=== PATIENT | female | born 1940 | race Caucasian/White ===

== ENCOUNTER → 2017-11-27 08:19 | Outpatient (POV) | payer MEDICARE, SELFPAY | PROVIDERS: Visit Provider Dermatology | DX: Z00.00 Encounter for general adult medical examination without abnormal findings (principal) ==

== ENCOUNTER → 2018-11-10 09:57 | Outpatient (POV) | payer MEDICARE, SELFPAY | PROVIDERS: Visit Provider Dermatology | DX: Z00.00 Encounter for general adult medical examination without abnormal findings (principal) ==

== ENCOUNTER → 2020-06-06 13:18 | Outpatient (POV) | payer MEDICARE, SELFPAY | PROVIDERS: PCP Family Medicine; Visit Provider Dermatology | DX: Z00.00 Encounter for general adult medical examination without abnormal findings (principal) ==

== ENCOUNTER → 2021-09-11 13:21 | Outpatient (POV) | payer MEDICARE, SELFPAY | PROVIDERS: Visit Provider Dermatology | DX: Z00.00 Encounter for general adult medical examination without abnormal findings (principal) ==

== ENCOUNTER → 2022-11-29 09:05 | Outpatient (CLI) | payer MEDICARE, SELFPAY ==
--- NOTE | 2022-11-29 09:11 | XR_ITS ---
FINAL REPORT CLINICAL HISTORY: SHORTNESS OF BREATH FINDINGS: TWO-VIEW CHEST There is cardiomegaly. The mediastinum is normal. The lungs are clear. There is no pneumothorax. There are moderate degenerative changes of the spine. IMPRESSION: No acute cardiopulmonary process. Reviewed, Interpreted and Dictated by Juan Strange III, MD Transcribed by Jeni Warner Authenticated and [facility]
== END ==
PROVIDERS: PCP Family Medicine; Visit Provider Family Medicine
DX: R06.02 Shortness of breath (principal)
CPT/HCPCS: 71046

== ENCOUNTER → 2023-03-25 13:36 | Outpatient (POV) | payer MEDICARE, SELFPAY | PROVIDERS: Visit Provider Dermatology | DX: Z00.00 Encounter for general adult medical examination without abnormal findings (principal) ==

== ENCOUNTER 2023-09-19 09:12 | Emergency (ER) | payer MEDICARE, SELFPAY ==
--- NOTE | 2023-09-19 09:23 | EXP.UTC ---
Discharge Plan Disposition Patient Disposition: Home, Self-Care Condition: Good Prescriptions Prescriptions: New amoxicillin [amoxicillin] 875 mg tablet 875 mg PO Q12H Qty: 20 0RF benzonatate [benzonatate] 100 mg capsule 100 mg PO TIDP PRN (Reason: Cough) Qty: 30 0RF methylprednisolone 4 mg Tablets,Dose Pack 4 mg PO DIRECTED Qty: 21 0RF guaifenesin [Mucinex] 600 mg tablet extended release 12hr 600 - 1,200 mg PO BIDP PRN (Reason: Congestion) Qty: 30 0RF No Action latanoprost 0.005 % drops 1 drp ophthalmic (eye) DAILY atorvastatin 10 mg tablet 10 mg PO DAILY lisinopril 10 mg tablet 10 mg PO DAILY Referrals Follow up/Referrals: Malaika Castrejon MD [Primary Care Provider] - See instructions Activity Restrictions/Add. Instructions Additional Instructions/Restrictions: Drink plenty of fluids. Take tylenol or ibuprofen for pain or fever. Take the medications as directed. Follow up with your regular doctor. GO TO THE ER FOR ANY WORSENING SYMPTOMS Clinical Impressions Clinical Impression: Bronchitis, Sinusitis Instructions Patient Instructions: Acute Bronchitis, DI for Acute Bronchitis Discharge ED Provider: Jeet Caputo [facility] General Stated complaint: deep cough, runny nose Time Seen by Provider: 09/19/23 09:23 Related Data Home Medications Medication Instructions Recorded Confirmed atorvastatin 10 mg tablet 10 mg PO DAILY Cholesterol 09/19/23 09/19/23 latanoprost 0.005 % eye drops 1 drp ophthalmic (eye) DAILY 09/19/23 09/19/23 lisinopril 10 mg tablet 10 mg PO DAILY Hypertension 09/19/23 09/19/23 Previous Rx's Medication Instructions Recorded amoxicillin 875 mg tablet 875 mg PO Q12H #20 tabs 09/19/23 benzonatate 100 mg capsule 100 mg PO TIDP PRN Cough #30 caps 09/19/23 guaifenesin 600 mg tablet, 600 - 1,200 mg PO BIDP PRN 09/19/23 extended release 12 hr (Mucinex) Congestion #30 tabs methylprednisolone 4 mg tablets in 4 mg PO DIRECTED #21 tabs 09/19/23 a dose pack Allergies Allergy/AdvReac Type Severity Reaction Status Date / Time No Known Allergies Allergy Verified 09/19/23 09:23 [facility] Disclaimer: The information contained in this section may have been updated after the patient was seen, as this information can be updated by other users. Medical History (Updated 09/19/23 @ 09:48 by Jeet Caputo APRN) History of anemia Hyperlipidemia Hypertension Migraine Urinary tract infection Surgical History (Updated 09/19/23 @ 09:33 by Lolly Goldstein RN) History of back surgery History of tonsillectomy History of tubal ligation Social History Smoking Status: Never smoker alcohol intake: never current occupational status: retired Travel in the last 8 weeks: None ROS Obtained: Yes All systems reviewed & no additional complaints except as documented Constitutional Constitutional: Reports poor appetite Eyes Eyes: Reports system reviewed and no additional complaints, except as documented ENT Ears, Nose, Mouth, and Throat: Reports as per HPI Cardiovascular Cardiovascular: Reports system reviewed and no additional complaints, except as documented and Denies chest pain Respiratory Respiratory: Denies shortness of breath, Reports chest congestion, Reports cough, Denies stridor and Denies wheezing Gastrointestinal Gastrointestingal: Reports system reviewed and no additional complaints, except as documented; Denies abdominal pain, diarrhea or vomiting Musculoskeletal Musculoskeletal: Reports system reviewed and no additional complaints, except as documented and Denies arthralgias Integumentary/Breasts Skin/Breast: Reports system reviewed and no additional complaints, except as documented and Denies rash Neurologic Neurologic: Denies paresthesias Allergic/Immunologic Allergic/Immunologic: Denies wheezing Physical Exam General General appearance: alert and in no apparent distress Eye Eye exam: Present no
[2023-09-19 09:25] VITALS: BP 149/70; PULSE 75; RESP 19; TEMP 36.8; O2SAT 98; BMI 23.0
[2023-09-19 09:36] VITALS: BP 149/70; PULSE 75; RESP 19; TEMP 36.8; O2SAT 98
== END 2023-09-19 09:54 | disposition home or self-care (01) ==
PROVIDERS: Emergency Provider Nurse Practitioner Family; PCP Family Medicine
DX: J20.9 Acute bronchitis, unspecified (principal); J01.90 Acute sinusitis, unspecified; R05.9 Cough, unspecified; R09.81 Nasal congestion; I10 Essential (primary) hypertension; E78.5 Hyperlipidemia, unspecified
CPT/HCPCS: 99204; 99212; G0463

== ENCOUNTER 2023-11-03 19:41 | Emergency (ER) | payer MEDICARE, SELFPAY ==
[2023-11-03 20:30] VITALS: BP 194/87; PULSE 78; RESP 14; O2SAT 97; BMI 23.6
--- NOTE | 2023-11-03 20:37 | XR_ITS ---
PROCEDURE INFORMATION: Exam: XR Right Forearm Exam date and time: 11/03/2023 8:53 PM Age: 83 years old Clinical indication: Pain; Lower or forearm; Right; Additional info: Fall; R hand/wrist pain TECHNIQUE: Imaging protocol: Radiologic exam of the right forearm. Views: 2 views. COMPARISON: CR XR WRIST RT MIN 3V 11/03/2023 8:51 PM FINDINGS: Bones/joints: Normal. Soft tissues: Normal. IMPRESSION: No acute findings.
--- NOTE | 2023-11-03 20:37 | XR_ITS ---
PROCEDURE INFORMATION: Exam: XR Right Hand Exam date and time: 11/03/2023 8:49 PM Age: 83 years old Clinical indication: Pain; Hand; Right; Additional info: Fall; R pinky pain TECHNIQUE: Imaging protocol: Radiologic exam of the right hand. Views: 3 or more views. COMPARISON: No relevant prior studies available. FINDINGS: Bones/joints: Transversely oriented minimally displaced fracture of the base of the 5th proximal phalanx. No additional acute fracture or dislocation. Chronic fracture deformity involving the 5th metacarpal. Soft tissues: Normal. IMPRESSION: Transversely oriented minimally displaced fracture of the base of the 5th proximal phalanx.
--- NOTE | 2023-11-03 20:37 | XR_ITS ---
PROCEDURE INFORMATION: Exam: XR Right Wrist Exam date and time: 11/03/2023 8:51 PM Age: 83 years old Clinical indication: Pain; Wrist; Right; Additional info: Fall; R hand/wrist pain TECHNIQUE: Imaging protocol: Radiologic exam of the right wrist. Views: 3 or more views. COMPARISON: CR XR HAND RT MIN 3V 11/03/2023 8:49 PM FINDINGS: Bones/joints: Transversely oriented minimally displaced fracture of the base of the 5th proximal phalanx. No additional fracture or dislocation Soft tissues: Normal. IMPRESSION: Transversely oriented minimally displaced fracture of the base of the 5th proximal phalanx.No additional fracture or dislocation
--- NOTE | 2023-11-03 20:46 | CT_ITS ---
PROCEDURE INFORMATION: Exam: CT Head Without Contrast Exam date and time: 11/03/2023 8:55 PM Age: 83 years old Clinical indication: Pain; Other: Fall; Additional info: Fall head trauma TECHNIQUE: Imaging protocol: Computed tomography of the head without contrast. Radiation optimization: All CT scans at this facility use at least one of these dose optimization techniques: automated exposure control; mA and/or kV adjustment per patient size (includes targeted exams where dose is matched to clinical indication); or iterative reconstruction. COMPARISON: No relevant prior studies available. FINDINGS: Brain: Atrophy and chronic small vessel ischemic changes. No hemorrhage. No mass effect or midline shift. Cerebral ventricles: No ventriculomegaly. Paranasal sinuses: Visualized sinuses are unremarkable. No fluid levels. Mastoid air cells: Visualized mastoid air cells are well aerated. Bones/joints: Unremarkable. No acute fracture. Soft tissues: Unremarkable. IMPRESSION: Chronic changes in the brain but no acute intracranial abnormality.
--- NOTE | 2023-11-03 21:09 | ED_ITS ---
Discharge Plan Disposition Patient Disposition: Home, Self-Care Prescriptions Prescriptions: No Action latanoprost 0.005 % drops 1 drp ophthalmic (eye) DAILY atorvastatin 10 mg tablet 10 mg PO DAILY lisinopril 10 mg tablet 10 mg PO DAILY amoxicillin [amoxicillin] 875 mg tablet 875 mg PO Q12H Qty: 20 0RF benzonatate [benzonatate] 100 mg capsule 100 mg PO TIDP PRN (Reason: Cough) Qty: 30 0RF methylprednisolone 4 mg Tablets,Dose Pack 4 mg PO DIRECTED Qty: 21 0RF guaifenesin [Mucinex] 600 mg tablet extended release 12hr 600 - 1,200 mg PO BIDP PRN (Reason: Congestion) Qty: 30 0RF Referrals Follow up/Referrals: Malaika Castrejon MD [Primary Care Provider] - See instructions Lance Linda DO [Staff Physician] - See instructions Activity Restrictions/Add. Instructions Additional Instructions/Restrictions: Please keep splint clean, dry, intact. Please follow-up with Dr. Linda in orthopedic surgery. Please follow-up with your primary care provider. Please return to the emergency department if you develop any new or worsening symptoms or become concerned for your health. Clinical Impressions Clinical Impression: Finger fracture, right Qualifiers: Encounter type: initial encounter Finger: little finger Fracture type: closed Phalanx: proximal Fracture alignment: displaced Qualified Code(s): S62.616A - Displaced fracture of proximal phalanx of right little finger, initial encounter for closed fracture Discharge ED Provider: Enrique Bajwa General Adult HPI General Chief complaint: Extremity Injury, Upper Stated complaint: AO 11/03/231929 injury right hand Time Seen by Provider: 11/03/23 20:46 Mode of Arrival: Ambulatory Source of Information: Patient Limitations: No Limitations Description of Symptoms (Recalled from ER Triage Doc. by RN): pt states she was walking outside around 1929. When she tried to step up to the side walk she missed the step and fell on the R side of her body. pt denies usage of blood thinners. pt c/o R hand/wrist pain. there is minimal swelling to her R pinky. pt states the pain is 8/10. no obvious deformity. pt states she hit the R side of her head near her mandaen. Pt does not want worked up for her head. no LOC. History of Present Illness HPI narrative: 83-year-old female, not on blood thinners, presents after trip and fall from standing. She fell and landed striking her right hand. She also struck her right mandaen region. She reports no headache, vision changes or any other significant head trauma. She reports pain in her right fifth digit and the hand. Reports decreased movement of the fifth digit. She reports that she is not at all concerned that she hurt her head. She reports she is not all concerned that she hurt her neck. She reports no neck pain or tenderness. Related Data Home Medications Medication Instructions Recorded Confirmed atorvastatin 10 mg tablet 10 mg PO DAILY Cholesterol 09/19/23 09/19/23 latanoprost 0.005 % eye drops 1 drp ophthalmic (eye) DAILY 09/19/23 09/19/23 lisinopril 10 mg tablet 10 mg PO DAILY Hypertension 09/19/23 09/19/23 Previous Rx's Medication Instructions Recorded amoxicillin 875 mg tablet 875 mg PO Q12H #20 tabs 09/19/23 benzonatate 100 mg capsule 100 mg PO TIDP PRN Cough #30 caps 09/19/23 guaifenesin 600 mg tablet, 600 - 1,200 mg PO BIDP PRN 09/19/23 extended release 12 hr (Mucinex) Congestion #30 tabs methylprednisolone 4 mg tablets in 4 mg PO DIRECTED #21 tabs 09/19/23 a dose pack Allergies Allergy/AdvReac Type Severity Reaction Status Date / Time No Known Allergies Allergy Verified 11/03/23 20:39 [facility] Disclaimer: The information contained in this section may have been updated after the lauraraymond nt was seen, as this information can be updated by other users. Medical History (Updated 11/03/23 @ 23:33 by Enrique Bajwa MD) History of anemia Hyperlipidemia Hypertension Migraine Urinary tract infection Surgical History (Updated 09/19/23 @ 09:33 by Lolly Goldstein RN) History of back surgery History of tonsillectomy History of tubal ligation Social History (Updated 09/22/23 @ 15:40 by Jeet Caputo APRN) Smoking Status: Never smoker alcohol intake: never current occupational status: retired Travel in the last 8 weeks: None ROS Obtained: Yes All systems reviewed & no additional complaints except as documented Physical Exam General General appearance: alert and in no apparent distress Head Head exam: atraumatic and normocephalic Eye Eye exam: Present normal appearance, PERRL and EOMI ENT ENT exam: Present normal oropharynx and normal external ear exam Neck Neck exam: Present normal inspection and full ROM Chest Chest inspection: Present normal inspection and symmetric chest wall rise; Absent tenderness Respiratory Respiratory exam: Present normal lung sounds bilaterally; Absent respiratory distress Cardiovascular Cardiovascular exam: Present regular rate and normal rhythm Abdominal Exam Abdominal exam: Present soft; Absent distention, tenderness or guarding Extremities Exam Extremities exam: Present other (Bruising and significant tenderness over the fifth MCP and fifth digit. It is mildly internally rotated. Decreased range of motion noted though tendon exam is intact. Normal neurovascular exam.) Back Exam Back exam: Present normal inspection; Absent tenderness Neurological Exam Neurological exam: Present alert and oriented X3; Absent motor sensory deficit Psychiatric Psychiatric exam: Present normal affect and normal mood Skin Skin exam: Present warm, dry and normal color Lymphatic Lymphatic Findings: no adenopathy Medical Decision Making Medical Records Medical records reviewed: Yes I reviewed the patient's medical records. Tae Inquiry Pt receiving controlled substance: No Tae was queried for this patient: No Vital Signs: 11/03/23 20:30 11/03/23 23:46 Temperature 98 F Pulse Rate 70 Pulse Rate [Left] 78 Respiratory Rate 14 14 Blood Pressure 157/78 H Blood Pressure [Right Arm] 194/87 H Blood Pressure Mean [Right Arm] 122 Blood Pressure Source [Right Arm] Automatic Cuff Blood Pressure Position [Right Arm] Sitting 02 Sat by Pulse Oximetry 97 Oxygen Delivery Method Room Air Lab Data Lab results reviewed: Yes I reviewed the patient's lab results. Orders (Tests/Meds): ED MEDICATIONS Discontinued Medications Generic Name Dose Route Start Last Admin Trade Name Josq PRN Reason Stop Dose Admin Acetaminophen 1,000 mg 11/03/23 22:56 11/03/23 23:01 Acetaminophen 500mg Tab PO 11/03/23 22:57 1,000 mg ONCE ONE Administration Ibuprofen 400 mg 11/03/23 22:56 11/03/23 23:02 Ibuprofen 400 Mg Tablet PO 11/03/23 22:57 400 mg ONCE ONE Administration Oxycodone HCl 5 mg 11/03/23 22:55 11/03/23 23:02 Oxycodone 5mg Immediate Release Tablet PO 11/03/23 22:56 5 mg ONCE ONE Administration ORDERS Category Date Time Status CT head/brain wo con Stat Cat Scan 11/03/23 20:46 Completed Forearm XR right 2 views [XR forearm RT 2V] Stat Exams 11/03/23 20:37 Completed Hand XR right minimum 3 views [XR hand RT min 3V] Stat Exams 11/03/23 23:12 Completed XR hand RT min 3V Stat Exams 11/03/23 20:37 Completed XR wrist RT min 3V Stat Exams 11/03/23 20:37 Completed Medical Decision Narrative: 83-year-old female history of hypertension hyperlipidemia presents with fall from standing, mechanical, reports right hand pain, struck her head, did not lose consciousness. History was obtained via conversation with patient, family. On arrival, patient is [afebrile, hemodynamically stable, satting appropriately, alert, oriented x4, GCS 15], moving all extremities spontaneously. Full physical exam performed and significant for findings of the right hand as above, concern for mild malrotation of the finger. No head trauma, no neck pain or tenderness, no pain with range of motion of the neck Differential includes but is not limited to intracranial trauma, Extremity trauma Patient was given Tylenol, ibuprofen, oxycodone for symptomatic management and correction of underlying abnormalities. Workup initiated including CT head, radiographs of the right hand, wrist, forearm. On re-evaluation, patient [remains afebrile, HD stable.] Imaging independently interpreted by me and significant for no acute intracranial bleeding or trauma. Radiograph shows a mildly displaced right proximal phalanx fracture of the fifth digit. See radiology read for full review of final results. Hematoma block of the fracture was performed, fracture was reduced and splinted at bedside in an ulnar gutter by me. Repeat imaging interpreted by me and significant for improved alignment. Patient instructed to follow-up with Dr. Linda for reassessment. Discharged in stable condition. Given patient history, exam and workup, patient's presentation most likely represents fall with acute mildly displaced fracture of the right fifth proximal phalanx.. Procedures Risk/Benefits of Procedure(s) Were Explained: Yes Nerve Block Nerve Block 1: Time out performed: No Local Anesthetic: lidocaine 1% Amount of anesthesia used (mL): 3 Side: Right Nerve Blocks: digital (Right fifth digit) Procedure Successful: Yes Patient Tolerated Procedure: well and no complications Complications: none Orthopedic Fracture Reduction Fracture #1: Side: right Fracture Reduction Location: finger (Fifth proximal phalanx) Analgesia: nerve block Technique: direct manipulation Post Reduction X-rays Demonstrate: acceptable reduction Post-reduction neuro exam: no change Post-reduction vascular exam: no change Splint Applied: Yes (Ulnar gutter splint applied at bedside by me) Patient Tolerated Procedure: well and no complications Additional Comments: I provided the patient definitive fracture care. Orthopedic Splinting/Casting Injury #1: Side: right Upper Extremity Injury Location: finger Upper Extremity Immobilizer: ulnar gutter Post Cast/Splinting Neuro Status: intact and no change Post Cast/Splinting Vasc Status: intact and no change Critical Care Critical Care Time Critical Care Time: No
[2023-11-03] MEDS: ACETAMINOPHEN 500MG TAB 1000 MG PO (23:01)
[2023-11-03] MEDS: IBUPROFEN 400 MG TABLET PO (23:02)
[2023-11-03] MEDS: OXYCODONE 5MG IMMEDIATE RELEASE TABLET 5 MG PO (23:02)
--- NOTE | 2023-11-03 23:12 | XR_ITS ---
PROCEDURE INFORMATION: Exam: XR Right Hand Exam date and time: 11/03/2023 11:16 PM Age: 83 years old Clinical indication: Pain; Hand; Right; Additional info: Reduction TECHNIQUE: Imaging protocol: Radiologic exam of the right hand. Views: 3 or more views. COMPARISON: CR XR HAND RT MIN 3V 11/03/2023 8:49 PM FINDINGS: Bones/joints: Transversely oriented minimally displaced fracture of the base of the 5th proximal phalanx with improved alignment. No additional fracture or dislocation Soft tissues: Overlying splint. IMPRESSION: Transversely oriented minimally displaced fracture of the base of the 5th proximal phalanx with improved alignment
[2023-11-03 23:46] VITALS: BP 157/78; PULSE 70; RESP 14; TEMP 36.6; O2SAT 98
== END 2023-11-03 23:47 | disposition home or self-care (01) ==
PROVIDERS: Emergency Provider Emergency Medicine; PCP Family Medicine
DX: S62.616A Displaced fracture of proximal phalanx of right little finger, initial encounter for closed fracture (principal); I10 Essential (primary) hypertension; E78.5 Hyperlipidemia, unspecified; W10.1XXA Fall (on)(from) sidewalk curb, initial encounter
CPT/HCPCS: 26725; 64450; 70450; 73090; 73110; 73130; 99285

== ENCOUNTER 2023-11-13 13:43 | Outpatient (CLI) | payer MEDICARE, SELFPAY ==
--- NOTE | 2023-11-13 13:47 | XR_ITS ---
FINAL REPORT CLINICAL HISTORY: rt hand pain fall, fx 1 week fx to 5th proximal phalanx per patient COMPARISON: 11/03/2023 FINDINGS: RIGHT HAND: 3 views of the right hand were obtained. A splint is present on the ulnar aspect of the hand which somewhat obscures detail. There is a fracture of the base of the proximal phalanx, oblique in orientation, which extends into the joint space. This was also seen on the prior exam of November 03. There is questionable palmar subluxation of the distal fracture fragment. Mild degenerative change is present in the remainder of the hand. Soft tissues are unremarkable. IMPRESSION: Splint somewhat obscures detail on the ulnar side of the hand. Fracture base of the proximal phalanx, extending into the joint space, with questionable palmar subluxation of the distal fracture fragment. Reviewed, Interpreted and Dictated by Juan Strange III, MD Transcribed by Leanne Marie Authenticated and [facility]
== END 2023-11-13 23:59 ==
LOC: RAD 13:44
PROVIDERS: PCP Family Medicine; Visit Provider Orthopaedic Surgery
DX: S62.646D Nondisplaced fracture of proximal phalanx of right little finger, subsequent encounter for fracture with routine healing (principal); W01.0XXD Fall on same level from slipping, tripping and stumbling without subsequent striking against object, subsequent encounter
CPT/HCPCS: 73130

== ENCOUNTER 2024-05-03 11:46 | Emergency (ER) | payer MEDICARE, SELFPAY ==
[2024-05-03 12:10] VITALS: BP 147/120; PULSE 82; RESP 20; TEMP 36.9; O2SAT 97; BMI 23.6
[2024-05-03 12:29] VITALS: BP 133/74
--- NOTE | 2024-05-03 12:29 | EXP.UTC ---
Discharge Plan Disposition Patient Disposition: Home, Self-Care Condition: Good Prescriptions Prescriptions: New methylprednisolone [Medrol (Karl)] 4 mg tablets,dose pack See Rx Instructions .Route .COMPLEX 6 Days Qty: 21 0RF Rx Instructions: taper pack; cefdinir 300 mg capsule 300 mg PO BID Qty: 14 0RF No Action atorvastatin 10 mg tablet 10 mg PO DAILY lisinopril 10 mg tablet 10 mg PO DAILY Referrals Follow up/Referrals: Malaika Castrejon MD [Primary Care Provider] - See instructions Activity Restrictions/Add. Instructions Additional Instructions/Restrictions: *Monitor Temp, Over the counter Motrin or Tylenol as directed/as needed Tylenol every 4 hours and Motrin every 6 hours (as long as your family doctor has told you that you can take it) for fever or pain. and straight to ER if unable to lower temp less than 101.0 after medication given *Warm salt water gargles may help to soothe the throat *Throat Lozenges? *Warm fluids like tea with honey may help to soothe the throat? *Sleep elevated *Humidifier/Vaporizer *Flonase 2 sprays in each nostril daily but be aware that it may take 2-3 days before you notice improvement *Bromfed may cause drowsiness. Know how it effects you (your child) before driving, caring for small child, or sending your child to school. Not other antihistamines/allergy medications while taking bromfed Your throat swab was sent for culture. Those results are typically sent to your primary care. Be sure to follow up in 2-3 days with your family doctor/primary care physician if no improvement so they can review those result and treat if necessary. If you don?t have a primary care doctor, I recommend you get one but in the mean time, you will have to return to a walk in clinic Follow up IMMEDIATELY for new or worsening symptoms or no Noticeable improvement over the next 48-72 hours. 911 for difficulty breathing or swallowing Clinical Impressions Clinical Impression: Sinusitis Instructions Patient Instructions: DI for Sinusitis, Sinusitis Discharge ED Provider: Elizabeth Romeo [facility] General Stated complaint: dripping nose, cough, no energy, acid reflux Mode of Arrival: Ambulatory Source of Information: Patient Limitations: No Limitations Time Seen by Provider: 05/03/24 12:29 Description of Symptoms (Recalled from Triage Doc. by RN): PATIENT C/O RUNNY NOSE, SNEEZING, NO APPETITE, LOW ENERGY X 2 DAYS HEENT Symptoms (Recalled from RN notes): Yes Resp Symptoms (Recalled from RN notes): No Skin Symptoms (Recalled from RN notes): No MS Symptoms (Recalled from RN notes): No Functional Status (Recalled from RN notes): WNL History of Present Illness Provider Complaint: Patient states that she has been having sinus congestion and pressure under her eyes and in her jew area, states that she feels like she is having drainage in the back of her throat and making her stomach upset States that she hasnt had much of an appetite States that she feels like she has a sinus infection but family wanted her to get tested for COVID Related Data Home Medications Medication Instructions Recorded Confirmed atorvastatin 10 mg tablet 10 mg PO DAILY Cholesterol 09/19/23 05/03/24 lisinopril 10 mg tablet 10 mg PO DAILY Hypertension 09/19/23 05/03/24 Previous Rx's Medication Instructions Recorded cefdinir 300 mg capsule 300 mg PO BID #14 caps 05/03/24 methylprednisolone 4 mg tablets in See Rx Instructions .Route 05/03/24 a dose pack (Medrol (Karl)) .COMPLEX 6 days #21 tabs Allergies Allergy/AdvReac Type Severity Reaction Status Date / Time No Known Allergies Allergy Verified 11/13/23 14:17 Worker's Comp Is this a Worker's Comp case?: No [facility] Disclaimer: The information contained in this section may have been updated after the patient was seen, as this information can be updated by other users. Medical History History of anemia Hyperlipidemia Hypertension Migraine Urinary tract infection Surgical History History of back surgery History of tonsillectomy History of tubal ligation Social History Smoking Status: Never smoker alcohol intake: never current occupational status: retired Travel in the last 8 weeks: None ROS Obtained: Yes All systems reviewed & no additional complaints except as documented and Yes Systems reviewed as appropriate & no additional complaints except as documented Constitutional Constitutional: Reports system reviewed and no additional complaints, except as documented, Reports as per HPI and Reports headache(s) ENT Ears, Nose, Mouth, and Throat: Reports system reviewed and no additional complaints, except as documented, Reports as per HPI, Reports headache(s), Reports sinus pain and Reports sinus pressure Cardiovascular Cardiovascular: Reports system reviewed and no additional complaints, except as documented and Reports as per HPI Respiratory Respiratory: Reports system reviewed and no additional complaints, except as documented and Reports as per HPI Gastrointestinal Gastrointestingal: Reports system reviewed and no additional complaints, except as documented, as per HPI and nausea Genitourinary Female Genitourinary: Reports system reviewed and no additional complaints, except as documented and Reports as per HPI Musculoskeletal Musculoskeletal: Reports system reviewed and no additional complaints, except as documented and Reports as per HPI Neurologic Neurologic: Reports headache(s) Physical Exam General General appearance: alert and in no apparent distress ENT ENT exam: Present mucous membranes moist Expanded ENT Exam Nose exam: Present sinus tenderness Throat exam: Present other (PND noted) Respiratory Respiratory exam: Present normal lung sounds bilaterally; Absent respiratory distress or wheezes Cardiovascular Cardiovascular exam: Present regular rate, normal rhythm and normal heart sounds Neurological Exam Neurological exam: Present alert, oriented X3 and normal gait Medical Decision Making Tae Inquiry Pt receiving controlled substance: No Tae was queried for this patient: No Vital Signs: 05/03/24 12:10 05/03/24 12:29 Temperature 98.4 F Temperature Source Oral Pulse Rate [Left Brachial] 82 Respiratory Rate 20 Blood Pressure [Left Arm] 147/120 H 133/74 Blood Pressure Mean [Left Arm] 129 93 Blood Pressure Source [Left Arm] Automatic Cuff Automatic Cuff Blood Pressure Position [Left Arm] Sitting Sitting 02 Sat by Pulse Oximetry 97 Oxygen Delivery Method Room Air Medical Decision Narrative: Medication discussed with pharmacy
[2024-05-03 12:50] VITALS: BP 133/74; PULSE 82; RESP 20; TEMP 36.9; O2SAT 97
[2024-05-03 13:05] LABS: Coronavirus 19, PCR Not Detected (NotDetected); Influenza A, PCR Not Detected (NotDetected); Influenza B, PCR Not Detected (NotDetected)
== END 2024-05-03 13:02 | disposition home or self-care (01) ==
PROVIDERS: Emergency Provider Nurse Practitioner; PCP Family Medicine
DX: J01.90 Acute sinusitis, unspecified (principal); R09.82 Postnasal drip; R11.0 Nausea
CPT/HCPCS: 87636; 99212; 99214; G0463

== ENCOUNTER 2024-05-11 09:05 | Outpatient (CLI) | payer MEDICARE, SELFPAY ==
--- NOTE | 2024-05-11 09:13 | XR_ITS ---
FINAL REPORT CLINICAL HISTORY: .left shoulder and neck pain FINDINGS: Five views of the cervical spine were obtained. No fracture is identified. There is minimal anterolisthesis of C4 on 5, likely degenerative. There is multilevel degenerative disc disease, most pronounced at C5-6 and C6-7. IMPRESSION: Multilevel degenerative disc disease. Reviewed, Interpreted and Dictated by Elizabeth Hall MD Transcribed by Jeni Warner Authenticated and [facility]
--- NOTE | 2024-05-11 09:13 | XR_ITS ---
FINAL REPORT CLINICAL HISTORY: LEFT SHOULDER PAIN, FINDINGS: Three views of the left shoulder were obtained. There is no prior exam for comparison. There is no fracture or dislocation. The joint space is preserved. Soft tissues are normal. IMPRESSION: No acute osseous abnormality of the left shoulder. Reviewed, Interpreted and Dictated by Elizabeth Hall MD Transcribed by Jeni Warner Authenticated and [facility]
== END 2024-05-11 23:59 | disposition home or self-care (01) ==
LOC: RAD 09:07
PROVIDERS: PCP Family Medicine; Visit Provider Family Medicine
DX: M25.512 Pain in left shoulder (principal)
CPT/HCPCS: 72050; 73030

== ENCOUNTER 2024-05-31 08:49 | Outpatient (CLI) | payer MEDICARE, SELFPAY ==
--- NOTE | 2024-05-31 08:53 | XR_ITS ---
FINAL REPORT TECHNIQUE: Bone densitometry calculations of the lumbar spine and left hip were obtained. CLINICAL HISTORY: SCREENING COMPARISON: None FINDINGS: Using the, the bone mineral density of the left forearm is 0.366 g/cm2, corresponding to T-score of -5.5. Using the left hip, the bone mineral density of the femoral neck is 0.633 g/cm2, corresponding to a T-score of -2.6. NOTE: T-score: Standard deviation compared with peak bone mass of young adult mean. *Following the recommendations of the International Society of Bone Densitometry, classification of hip BMD is based on the lower of two T-scores; total hip or femoral neck. IMPRESSION: Osteoporosis: Lowest T-score is at or below -2.5. This patient''s T-score meets the World Health Organization criteria for osteoporosis. Reviewed, Interpreted and Dictated by Juan Strange III, MD Transcribed by Leanne Marie Authenticated and [facility]
== END 2024-05-31 23:59 | disposition home or self-care (01) ==
LOC: RAD 08:49
PROVIDERS: PCP Family Medicine; Visit Provider Family Medicine
DX: M81.0 Age-related osteoporosis without current pathological fracture (principal)
CPT/HCPCS: 77080

== ENCOUNTER 2024-06-22 11:00 | Outpatient (RCR) | payer MEDICARE, SELFPAY | END 2024-06-22 11:05 | disposition home or self-care (01) | LOC: OT 11:00 | PROVIDERS: Visit Provider Family Medicine | DX: M25.512 Pain in left shoulder (principal); M50.30 Other cervical disc degeneration, unspecified cervical region | CPT/HCPCS: 97014; 97110; 97140; 97166; 97530; G0283 ==

== ENCOUNTER 2024-07-01 08:00 | Outpatient (RCR) | payer MEDICARE, SELFPAY | END 2024-07-01 08:05 | disposition home or self-care (01) | LOC: PT 08:00 | PROVIDERS: Visit Provider Family Medicine | DX: M50.30 Other cervical disc degeneration, unspecified cervical region (principal); M25.512 Pain in left shoulder | CPT/HCPCS: 97110; 97140; 97163; 97164 ==

== ENCOUNTER 2024-07-20 08:27 | Outpatient (CLI) | payer MEDICARE, SELFPAY ==
[2024-07-20 08:45] VITALS: BP 143/81; PULSE 78; RESP 16; TEMP 36.6; O2SAT 99
[2024-07-20] MEDS: ZOLEDRONIC ACID/MANNITOL-WATER 5 MG/100 ML PGGYBK.BTL 400 MG IV (08:45)
[2024-07-20] MEDS: SODIUM CHLORIDE 0.9% 50ML BAG 50 ML IV (08:46)
[2024-07-20] MEDS: SODIUM CHLORIDE 0.9% 10ML FLUSH SYRINGE 10 ML IV (08:54)
[2024-07-20 09:12] VITALS: BP 124/63; PULSE 68; RESP 18; O2SAT 99
== END 2024-07-20 09:14 | disposition home or self-care (01) ==
LOC: INF 08:28
PROVIDERS: PCP Family Medicine; Visit Provider Nurse Practitioner
DX: M81.0 Age-related osteoporosis without current pathological fracture (principal)
CPT/HCPCS: 96374; J3489

== ENCOUNTER 2025-02-27 14:10 | Emergency (ER) | payer MEDICARE, SELFPAY ==
[2025-02-27] VITALS (9 sets, daily range): BP systolic 134–147; BP diastolic 68–86; PULSE 58–90; RESP 16–18; TEMP 36.8; O2SAT 94–100; BMI 21.7
--- NOTE | 2025-02-27 14:21 | XR_ITS ---
PROCEDURE INFORMATION: Exam: XR Right Clavicle, Complete Exam date and time: 02/27/2025 2:36 PM Age: 84 years old Clinical indication: Injury or trauma; Fall; Blunt trauma (contusions or hematomas); Shoulder; right Additional info: Fall, R shoulder pain and difficulty moving TECHNIQUE: Imaging protocol: Radiologic exam of the right clavicle. Complete exam. Views: Any number of views. COMPARISON: CR XR HUMERUS RT 02/27/2025 2:33 PM FINDINGS: Bones/joints: Unusual contour in the distal aspect of the clavicle but no definite fracture identified on these images.. Degenerative changes in the acromioclavicular joint and glenohumeral joint. Soft tissues: Normal. IMPRESSION: 1. Unusual contour in the distal aspect of the clavicle but no definite fracture identified on these images.. 2. Degenerative changes in the acromioclavicular joint and glenohumeral joint.
--- NOTE | 2025-02-27 14:21 | XR_ITS ---
PROCEDURE INFORMATION: Exam: XR Right Shoulder Exam date and time: 02/27/2025 2:32 PM Age: 84 years old Clinical indication: Injury or trauma; Fall; Blunt trauma (contusions or hematomas); Shoulder; Right; Additional info: Fall, R shoulder pain and difficulty moving TECHNIQUE: Imaging protocol: Radiologic exam of the right shoulder. Views: 2 or more views. COMPARISON: CR XR CERVICAL SPINE 5V 05/11/2024 9:22 AM FINDINGS: Bones/joints: Unusual contour abnormality in the distal aspect of the clavicle but no definite fracture in this region. No acute fracture identified. Degenerative changes in the acromioclavicular joint and glenohumeral joint. Soft tissues: Normal. IMPRESSION: 1. Unusual contour abnormality in the distal aspect of the clavicle but no definite fracture in this region.. No acute fracture identified 2. Degenerative changes in the acromioclavicular joint and glenohumeral joint.
--- NOTE | 2025-02-27 14:21 | XR_ITS ---
PROCEDURE INFORMATION: Exam: XR Right Humerus Exam date and time: 02/27/2025 2:33 PM Age: 84 years old Clinical indication: Injury or trauma; Fall; Blunt trauma (contusions or hematomas); Arm, upper; Right; Additional info: Fall, R shoulder pain and difficulty moving TECHNIQUE: Imaging protocol: Radiologic exam of the right humerus. Views: 2 or more views. COMPARISON: CR XR SHOULDER RT MIN 2V 02/27/2025 2:32 PM FINDINGS: Bones/joints: Degenerative changes in the acromioclavicular joint and glenohumeral joint. There is no evidence of acute fracture.There is no evidence of malalignment or dislocation. Soft tissues: Normal. IMPRESSION: There is no evidence of acute fracture.There is no evidence of malalignment or dislocation.
--- NOTE | 2025-02-27 14:40 | ED_ITS ---
<Statement entered by Gustavo Eugene DO - 03/01/25 14:40> I was consulted by the REJI, and we discussed the complexity of the problem being addressed. I approve the treatment and management plan for this patient's care in the emergency department, thus performing a substantive portion of the medical decision making. Seen by REJI only. Gustavo Eugeen DO Discharge Plan Disposition Patient Disposition: Home, Self-Care Condition: Good Prescriptions Prescriptions: No Action guaifenesin 400 mg tablet 400 mg PO Q4H PRN (Reason: cough) Qty: 30 0RF fluticasone propionate [Flonase Allergy Relief] 50 mcg/actuation spray,suspension 1 spray intranasal DAILY Qty: 16 2RF Rx Instructions: administer into each nostril atorvastatin 10 mg tablet 10 mg PO DAILY lisinopril 10 mg tablet 10 mg PO DAILY multivitamin Tablet 1 tab PO DAILY vitamin E 200 unit Capsule 45 mg PO DAILY calcium carbonate-vitamin D3 [Calcium + D] 600 mg-5 mcg (200 unit) Tablet 1 tab PO BID ferrous sulfate [iron] 325 mg (65 mg iron) Tablet 325 mg PO DAILY magnesium 100 mg Capsule 100 mg PO DAILY zinc 10 mg Tablet 10 mg PO DAILY Referrals Follow up/Referrals: Malaika Castrejon MD [Primary Care Provider] - See instructions Lance Linda DO [Staff Physician] - See instructions Activity Restrictions/Add. Instructions Additional Instructions/Restrictions: You had an abnormality on the distal clavicle (collar bone) and some AC joint degeneration. Please follow up with orthopedics. Clinical Impressions Clinical Impression: Injury of clavicle Instructions Patient Instructions: Shoulder Sprain, DI for AC Joint Separation Print Language Print Language: Bengali Discharge ED Provider: Gustavo Eugene General Adult HPI General Chief complaint: Extremity Injury, Upper Stated complaint: AO-1200- fall, Pain in R shoulder Time Seen by Provider: 02/27/25 14:24 History of Present Illness HPI narrative: Patient reports that she had a fall around 1230 and hit her right shoulder. She reports that she was on some concrete steps and missed a step, she was able to hold onto the rail so that she did not fall with as much force. She scraped her right shoulder. Denies any head injury or hitting her pelvis. She reports that she took some Tylenol which helped. She has some pain with range of motion unless she holds pressure anteriorly. complaint: right shoulder pain Onset (ago): hour(s) Location: right and upper extremity Radiation: non-radiation Severity: moderate Consistency: constant Relieving factors: medication Exacerbating factors: movement Associated symptoms: negative fever/chills Related Data Home Medications ?Medication ?Instructions ?Recorded ?Confirmed atorvastatin 10 mg tablet 10 mg PO DAILY Cholesterol 09/19/23 02/26/25 lisinopril 10 mg tablet 10 mg PO DAILY Hypertension 09/19/23 02/26/25 calcium 600 mg (as 1 tab PO BID 07/20/24 02/26/25 carbonate)-vitamin D3 5 mcg (200 unit) tablet ferrous sulfate 325 mg (65 mg 325 mg PO DAILY 07/20/24 02/26/25 iron) tablet (iron) magnesium 100 mg capsule 100 mg PO DAILY 07/20/24 02/26/25 multivitamin 1 tab PO DAILY 07/20/24 02/26/25 vitamin E 200 unit capsule 45 mg PO DAILY 07/20/24 02/26/25 zinc 10 mg tablet 10 mg PO DAILY 07/20/24 02/26/25 Previous Rx's ?Medication ?Instructions ?Recorded fluticasone propionate 50 1 spray intranasal DAILY #16 grams 02/26/25 mcg/actuation nasal spray,suspension (Flonase Allergy Relief) guaifenesin 400 mg tablet 400 mg PO Q4H PRN cough #30 tabs 02/26/25 Allergies Allergy/AdvReac Type Severity Reaction Status Date / Time No Known Allergies Allergy Verified 02/26/25 10:16 [facility] Disclaimer: The information contained in this section may have been updated after the patient was seen, as this information can be updated by other users. Medical History History of anemia Urinary tract infection Migraine Hyperlipidemia Hypertension Surgical History History of back surgery History of tubal ligation History of tonsillectomy Family History Other No significant family history Social History Smoking Status: Never smoker alcohol intake: never current occupational status: retired Travel in the last 8 weeks?: None Have you lived/traveled outside [place] in past 30 days?: No Contact w/someone who lives/traveled outside US past 30 days?: No Exposure to someone with infectious disease in past 14 days?: No Do you have a fever (greater than 100.4 F or 38 C)?: No Have you tested positive for COVID-19?: No Exposed to someone with COVID-19 in past 14 days?: No Do you have a sore throat?: No Do you have a cough?: No Do you have any weakness?: No Do you have any diarrhea?: No Are you experiencing any unusual bleeding?: No Do you have any muscle aches/pain?: No Do you have any abdominal pain?: No Are you experiencing loss of taste or smell?: No Other Medical History Have you received the Pneumonia Vaccine: Yes ROS Obtained: Yes Systems reviewed as appropriate & no additional complaints except as documented Physical Exam General General appearance: alert and in no apparent distress Head Head exam: atraumatic and normocephalic Eye Eye exam: Present normal appearance and EOMI Chest Chest inspection: Present symmetric chest wall rise Respiratory Respiratory exam: Present normal lung sounds bilaterally; Absent wheezes or stridor Cardiovascular Cardiovascular exam: Present regular rate and normal rhythm; Absent systolic murmur Extremities Exam Extremities exam: Present full ROM and other (Right shoulder posterior tenderness with superficial abrasion, FROM, N/V intact ) Neurological Exam Neurological exam: Present alert and oriented X3 Psychiatric Psychiatric exam: Present normal affect and normal mood Skin Skin exam: Present warm, dry and intact Medical Decision Making Medical Records Screening: Per USPSTF and CDC recommendations, given the prevalence of disease in our region, it is our hospital?s policy to screen for HIV and viral Hepatitis for all patients aged 18 and over and those with ongoing risk factors. Tae Inquiry Pt receiving controlled substance: No Vital Signs: 02/27/25 14:15 02/27/25 14:17 02/27/25 14:30 Temperature 98.2 F Temperature Source Oral Pulse Rate 90 82 Pulse Rate [Right] 90 Respiratory Rate 16 Blood Pressure 147/74 H 146/79 H Blood Pressure [Left Arm] 147/74 H Blood Pressure Mean [Left Arm] 98 Blood Pressure Source 02 Sat by Pulse Oximetry 98 97 Oxygen Delivery Method Room Air Room Air 02/27/25 14:57 02/27/25 15:01 02/27/25 15:45 Temperature Temperature Source Pulse Rate 84 83 80 Pulse Rate [Right] Respiratory Rate 16 Blood Pressure 145/76 H 145/76 H 139/68 Blood Pressure [Left Arm] Blood Pressure Mean [Left Arm] Blood Pressure Source Automatic Cuff 02 Sat by Pulse Oximetry 94 L 95 96 Oxygen Delivery Method Room Air Room Air 02/27/25 16:00 02/27/25 16:30 02/27/25 17:06 Temperature 98.2 F Temperature Source Oral Pulse Rate 81 77 58 L Pulse Rate [Right] Respiratory Rate 18 Blood Pressure 134/77 145/79 H 140/86 Blood Pressure [Left Arm] Blood Pressure Mean [Left Arm] Blood Pressure Source Automatic Cuff 02 Sat by Pulse Oximetry 100 96 Oxygen Delivery Method Room Air Orders (Tests/Meds): ORDERS Category Date Time Status XR clavicle RT Stat Exams 02/27/25 14:21 Completed XR humerus RT Stat Exams 02/27/25 14:21 Completed XR shoulder RT min 2V Stat Exams 02/27/25 14:21 Completed Medical Decision Narrative: In summary patient is a 84-year-old female who presents the emergency department for evaluation of right shoulder pain. Patient is hemodynamically stable upon arrival, afebrile. Abrasion and posterior shoulder tenderness on exam. Differential diagnosis includes abrasion, contusion, fracture, strain. Initial workup will be conducted with plain films. Initial workup reviewed by me abnormality noted to the distal clavicle as well as degeneration to the AC joint. Given this patient was placed in a sling and given follow-up with orthopedics for further evaluation. She declined tetanus vaccination at this time.. Critical Care Critical Care Time Critical Care Time: No
--- NOTE | 2025-02-27 14:40 | PC.NURSE ---
pt going for xrays at this time via wheelchair
== END 2025-02-27 17:09 | disposition home or self-care (01) ==
PROVIDERS: Emergency Provider Student in an Organized Health Care Education/Training Program; PCP Family Medicine
DX: S49.91XA Unspecified injury of right shoulder and upper arm, initial encounter (principal); M25.511 Pain in right shoulder; W10.8XXA Fall (on) (from) other stairs and steps, initial encounter
CPT/HCPCS: 73000; 73030; 73060; 99284

== ENCOUNTER 2025-03-24 09:08 | Outpatient (CLI) | payer MEDICARE, SELFPAY ==
--- NOTE | 2025-03-24 09:13 | XR_ITS ---
FINAL REPORT CLINICAL HISTORY: BRONCHITIS COMPARISON: 11/29/2022 FINDINGS: CHEST 2 VIEWS PA AND LATERAL There is a moderate cardiomegaly accentuated by underinflation. The mediastinum is unremarkable. The lungs are clear. There is no pneumothorax. IMPRESSION: No acute process. Reviewed, Interpreted and Dictated by Doug Thompson MD Transcribed by Jeni Warner Authenticated and [facility]
== END 2025-03-24 23:59 | disposition home or self-care (01) ==
LOC: RAD 09:11
PROVIDERS: PCP Nurse Practitioner Family; Visit Provider Nurse Practitioner Family
DX: J40 Bronchitis, not specified as acute or chronic (principal)
CPT/HCPCS: 71046

== ENCOUNTER 2025-03-24 19:19 | Inpatient (IN) | payer MEDICARE, SELFPAY ==
[2025-03-24] VITALS (8 sets, daily range): BP systolic 109–176; BP diastolic 81–89; PULSE 81–100; RESP 20; TEMP 36.6–37.1; O2SAT 91–96; BMI 21.5; BMI 17.6
--- NOTE | 2025-03-24 19:48 | CT_ITS ---
PROCEDURE INFORMATION: Exam: CTA Chest With Contrast Exam date and time: 03/24/2025 8:45 PM Age: 84 years old Clinical indication: Shortness of breath TECHNIQUE: Imaging protocol: Computed tomographic angiography of the chest with contrast. Exam focused on the arteries. 3D rendering (Not supervised by radiologist): MIP and/or 3D reconstructed images were created by the technologist. Radiation optimization: All CT scans at this facility use at least one of these dose optimization techniques: automated exposure control; mA and/or kV adjustment per patient size (includes targeted exams where dose is matched to clinical indication); or iterative reconstruction. Contrast material: ISO 370; Contrast volume: 70 ml; Contrast route: INTRAVENOUS (IV); COMPARISON: CR XR CHEST 2V 03/24/2025 9:15 AM FINDINGS: Pulmonary arteries: No acute pulmonary emboli. Aorta: Atherosclerotic disease of the thoracic aorta, without aneurysm or dissection. Lungs: Focal consolidation within the posterior right lower lobe, compatible with pneumonia. Bilateral mid and lower lung zone bronchial wall thickening, compatible with reactive airway disease or bronchitis. Small amount of endobronchial material within the right lower lobe bronchi, likely secretions or aspirate. Pleural spaces: Unremarkable. No pneumothorax. No pleural effusion. Heart: Large-sized pericardial effusion. No pericardial thickening or abnormal enhancement. Calcification of the mitral valve annulus. Lymph nodes: Unremarkable. No enlarged lymph nodes. Liver: Simple left hepatic lobe cysts. Adrenal glands: 15 mm left adrenal nodule, likely benign, but not definitively characterized on this study. Bones/joints: Unremarkable. No acute fracture. Soft tissues: 4.3 x 3.0 cm anterior mediastinal soft tissue mass (series 5, image 51). IMPRESSION: 1. No acute pulmonary emboli. 2. Focal consolidation within the posterior right lower lobe, compatible with pneumonia. 3. Bilateral mid and lower lung zone bronchial wall thickening, compatible with reactive airway disease or bronchitis. 4. Small amount of endobronchial material within the right lower lobe bronchi, likely secretions or aspirate. 5. Large-sized pericardial effusion. No pericardial thickening or abnormal enhancement. 6. 4.3 x 3.0 cm anterior mediastinal soft tissue mass (series 5, image 51). Differential considerations include thymic neoplasm and lymphoma. Recommend further evaluation.
--- NOTE | 2025-03-24 19:52 | HMH.EDGENADL ---
Discharge Plan Disposition Patient Disposition: Admitted Condition: Fair Clinical Impressions Clinical Impression: Pericardial effusion, Right lower lobe pneumonia Discharge ED Provider: Azeem Lawrence General Adult HPI <Pamela Nagy APRN - Last Filed: 03/24/25 21:43> General Chief complaint: Upper Respiratory Infection Stated complaint: Cough,SOA Time Seen by Provider: 03/24/25 19:30 Mode of Arrival: Ambulatory Source of Information: Patient Description of Symptoms (Recalled from ER Triage Doc. by RN): patient c/o SOB x6 weeks. had a previous antibiotic and just started a second one. has also had a low grade fever. Related Data Home Medications ?Medication ?Instructions ?Recorded ?Confirmed atorvastatin 10 mg tablet 10 mg PO DAILY Cholesterol 09/19/23 03/24/25 lisinopril 10 mg tablet 10 mg PO DAILY Hypertension 09/19/23 03/24/25 calcium 600 mg (as 1 tab PO BID 07/20/24 03/24/25 carbonate)-vitamin D3 5 mcg (200 unit) tablet ferrous sulfate 325 mg (65 mg 325 mg PO DAILY 07/20/24 03/24/25 iron) tablet (iron) magnesium 100 mg capsule 100 mg PO DAILY 07/20/24 03/24/25 multivitamin 1 tab PO DAILY 07/20/24 03/24/25 vitamin E 200 unit capsule 45 mg PO DAILY 07/20/24 03/24/25 zinc 10 mg tablet 10 mg PO DAILY 07/20/24 03/24/25 Previous Rx's ?Medication ?Instructions ?Recorded fluticasone propionate 50 1 spray intranasal DAILY #16 grams 02/26/25 mcg/actuation nasal spray,suspension (Flonase Allergy Relief) Allergies Allergy/AdvReac Type Severity Reaction Status Date / Time No Known Allergies Allergy Verified 02/26/25 10:16 PFSH <Pamela Nagy APRN - Last Filed: 03/24/25 21:43> [facility] Disclaimer: The information contained in this section may have been updated after the patient was seen, as this information can be updated by other users. Medical History (Updated 03/25/25 @ 00:03 by Azeem Lawrence MD) Squamous cell carcinoma History of anemia Urinary tract infection Migraine Hyperlipidemia Hypertension Surgical History (Updated 03/24/25 @ 23:10 by Maday Tye, RN) History of lumpectomy of left breast History of back surgery History of tubal ligation History of tonsillectomy Family History (Updated 03/24/25 @ 23:09 by Maday Gamble RN) Father Heart attack Other No significant family history Social History (Updated 03/24/25 @ 23:09 by Maday Gamble RN) Smoking Status: Never smoker alcohol intake: never current occupational status: retired Travel in the last 8 weeks?: None Have you lived/traveled outside [place] in past 30 days?: No Contact w/someone who lives/traveled outside US past 30 days?: No Exposure to someone with infectious disease in past 14 days?: No Do you have a fever (greater than 100.4 F or 38 C)?: No Have you tested positive for COVID-19?: No Exposed to someone with COVID-19 in past 14 days?: No Do you have a sore throat?: No Do you have a cough?: Yes Do you have any weakness?: No Do you have any diarrhea?: No Are you experiencing any unusual bleeding?: No Do you have any muscle aches/pain?: No Do you have any abdominal pain?: No Are you experiencing loss of taste or smell?: No Other Medical History Have you received the Pneumonia Vaccine: Yes <Pamela Nagy APRN - Last Filed: 03/24/25 21:43> ROS Obtained: Yes Systems reviewed as appropriate & no additional complaints except as documented Physical Exam <Pamela Nagy APRN - Last Filed: 03/24/25 21:43> General General appearance: alert and in no apparent distress Head Head exam: atraumatic and normocephalic Eye Eye exam: Present PERRL and EOMI Neck Neck exam: Present trachea midline Chest Chest inspection: Present symmetric chest wall rise Respiratory Respiratory exam: Present respiratory distress and other (Coarse rhonchi noted in the right lower lobe, occasional expiratory wheezes noted on the right side) Cardiovascular Cardiovascular exam: Present regular rate and normal rhythm Abdominal Exam Abdominal exam: Present soft and normal bowel sounds; Absent tenderness Extremities Exam Extremities exam: Present normal inspection and full ROM Neurological Exam Neurological exam: Present alert and oriented X3 Skin Skin exam: Present warm, dry and intact Medical Decision Making <Pamela Nagy APRN - Last Filed: 03/24/25 21:43> Medical Records Screening: Per USPSTF and CDC recommendations, given the prevalence of disease in our region, it is our hospital?s policy to screen for HIV and viral Hepatitis for all patients aged 18 and over and those with ongoing risk factors. Tae Inquiry Pt receiving controlled substance: No Vital Signs: 03/24/25 19:48 03/24/25 19:49 03/24/25 20:00 Temperature 98.8 F Temperature Source Oral Pulse Rate 93 H 94 H Pulse Rate [Right] 91 H Respiratory Rate 20 Blood Pressure 176/87 H 167/83 H Blood Pressure [Right Arm] 176/87 H Blood Pressure Mean [Right Arm] 116 Blood Pressure Source Blood Pressure Source [Right Arm] Automatic Cuff Blood Pressure Position Blood Pressure Position [Right Arm] Sitting 02 Sat by Pulse Oximetry 94 L 92 L 91 L Oxygen Delivery Method Room Air Room Air Room Air 03/24/25 20:30 03/24/25 22:14 Temperature 97.9 F Temperature Source Oral Pulse Rate 91 H 81 Pulse Rate [Right] Respiratory Rate 20 Blood Pressure 161/89 H 109/81 L Blood Pressure [Right Arm] Blood Pressure Mean [Right Arm] Blood Pressure Source Automatic Cuff Blood Pressure Source [Right Arm] Blood Pressure Position Sitting Blood Pressure Position [Right Arm] 02 Sat by Pulse Oximetry 91 L Oxygen Delivery Method Room Air Room Air Lab Data Lab Results 03/24/25 20:07: WBC 11.7 H, RBC 4.27, Hgb 12.2, Hct 38.1, MCV 89.2, MCH 28.6, MCHC 32.0, RDW 15.5, Plt Count 208, MPV 12.6 H, Neut % (Auto) 83.8 H, Lymph % (Auto) 5.8 L, [place] % (Auto) 9.9 H, Eos % (Auto) 0.0 L, Baso % (Auto) 0.1, Neut # (Auto) 9.8 H, Lymph # (Auto) 0.7, [place] # (Auto) 1.2 H, Eos # (Auto) 0.0, Baso # (Auto) 0.0, Sodium 134 L, Potassium 3.8, Chloride 100, Carbon Dioxide 29, Anion Gap 8.8, BUN 16, Creatinine 0.50 L, Estimated Creat Clear 35, Estimated GFR 118, Est GFR ( Amer) 143, Glucose 194 H, Calcium 8.5, Total Bilirubin 1.7 H, AST 30, ALT 28, Alkaline Phosphatase 101, Total Protein 7.0, Albumin 3.7, Globulin 3.3 H, Albumin/Globulin Ratio 1.1, TSH 1.70 03/24/25 21:17: Lactate 0.9 03/24/25 20:07 03/24/25 20:07 Orders (Tests/Meds): ED MEDICATIONS Generic Name Dose Route Start Last Admin Trade Name Freq PRN Reason Stop Dose Admin Acetaminophen 650 mg 03/24/25 21:58 Acetaminophen 325mg Tab PO 04/23/25 21:57 Q4HP PRN Fever or Mild Pain (1-3) Hydrocodone Bitart/Acetaminophen 1 tab 03/24/25 21:58 Hydrocodone/Apap 5/325 Mg Tablet PO 04/23/25 21:57 Q4HP PRN Mild to Moderate Pain (1-6) Albuterol/Ipratropium 3 ml 03/24/25 22:25 Ipratropium/Albuterol 3 Ml Neb IH 04/23/25 22:24 Q4HP PRN Shortness Of Breath Atorvastatin Calcium 10 mg 03/25/25 09:00 Atorvastatin 10mg Tablet PO 04/24/25 08:59 DAILY JOCELIN Docusate Sodium 100 mg 03/25/25 09:00 Docusate Sodium 100 Mg Capsule PO 04/24/25 08:59 DAILY JOCELIN Doxycycline Hyclate 100 mg 03/25/25 09:00 Doxycycline Hycl 100 Mg Tablet PO 04/04/25 08:59 BID JOCELIN Fluticasone Propionate 1 spray 03/25/25 09:00 Fluticasone Prop 50mcg Nasal Krebs 16gm NS 04/24/25 08:59 DAILY JOCELIN Heparin Sodium (Porcine) 5,000 unit 03/25/25 09:00 Heparin Sodium 5,000 Unit/Ml Vial SUBCUT 04/24/25 08:59 TID JOCELIN Doxycycline Hyclate 100 mg/ 250 mls @ 166.667 mls/hr 03/24/25 21:15 03/24/25 22:55 Sodium Chloride IV 04/03/25 21:14 166.667 mls/hr Q12H JOCELIN Administration Ceftriaxone Sodium 2 gm/ 100 mls @ 200 mls/hr 03/24/25 21:15 03/24/25 22:01 Sodium Chloride IV 04/03/25 21:14 200 mls/hr Q24H JOCELIN Administration Ceftriaxone Sodium 1 gm/ 50 mls @ 100 mls/hr 03/24/25 22:30 03/24/25 22:55 Sodium Chloride IV 04/03/25 22:29 100 mls/hr Q24H JOCELIN Administration Lorazepam 0.5 mg 03/24/25 21:58 Lorazepam 2mg/Ml Vial IV 04/23/25 21:57 Q4HP PRN Agitation Morphine Sulfate 2 mg 03/24/25 21:58 Morphine 2mg/Ml Syringe IV 04/23/25 21:57 Q2HP PRN Severe Pain (7-10) Non-Formulary Medication 400 mg 03/24/25 22:07 Guaifenesin PO Q4H PRN cough Ondansetron HCl 4 mg 03/24/25 21:58 Ondansetron 4mg/2ml Vial IV 04/23/25 21:57 Q8HP PRN Nausea Pantoprazole Sodium 40 mg 03/25/25 21:00 Pantoprazole 40mg Tablet PO 04/24/25 20:59 HS JOCELIN Sodium Chloride 10 ml 03/24/25 21:58 Sodium Chloride 0.9% 10ml Vial IV 04/23/25 21:57 NEEDED PRN to Dilute Lorazepam inj Discontinued Medications Generic Name Dose Route Start Last Admin Trade Name Freq PRN Reason Stop Dose Admin Iopamidol 70 ml 03/24/25 20:40 03/24/25 20:45 Iopamidol-370 (76%);100ml Bottle IV 03/24/25 20:41 70 ml ONCE ONE Administration Sodium Chloride 50 ml 03/24/25 20:40 03/24/25 20:45 0.9 % Sodium Chloride 50 Ml Vial IV 03/24/25 20:41 50 ml ONCE ONE Administration Sodium Chloride 10 ml 03/24/25 20:40 03/24/25 20:45 Sodium Chloride 0.9% 10ml Syr (Rad Only) IV 03/24/25 20:41 10 ml ONCE ONE Administration ORDERS Category Date Time Status CTA Chest [CT angio chest PE protocol] Stat Cat Scan 03/24/25 19:48 Completed Cardiology Consult [Consult to Cardiology] [CONS] Cons 03/24/25 22:08 Active Routine POCUS Point of Care (ER Only) Stat Exams 03/24/25 21:02 Taken CBC w/Auto Diff [Complete Blood Count Auto Diff] Stat Lab 03/24/25 20:07 Completed CMP [Comprehensive Metabolic Panel] Stat Lab 03/24/25 20:07 Completed Complete Blood Count Auto Diff AMLAB Lab 03/25/25 06:00 Ordered Comprehensive Metabolic Panel AMLAB Lab 03/25/25 06:00 Ordered Lactic Acid Stat Lab 03/24/25 21:17 Completed Lipid Panel AMLAB Lab 03/25/25 06:00 Ordered Magnesium AMLAB Lab 03/25/25 06:00 Ordered Phosphorous AMLAB Lab 03/25/25 06:00 Ordered TSH [Thyroid Stimulating Hormone] Stat Lab 03/24/25 20:07 Completed CA echo doppler complete Routine Y 03/24/25 22:08 Ordered Medical Decision Narrative: In summary patient is an 84-year-old female who presents emergency department for evaluation of shortness of breath. This she has been experiencing shortness of breath for about 6 weeks, was initially diagnosed with bronchitis and took a course of antibiotics. States that she has gotten no better, it has been 6 weeks, and she decided to come in for a chest x-ray today. Never heard the results of the chest x-ray since she decided to come be evaluated in emergency room, her was concerned about the way she was breathing. Patient denies any chest pain. Is experiencing some shortness of breath. Is satting in the low 90s on room air initially. Patient is hemodynamically stable upon arrival, afebrile. Physical exam notable for mild tachypnea, no increased work of breathing. Patient with rhonchi in the right lower lobe, expiratory wheezes noted in the right side. Differential diagnosis includes pneumonia, bronchitis, pneumothorax. Initial workup will be conducted with hematologic labs, CTA of the chest PE protocol, EKG. Initial interventions include cardiac monitoring, continuous pulse oximetry monitoring. Initial workup reviewed by ga hematologic labs remarkable for a mild leukocytosis of 11.7, chemistry panel unremarkable. CT of the chest and formally read by myself and attending ER provider, CT of the chest notable for a large pericardial effusion. Formal read of the CTA showed posterior right lower lobe pneumonia, large size pericardial effusion, 4x3 anterior mediastinal soft tissue mass. Upon repeat evaluation patient noted to be mildly hypoxic with SpO2 in the mid 80s on room air. She was placed on 2 L nasal cannula with improvement in her SpO2. ER physician [id number] ultrasound in the ER, patient does not appear to be in cardiac tamponade at this time. She was started on doxycycline and Rocephin. Given this case was discussed with the hospital medicine team regarding management of this patient and admission. Hospitalist graciously excepted patient for admission. <Azeem Lawrence MD - Last Filed: 03/25/25 00:03> Vital Signs: 03/24/25 19:48 03/24/25 19:49 03/24/25 20:00 Temperature 98.8 F Temperature Source Oral Pulse Rate 93 H 94 H Pulse Rate [Right] 91 H Respiratory Rate 20 Blood Pressure 176/87 H 167/83 H Blood Pressure [Right Arm] 176/87 H Blood Pressure Mean [Right Arm] 116 Blood Pressure Source Blood Pressure Source [Right Arm] Automatic Cuff Blood Pressure Position Blood Pressure Position [Right Arm] Sitting 02 Sat by Pulse Oximetry 94 L 92 L 91 L Oxygen Delivery Method Room Air Room Air Room Air 03/24/25 20:30 03/24/25 22:14 Temperature 97.9 F Temperature Source Oral Pulse Rate 91 H 81 Pulse Rate [Right] Respiratory Rate 20 Blood Pressure 161/89 H 109/81 L Blood Pressure [Right Arm] Blood Pressure Mean [Right Arm] Blood Pressure Source Automatic Cuff Blood Pressure Source [Right Arm] Blood Pressure Position Sitting Blood Pressure Position [Right Arm] 02 Sat by Pulse Oximetry 91 L Oxygen Delivery Method Room Air Room Air Lab Data Lab Results 03/24/25 20:07: WBC 11.7 H, RBC 4.27, Hgb 12.2, Hct 38.1, MCV 89.2, MCH 28.6, MCHC 32.0, RDW 15.5, Plt Count 208, MPV 12.6 H, Neut % (Auto) 83.8 H, Lymph % (Auto) 5.8 L, [place] % (Auto) 9.9 H, Eos % (Auto) 0.0 L, Baso % (Auto) 0.1, Neut # (Auto) 9.8 H, Lymph # (Auto) 0.7, [place] # (Auto) 1.2 H, Eos # (Auto) 0.0, Baso # (Auto) 0.0, Sodium 134 L, Potassium 3.8, Chloride 100, Carbon Dioxide 29, Anion Gap 8.8, BUN 16, Creatinine 0.50 L, Estimated Creat Clear 35, Estimated GFR 118, Est GFR ( Amer) 143, Glucose 194 H, Calcium 8.5, Total Bilirubin 1.7 H, AST 30, ALT 28, Alkaline Phosphatase 101, Total Protein 7.0, Albumin 3.7, Globulin 3.3 H, Albumin/Globulin Ratio 1.1, TSH 1.70 03/24/25 21:17: Lactate 0.9 Orders (Tests/Meds): ED MEDICATIONS Generic Name Dose Route Start Last Admin Trade Name Freq PRN Reason Stop Dose Admin Acetaminophen 650 mg 03/24/25 21:58 Acetaminophen 325mg Tab PO 04/23/25 21:57 Q4HP PRN Fever or Mild Pain (1-3) Hydrocodone Bitart/Acetaminophen 1 tab 03/24/25 21:58 Hydrocodone/Apap 5/325 Mg Tablet PO 04/23/25 21:57 Q4HP PRN Mild to Moderate Pain (1-6) Albuterol/Ipratropium 3 ml 03/24/25 22:25 Ipratropium/Albuterol 3 Ml Neb IH 04/23/25 22:24 Q4HP PRN Shortness Of Breath Atorvastatin Calcium 10 mg 03/25/25 09:00 Atorvastatin 10mg Tablet PO 04/24/25 08:59 DAILY [facility] Docusate Sodium 100 mg 03/25/25 09:00 Docusate Sodium 100 Mg Capsule PO 04/24/25 08:59 DAILY JOCELIN Doxycycline Hyclate 100 mg 03/25/25 09:00 Doxycycline Hycl 100 Mg Tablet PO 04/04/25 08:59 BID JOCELIN Fluticasone Propionate 1 spray 03/25/25 09:00 Fluticasone Prop 50mcg Nasal Krebs 16gm NS 04/24/25 08:59 DAILY [facility] Heparin Sodium (Porcine) 5,000 unit 03/25/25 09:00 Heparin Sodium 5,000 Unit/Ml Vial SUBCUT 04/24/25 08:59 TID JOCELIN Doxycycline Hyclate 100 mg/ 250 mls @ 166.667 mls/hr 03/24/25 21:15 03/24/25 22:55 Sodium Chloride IV 04/03/25 21:14 166.667 mls/hr Q12H JOCELIN Administration Ceftriaxone Sodium 2 gm/ 100 mls @ 200 mls/hr 03/24/25 21:15 03/24/25 22:01 Sodium Chloride IV 04/03/25 21:14 200 mls/hr Q24H JOCELIN Administration Ceftriaxone Sodium 1 gm/ 50 mls @ 100 mls/hr 03/24/25 22:30 03/24/25 22:55 Sodium Chloride IV 04/03/25 22:29 100 mls/hr Q24H JOCELIN Administration Lorazepam 0.5 mg 03/24/25 21:58 Lorazepam 2mg/Ml Vial IV 04/23/25 21:57 Q4HP PRN Agitation Morphine Sulfate 2 mg 03/24/25 21:58 Morphine 2mg/Ml Syringe IV 04/23/25 21:57 Q2HP PRN Severe Pain (7-10) Non-Formulary Medication 400 mg 03/24/25 22:07 Guaifenesin PO Q4H PRN cough Ondansetron HCl 4 mg 03/24/25 21:58 Ondansetron 4mg/2ml Vial IV 04/23/25 21:57 Q8HP PRN Nausea Pantoprazole Sodium 40 mg 03/25/25 21:00 Pantoprazole 40mg Tablet PO 04/24/25 20:59 HS JOCELIN Sodium Chloride 10 ml 03/24/25 21:58 Sodium Chloride 0.9% 10ml Vial IV 04/23/25 21:57 NEEDED PRN to Dilute Lorazepam inj Discontinued Medications Generic Name Dose Route Start Last Admin Trade Name Freq PRN Reason Stop Dose Admin Iopamidol 70 ml 03/24/25 20:40 03/24/25 20:45 Iopamidol-370 (76%);100ml Bottle IV 03/24/25 20:41 70 ml ONCE ONE Administration Sodium Chloride 50 ml 03/24/25 20:40 03/24/25 20:45 0.9 % Sodium Chloride 50 Ml Vial IV 03/24/25 20:41 50 ml ONCE ONE Administration Sodium Chloride 10 ml 03/24/25 20:40 03/24/25 20:45 Sodium Chloride 0.9% 10ml Syr (Rad Only) IV 03/24/25 20:41 10 ml ONCE ONE Administration ORDERS Category Date Time Status CTA Chest [CT angio chest PE protocol] Stat Cat Scan 03/24/25 19:48 Completed Cardiology Consult [Consult to Cardiology] [CONS] Cons 03/24/25 22:08 Active Routine POCUS Point of Care (ER Only) Stat Exams 03/24/25 21:02 Taken CBC w/Auto Diff [Complete Blood Count Auto Diff] Stat Lab 03/24/25 20:07 Completed CMP [Comprehensive Metabolic Panel] Stat Lab 03/24/25 20:07 Completed Complete Blood Count Auto Diff AMLAB Lab 03/25/25 06:00 Ordered Comprehensive Metabolic Panel AMLAB Lab 03/25/25 06:00 Ordered Lactic Acid Stat Lab 03/24/25 21:17 Completed Lipid Panel AMLAB Lab 03/25/25 06:00 Ordered Magnesium AMLAB Lab 03/25/25 06:00 Ordered Phosphorous AMLAB Lab 03/25/25 06:00 Ordered TSH [Thyroid Stimulating Hormone] Stat Lab 03/24/25 20:07 Completed CA echo doppler complete Routine Y 03/24/25 22:08 Ordered Medical Decision Narrative: In summary patient is an 84-year-old female who presents emergency department for evaluation of shortness of breath. This she has been experiencing shortness of breath for about 6 weeks, was initially diagnosed with bronchitis and took a course of antibiotics. States that she has gotten no better, it has been 6 weeks, and she decided to come in for a chest x-ray today. Never heard the results of the chest x-ray since she decided to come be evaluated in emergency room, her was concerned about the way she was breathing. Patient denies any chest pain. Is experiencing some shortness of breath. Is satting in the low 90s on room air initially. Patient is hemodynamically stable upon arrival, afebrile. Physical exam notable for mild tachypnea, no increased work of breathing. Patient with rhonchi in the right lower lobe, expiratory wheezes noted in the right side. Differential diagnosis includes pneumonia, bronchitis, pneumothorax. Initial workup will be conducted with hematologic labs, CTA of the chest PE protocol, EKG. Initial interventions include cardiac monitoring, continuous pulse oximetry monitoring. Initial workup reviewed by [place] hematologic labs remarkable for a mild leukocytosis of 11.7, chemistry panel unremarkable. CT of the chest and formally read by myself and attending ER provider, CT of the chest notable for a large pericardial effusion. Formal read of the CTA showed posterior right lower lobe pneumonia, large size pericardial effusion, 4x3 anterior mediastinal soft tissue mass. Upon repeat evaluation patient noted to be mildly hypoxic with SpO2 in the mid 80s on room air. She was placed on 2 L nasal cannula with improvement in her SpO2. ER physician [id number] ultrasound in the ER, patient does not appear to be in cardiac tamponade at this time. She was started on doxycycline and Rocephin. Given this case was discussed with the hospital medicine team regarding management of this patient and admission. Hospitalist graciously excepted patient for admission. REJI attestation I was consulted by the REJI, and we discussed the complexity of problems being addressed. I approved the treatment and management plan for this patient's care in the emergency department, thus performing a substantial portion of the medical decision making. I also personally examined the patient at bedside. Had diminished right lower lobe lung sounds. I independently interpreted her CT PE, revealing a large pericardial effusion and findings consistent with right lower lobe pneumonia. Started on broad-spectrum antibiotics for community-acquired pneumonia. Performed [id number] ultrasound redemonstrating pericardial effusion with no signs of tamponade. Patient ultimately admitted to the hospital. Azeem Lawrence MD Procedures <Azeem Lawrence MD - Last Filed: 03/25/25 00:03> Miscellaneous Procedure Procedure Performed: Cardiac US Limited Cardiac Ultrasound Indication: Pericardial effusion Identified cardiac views: -Cardiac parasternal long axis -Cardiac parasternal short axis -Cardiac apical four-chamber -Cardiac subxiphoid Findings: Pericardial effusion. No right ventricular diastolic collapse concerning for tamponade. Normal ejection fraction. Impression: - From above Images were saved to permanent archive The study was technically adequate CPT: 15740 This study was performed by me, and I personally interpreted all images/videos. Based on my clinical judgement, these images were adequate and did not necessitate further imaging. Critical Care <Pamela Nagy APRN - Last Filed: 03/24/25 21:43> Critical Care Time Critical Care Time: No
[2025-03-24 20:20] LABS: Basophils % 0.1 % (0.1-2.0); Hematocrit 38.1 % (37.0-47.0); Hemoglobin 12.2 g/dL (12.2-16.2); Immature Granulocytes # 0.05 10^3uL; Immature Granulocytes % 0.4 %; Lymphocytes # 0.7 K/mm3 (0.7-4.5); Lymphocytes % 5.8 % (10-50); Mean Corpuscular Hemoglobin 28.6 pg (27.0-31.2); Mean Corpuscular Volume 89.2 fl (81-99); Mean Platelet Volume 12.6 fl (7.4-10.4); Monocytes # 1.2 K/mm3 (0.1-1.0); Monocytes % 9.9 % (1.7-9.3); Neutrophils # 9.8 K/mm3 (1.8-7.8); Neutrophils % 83.8 % (37.0-80.0); Nucleated Red Blood Cells # 0 10^3/uL; Nucleated Red Blood Cells % 0 %; Platelet Count 208 K/mm3 (142-424); Red Blood Count 4.27 M/mm3 (4.20-5.40); Red Cell Distribution Width 15.5 % (11.5-17.5); White Blood Count 11.7 K/mm3 (4.8-10.8)
[2025-03-24 20:24] LABS: Chloride 100 mmol/L (98-107)
[2025-03-24 20:25] LABS: Albumin Level 3.7 g/dl (3.5-5.0); Potassium 3.8 mmoL/L (3.5-5.1); Sodium 134 mmol/L (136-145)
[2025-03-24 20:27] LABS: Blood Urea Nitrogen 16 mg/dl (7-17); Creatinine Clearance Estimated 35 mL/min (50-200); Estimated Glomerular Filt Rate 118 ml/min (>60); GFR (African American) 143 ML/MIN (>60)
[2025-03-24 20:28] LABS: Alanine Aminotransferase 28 U/L (12-78); Albumin/Globulin Ratio 1.1 (1.1-1.8); Alkaline Phosphatase 101 U/L (38-126); Anion Gap 8.8 mEq/L (5-15); Aspartate Amino Transferase 30 U/L (14-36); Bilirubin,Total 1.7 mg/dl (0.2-1.3); Calcium 8.5 mg/dl (8.4-10.2); Carbon Dioxide 29 mmol/L (22.0-30.0); Globulin 3.3 g/dL (1.3-3.2); Glucose 194 mg/dl (74-100)
[2025-03-24] MEDS: SODIUM CHLORIDE 0.9% 10ML SYR (RAD ONLY) 10 ML IV (20:45)
[2025-03-24] MEDS: 0.9 % SODIUM CHLORIDE 50 ML VIAL IV (20:45)
[2025-03-24] MEDS: IOPAMIDOL-370 (76%);100ML BOTTLE 70 ML IV (20:45)
[2025-03-24 21:36] LABS: Lactic Acid 0.9 mmol/L (0.7-2.1)
[2025-03-24] MEDS: CEFTRIAXONE SODIUM 2 GM in 0.9 % SODIUM CHLORIDE 100 ML IV (22:01)
--- NOTE | 2025-03-24 22:06 | PC.NURSE ---
Report called to Maday RN for admission to the hospital.
--- NOTE | 2025-03-24 22:10 | EXP.HP ---
History of Present Illness *Admission Date: 03/24/25 *Reason for visit:: Shortness of breath *History of present illness: 84-year-old female who presents emergency department for evaluation of shortness of breath. This she has been experiencing shortness of breath for about 6 weeks, was initially diagnosed with bronchitis and took a course of antibiotics. States that she has gotten no better, it has been 6 weeks, and she decided to come in for a chest x-ray today. Patient denies any chest pain. satting in the low 90s on room air initially. She was placed on 2 L nasal cannula with improvement in her SpO2. Patient is hemodynamically stable upon arrival, afebrile. Physical exam notable for mild tachypnea, no increased work of breathing. Initial workup will be conducted with hematologic labs, CTA of the chest PE protocol, EKG. CT of the chest notable for a large pericardial effusion. Formal read of the CTA showed posterior right lower lobe pneumonia, large size pericardial effusion, 4x3 anterior mediastinal soft tissue mass. ER physician [id number] ultrasound in the ER, was reviewed by myself. LVEF is normal. RV function normal. No evidence of cardiac tamponade. She was started on doxycycline and Rocephin. I discussed CT findings and the fact that this is likely a malignant effusion. Discussed going to the [facility] tomorrow for a diagnostic and therapeutic pericardiocentesis and patient was agreeable. No other concerns or complaints at this time. History is independently interpreted by myself. I reviewed prior documentation. Diagnostic and laboratory evaluation independently interpreted . Discussed case with ER physician. [facility] Disclaimer: The information contained in this section may have been updated after the patient was seen, as this information can be updated by other users. Medical History History of anemia Urinary tract infection Migraine Hyperlipidemia Hypertension Surgical History History of back surgery History of tubal ligation History of tonsillectomy Family History Other No significant family history Social History Smoking Status: Never smoker alcohol intake: never current occupational status: retired Travel in the last 8 weeks?: None Have you lived/traveled outside US in past 30 days?: No Contact w/someone who lives/traveled outside US past 30 days?: No Exposure to someone with infectious disease in past 14 days?: No Do you have a fever (greater than 100.4 F or 38 C)?: No Have you tested positive for COVID-19?: No Exposed to someone with COVID-19 in past 14 days?: No Do you have a sore throat?: No Do you have a cough?: Yes Do you have any weakness?: No Do you have any diarrhea?: No Are you experiencing any unusual bleeding?: No Do you have any muscle aches/pain?: No Do you have any abdominal pain?: No Are you experiencing loss of taste or smell?: No Other Medical History Have you received the Pneumonia Vaccine: Yes Review of Systems Review of Systems Review of systems:: pertinent systems reviewed and negative unless documented below *Cardiovascular Cardiovascular: Reports as per HPI *Respiratory Respiratory: Reports as per HPI *Gastrointestinal Gastrointestinal: Reports system reviewed and no additional complaints, except as documented *Genitourinary Genitourinary: Reports system reviewed and no additional complaints, except as documented *Musculoskeletal Musculoskeletal: Reports system reviewed and no additional complaints, except as documented *Neurologic Neurologic: Reports system reviewed and no additional complaints, except as documented Meds Home Medications and Allergies Home Medications ?Medication ?Instructions ?Recorded ?Confirmed ?Type atorvastatin 10 mg tablet 10 mg PO DAILY Cholesterol 09/19/23 02/26/25 History lisinopril 10 mg tablet 10 mg PO DAILY Hypertension 09/19/23 02/26/25 History calcium 600 mg (as 1 tab PO BID 07/20/24 02/26/25 History carbonate)-vitamin D3 5 mcg (200 unit) tablet ferrous sulfate 325 mg (65 mg 325 mg PO DAILY 07/20/24 02/26/25 History iron) tablet (iron) magnesium 100 mg capsule 100 mg PO DAILY 07/20/24 02/26/25 History multivitamin 1 tab PO DAILY 07/20/24 02/26/25 History vitamin E 200 unit capsule 45 mg PO DAILY 07/20/24 02/26/25 History zinc 10 mg tablet 10 mg PO DAILY 07/20/24 02/26/25 History fluticasone propionate 50 1 spray intranasal DAILY #16 grams 02/26/25 02/26/25 Rx mcg/actuation nasal spray,suspension (Flonase Allergy Relief) guaifenesin 400 mg tablet 400 mg PO Q4H PRN cough #30 tabs 02/26/25 02/26/25 Rx New Prescriptions to Start Prescriptions: Allergies Allergy/AdvReac Type Severity Reaction Status Date / Time No Known Allergies Allergy Verified 02/26/25 10:16 Exam Data for Last 24 hours Vital signs and Labs for Last 24 Hours: Temp Pulse Resp BP Pulse Ox O2 Del Method 98.8 F 91 H 20 161/89 H 91 L Room Air 03/24/25 19:48 03/24/25 20:30 03/24/25 19:48 03/24/25 20:30 03/24/25 20:30 03/24/25 20:30 Laboratory Results - last 24 hr 03/24/25 20:07: WBC 11.7 H, RBC 4.27, Hgb 12.2, Hct 38.1, MCV 89.2, MCH 28.6, MCHC 32.0, RDW 15.5, Plt Count 208, MPV 12.6 H, Neut % (Auto) 83.8 H, Lymph % (Auto) 5.8 L, [place] % (Auto) 9.9 H, Eos % (Auto) 0.0 L, Baso % (Auto) 0.1, Neut # (Auto) 9.8 H, Lymph # (Auto) 0.7, [place] # (Auto) 1.2 H, Eos # (Auto) 0.0, Baso # (Auto) 0.0, Sodium 134 L, Potassium 3.8, Chloride 100, Carbon Dioxide 29, Anion Gap 8.8, BUN 16, Creatinine 0.50 L, Estimated Creat Clear 35, Estimated GFR 118, Est GFR ( Amer) 143, Glucose 194 H, Calcium 8.5, Total Bilirubin 1.7 H, AST 30, ALT 28, Alkaline Phosphatase 101, Total Protein 7.0, Albumin 3.7, Globulin 3.3 H, Albumin/Globulin Ratio 1.1, TSH 1.70 03/24/25 21:17: Lactate 0.9 I & O for Last 24 hours: Intake & Output 03/21/25 03/22/25 03/23/25 03/24/25 23:59 23:59 23:59 23:59 Weight 51.71 kg Constitutional Constitutional: no acute distress Comments: hoarse *Routine HEENT Exam Head: Present normocephalic Eye: Present EOMI and PERRL ENT: Present mucous membranes moist *Routine Neck Exam Neck: Present supple; Absent lymphadenopathy *Routine Respiratory Exam Respiratory: Present wheezes and diminished air movement; Absent respiratory distress *Routine Cardiovascular Exam Cardiovascular: Present RRR, Normal S1 and Normal S2 Comments: Distant heart sounds *Routine Abdominal Exam Abdominal: Present soft and normoactive bowel sounds; Absent tenderness *Routine Rectal Exam Rectal:: deferred *Routine Genitalia Exam Genitalia:: deferred *Routine Extremities Exam Extremities: Absent cyanosis, clubbing or edema *Routine Skin Exam Skin: Present warm; Absent rash *Routine Neurological Exam Neurological: Present alert and oriented X3 Assessment and Plan *Assessment and plan (1) Pneumonia: Status: Acute Category: Medical Code(s): J18.9 - Pneumonia, unspecified organism (2) Pericardial effusion: Status: Acute Category: Medical Code(s): I31.39 - Other pericardial effusion (noninflammatory) (3) Bronchitis: Status: Acute Category: Medical Code(s): J40 - Bronchitis, not specified as acute or chronic (4) Mass in chest: Status: Acute Category: Medical Code(s): R22.2 - Localized swelling, mass and lump, trunk Plan 84-year-old female presents with dyspnea present for 6 weeks and has been being treated for bronchitis without improvement. Comes today with acute exacerbation of this dyspnea and was found to have a large pericardial effusion and also a mass with reported differential being lymphoma versus thymic mass. Given the size of her effusion without evidence of tamponade, this has been a chronic process, My concern is that is malignant effusion. Cardiology consulted and will perform diagnostic and therapeutic pericardiocentesis tomorrow. 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 Mass in chest - Follow-up cytology from pericardiocentesis - Dictate management as cytology and further evaluation is obtained wheezes - duoneb RLL pneumonia - got doxy and rocephin in ED - continue holding home medicaitons (statin, jt-i) until reconciled and during current acute illness
[2025-03-24] MEDS: CEFTRIAXONE SODIUM 1 GM in 0.9 % SODIUM CHLORIDE 50 ML IV (22:55)
[2025-03-24] MEDS: DOXYCYCLINE HYCLATE 100 MG in 0.9 % SODIUM CHLORIDE 250 ML 166.667 MG IV (22:55)
[2025-03-25] VITALS (21 sets, daily range): BP systolic 102–154; BP diastolic 52–78; PULSE 80–100; RESP 14–20; TEMP 36.6–37.8; O2SAT 91–98; BMI 21.8
[2025-03-25 06:17] LABS: Basophils % 0.1 % (0.1-2.0); Hematocrit 32.6 % (37.0-47.0); Immature Granulocytes # 0.03 10^3uL; Immature Granulocytes % 0.3 %; Lymphocytes # 0.8 K/mm3 (0.7-4.5); Lymphocytes % 7.3 % (10-50); Mean Corpuscular HGB Conc 32.5 g/dL (31.8-35.4); Mean Corpuscular Volume 89.1 fl (81-99); Mean Platelet Volume 12.2 fl (7.4-10.4); Monocytes # 1.3 K/mm3 (0.1-1.0); Monocytes % 11.9 % (1.7-9.3); Neutrophils # 8.7 K/mm3 (1.8-7.8); Neutrophils % 80.4 % (37.0-80.0); Nucleated Red Blood Cells # 0 10^3/uL; Nucleated Red Blood Cells % 0 %; Platelet Count 163 K/mm3 (142-424); Red Blood Count 3.66 M/mm3 (4.20-5.40); Red Cell Distribution Width 15.4 % (11.5-17.5); Red Cell Distribution Width-SD 50.4 fL; White Blood Count 10.8 K/mm3 (4.8-10.8)
[2025-03-25 06:28] LABS: Hemoglobin 10.5 g/dL (12.2-16.2)
[2025-03-25 06:30] LABS: Alanine Aminotransferase 22 U/L (12-78); Albumin/Globulin Ratio 1.1 (1.1-1.8); Alkaline Phosphatase 96 U/L (38-126); Anion Gap 6.6 mEq/L (5-15); Aspartate Amino Transferase 26 U/L (14-36); Bilirubin,Total 0.9 mg/dl (0.2-1.3); Blood Urea Nitrogen 14 mg/dl (7-17); Calcium 7.9 mg/dl (8.4-10.2); Carbon Dioxide 30 mmol/L (22.0-30.0); Chloride 101 mmol/L (98-107); Chol/HDL Ratio 2.2 (1-3.5); Cholesterol 70 mg/dl (140-200); Creatinine Clearance Estimated 36 mL/min (50-200); Estimated Glomerular Filt Rate 153 ml/min (>60); GFR (African American) 185 ML/MIN (>60); Globulin 2.8 g/dL (1.3-3.2); Glucose 109 mg/dl (74-100); HDL Cholesterol 32 mg/dl (40-60); Magnesium 1.8 mg/dl (1.6-2.3); Potassium 3.6 mmoL/L (3.5-5.1); Sodium 134 mmol/L (136-145); Total Protein,Serum 5.8 g/dl (6.3-8.2); Triglycerides 46 mg/dl (30-150); VLDL Cholesterol 9 mg/dL (0-40)
[2025-03-25 06:34] LABS: Phosphorous 1.9 mg/dl (2.5-4.5)
[2025-03-25 06:42] LABS: Direct LDL Cholesterol < 30.00 mg/dL (100-129)
--- NOTE | 2025-03-25 06:50 | PC.NURSE ---
Lab called me to report a critical phosphorus value of 1.9 for the patient. Dominguez Hutchinson MD was paged at this time to inform him about the critical lab value.
[2025-03-25] MEDS: POTASSIUM PHOS IN 0.9 % NACL 15 MMOL/250 ML PIGGYBACK 62.5 MMOL IV ×2 (08:46→15:35)
[2025-03-25] MEDS: DOCUSATE SODIUM 100 MG CAPSULE PO (08:51)
[2025-03-25] MEDS: HEPARIN SODIUM 5,000 UNIT/ML VIAL 5000 UNIT SUBCUT ×2 (08:51→17:50)
[2025-03-25] MEDS: FLUTICASONE PROP 50MCG NASAL SPRAY 16GM 1 SPRAY NS (08:51)
[2025-03-25] MEDS: SODIUM CHLORIDE 3% 15ML NEB 3 ML IH (09:44)
--- NOTE | 2025-03-25 09:54 | IR_ITS ---
APPROVED REPORT Patient Location: Inpatient [facility] [employer]: JASWANT Shepherd RT (R) PROCEDURES Therapeutic pericardiocentesis Placement of pericardial pigtail catheter into the pericardial space INDICATION Pericardial effusion, Cardiac tamponade Informed consent was obtained prior to the procedure. COMPLICATIONS None TECHNIQUE 1% lidocaine used anesthetize the subxiphoid area following sterile prep. A pericardial needle was directed in the subxiphoid area toward the left axillary space. Under fluoroscopic guidance the needle was inserted into the pericardial space and clear fluid was aspirated. Using the Seldinger technique a wire was placed into the pericardial space. The tract was dilated using a 7 Bangl[place]hi sheath. An Amplatz wire was then placed back into the pericardial space for additional support and the pericardial pigtail catheter was advanced under both fluoroscopic and echocardiographic graphic guidance. 800 cc of clear fluid was removed eliminating virtually none greater than 90% of the pericardial effusion. Patient tolerated the procedure well. At the end the procedure the pericardial drain was sewn into place and the bag was placed to a gravity drain and the patient was transferred to the postop putting in stable condition IMPRESSION Successful placement of pericardial pigtail catheter into the pericardial space Successful therapeutic pericardiocentesis alleviating cardiac tamponade PLAN 1. Send pericardial fluid off for cytology Gram stain culture and chemical analysis 2. Aylett drain of pericardial pigtail catheter Electronically signed by : Arnoldo Hutchinson MD 03/28/2025 10:55:01
--- NOTE | 2025-03-25 10:35 | EXP.CARD.CON ---
History of Present Illness History of Present Illness Consult date: 03/25/25 Requesting physician: Jeet Moses Consult reason: shortness of breath Chief complaint: SOA History of present illness: This is an 84-year-old female who presented to the emergency department for shortness of breath. She states that she has been short of breath for approximately 6 weeks. She was initially diagnosed with laryngitis and treated with [id number] medications. She states that she never got better and then was subsequently treated for bronchitis with antibiotics with no improvement in her symptoms. She went to see her primary care provider this week because of her persistent shortness of breath and not feeling well. She had a chest x-ray that was normal. The night before her admission her was concerned with how labored her breathing was especially at night while she was asleep. She decided to come to the emergency department for further evaluation of her shortness of breath because it was not improving and continues to worsen and her labored work of breathing at night. The patient had a CTA and was found to have a large pericardial effusion and a 4 x 3 cm anterior mediastinal soft tissue mass. 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 She states that her shortness of breath is somewhat better today since being in the hospital. She denies any chest pain or pressure. She denies any lower extremity edema. She denies any fever, chills, nausea, vomiting, diarrhea, PND or orthopnea. [facility] Disclaimer: The information contained in this section may have been updated after the patient was seen, as this information can be updated by other users. Medical History (Updated 03/25/25 @ 10:39 by Brittni Linder APRN) Mass in chest Right lower lobe pneumonia Pericardial effusion Squamous cell carcinoma History of anemia Urinary tract infection Migraine Hyperlipidemia Hypertension Surgical History (Updated 03/24/25 @ 23:10 by Maday Gamble RN) History of lumpectomy of left breast History of back surgery History of tubal ligation History of tonsillectomy Family History (Updated 03/24/25 @ 23:09 by Maday Gamble RN) Father Heart attack Other No significant family history Social History (Updated 03/24/25 @ 23:09 by Maday Gamble RN) Smoking Status: Never smoker alcohol intake: never current occupational status: retired Travel in the last 8 weeks?: None Have you lived/traveled outside US in past 30 days?: No Contact w/someone who lives/traveled outside US past 30 days?: No Exposure to someone with infectious disease in past 14 days?: No Do you have a fever (greater than 100.4 F or 38 C)?: No Have you tested positive for COVID-19?: No Exposed to someone with COVID-19 in past 14 days?: No Do you have a sore throat?: No Do you have a cough?: Yes Do you have any weakness?: No Do you have any diarrhea?: No Are you experiencing any unusual bleeding?: No Do you have any muscle aches/pain?: No Do you have any abdominal pain?: No Are you experiencing loss of taste or smell?: No Review of Systems Review of Systems Review of systems:: pertinent systems reviewed and negative unless documented below Constitutional Constitutional: Reports system reviewed and no additional complaints, except as documented and Reports lethargy Eyes Eyes: Reports system reviewed and no additional complaints, except as documented ENT Ears, Nose, Mouth, and Throat: Reports system reviewed and no additional complaints, except as documented *Cardiovascular Cardiovascular: Reports system reviewed and no additional complaints, except as documented, Denies chest pain, Reports dyspnea, Reports dyspnea on exertion and Reports orthopnea *Respiratory Respiratory: Reports system reviewed and no additional complaints, except as documented, Reports dyspnea and Reports dyspnea on exertion *Gastrointestinal Gastrointestinal: Reports system reviewed and no additional complaints, except as documented *Genitourinary Genitourinary: Reports system reviewed and no additional complaints, except as documented *Musculoskeletal Musculoskeletal: Reports system reviewed and no additional complaints, except as documented Integumentary/Breasts Skin/Breast: Reports system reviewed and no additional complaints, except as documented *Neurologic Neurologic: Reports system reviewed and no additional complaints, except as documented Psychiatric Psychiatric: Reports system reviewed and no additional complaints, except as documented Endocrine Endocrine: Reports system reviewed and no additional complaints, except as documented Hematologic/Lymphatic Hematologic/Lymphatic: Reports system reviewed and no additional complaints, except as documented Allergic/Immunologic Allergic/Immunologic: Reports system reviewed and no additional complaints, except as documented Exam Data for Last 24 hours Vital signs and Labs for Last 24 Hours: Temp Pulse Resp BP Pulse Ox O2 Del Method O2 Flow Rate 98.4 F 88 15 139/78 95 Nasal Cannula 2 03/25/25 08:00 03/25/25 09:44 03/25/25 09:44 03/25/25 08:00 03/25/25 08:00 03/25/25 08:00 03/25/25 08:00 Laboratory Results - last 24 hr 03/24/25 20:07: WBC 11.7 H, RBC 4.27, Hgb 12.2, Hct 38.1, MCV 89.2, MCH 28.6, MCHC 32.0, RDW 15.5, Plt Count 208, MPV 12.6 H, Neut % (Auto) 83.8 H, Lymph % (Auto) 5.8 L, [place] % (Auto) 9.9 H, Eos % (Auto) 0.0 L, Baso % (Auto) 0.1, Neut # (Auto) 9.8 H, Lymph # (Auto) 0.7, [place] # (Auto) 1.2 H, Eos # (Auto) 0.0, Baso # (Auto) 0.0, Sodium 134 L, Potassium 3.8, Chloride 100, Carbon Dioxide 29, Anion Gap 8.8, BUN 16, Creatinine 0.50 L, Estimated Creat Clear 35, Estimated GFR 118, Est GFR ( Amer) 143, Glucose 194 H, Calcium 8.5, Total Bilirubin 1.7 H, AST 30, ALT 28, Alkaline Phosphatase 101, Total Protein 7.0, Albumin 3.7, Globulin 3.3 H, Albumin/Globulin Ratio 1.1, TSH 1.70 03/24/25 21:17: Lactate 0.9 03/25/25 05:29: WBC 10.8, RBC 3.66 L, Hgb 10.5 L D, Hct 32.6 L, MCV 89.1, MCH 29.0, MCHC 32.5, RDW 15.4, Plt Count 163, MPV 12.2 H, Neut % (Auto) 80.4 H, Lymph % (Auto) 7.3 L, [place] % (Auto) 11.9 H, Eos % (Auto) 0.0 L, Baso % (Auto) 0.1, Neut # (Auto) 8.7 H, Lymph # (Auto) 0.8, [place] # (Auto) 1.3 H, Eos # (Auto) 0.0, Baso # (Auto) 0.0, Sodium 134 L, Potassium 3.6, Chloride 101, Carbon Dioxide 30, Anion Gap 6.6, BUN 14, Creatinine 0.40 L, Estimated Creat Clear 36, Estimated GFR 153, Est GFR ( Amer) 185 D, Glucose 109 H D, Calcium 7.9 L, Phosphorus 1.9 L, Magnesium 1.8, Total Bilirubin 0.9, AST 26, ALT 22, Alkaline Phosphatase 96, Total Protein 5.8 L, Albumin 3.0 L D, Globulin 2.8, Albumin/Globulin Ratio 1.1, Triglycerides 46, Cholesterol 70 L, LDL Cholesterol Direct < 30.00 L, VLDL Cholesterol 9, HDL Cholesterol 32 L, Cholesterol/HDL Ratio 2.2 I & O for Last 24 hours: Intake & Output 03/22/25 03/23/25 03/24/25 03/25/25 23:59 23:59 23:59 23:59 Intake Total 100 / 100 Output Total 0 / 0 0 / 0 Balance 0 / 100 100 / 100 Weight 93 lb 9.6 oz 115 lb 9.6 oz Constitutional Constitutional: no acute distress and average body habitus *Routine HEENT Exam Head: Present normocephalic and atraumatic ENT: Present mucous membranes moist *Routine Neck Exam Neck: Present supple, full ROM and normal carotid upstroke; Absent JVD, carotid bruit or lymphadenopathy *Routine Respiratory Exam Respiratory: Present rhonchi, normal respiratory effort, able to speak in complete sentences and symmetric chest movement *Routine Cardiovascular Exam Cardiovascular: Present RRR, Normal S1 and Normal S2; Absent murmur or gallop *Routine Abdominal Exam Abdominal: Present soft and normoactive bowel sounds; Absent tenderness, distended or organomegaly *Routine Extremities Exam Extremities: Present full ROM, pulses intact and normal capillary refill; Absent cyanosis, clubbing or edema *Routine Skin Exam Skin: Present intact and warm; Absent erythema *Routine Neurological Exam Neurological: Present alert, oriented X3 and CN II-XII intact; Absent sensory deficit or motor deficit Routine Psychiatric Exam Psychiatric: Present normal affect Meds Home Medications and Allergies Home Medications ?Medication ?Instructions ?Recorded ?Confirmed ?Type atorvastatin 10 mg tablet 10 mg PO HS 09/19/23 03/25/25 History lisinopril 10 mg tablet 10 mg PO DAILY 09/19/23 03/24/25 History calcium 600 mg (as 1 tab PO BID 07/20/24 03/24/25 History carbonate)-vitamin D3 5 mcg (200 unit) tablet ferrous sulfate 325 mg (65 mg 325 mg PO DAILY 07/20/24 03/24/25 History iron) tablet (iron) magnesium 100 mg capsule 100 mg PO DAILY 07/20/24 03/24/25 History multivitamin 1 tab PO DAILY 07/20/24 03/24/25 History vitamin E 200 unit capsule 45 mg PO DAILY 07/20/24 03/24/25 History zinc 10 mg tablet 10 mg PO DAILY 07/20/24 03/24/25 History fluticasone propionate 50 1 spray intranasal DAILY #16 grams 02/26/25 03/24/25 Rx mcg/actuation nasal spray,suspension (Flonase Allergy Relief) brimonidine 0.1 % eye drops 1 drp ophthalmic (eye) DIRECTED 03/25/25 03/25/25 History latanoprost 0.005 % eye drops 1 drp ophthalmic (eye) DIRECTED 03/25/25 03/25/25 History New Prescriptions to Start Prescriptions: Allergies Allergy/AdvReac Type Severity Reaction Status Date / Time No Known Allergies Allergy Verified 02/26/25 10:16 Assessment and Plan *Assessment and plan (1) Pericardial effusion: Status: Acute Category: Medical Code(s): I31.39 - Other pericardial effusion (noninflammatory) (2) Mass in chest: Status: Acute Category: Medical Code(s): R22.2 - Localized swelling, mass and lump, trunk (3) Right lower lobe pneumonia: Status: Acute Qualifiers: Pneumonia type: due to unspecified organism Qualified Code(s): J18.9 - Pneumonia, unspecified organism Category: Medical Code(s): J18.9 - Pneumonia, unspecified organism (4) Hypertension: Status: Acute Qualifiers: Hypertension type: primary hypertension Qualified Code(s): I10 - Essential (primary) hypertension Category: Medical Code(s): I10 - Essential (primary) hypertension (5) Hyperlipidemia: Status: Acute Qualifiers: Hyperlipidemia type: mixed hyperlipidemia Qualified Code(s): E78.2 - Mixed hyperlipidemia Category: Medical Code(s): E78.5 - Hyperlipidemia, unspecified Plan Plan: 1. The patient presented to the hospital with shortness of breath. She was found to have a large pericardial effusion on CT. 2. Echocardiogram has been obtained secondary to the pericardial effusion. The patient has a normal ejection fraction with a large effusion. Her RV is partially collapsing inward. Will plan to proceed with pericardiocentesis today due to her large pericardial effusion. 3. The patient has been educated on the risks and benefits of proceeding with pericardiocentesis. The patient verbalizes understanding and is agreeable in proceeding with the procedure. 4. The patient will be n.p.o. in preparation for pericardiocentesis. 5. She denies any chest pain or pressure. No plans for invasive left cardiac catheterization at this time. 6. Her blood pressure is well-controlled. Continue lisinopril. 7. Her LDL goal is less than 100. Her LDL is less than 30. She is on a statin. 8. Pulmonology consult for mediastinal mass. 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 She will need further workup and evaluation of this mediastinal mass. 9. The patient does have a right lower lobe pneumonia. She is getting antibiotics. Will defer to the hospitalist and pulmonology. 10. Further recommendations will be made pending the patient's response to treatment and the results of her pericardiocentesis today. Thank you for the opportunity to help participate in the care of this patient. All recommendations and orders are per Dr. Lugo.
[2025-03-25] MEDS: DOXYCYCLINE HYCLATE 100 MG in 0.9 % SODIUM CHLORIDE 250 ML 166.667 MG IV ×2 (11:31→22:17)
--- NOTE | 2025-03-25 12:20 | EXP.PULM.CON ---
History of Present Illness History of present illness: Ms. 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 Patient admits intermittent symptoms of fatigue since July 2024. Worsening symptoms of cough and shortness of breath 6 weeks ago treated as bronchitis with 2 rounds of antibiotics and steroids not improving and eventually presented to the ER for this admission. [facility] Disclaimer: The information contained in this section may have been updated after the patient was seen, as this information can be updated by other users. Medical History (Updated 03/25/25 @ 12:21 by Price Vang MD) Mediastinal lymphadenopathy Mediastinal mass Mass in chest Right lower lobe pneumonia Pericardial effusion Squamous cell carcinoma History of anemia Urinary tract infection Migraine Hyperlipidemia Hypertension Surgical History (Updated 03/24/25 @ 23:10 by Maday Gamble RN) History of lumpectomy of left breast History of back surgery History of tubal ligation History of tonsillectomy Family History (Updated 03/24/25 @ 23:09 by Maday Gamble RN) Father Heart attack Other No significant family history Social History (Updated 03/24/25 @ 23:09 by Maday Gamble RN) Smoking Status: Never smoker alcohol intake: never current occupational status: retired Travel in the last 8 weeks?: None Have you lived/traveled outside [place] in past 30 days?: No Contact w/someone who lives/traveled outside US past 30 days?: No Exposure to someone with infectious disease in past 14 days?: No Do you have a fever (greater than 100.4 F or 38 C)?: No Have you tested positive for COVID-19?: No Exposed to someone with COVID-19 in past 14 days?: No Do you have a sore throat?: No Do you have a cough?: Yes Do you have any weakness?: No Do you have any diarrhea?: No Are you experiencing any unusual bleeding?: No Do you have any muscle aches/pain?: No Do you have any abdominal pain?: No Are you experiencing loss of taste or smell?: No Review of Systems Constitutional Constitutional: Reports anorexia, Reports body ache(s), Reports fatigue and Reports lethargy Eyes Eyes: Denies eye discharge, Denies dry eyes, Denies irritation and Denies itchy eyes ENT Ears, Nose, Mouth, and Throat: Denies epistaxis, Denies facial pain, Denies lip swelling and Denies throat swelling *Cardiovascular Cardiovascular: Reports dyspnea, Reports dyspnea on exertion, Denies leg edema and Reports orthopnea *Respiratory Respiratory: Denies change in phlegm color, Reports chest congestion, Reports cough, Reports dyspnea, Reports dyspnea on exertion, Denies excessive phlegm production and Denies wheezing *Gastrointestinal Gastrointestinal: Denies abdominal pain, Denies belching and Denies cramping *Musculoskeletal Musculoskeletal: Reports back pain, Reports myalgias and Reports other (No small joint swelling or Pain) *Neurologic Neurologic: Reports system reviewed and no additional complaints, except as documented Psychiatric Psychiatric: Denies homicidal ideation and Denies suicidal ideation Endocrine Endocrine: Reports fatigue and Denies heat intolerance Hematologic/Lymphatic Hematologic/Lymphatic: Denies easy bleeding and Denies lymphadenopathy Allergic/Immunologic Allergic/Immunologic: Denies itchy eyes, Denies lip swelling, Denies throat swelling and Denies wheezing Pulmonology Exam Inpatient Vital signs and Labs for Last 24 Hours: Temp Pulse Resp BP Pulse Ox O2 Del Method O2 Flow Rate 98.4 F 88 15 139/78 95 Nasal Cannula 2 03/25/25 08:00 03/25/25 09:44 03/25/25 09:44 03/25/25 08:00 03/25/25 08:00 03/25/25 08:00 03/25/25 08:00 Laboratory Results - last 24 hr 03/24/25 20:07: WBC 11.7 H, RBC 4.27, Hgb 12.2, Hct 38.1, MCV 89.2, MCH 28.6, MCHC 32.0, RDW 15.5, Plt Count 208, MPV 12.6 H, Neut % (Auto) 83.8 H, Lymph % (Auto) 5.8 L, [place] % (Auto) 9.9 H, Eos % (Auto) 0.0 L, Baso % (Auto) 0.1, Neut # (Auto) 9.8 H, Lymph # (Auto) 0.7, [place] # (Auto) 1.2 H, Eos # (Auto) 0.0, Baso # (Auto) 0.0, Sodium 134 L, Potassium 3.8, Chloride 100, Carbon Dioxide 29, Anion Gap 8.8, BUN 16, Creatinine 0.50 L, Estimated Creat Clear 35, Estimated GFR 118, Est GFR ( Amer) 143, Glucose 194 H, Calcium 8.5, Total Bilirubin 1.7 H, AST 30, ALT 28, Alkaline Phosphatase 101, Total Protein 7.0, Albumin 3.7, Globulin 3.3 H, Albumin/Globulin Ratio 1.1, TSH 1.70 03/24/25 21:17: Lactate 0.9 03/25/25 05:29: WBC 10.8, RBC 3.66 L, Hgb 10.5 L D, Hct 32.6 L, MCV 89.1, MCH 29.0, MCHC 32.5, RDW 15.4, Plt Count 163, MPV 12.2 H, Neut % (Auto) 80.4 H, Lymph % (Auto) 7.3 L, [place] % (Auto) 11.9 H, Eos % (Auto) 0.0 L, Baso % (Auto) 0.1, Neut # (Auto) 8.7 H, Lymph # (Auto) 0.8, [place] # (Auto) 1.3 H, Eos # (Auto) 0.0, Baso # (Auto) 0.0, Sodium 134 L, Potassium 3.6, Chloride 101, Carbon Dioxide 30, Anion Gap 6.6, BUN 14, Creatinine 0.40 L, Estimated Creat Clear 36, Estimated GFR 153, Est GFR ( Amer) 185 D, Glucose 109 H D, Calcium 7.9 L, Phosphorus 1.9 L, Magnesium 1.8, Total Bilirubin 0.9, AST 26, ALT 22, Alkaline Phosphatase 96, Total Protein 5.8 L, Albumin 3.0 L D, Globulin 2.8, Albumin/Globulin Ratio 1.1, Triglycerides 46, Cholesterol 70 L, LDL Cholesterol Direct < 30.00 L, VLDL Cholesterol 9, HDL Cholesterol 32 L, Cholesterol/HDL Ratio 2.2 I & O for Labs for Last 24 Hours: Intake & Output 03/22/25 03/23/25 03/24/25 03/25/25 23:59 23:59 23:59 23:59 Intake Total 100 / 100 Output Total 0 / 0 0 / 0 Balance 0 / 100 100 / 100 Weight 93 lb 9.6 oz 115 lb 9.6 oz Constitutional: Present mild distress Head: Present normocephalic and atraumatic ENT: Present normal exam, normal oropharynx and mucous membranes moist Neck: Present normal inspection and full ROM Respiratory: Present respiratory distress, diminished air movement and able to speak in complete sentences; Absent rhonchi, wheezes or crackles Cardiac: Present S1/S2, Tachycardia and radial pulses present Comment:: Muffled heart sounds GI: Present soft and distention; Absent tenderness or guarding Rectal (female): Present deferred (female): Present deferred Skin: Present intact; Absent cyanosis or jaundice Neuro: Present alert, awake and oriented x 3 Extremities: Present normal inspection; Absent clubbing or cyanosis Psychiatric: Present normal affect and cooperative Meds Home Medications and Allergies Home Medications ?Medication ?Instructions ?Recorded ?Confirmed ?Type atorvastatin 10 mg tablet 10 mg PO HS 09/19/23 03/25/25 History lisinopril 10 mg tablet 10 mg PO DAILY 09/19/23 03/24/25 History calcium 600 mg (as 1 tab PO BID 07/20/24 03/24/25 History carbonate)-vitamin D3 5 mcg (200 unit) tablet ferrous sulfate 325 mg (65 mg 325 mg PO DAILY 07/20/24 03/24/25 History iron) tablet (iron) magnesium 100 mg capsule 100 mg PO DAILY 07/20/24 03/24/25 History multivitamin 1 tab PO DAILY 07/20/24 03/24/25 History vitamin E 200 unit capsule 45 mg PO DAILY 07/20/24 03/24/25 History zinc 10 mg tablet 10 mg PO DAILY 07/20/24 03/24/25 History fluticasone propionate 50 1 spray intranasal DAILY #16 grams 02/26/25 03/24/25 Rx mcg/actuation nasal spray,suspension (Flonase Allergy Relief) brimonidine 0.1 % eye drops 1 drp ophthalmic (eye) DIRECTED 03/25/25 03/25/25 History latanoprost 0.005 % eye drops 1 drp ophthalmic (eye) DIRECTED 03/25/25 03/25/25 History New Prescriptions to Start Prescriptions: Allergies Allergy/AdvReac Type Severity Reaction Status Date / Time No Known Allergies Allergy Verified 02/26/25 10:16 Results Laboratory Findings 03/25/25 05:29 03/25/25 05:29 Abnormal lab findings: Abnormal Labs 03/24/25 03/25/25 20:07 05:29 WBC 11.7 H RBC 3.66 L Hgb 10.5 L D Hct 32.6 L MPV 12.6 H 12.2 H Neut % (Auto) 83.8 H 80.4 H Lymph % (Auto) 5.8 L 7.3 L [place] % (Auto) 9.9 H 11.9 H Eos % (Auto) 0.0 L 0.0 L Neut # (Auto) 9.8 H 8.7 H [place] # (Auto) 1.2 H 1.3 H Sodium 134 L 134 L Creatinine 0.50 L 0.40 L Glucose 194 H 109 H D Calcium 7.9 L Phosphorus 1.9 L Total Bilirubin 1.7 H Total Protein 5.8 L Albumin 3.0 L D Globulin 3.3 H Cholesterol 70 L LDL Cholesterol Direct < 30.00 L HDL Cholesterol 32 L Assessment and Plan *Assessment and plan (1) Right lower lobe pneumonia: Status: Acute Qualifiers: Pneumonia type: due to unspecified organism Qualified Code(s): J18.9 - Pneumonia, unspecified organism Category: Medical Code(s): J18.9 - Pneumonia, unspecified organism (2) Pericardial effusion: Status: Acute Category: Medical Code(s): I31.39 - Other pericardial effusion (noninflammatory) (3) Mediastinal mass: Status: Acute Category: Medical Code(s): J98.59 - Other diseases of mediastinum, not elsewhere classified (4) Mediastinal lymphadenopathy: Status: Acute Category: Medical Code(s): R59.0 - Localized enlarged lymph nodes Plan Ms. 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 Patient admits intermittent symptoms of fatigue since July 2024. Worsening symptoms of cough and shortness of breath 6 weeks ago treated as bronchitis with 2 rounds of antibiotics and steroids not improving and eventually presented to the ER for this admission. CT chest reviewed, no pulmonary embolism. 4 cm anterior mediastinal mass. Large pericardial effusion. Station 7 lymphadenopathy along with right lower lobe airspace disease and bronchial thickening. Plan: - Follow with pericardial fluid cytology - Follow-up with AMANDA, TSH, beta-hCG, CEA, LDH, CRP. - Flutter valve TID - Continue ceftriaxone-pending sputum culture results - DuoNebs 4 times daily as needed
[2025-03-25 12:49] LABS: Anti-Centromere B Antibodies ND; Anti-DNA (DS) Ab Qn ND; Anti-Jo-1 ND; Antichromatin Antibodies ND; Antiscleroderma-70 Antibodies ND; RNP Antibodies ND; Sjogren's Anti-SS-A ND; Sjogren's Anti-SS-B ND
[2025-03-25 13:02] LABS: Lactate Dehydrogenase 166 U/L (313-618)
[2025-03-25 13:07] LABS: C-Reactive Protein 136.6 mg/L (0-4)
[2025-03-25 13:34] LABS: Thyroid Stimulating Hormone 1.54 uIU/mL (0.465-4.68)
--- NOTE | 2025-03-25 13:46 | P.PN_ITS ---
Subjective *Date: 03/25/25 *Time: 17:42 Interval history: Continues to have cough today. Cough is nonproductive. Afebrile. No nausea or vomiting. Stable on room air. Going for pericardiocentesis today. Denies chest pain. Alert and oriented x 3 Medical Exam Vital signs and Labs for Last 24 Hours: Vital Signs Temp Pulse Pulse Resp BP BP Pulse Ox 03/25/25 12:00 98.7 F 86 16 132/70 94 L 03/25/25 11:00 03/25/25 09:44 88 15 03/25/25 09:00 03/25/25 08:00 03/25/25 08:00 80 03/25/25 08:00 98.4 F 87 18 139/78 95 03/25/25 06:35 03/25/25 05:53 80 03/25/25 05:00 03/25/25 03:49 99.3 F 87 20 140/70 96 03/25/25 03:00 03/25/25 01:00 03/25/25 00:00 80 03/25/25 00:00 99.0 F 86 17 127/58 L 98 03/24/25 23:00 03/24/25 22:29 98.3 F 90 20 149/81 H 95 03/24/25 22:25 100 H 03/24/25 22:14 97.9 F 81 20 109/81 L 03/24/25 21:43 90 20 95 03/24/25 20:30 91 H 161/89 H 91 L 03/24/25 20:00 94 H 167/83 H 91 L 03/24/25 19:49 93 H 176/87 H 92 L 03/24/25 19:48 98.8 F 91 H 20 176/87 H 94 L O2 Del Method O2 Flow Rate 03/25/25 12:00 Room Air 03/25/25 11:00 Nasal Cannula 2 03/25/25 09:44 03/25/25 09:00 Nasal Cannula 2 03/25/25 08:00 Nasal Cannula 2 03/25/25 08:00 03/25/25 08:00 Nasal Cannula 2 03/25/25 06:35 Nasal Cannula 2 03/25/25 05:53 03/25/25 05:00 Nasal Cannula 2 03/25/25 03:49 Room Air 03/25/25 03:00 Nasal Cannula 2 03/25/25 01:00 Nasal Cannula 2 03/25/25 00:00 03/25/25 00:00 03/24/25 23:00 Nasal Cannula 2 03/24/25 22:29 Nasal Cannula 2 03/24/25 22:25 03/24/25 22:14 Room Air 03/24/25 21:43 Nasal Cannula 2 03/24/25 20:30 Room Air 03/24/25 20:00 Room Air 03/24/25 19:49 Room Air 03/24/25 19:48 Room Air Intake and Output 03/24/25 03/25/25 03/25/25 23:59 07:59 15:59 Intake Total 100 / 100 Output Total 0 / 0 0 / 0 0 / 0 Balance 0 / 100 100 / 100 0 / 100 Intake: Intake, Oral Amount 100 / 100 Output: Output, Urine Amount 0 / 0 0 / 0 0 / 0 Other: Number of Unmeasured Voids 1 1 1 Weight 42.456 kg 52.435 kg Patient Weight 03/25/25 23:59 Weight 52.435 kg Laboratory Results - last 24 hr 03/24/25 20:07: WBC 11.7 H, RBC 4.27, Hgb 12.2, Hct 38.1, MCV 89.2, MCH 28.6, MCHC 32.0, RDW 15.5, Plt Count 208, MPV 12.6 H, Neut % (Auto) 83.8 H, Lymph % (Auto) 5.8 L, [place] % (Auto) 9.9 H, Eos % (Auto) 0.0 L, Baso % (Auto) 0.1, Neut # (Auto) 9.8 H, Lymph # (Auto) 0.7, [place] # (Auto) 1.2 H, Eos # (Auto) 0.0, Baso # (Auto) 0.0, Sodium 134 L, Potassium 3.8, Chloride 100, Carbon Dioxide 29, Anion Gap 8.8, BUN 16, Creatinine 0.50 L, Estimated Creat Clear 35, Estimated GFR 118, Est GFR ( Amer) 143, Glucose 194 H, Calcium 8.5, Total Bilirubin 1.7 H, AST 30, ALT 28, Alkaline Phosphatase 101, Total Protein 7.0, Albumin 3.7, Globulin 3.3 H, Albumin/Globulin Ratio 1.1, TSH 1.70 03/24/25 21:17: Lactate 0.9 03/25/25 05:29: WBC 10.8, RBC 3.66 L, Hgb 10.5 L D, Hct 32.6 L, MCV 89.1, MCH 29.0, MCHC 32.5, RDW 15.4, Plt Count 163, MPV 12.2 H, Neut % (Auto) 80.4 H, Lymph % (Auto) 7.3 L, [place] % (Auto) 11.9 H, Eos % (Auto) 0.0 L, Baso % (Auto) 0.1, Neut # (Auto) 8.7 H, Lymph # (Auto) 0.8, [place] # (Auto) 1.3 H, Eos # (Auto) 0.0, Baso # (Auto) 0.0, Sodium 134 L, Potassium 3.6, Chloride 101, Carbon Dioxide 30, Anion Gap 6.6, BUN 14, Creatinine 0.40 L, Estimated Creat Clear 36, Estimated GFR 153, Est GFR ( Amer) 185 D, Glucose 109 H D, Calcium 7.9 L , Phosphorus 1.9 L, Magnesium 1.8, Total Bilirubin 0.9, AST 26, ALT 22, Alkaline Phosphatase 96, Total Protein 5.8 L, Albumin 3.0 L D, Globulin 2.8, Albumin/Globulin Ratio 1.1, Triglycerides 46, Cholesterol 70 L, LDL Cholesterol Direct < 30.00 L, VLDL Cholesterol 9, HDL Cholesterol 32 L, Cholesterol/HDL Ratio 2.2 03/25/25 12:45: Lactate Dehydrogenase 166 L, C-Reactive Protein 136.6 H I & O for Labs for Last 24 Hours: Intake & Output 03/22/25 03/23/25 03/24/25 03/25/25 23:59 23:59 23:59 23:59 Intake Total 100 / 100 Output Total 0 / 0 0 / 0 Balance 0 / 100 100 / 100 Weight 42.456 kg 52.435 kg Constitutional: Present mild distress, average body habitus, chronically ill appearing and cooperative Head: Present atraumatic and normocephalic ENT: Present normal exam Respiratory: Present normal respiratory effort; Absent rhonchi, wheezes or crackles Comment:: Dry cough Cardiac: Present Reg Rate and Rhythm GI: Present soft and normal bowel sounds; Absent distention or tenderness Extremities: Present normal inspection and full ROM Skin: Present intact; Absent erythema Neuro: Present Grossly Intact, alert, awake and moves all extremities Assessment and Plan *Assessment and plan (1) Right lower lobe pneumonia: Status: Acute Qualifiers: Pneumonia type: due to unspecified organism Qualified Code(s): J18.9 - Pneumonia, unspecified organism Category: Medical Code(s): J18.9 - Pneumonia, unspecified organism (2) Pericardial effusion: Status: Acute Category: Medical Code(s): I31.39 - Other pericardial effusion (noninflammatory) (3) Bronchitis: Status: Acute Category: Medical Code(s): J40 - Bronchitis, not specified as acute or chronic (4) Mediastinal lymphadenopathy: Status: Acute Category: Medical Code(s): R59.0 - Localized enlarged lymph nodes (5) Mediastinal mass: Status: Acute Category: Medical Code(s): J98.59 - Other diseases of mediastinum, not elsewhere classified (6) Hypertension: Status: Acute Qualifiers: Hypertension type: primary hypertension Qualified Code(s): I10 - Essential (primary) hypertension Category: Medical Code(s): I10 - Essential (primary) hypertension (7) Hyperlipidemia: Status: Acute Qualifiers: Hyperlipidemia type: mixed hyperlipidemia Qualified Code(s): E78.2 - Mixed hyperlipidemia Category: Medical Code(s): E78.5 - Hyperlipidemia, unspecified (8) Anemia: Status: Acute Category: Medical Code(s): D64.9 - Anemia, unspecified (9) Hypophosphatemia: Status: Acute Category: Medical Code(s): E83.39 - Other disorders of phosphorus metabolism Plan 84-year-old female presents with dyspnea present for 6 weeks and has been being treated for bronchitis without improvement. Presented with acute exacerbation of this dyspnea and was found to have a large pericardial effusion and also a mass with reported differential being lymphoma versus thymic mass. Given the si ze of her effusion without evidence of tamponade, this has been a chronic process, My concern is that is malignant effusion. Cardiology consulted along with pulmonology to perform pericardiocentesis and potential biopsy of mass. Will need close outpatient follow-up and referral to oncology at discharge. Continues to require inpatient management. Undergoing pericardiocentesis today. Problems addressed as follows: Pericardial effusion with tamponade Mediastinal mass with mediastinal lymphadenopathy - Discussed case with cardiology, echo obtained which shows significant pericardial effusion. Normal ejection fraction. RV is partially collapsing inward, concern for early tamponade. Recommend proceeding with pericardiocentesis today. - Studies sent including cytology, Gram stain and cell count, culture -Continue to monitor on telemetry. - Reviewed pulmonology recommendations today, recommend following pericardial fluid cytology. Follow-up AMANDA, TSH, beta-hCG, CEA, LDH, CRP. - Recommend flutter valve 3 times a day. - Continue ceftriaxone pending sputum cultures. Recommend DuoNebs every 6 hours as needed - Pericardiocentesis performed. Removed 800 cc. Drain left in place. Will monitor output over the next 24 hours. Consider removal if daily output drops to less than 100 cc in 24hrs. RLL pneumonia - got doxy and rocephin in ED, continue ceftriaxone 2 g daily. Sputum and blood cultures pending -Stable on room air. Supplemental oxygen if needed for goal sats greater 90% -DuoNebs every 6 hours as needed for wheeze or shortness of breath Continue Lipitor 10 mg nightly per home regimen Holding lisinopril for blood pressure pending improvement in pressure with pericardiocentesis. Reevaluate tomorrow. Resume brimonidine and latanoprost eyedrops daily Anemia: Hemoglobin 10.5. No active signs of bleeding. Repeat H&H this evening after pericardiocentesis. Repeat CBC, CMP, magnesium, and phosphorus ordered for the morning Kidney function normal with BUN 14, creatinine 0.4. Electrolytes stable with sodium 134, potassium 3.6, magnesium 1.8. Phosphorus 1.9. Will replace IV x 2 Full code Holding heparin for now, reevaluate tomorrow Regular diet
--- NOTE | 2025-03-25 14:00 | CA_ITS ---
APPROVED REPORT EXAM: Limited 2D Echocardiogram Creative Services Specialist: GREGORIO Hogan, RVS Ht: 5 ft 1 in Wt: 116lbs BSA: 1.50 BP: 120/60 mmHg Indications: Pericardial Effusion Other Information Study Quality: Fair Conclusion This is a limited TTE post pericardiocentesis with evacuation of 800 cc of pericardial fluid. Limited windows were obtained. There is a trivial, posterior residual pericardial effusion present. In contrast, the large anterior pocket is no longer visualized, and the effusion anteriorly has resolved. Post pericardiocentesis, the RV chamber appears expanded and is of normal size and function. Electronically signed by : Rukhsana Lugo MD 03/26/2025 20:37:09
[2025-03-25 14:01] LABS: HCG Qualitative, Serum Negative (Negative)
[2025-03-25] MEDS: 0.9 % SODIUM CHLORIDE 500 ML 25 ML IV (14:26)
[2025-03-25] MEDS: LIDOCAINE 1% 10ML MDV 10 ML IJ (14:26)
[2025-03-25] MEDS: MIDAZOLAM HCL 1MG/ML 5ML VIAL 1 MG IV (15:13)
[2025-03-25] MEDS: FENTANYL 100MCG/2ML VIAL 50 MCG IV (15:13)
[2025-03-25] MEDS: PROPOFOL 10MG/ML 20ML VIAL 160 MG IV (15:14)
--- NOTE | 2025-03-25 15:35 | SUR.PHASEII ---
report to Klaudia ledezma, cytology specimen sent with patient, Dr Moses asked to fill out form and klaudia informed to send to lab once form is completed.
[2025-03-25 16:09] LABS: Appearance,Body Fld. Cloudy; Source, Body Fld. Pericardial Fluid; Volume,Body Fld. 700 mL
[2025-03-25 16:11] LABS: RBC,Body Fluid 9000 cells/uL (< 10 X 10^3); TNC,Body Fluid 2948 cells/uL (< 1000)
[2025-03-25 17:07] LABS: Mononuclear WBCs,Body Fluid 99 %; Polynuclear WBC,Body Fluid 1 %
--- NOTE | 2025-03-25 18:16 | PC.NURSE ---
AOX4, PERICARDIAL DRAIN IN PLACE. TOLERATING ROOM AIR WELL. CURRENTLY SETTING UP TO CHAIR.
[2025-03-25 18:19] LABS: Hematocrit 38.4 % (37.0-47.0)
[2025-03-25] MEDS: HYDROCODONE/APAP 5/325 MG TABLET 1 TAB PO (18:40)
[2025-03-25] MEDS: ATORVASTATIN 10MG TABLET 10 MG PO (21:13)
[2025-03-25] MEDS: PANTOPRAZOLE 40MG TABLET 40 MG PO (21:13)
[2025-03-25] MEDS: CEFTRIAXONE SODIUM 2 GM in 0.9 % SODIUM CHLORIDE 100 ML IV (21:18)
--- NOTE | 2025-03-25 22:08 | CA_ITS ---
APPROVED REPORT EXAM: Comprehensive 2D, Doppler, and color-flow Echocardiogram Curer Acid Drum: Marily Lester CRT Ht: 5 ft 1 in Wt: 114lbs BSA: 1.49 BP: 161/89 mmHg Indications: Shortness of Breath X 6 weeks, pericardial Effusion, Hyperlipidemia, Hypertension/HDD, New mass in chest 2D Dimensions LA Volume 53.10 mL LA Volume Index 34.90 mL/m2 (M/F) 16-34 M-Mode Dimensions RVDd 2.01 cm (0.9-2.6) LA Diam 3.45 cm (1.9-4.0) LVDd 3.04 cm (3.5-5.7) LVDs 1.83 cm (3.5-5.7) IVSd 1.61 cm (0.6-1.1) PWd 0.97 cm (0.6-1.1) EF (Teich) 72.10% FS 39.80% EDV (Teich) 36.20 mL TAPSE 1.94 (<1.7) ESV (Teich) 10.10 mL LV Diastology E Decel Time 150 (160-240 msec) E/A Ratio 1.16 MED A' 14.10 cm/s LAT A' 9.70 cm/s Aortic Valve AO Peak GR. 10.90 mmHg Mitral Valve MV E Max Rakan. 127.0 (40-130 cm/s) MV A Velocity 109.0 (40-130 cm/s) E/A Ratio 1.16 MV PHT 44.0 ms Pulmonary Valve PV Peak Velocity 199.0 (50-150 cm/s) Tricuspid Valve TR P. Velocity 386.00 cm/s RAP Estimate 10.00 mmHg RVSP 69.60 mmHg Left Ventricle The left ventricle is normal size. The left ventricular systolic function is normal. The left ventricular ejection fraction is within the normal range. There is increased LV wall thickness. There is normal LV segmental wall motion. Diastolic function is indeterminate. LVEF is 60%. Right Ventricle The right ventricle is normal size. The right ventricular systolic function is normal. Atria Left atrium is mildly dilated. Right atrium is mildly dilated. There is no Doppler evidence of interatrial shunt. Aortic Valve The aortic valve is mildly thickened. There is no aortic valvular stenosis. No aortic regurgitation is present. Mitral Valve The mitral valve is normal in structure. No evidence of mitral valve stenosis. Mild mitral regurgitation. Tricuspid Valve Tricuspid valve is grossly normal in structure and function. Mild tricuspid regurgitation. Pulmonic Valve The pulmonary valve is normal in structure. Trace pulmonic regurgitation. Great Vessels The aortic root is normal in size. IVC is normal in size, but collapses < 50% with inspiration. Pericardium There is a large sized, circumferential pericardial effusion present. The largest pocket measures 2.7 cm in diastole and is noted anteriorly. There is significant respirophasic variation in across the tricuspid valve. There is also partial RV collapse during diastole. Findings are suggestive of early tamponade physiology. Other Information Study Quality: Fair Conclusion Normal biventricular systolic function. Biatrial dilation. Mild MR, mild TR. There is a large sized, circumferential pericardial effusion present. The largest pocket measures 2.7 cm in diastole and is noted anteriorly. There is significant respirophasic variation in across the tricuspid valve. There is also partial RV collapse during diastole. Findings are suggestive of early tamponade physiology. Clinical correlation is required. Of note, the above findings were relayed to the inpatient cardiology consult team at the time of image acquisition prior to dictation of this report. Electronically signed by : Rukhsana Lugo MD 03/26/2025 19:54:50
[2025-03-26] VITALS (12 sets, daily range): BP systolic 111–157; BP diastolic 50–77; PULSE 70–96; RESP 16–18; TEMP 36.6–37.1; O2SAT 91–98; BMI 22.1
[2025-03-26] MEDS: POTASSIUM PHOS IN 0.9 % NACL 15 MMOL/250 ML PIGGYBACK 62.5 MMOL IV ×2 (01:15→05:14)
[2025-03-26] MEDS: guaiFENesin 600 MG TAB.ER.12H PO ×2 (05:30→23:02)
[2025-03-26] MEDS: IPRATROPIUM/ALBUTEROL 3 ML NEB IH ×3 (05:35→18:25)
[2025-03-26 06:20] LABS: Basophils % 0.2 % (0.1-2.0); Hematocrit 35.5 % (37.0-47.0); Hemoglobin 11.1 g/dL (12.2-16.2); Immature Granulocytes # 0.03 10^3uL; Immature Granulocytes % 0.3 %; Lymphocytes # 1.1 K/mm3 (0.7-4.5); Lymphocytes % 12.3 % (10-50); Mean Corpuscular HGB Conc 31.3 g/dL (31.8-35.4); Mean Corpuscular Hemoglobin 27.9 pg (27.0-31.2); Mean Corpuscular Volume 89.2 fl (81-99); Mean Platelet Volume 12.6 fl (7.4-10.4); Monocytes # 1.1 K/mm3 (0.1-1.0); Monocytes % 12.3 % (1.7-9.3); Neutrophils # 6.9 K/mm3 (1.8-7.8); Neutrophils % 74.9 % (37.0-80.0); Nucleated Red Blood Cells # 0 10^3/uL; Nucleated Red Blood Cells % 0 %; Platelet Count 201 K/mm3 (142-424); Red Blood Count 3.98 M/mm3 (4.20-5.40); Red Cell Distribution Width 15.7 % (11.5-17.5); Red Cell Distribution Width-SD 50.9 fL; White Blood Count 9.2 K/mm3 (4.8-10.8)
--- NOTE | 2025-03-26 06:24 | PC.NURSE ---
Pt. is alert and orientated x 4. Pt. is on room air. Pt. congested and has a perductive cough. Pt. has a pericardial drain. Draining meng colored fluid. overnight. Pt. tolerating drain well. Pt. up to bathroom to void with standby assist. Pt. getting IV antibiotics and K-phos overnight. tolerating well. Pt. up to chair and was coughing and wheezing. Resp. gave a duoneb Pt. less wheezy. Personal items and call [place] in reach,
[2025-03-26 06:38] LABS: Alanine Aminotransferase 21 U/L (12-78); Albumin/Globulin Ratio 1.1 (1.1-1.8); Alkaline Phosphatase 118 U/L (38-126); Aspartate Amino Transferase 67 U/L (14-36); Blood Urea Nitrogen 14 mg/dl (7-17); Calcium 7.4 mg/dl (8.4-10.2); Carbon Dioxide 22 mmol/L (22.0-30.0); Chloride 108 mmol/L (98-107); Creatinine Clearance Estimated 36 mL/min (50-200); Estimated Glomerular Filt Rate 118 ml/min (>60); GFR (African American) 143 ML/MIN (>60); Globulin 2.7 g/dL (1.3-3.2); Glucose 105 mg/dl (74-100); Magnesium 1.7 mg/dl (1.6-2.3); Sodium 137 mmol/L (136-145); Total Protein,Serum 5.7 g/dl (6.3-8.2)
[2025-03-26 06:48] LABS: Phosphorous 3.5 mg/dl (2.5-4.5)
[2025-03-26] MEDS: BRIMONIDINE 0.2% OPHTH SOLN 5ML BOTTLE OP ×2 (09:31→20:24)
[2025-03-26] MEDS: FLUTICASONE PROP 50MCG NASAL SPRAY 16GM 1 SPRAY NS (09:31)
[2025-03-26] MEDS: LATANOPROST 0.005% OPTH SOLN 2.5ML OP ×2 (09:32→20:24)
[2025-03-26] MEDS: DOXYCYCLINE HYCLATE 100 MG in 0.9 % SODIUM CHLORIDE 250 ML 166.667 MG IV ×2 (09:35→21:23)
[2025-03-26 14:11] LABS: Glucose, Body Fluid 62 mg/dL (.); LD, Body Fluid 720 IU/L (.)
--- NOTE | 2025-03-26 14:58 | P.PN_ITS ---
Subjective *Date: 03/26/25 *Time: 14:58 Interval history: Feeling better this morning. Still coughing but much better per her report. Stable on room air. Afebrile overnight. No nausea or vomiting. Denies chest pain. Still having serous drainage from pericardial drain Medical Exam Vital signs and Labs for Last 24 Hours: Vital Signs Temp Pulse Pulse Resp BP Pulse Ox O2 Del Method 03/26/25 14:33 Room Air 03/26/25 13:38 82 03/26/25 13:38 87 03/26/25 13:38 95 Room Air 03/26/25 12:02 Room Air 03/26/25 12:00 70 03/26/25 12:00 98 F 80 16 129/74 98 Room Air 03/26/25 09:00 Room Air 03/26/25 08:00 70 03/26/25 08:00 Room Air 03/26/25 07:44 97.9 F 85 16 111/50 L 94 L Room Air 03/26/25 06:52 Room Air 03/26/25 05:37 96 H 03/26/25 05:37 86 03/26/25 05:37 92 L Room Air 03/26/25 05:00 Room Air 03/26/25 04:00 90 03/26/25 04:00 98.8 F 92 H 18 142/77 H 91 L Room Air 03/26/25 03:00 Room Air 03/26/25 01:00 Room Air 03/26/25 00:00 90 03/25/25 23:45 100.1 F H 97 H 17 136/76 91 L Room Air 03/25/25 23:00 Room Air 03/25/25 22:15 98 H 16 136/74 92 L Room Air 03/25/25 21:15 99.6 F 92 H 18 134/75 91 L Room Air 03/25/25 21:00 Room Air 03/25/25 20:15 96 H 14 133/70 92 L Room Air 03/25/25 20:00 100 H 03/25/25 20:00 Room Air 03/25/25 19:53 99.5 F 98 H 14 132/70 92 L Room Air 03/25/25 18:48 Room Air 03/25/25 18:15 99 H 18 154/76 H 96 Room Air 03/25/25 17:45 90 18 110/58 L 97 Room Air 03/25/25 17:15 97 H 18 108/61 L 94 L Room Air 03/25/25 17:06 100 H 03/25/25 17:00 Room Air 03/25/25 16:45 98 H 18 113/59 L 93 L Room Air 03/25/25 16:15 93 H 18 108/55 L 98 Room Air 03/25/25 16:00 97.9 F 96 H 18 103/53 L 98 Room Air 03/25/25 15:45 98 F 96 H 18 104/52 L 96 Nasal Cannula 03/25/25 15:30 98.1 F 95 H 18 102/55 L 96 Nasal Cannula O2 Flow Rate 03/26/25 14:33 03/26/25 13:38 03/26/25 13:38 03/26/25 13:38 03/26/25 12:02 03/26/25 12:00 03/26/25 12:00 03/26/25 09:00 03/26/25 08:00 03/26/25 08:00 03/26/25 07:44 03/26/25 06:52 03/26/25 05:37 03/26/25 05:37 03/26/25 05:37 03/26/25 05:00 03/26/25 04:00 03/26/25 04:00 03/26/25 03:00 03/26/25 01:00 03/26/25 00:00 03/25/25 23:45 03/25/25 23:00 03/25/25 22:15 03/25/25 21:15 03/25/25 21:00 03/25/25 20:15 03/25/25 20:00 03/25/25 20:00 03/25/25 19:53 03/25/25 18:48 03/25/25 18:15 03/25/25 17:45 03/25/25 17:15 03/25/25 17:06 03/25/25 17:00 03/25/25 16:45 03/25/25 16:15 03/25/25 16:00 03/25/25 15:45 1 03/25/25 15:30 1 Intake and Output 03/25/25 03/26/25 03/26/25 23:59 07:59 15:59 Intake Total 120 / 920 700 / 1420 720 / 1420 Output Total 220 / 220 70 / 70 0 / 70 Balance -100 / 700 630 / 1350 720 / 1350 Intake: Intake, Oral Amount 120 / 220 720 / 720 Intake, Total IV Amount 450 / 450 0.9 % Sodium Chloride 500 ml @ 100 / 100 25 mls/hr IV .Q25H [facility] Rx#: [id number] Ceftriaxone Sodium 2 gm In 0.9 100 / 100 % Sodium Chloride 100 ml @ 200 mls/hr IV Q24H [facility] Rx#:[id number] Doxycycline Hyclate 100 mg In 0 250 / 250 .9 % Sodium Chloride 250 ml @ 166.667 mls/hr IV Q12H [facility] Rx#: [id number] Infusion Intake 250 / 250 Potassium Phos in 0.9 % NaCl 15 250 / 250 mmol In 250 ml @ 62.5 mls/hr IV Q4H [facility] Rx#:[id number] Output: Output, Urine Amount 0 / 0 0 / 0 0 / 0 Output, Drainage Amount 220 / 220 70 / 70 Anterior Chest 220 / 220 70 / 70 Other: Number of Unmeasured Voids 1 1 1 Weight 53.206 kg Patient Weight 03/26/25 23:59 Weight 53.206 kg Laboratory Results - last 24 hr 03/25/25 12:45: Carcinoembryonic Ag 3.0 03/25/25 15:15: Fluid Source Pericardial fluid, Fluid Volume 700, Fluid Appearance Cloudy, Fluid RBC (Auto) 9000, Fld Tot Nucleated Cell 2948, Fld Polynuclear WBCs % 1, Fld Mononuclear WBCs % 99, Fluid Glucose 62, Fluid LDH 720 03/25/25 17:56: Hgb 12.0 L D, Hct 38.4 03/26/25 05:55: WBC 9.2, RBC 3.98 L, Hgb 11.1 L, Hct 35.5 L, MCV 89.2, MCH 27.9, MCHC 31.3 L, RDW 15.7, Plt Count 201, MPV 12.6 H, Neut % (Auto) 74.9, Lymph % (Auto) 12.3, [place] % (Auto) 12.3 H, Eos % (Auto) 0.0 L, Baso % (Auto) 0.2, Neut # (Auto) 6.9, Lymph # (Auto) 1.1, [place] # (Auto) 1.1 H, Eos # (Auto) 0.0, Baso # (Auto) 0.0, Sodium 137, Potassium 4.0, Chloride 108 H, Carbon Dioxide 22, Anion Gap 11.0, BUN 14, Creatinine 0.50 L D, Estimated Creat Clear 36, Estimated GFR 118, Est GFR ( Amer) 143 D, Glucose 105 H, Calcium 7.4 L, Phosphorus 3.5 D, Magnesium 1.7, Total Bilirubin 1.0, AST 67 H D, ALT 21, Alkaline Phosphatase 118, Total Protein 5.7 L, Albumin 3.0 L, Globulin 2.7, Albumin/Globulin Ratio 1.1 I & O for Labs for Last 24 Hours: Intake & Output 03/23/25 03/24/25 03/25/25 03/26/25 23:59 23:59 23:59 23:59 Intake Total 220 / 920 1420 / 1420 Output Total 0 / 0 220 / 220 70 / 70 Balance 0 / 100 0 / 700 1350 / 1350 Weight 42.456 kg 52.4 kg 53.206 kg Microbiology Reports for the Last 24 Hours: Microbiology 03/25/25 15:15 Pericardial Fluid Gram Stain - Final 03/25/25 09:56 Sputum - Expectorated Sputum Gram Stain - Final Constitutional: Present mild distress, average body habitus, chronically ill appearing and cooperative Head: Present atraumatic and normocephalic ENT: Present normal exam Respiratory: Present normal respiratory effort; Absent rhonchi, wheezes or crackles Comment:: Dry cough Cardiac: Present Reg Rate and Rhythm Comment:: Catheter in mid chest draining serous fluid from pericardium GI: Present soft and normal bowel sounds; Absent distention or tenderness Extremities: Present normal inspection and full ROM Skin: Present intact; Absent erythema Neuro: Present Grossly Intact, alert, awake and moves all extremities Assessment and Plan *Assessment and plan (1) Right lower lobe pneumonia: Status: Acute Qualifiers: Pneumonia type: due to unspecified organism Qualified Code(s): J18.9 - Pneumonia, unspecified organism Category: Medical Code(s): J18.9 - Pneumonia, unspecified organism (2) Pericardial effusion: Status: Acute Category: Medical Code(s): I31.39 - Other pericardial effusion (noninflammatory) (3) Bronchitis: Status: Acute Category: Medical Code(s): J40 - Bronchitis, not specified as acute or chronic (4) Mediastinal lymphadenopathy: Status: Acute Category: Medical Code(s): R59.0 - Localized enlarged lymph nodes (5) Mediastinal mass: Status: Acute Category: Medical Code(s): J98.59 - Other diseases of mediastinum, not elsewhere classified (6) Hypertension: Status: Acute Qualifiers: Hypertension type: primary hypertension Qualified Code(s): I10 - Essential (primary) hypertension Category: Medical Code(s): I10 - Essential (primary) hypertension (7) Hyperlipidemia: Status: Acute Qualifiers: Hyperlipidemia type: mixed hyperlipidemia Qualified Code(s): E78.2 - Mixed hyperlipidemia Category: Medical Code(s): E78.5 - Hyperlipidemia, unspecified (8) Anemia: Status: Acute Category: Medical Code(s): D64.9 - Anemia, unspecified (9) Hypophosphatemia: Status: Acute Category: Medical Code(s): E83.39 - Other disorders of phosphorus metabolism Plan 84-year-old female presents with dyspnea present for 6 weeks and has been being treated for bronchitis without improvement. Presented with acute exacerbation of this dyspnea and was found to have a large pericardial effusion and also a mass with reported differential being lymphoma versus thymic mass. Given the size of her effusion without evidence of tamponade, this has been a chronic process, My concern is that is malignant effusion. Cardiology consulted along with pulmonology to perform pericardiocentesis and potential biopsy of mass. Will need close outpatient follow-up and referral to oncology at discharge. Continues to require inpatient management. Underwent pericardiocentesis ye sterday. Still having small amount of drainage. Problems addressed as follows: Pericardial effusion with tamponade Mediastinal mass with mediastinal lymphadenopathy - Pericardial drain placed yesterday. Had about 800 cc of output in the [employer]. Has had an additional 250 cc of output overnight. Fluid studies do not appear infectious. Consider pulling tomorrow if output less than 100 cc in 24 hours. - Studies sent including cytology, Gram stain and cell count, culture - Continue to monitor on telemetry. - Reviewed pulmonology recommendations, recommend following pericardial fluid cytology. Follow-up AMANDA, TSH, beta-hCG, CEA, LDH, CRP. - Recommend flutter valve 3 times a day. - Continue ceftriaxone pending sputum cultures. Recommend DuoNebs every 6 hours as needed RLL pneumonia - got doxy and rocephin in ED, continue ceftriaxone 2 g daily and doxycycline 100 mg twice daily. . Sputum and blood cultures pending -Stable on room air. Supplemental oxygen if needed for goal sats greater 90% -DuoNebs every 6 hours as needed for wheeze or shortness of breath Continue Lipitor 10 mg nightly per home regimen Holding lisinopril for blood pressure pending improvement in pressure with pericardiocentesis. Reevaluate tomorrow. Resume brimonidine and latanoprost eyedrops daily Anemia: Hemoglobin stable 11. No active signs of bleeding. Repeat CBC, CMP, magnesium, and phosphorus ordered for the morning Kidney function normal with BUN 14, creatinine 0.5. Potassium 4.0. Magnesium 1.7. White count remains normal at 9.2. Full code Holding heparin for now, reevaluate tomorrow Regular diet
--- NOTE | 2025-03-26 15:41 | PC.NURSE ---
Aox 4, up with assistance times one, pericardial drain in place, on RA, 20g R W SL.
[2025-03-26] MEDS: ATORVASTATIN 10MG TABLET 10 MG PO (20:23)
[2025-03-26] MEDS: CEFTRIAXONE SODIUM 2 GM in 0.9 % SODIUM CHLORIDE 100 ML IV (20:26)
[2025-03-26] MEDS: PANTOPRAZOLE 40MG TABLET 40 MG PO (21:21)
[2025-03-26] MEDS: ACETAMINOPHEN 325MG TAB 650 MG PO (21:21)
[2025-03-27] VITALS: BP 150/64; PULSE 70; PULSE 90; RESP 16; TEMP 37.2; O2SAT 96
[2025-03-27 04:00] VITALS: BP 141/71; PULSE 78; PULSE 90; RESP 17; TEMP 36.9; O2SAT 93; BMI 22.4
[2025-03-27 07:21] LABS: Basophils % 0.1 % (0.1-2.0); Eosinophils % 0.3 % (0.1-12.0); Hematocrit 34.8 % (37.0-47.0); Hemoglobin 10.8 g/dL (12.2-16.2); Immature Granulocytes # 0.03 10^3uL; Immature Granulocytes % 0.4 %; Lymphocytes # 1.2 K/mm3 (0.7-4.5); Lymphocytes % 16.2 % (10-50); Mean Corpuscular Hemoglobin 27.8 pg (27.0-31.2); Mean Corpuscular Volume 89.5 fl (81-99); Mean Platelet Volume 12.1 fl (7.4-10.4); Monocytes % 13.2 % (1.7-9.3); Neutrophils % 69.8 % (37.0-80.0); Nucleated Red Blood Cells # 0 10^3/uL; Nucleated Red Blood Cells % 0 %; Platelet Count 186 K/mm3 (142-424); Red Blood Count 3.89 M/mm3 (4.20-5.40); Red Cell Distribution Width 15.9 % (11.5-17.5); Red Cell Distribution Width-SD 51.8 fL; White Blood Count 7.2 K/mm3 (4.8-10.8)
[2025-03-27 07:23] LABS: Albumin Level 2.7 g/dl (3.5-5.0); Chloride 108 mmol/L (98-107); Potassium 3.8 mmoL/L (3.5-5.1); Sodium 136 mmol/L (136-145)
[2025-03-27 07:26] LABS: Alanine Aminotransferase 23 U/L (12-78); Alkaline Phosphatase 83 U/L (38-126); Anion Gap 5.8 mEq/L (5-15); Aspartate Amino Transferase 32 U/L (14-36); Bilirubin,Total 0.7 mg/dl (0.2-1.3); Blood Urea Nitrogen 11 mg/dl (7-17); Carbon Dioxide 26 mmol/L (22.0-30.0); Creatinine Clearance Estimated 37 mL/min (50-200); Estimated Glomerular Filt Rate 153 ml/min (>60); GFR (African American) 185 ML/MIN (>60); Globulin 2.7 g/dL (1.3-3.2); Total Protein,Serum 5.4 g/dl (6.3-8.2)
[2025-03-27 07:27] LABS: Calcium 7.7 mg/dl (8.4-10.2); Glucose 99 mg/dl (74-100)
[2025-03-27 07:34] LABS: Magnesium 1.7 mg/dl (1.6-2.3)
[2025-03-27 08:00] VITALS: BP 144/85; PULSE 100; PULSE 84; RESP 16; TEMP 36.9; O2SAT 95
[2025-03-27] MEDS: BRIMONIDINE 0.2% OPHTH SOLN 5ML BOTTLE OP ×2 (08:19→21:40)
[2025-03-27] MEDS: FLUTICASONE PROP 50MCG NASAL SPRAY 16GM 1 SPRAY NS (08:19)
[2025-03-27] MEDS: DOXYCYCLINE HYCLATE 100 MG in 0.9 % SODIUM CHLORIDE 250 ML 166.667 MG IV ×2 (08:19→22:32)
--- NOTE | 2025-03-27 08:34 | PC.NURSE ---
Pt. is alert and orientated x 4. Pt. on room air. Pericardial drain in place. draining very small amount of serrous meng fluids. Pt. states the area is sore but no pain. Pt. up and ambulates with standby assistance. Personal items and call whitlock in reach.
--- NOTE | 2025-03-27 11:04 | P.PN_ITS ---
Subjective *Date: 03/27/25 *Time: 11:06 Medical Exam Vital signs and Labs for Last 24 Hours: Vital Signs Temp Pulse Pulse Resp BP Pulse Ox O2 Del Method 03/27/25 09:10 Room Air 03/27/25 08:00 Room Air 03/27/25 08:00 100 H 03/27/25 08:00 98.4 F 84 16 144/85 H 95 Room Air 03/27/25 07:00 Room Air 03/27/25 05:00 Room Air 03/27/25 04:00 90 03/27/25 04:00 98.4 F 78 17 141/71 H 93 L 03/27/25 03:00 Room Air 03/27/25 01:00 Room Air 03/27/25 00:00 70 03/27/25 00:00 98.9 F 90 16 150/64 H 96 03/26/25 23:00 Room Air 03/26/25 21:00 Room Air 03/26/25 20:00 80 03/26/25 20:00 94 L Room Air 03/26/25 19:52 98.6 F 95 H 18 157/67 H 94 L 03/26/25 18:49 80 03/26/25 18:48 79 03/26/25 18:10 Room Air 03/26/25 16:11 Room Air 03/26/25 16:00 90 03/26/25 16:00 98.1 F 90 16 111/60 95 Room Air 03/26/25 14:33 Room Air 03/26/25 13:38 82 03/26/25 13:38 87 03/26/25 13:38 95 Room Air 03/26/25 12:02 Room Air 03/26/25 12:00 70 03/26/25 12:00 98 F 80 16 129/74 98 Room Air Intake and Output 03/26/25 03/27/25 03/27/25 23:59 07:59 15:59 Intake Total 360 / 4380 2350 / 2710 360 / 2710 Output Total 3 / 93 0 / 0 Balance 357 / 4287 2350 / 2710 360 / 2710 Intake: Intake, Oral Amount 360 / 1080 360 / 360 Intake, Total IV Amount 2350 / 2350 Ceftriaxone Sodium 2 gm In 0.9 100 / 100 % Sodium Chloride 100 ml @ 200 mls/hr IV Q24H [facility] Rx#:[id number] Doxycycline Hyclate 100 mg In 0 2250 / 2250 .9 % Sodium Chloride 250 ml @ 166.667 mls/hr IV Q12H [facility] Rx#: [id number] Output: Output, Urine Amount 3 / 3 0 / 0 Other: Number of Unmeasured Voids 1 1 Weight 54.006 kg Patient Weight 03/27/25 23:59 Weight 54.006 kg Laboratory Results - last 24 hr 03/25/25 15:15: Fluid Glucose 62, Fluid LDH 720 03/27/25 06:25: WBC 7.2, RBC 3.89 L, Hgb 10.8 L, Hct 34.8 L, MCV 89.5, MCH 27.8, MCHC 31.0 L, RDW 15.9, Plt Count 186, MPV 12.1 H, Neut % (Auto) 69.8, Lymph % (Auto) 16.2, [place] % (Auto) 13.2 H, Eos % (Auto) 0.3, Baso % (Auto) 0.1, Neut # (Auto) 5.0, Lymph # (Auto) 1.2, [place] # (Auto) 1.0, Eos # (Auto) 0.0, Baso # (Auto) 0.0, Sodium 136, Potassium 3.8, Chloride 108 H, Carbon Dioxide 26, Anion Gap 5.8, BUN 11, Creatinine 0.40 L, Estimated Creat Clear 37, Estimated GFR 153, Est GFR ( Amer) 185 D, Glucose 99, Calcium 7.7 L, Magnesium 1.7, Total Bilirubin 0.7, AST 32 D, ALT 23, Alkaline Phosphatase 83, Total Protein 5.4 L, Albumin 2.7 L, Globulin 2.7, Albumin/Globulin Ratio 1.0 L I & O for Labs for Last 24 Hours: Intake & Output 03/24/25 03/25/25 03/26/25 03/27/25 23:59 23:59 23:59 23:59 Intake Total 220 / 920 2029 / 4379 Output Total 0 / 0 220 / 220 93 / 93 0 / 0 Balance 0 / 100 0 / 700 1937 / 4287 2709 Weight 42.456 kg 52.4 kg 53.206 kg 54.006 kg Microbiology Reports for the Last 24 Hours: Microbiology 03/25/25 15:15 Pericardial Fluid Gram Stain - Final 03/25/25 15:15 Pericardial Fluid Body Fluid Culture - Preliminary 03/25/25 09:56 Sputum - Expectorated Sputum Gram Stain - Final 03/25/25 09:56 Sputum - Expectorated Sputum Sputum Culture - Preliminary The patient's infection will respond to the chosen ABx?: Yes Is the patient receiving the right drug, dose, and route?: Yes Could a more targeted ABx be ordered?: No (AFEBRILE, WBC WNL NOW. IMPROVED.)
[2025-03-27 12:00] VITALS: BP 138/80; PULSE 83; PULSE 90; RESP 16; TEMP 36.6; O2SAT 96
--- NOTE | 2025-03-27 13:40 | P.PN_ITS ---
Subjective *Date: 03/27/25 *Time: 13:40 Interval history: Stable on room air. Still has dry nonproductive cough but improving. No nausea or vomiting. Tolerating p.o. intake. Minimal output in pericardial drain overnight. Less than 50 cc in the past 24 hours Medical Exam Vital signs and Labs for Last 24 Hours: Vital Signs Temp Pulse Pulse Resp BP Pulse Ox O2 Del Method 03/27/25 12:00 98 F 83 16 138/80 96 03/27/25 11:00 Room Air 03/27/25 09:10 Room Air 03/27/25 08:00 Room Air 03/27/25 08:00 100 H 03/27/25 08:00 98.4 F 84 16 144/85 H 95 Room Air 03/27/25 07:00 Room Air 03/27/25 05:00 Room Air 03/27/25 04:00 90 03/27/25 04:00 98.4 F 78 17 141/71 H 93 L 03/27/25 03:00 Room Air 03/27/25 01:00 Room Air 03/27/25 00:00 70 03/27/25 00:00 98.9 F 90 16 150/64 H 96 03/26/25 23:00 Room Air 03/26/25 21:00 Room Air 03/26/25 20:00 80 03/26/25 20:00 94 L Room Air 03/26/25 19:52 98.6 F 95 H 18 157/67 H 94 L 03/26/25 18:49 80 03/26/25 18:48 79 03/26/25 18:10 Room Air 03/26/25 16:11 Room Air 03/26/25 16:00 90 03/26/25 16:00 98.1 F 90 16 111/60 95 Room Air 03/26/25 14:33 Room Air Intake and Output 03/26/25 03/27/25 03/27/25 23:59 07:59 15:59 Intake Total 360 / 4380 2350 / 2960 610 / 2960 Output Total 3 / 93 0 / 0 Balance 357 / 4287 2350 / 2960 610 / 2960 Intake: Intake, Oral Amount 360 / 1080 360 / 360 Intake, Total IV Amount 2350 / 2600 250 / 2600 Ceftriaxone Sodium 2 gm In 0.9 100 / 100 % Sodium Chloride 100 ml @ 200 mls/hr IV Q24H [facility] Rx#:[id number] Doxycycline Hyclate 100 mg In 0 2250 / 2500 250 / 2500 .9 % Sodium Chloride 250 ml @ 166.667 mls/hr IV Q12H [facility] Rx#: [id number] Output: Output, Urine Amount 3 / 3 0 / 0 Other: Number of Unmeasured Voids 1 1 Weight 54.006 kg Patient Weight 03/27/25 23:59 Weight 54.006 kg Laboratory Results - last 24 hr 03/25/25 15:15: Fluid Glucose 62, Fluid LDH 720 03/27/25 06:25: WBC 7.2, RBC 3.89 L, Hgb 10.8 L, Hct 34.8 L, MCV 89.5, MCH 27.8, MCHC 31.0 L, RDW 15.9, Plt Count 186, MPV 12.1 H, Neut % (Auto) 69.8, Lymph % (Auto) 16.2, [place] % (Auto) 13.2 H, Eos % (Auto) 0.3, Baso % (Auto) 0.1, Neut # (Auto) 5.0, Lymph # (Auto) 1.2, [place] # (Auto) 1.0, Eos # (Auto) 0.0, Baso # (Auto) 0.0, Sodium 136, Potassium 3.8, Chloride 108 H, Carbon Dioxide 26, Anion Gap 5.8, BUN 11, Creatinine 0.40 L, Estimated Creat Clear 37, Estimated GFR 153, Est GFR ( Amer) 185 D, Glucose 99, Calcium 7.7 L, Magnesium 1.7, Total Bilirubin 0.7, AST 32 D, ALT 23, Alkaline Phosphatase 83, Total Protein 5.4 L, Albumin 2.7 L, Globulin 2.7, Albumin/Globulin Ratio 1.0 L I & O for Labs for Last 24 Hours: Intake & Output 03/24/25 03/25/25 03/26/25 03/27/25 23:59 23:59 23:59 23:59 Intake Total 220 / 920 2029 / 4380 2960 / 2960 Output Total 0 / 0 220 / 220 93 / 93 0 / 0 Balance 0 / 100 0 / 700 1937 / 4287 2960 / 2960 Weight 42.456 kg 52.4 kg 53.206 kg 54.006 kg Microbiology Reports for the Last 24 Hours: Microbiology 03/25/25 15:15 Pericardial Fluid Gram Stain - Final 03/25/25 15:15 Pericardial Fluid Body Fluid Culture - Preliminary 03/25/25 09:56 Sputum - Expectorated Sputum Gram Stain - Final 03/25/25 09:56 Sputum - Expectorated Sputum Sputum Culture - Preliminary Constitutional: Present mild distress, average body habitus, chronically ill appearing and cooperative Head: Present atraumatic and normocephalic ENT: Present normal exam Respiratory: Present normal respiratory effort; Absent rhonchi, wheezes or crackles Comment:: Dry cough Cardiac: Present Reg Rate and Rhythm Comment:: Catheter removed after rounds from chest. Wound clean dry and intact. No drainage GI: Present soft and normal bowel sounds; Absent distention or tenderness Extremities: Present normal inspection and full ROM Skin: Present intact; Absent erythema Neuro: Present Grossly Intact, alert, awake and moves all extremities Assessment and Plan *Assessment and plan (1) Right lower lobe pneumonia: Status: Acute Qualifiers: Pneumonia type: due to unspecified organism Qualified Code(s): J18.9 - Pneumonia, unspecified organism Category: Medical Code(s): J18.9 - Pneumonia, unspecified organism (2) Pericardial effusion: Status: Acute Category: Medical Code(s): I31.39 - Other pericardial effusion (noninflammatory) (3) Bronchitis: Status: Acute Category: Medical Code(s): J40 - Bronchitis, not specified as acute or chronic (4) Mediastinal lymphadenopathy: Status: Acute Category: Medical Code(s): R59.0 - Localized enlarged lymph nodes (5) Mediastinal mass: Status: Acute Category: Medical Code(s): J98.59 - Other diseases of mediastinum, not elsewhere classified (6) Hypertension: Status: Acute Qualifiers: Hypertension type: primary hypertension Qualified Code(s): I10 - Essential (primary) hypertension Category: Medical Code(s): I10 - Essential (primary) hypertension (7) Hyperlipidemia: Status: Acute Qualifiers: Hyperlipidemia type: mixed hyperlipidemia Qualified Code(s): E78.2 - Mixed hyperlipidemia Category: Medical Code(s): E78.5 - Hyperlipidemia, unspecified (8) Anemia: Status: Acute Category: Medical Code(s): D64.9 - Anemia, unspecified (9) Hypophosphatemia: Status: Acute Category: Medical Code(s): E83.39 - Other disorders of phosphorus metabolism Plan 84-year-old female presents with dyspnea present for 6 weeks and has been being treated for bronchitis without improvement. Presented with acute exacerbation of this dyspnea and was found to have a large pericardial effusion and also a m ass with reported differential being lymphoma versus thymic mass. Given the size of her effusion without evidence of tamponade, this has been a chronic process, My concern is that is malignant effusion. Cardiology consulted along with pulmonology to perform pericardiocentesis and potential biopsy of mass. Will need close outpatient follow-up and referral to oncology at discharge. Continues to require inpatient management. Pericardial drain removed today. Pulm and cards to see patient in the morning. Problems addressed as follows: Pericardial effusion with tamponade Mediastinal mass with mediastinal lymphadenopathy - Pericardial drain placed 03/25. Put out a total of about a liter. Minimal output in the past 24 hours. Less than 50 cc. Removed after rounds today. - Repeat echo ordered for the morning - Studies sent including cytology, Gram stain and cell count, culture - Continue to monitor on telemetry. - Reviewed pulmonology recommendations, recommend following pericardial fluid cytology. Follow-up AMANDA, TSH, beta-hCG, CEA, LDH, CRP. - Recommend flutter valve 3 times a day. - Continue ceftriaxone pending sputum cultures. Recommend DuoNebs every 6 hours as needed RLL pneumonia - continue ceftriaxone 2 g daily and doxycycline 100 mg twice daily. Sputum and blood cultures pending -Stable on room air. Supplemental oxygen if needed for goal sats greater 90% -DuoNebs every 6 hours as needed for wheeze or shortness of breath Continue Lipitor 10 mg nightly per home regimen Holding lisinopril for blood pressure pending improvement in pressure with pericardiocentesis. Reevaluate tomorrow. Resume brimonidine and latanoprost eyedrops daily Anemia: Hemoglobin 10.8. White count 7.2. Kidney function stable with BUN 11, creatinine 0.4. Potassium 3.8 and magnesium 1.7. Repeat CBC, CMP, magnesium, and phosphorus ordered for the morning Full code Holding heparin for now, reevaluate tomorrow Regular diet
--- NOTE | 2025-03-27 15:33 | PC.NURSE ---
VS stable and patient remained on room air. NSR on monitor. Patient tolerated removal of pericardial drain well. No pain or shortness of breath noted. Lung sounds diminished.
[2025-03-27 16:00] VITALS: BP 136/67; PULSE 70; PULSE 90; RESP 16; TEMP 36.6; O2SAT 96
[2025-03-27 20:00] VITALS: BP 151/76; PULSE 90; PULSE 92; RESP 16; TEMP 37.1; O2SAT 94
[2025-03-27] MEDS: ATORVASTATIN 10MG TABLET 10 MG PO (21:40)
[2025-03-27] MEDS: PANTOPRAZOLE 40MG TABLET 40 MG PO (21:40)
[2025-03-27] MEDS: LATANOPROST 0.005% OPTH SOLN 2.5ML OP (21:41)
[2025-03-27] MEDS: CEFTRIAXONE SODIUM 2 GM in 0.9 % SODIUM CHLORIDE 100 ML IV (21:42)
[2025-03-27] MEDS: ACETAMINOPHEN 325MG TAB 650 MG PO (21:51)
[2025-03-28] VITALS: BP 118/57; PULSE 61; PULSE 80; RESP 16; TEMP 36.7; O2SAT 95
[2025-03-28 04:00] VITALS: PULSE 70; BMI 22.1
--- NOTE | 2025-03-28 06:39 | PC.NURSE ---
Pt. is alert and orientated x 4. Pt. on room air. Pt. had pericardial drain removed yesterday. , site has a gauze and tegaderm dressing. Drsg is clean, dry, intact. Pt. states are is sore but no pain. Pt. up independently ambulates around room. Pt. states she is feeling well. NO SOB . IV antibiotics given this shift. Personal items and call whitlock in reach.
[2025-03-28 06:50] LABS: Basophils % 0.3 % (0.1-2.0); Eosinophils # 0.2 Kmm3 (0.0-0.4); Eosinophils % 2.6 % (0.1-12.0); Hematocrit 35.5 % (37.0-47.0); Hemoglobin 11.1 g/dL (12.2-16.2); Immature Granulocytes # 0.03 10^3uL; Immature Granulocytes % 0.5 %; Lymphocytes # 1.5 K/mm3 (0.7-4.5); Lymphocytes % 22.2 % (10-50); Mean Corpuscular HGB Conc 31.3 g/dL (31.8-35.4); Mean Corpuscular Volume 89.4 fl (81-99); Mean Platelet Volume 12.4 fl (7.4-10.4); Monocytes # 0.9 K/mm3 (0.1-1.0); Monocytes % 13.3 % (1.7-9.3); Neutrophils % 61.1 % (37.0-80.0); Nucleated Red Blood Cells # 0 10^3/uL; Nucleated Red Blood Cells % 0 %; Platelet Count 194 K/mm3 (142-424); Red Blood Count 3.97 M/mm3 (4.20-5.40); Red Cell Distribution Width 15.7 % (11.5-17.5); Red Cell Distribution Width-SD 51.2 fL; White Blood Count 6.5 K/mm3 (4.8-10.8)
--- NOTE | 2025-03-28 07:00 | CA_ITS ---
APPROVED REPORT EXAM: Limited 2D Echocardiogram Head And Neck Surgeon: Jillian Marks RVT Ht: 5 ft 1 in Wt: 119lbs BSA: 1.52 BP: 111/60 mmHg Indications: S/P PERICARDIOCENTESIS ON 03/25/25,HTN,HLD,PNEUMONIA,MEDIASTINAL MASS M-Mode Dimensions RVDd 1.97 cm (0.9-2.6) LA Diam 3.69 cm (1.9-4.0) LVDd 3.22 cm (3.5-5.7) LVDs 2.25 cm (3.5-5.7) IVSd 0.79 cm (0.6-1.1) PWd 0.68 cm (0.6-1.1) EF (Teich) 58.90% FS 30.10% EDV (Teich) 41.60 mL ESV (Teich) 17.10 mL Other Information Study Quality: Fair Conclusion This is a limited TTE to evaluate for pericardial effusion s/p pericardiocentesis. Limited windows are obtained. There is a trivial, posterior residual pericardial effusion present. The anterior pocket is no longer visualized. No echo indications of tamponade. Compared to prior study from 03/25/2025, the size of the pericardial effusion has further improved. Electronically signed by : Rukhsana Lugo MD 03/28/2025 12:20:45
[2025-03-28 07:08] LABS: Albumin Level 2.6 g/dl (3.5-5.0); Chloride 110 mmol/L (98-107)
[2025-03-28 07:09] LABS: Potassium 3.7 mmoL/L (3.5-5.1); Sodium 139 mmol/L (136-145)
[2025-03-28 07:11] LABS: Blood Urea Nitrogen 10 mg/dl (7-17); Creatinine Clearance Estimated 36 mL/min (50-200); Estimated Glomerular Filt Rate 118 ml/min (>60); GFR (African American) 143 ML/MIN (>60)
[2025-03-28 07:12] LABS: Alanine Aminotransferase 28 U/L (12-78); Alkaline Phosphatase 82 U/L (38-126); Anion Gap 4.7 mEq/L (5-15); Aspartate Amino Transferase 37 U/L (14-36); Bilirubin,Total 0.4 mg/dl (0.2-1.3); Calcium 8.2 mg/dl (8.4-10.2); Carbon Dioxide 28 mmol/L (22.0-30.0); Globulin 2.7 g/dL (1.3-3.2); Glucose 92 mg/dl (74-100); Total Protein,Serum 5.3 g/dl (6.3-8.2)
[2025-03-28 07:39] LABS: Magnesium 1.8 mg/dl (1.6-2.3)
[2025-03-28 08:00] VITALS: BP 153/84; PULSE 90; PULSE 92; RESP 18; TEMP 36.9; O2SAT 96
[2025-03-28] MEDS: DOXYCYCLINE HYCLATE 100 MG in 0.9 % SODIUM CHLORIDE 250 ML 166.667 MG IV (08:27)
[2025-03-28] MEDS: BRIMONIDINE 0.2% OPHTH SOLN 5ML BOTTLE OP (08:27)
[2025-03-28] MEDS: FLUTICASONE PROP 50MCG NASAL SPRAY 16GM 1 SPRAY NS (08:29)
--- NOTE | 2025-03-28 09:59 | P.PN_ITS ---
Subjective *Date: 03/28/25 *Time: 12:01 Interval history: No acute respiratory events over the weekend. Patient admits continued improvement in her respiratory symptoms. Pulmonology Exam Inpatient Vital signs and Labs for Last 24 Hours: Temp Pulse Resp BP Pulse Ox O2 Del Method O2 Flow Rate 98.5 F 92 H 18 153/84 H 96 Room Air 1 03/28/25 08:00 03/28/25 08:00 03/28/25 08:00 03/28/25 08:00 03/28/25 08:00 03/28/25 08:00 03/25/25 15:45 Laboratory Results - last 24 hr 03/28/25 05:36: WBC 6.5, RBC 3.97 L, Hgb 11.1 L, Hct 35.5 L, MCV 89.4, MCH 28.0, MCHC 31.3 L, RDW 15.7, Plt Count 194, MPV 12.4 H, Neut % (Auto) 61.1, Lymph % (Auto) 22.2, [place] % (Auto) 13.3 H, Eos % (Auto) 2.6, Baso % (Auto) 0.3, Neut # (Auto) 4.0, Lymph # (Auto) 1.5, [place] # (Auto) 0.9, Eos # (Auto) 0.2, Baso # (Auto) 0.0, Sodium 139, Potassium 3.7, Chloride 110 H, Carbon Dioxide 28, Anion Gap 4.7 L, BUN 10, Creatinine 0.50 L D, Estimated Creat Clear 36, Estimated GFR 118, Est GFR ( Amer) 143 D, Glucose 92, Calcium 8.2 L, Magnesium 1.8, Total Bilirubin 0.4, AST 37 H, ALT 28, Alkaline Phosphatase 82, Total Protein 5.3 L, Albumin 2.6 L, Globulin 2.7, Albumin/Globulin Ratio 1.0 L Temp Pulse Resp BP Pulse Ox O2 Del Method O2 Flow Rate 98.4 F 88 15 139/78 95 Nasal Cannula 2 03/25/25 08:00 03/25/25 09:44 03/25/25 09:44 03/25/25 08:00 03/25/25 08:00 03/25/25 08:00 03/25/25 08:00 Laboratory Results - last 24 hr 03/24/25 20:07: WBC 11.7 H, RBC 4.27, Hgb 12.2, Hct 38.1, MCV 89.2, MCH 28.6, MCHC 32.0, RDW 15.5, Plt Count 208, MPV 12.6 H, Neut % (Auto) 83.8 H, Lymph % (Auto) 5.8 L, [place] % (Auto) 9.9 H, Eos % (Auto) 0.0 L, Baso % (Auto) 0.1, Neut # (Auto) 9.8 H, Lymph # (Auto) 0.7, [place] # (Auto) 1.2 H, Eos # (Auto) 0.0, Baso # (Auto) 0.0, Sodium 134 L, Potassium 3.8, Chloride 100, Carbon Dioxide 29, Anion Gap 8.8, BUN 16, Creatinine 0.50 L, Estimated Creat Clear 35, Estimated GFR 118, Est GFR ( Amer) 143, Glucose 194 H, Calcium 8.5, Total Bilirubin 1.7 H, AST 30, ALT 28, Alkaline Phosphatase 101, Total Protein 7.0, Albumin 3.7, Globulin 3.3 H, Albumin/Globulin Ratio 1.1, TSH 1.70 03/24/25 21:17: Lactate 0.9 03/25/25 05:29: WBC 10.8, RBC 3.66 L, Hgb 10.5 L D, Hct 32.6 L, MCV 89.1, MCH 29.0, MCHC 32.5, RDW 15.4, Plt Count 163, MPV 12.2 H, Neut % (Auto) 80.4 H, Lymph % (Auto) 7.3 L, [place] % (Auto) 11.9 H, Eos % (Auto) 0.0 L, Baso % (Auto) 0.1, Neut # (Auto) 8.7 H, Lymph # (Auto) 0.8, [place] # (Auto) 1.3 H, Eos # (Auto) 0.0, Baso # (Auto) 0.0, Sodium 134 L, Potassium 3.6, Chloride 101, Carbon Dioxi de 30, Anion Gap 6.6, BUN 14, Creatinine 0.40 L, Estimated Creat Clear 36, Estimated GFR 153, Est GFR ( Amer) 185 D, Glucose 109 H D, Calcium 7.9 L , Phosphorus 1.9 L, Magnesium 1.8, Total Bilirubin 0.9, AST 26, ALT 22, Alkaline Phosphatase 96, Total Protein 5.8 L, Albumin 3.0 L D, Globulin 2.8, Albumin/Globulin Ratio 1.1, Triglycerides 46, Cholesterol 70 L, LDL Cholesterol Direct < 30.00 L, VLDL Cholesterol 9, HDL Cholesterol 32 L, Cholesterol/HDL Ratio 2.2 I & O for Labs for Last 24 Hours: Intake & Output 03/25/25 03/26/25 03/27/25 03/28/25 23:59 23:59 23:59 23:59 Intake Total 220 / 920 2030 / 4380 3640 / 3990 770 / 770 Output Total 220 / 220 93 / 93 0 / 0 0 / 0 Balance 0 / 700 1937 / 4287 3640 / 3990 770 / 770 Weight 115 lb 8.356 oz 117 lb 4.8 oz 119 lb 1 oz 117 lb 4 oz Intake & Output 03/22/25 03/23/25 03/24/25 03/25/25 23:59 23:59 23:59 23:59 Intake Total 100 / 100 Output Total 0 / 0 0 / 0 Balance 0 / 100 100 / 100 Weight 93 lb 9.6 oz 115 lb 9.6 oz Microbiology Reports for the Last 24 Hours: Microbiology 03/25/25 15:15 Pericardial Fluid Gram Stain - Final 03/25/25 15:15 Pericardial Fluid Body Fluid Culture - Preliminary 03/25/25 09:56 Sputum - Expectorated Sputum Gram Stain - Final 03/25/25 09:56 Sputum - Expectorated Sputum Sputum Culture - Preliminary Constitutional: Present mild distress Head: Present normocephalic and atraumatic ENT: Present normal exam, normal oropharynx and mucous membranes moist Neck: Present normal inspection and full ROM Respiratory: Present respiratory distress, diminished air movement and able to speak in complete sentences; Absent rhonchi, wheezes or crackles Cardiac: Present S1/S2, Tachycardia and radial pulses present GI: Present soft and distention; Absent tenderness or guarding Rectal (female): Present deferred (female): Present deferred Skin: Present intact; Absent cyanosis or jaundice Neuro: Present alert, awake and oriented x 3 Extremities: Present normal inspection; Absent clubbing or cyanosis Psychiatric: Present normal affect and cooperative Assessment and Plan *Assessment and plan (1) Right lower lobe pneumonia: Status: Acute Qualifiers: Pneumonia type: due to unspecified organism Qualified Code(s): J18.9 - Pneumonia, unspecified organism Category: Medical Code(s): J18.9 - Pneumonia, unspecified organism (2) Pericardial effusion: Status: Acute Category: Medical Code(s): I31.39 - Other pericardial effusion (noninflammatory) (3) Mediastinal mass: Status: Acute Category: Medical Code(s): J98.59 - Other diseases of mediastinum, not elsewhere classified (4) Mediastinal lymphadenopathy: Status: Acute Category: Medical Code(s): R59.0 - Localized enlarged lymph nodes Plan Ms. 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 Patient admits intermittent symptoms of fatigue since July 2024. Worsening symptoms of cough and shortness of breath 6 weeks ago treated as bronchitis with 2 rounds of antibiotics and steroids not improving and eventually presented to the ER for this admission. CT chest reviewed, no pulmonary embolism. 4 cm anterior mediastinal mass. Large pericardial effusion. Station 7 lymphadenopathy along with right lower lobe airspace disease and bronchial thickening. Interval update: No acute respiratory events overnight. Status post pericardiocentesis. CRP within normal limits. LDH low at 166. CEA within normal limits at 3.0. TSH WNL. Serum beta-hCG negative. AMANDA screen pending. Pleural fluid cytology pending. Pericardial fluid culture no organisms. Plan: - Follow with pericardial fluid cytology. Will follow with results and further determine the need for PET CT scan/biopsy the concerning anterior mediastinal mass - Follow-up with AMANDA screen - Flutter valve TID - Antibiotics can be weaned to cefdinir to complete a total of 5-day course - Albuterol inhaler 4 times daily as needed. # Thank you for involving pulmonary in this patient care. Will follow the patient in pulmonary clinic 5 to 7 days postdischarge
[2025-03-28 10:17] LABS: pH, Body Fluid 7.4 (Not Estab.)
--- NOTE | 2025-03-28 11:10 | EXP.CARD.PN ---
Subjective Subjective Date: 03/28/25 Time: 09:00 Principal diagnosis: Pericardial effusion, chest mass Interval history: Patient did well throughout the weekend. Pericardial drain was removed yesterday. Patient remains stable, reports shortness of breath is better but still has a lingering cough. Morning labs reviewed. Denies chest pain. Exam Data for Last 24 hours Vital signs and Labs for Last 24 Hours: Temp Pulse Resp BP Pulse Ox O2 Del Method O2 Flow Rate 98.5 F 92 H 18 153/84 H 96 Room Air 1 03/28/25 08:00 03/28/25 08:00 03/28/25 08:00 03/28/25 08:00 03/28/25 08:00 03/28/25 08:00 03/25/25 15:45 Laboratory Results - last 24 hr 03/25/25 15:15: Fluid pH 7.4, Fluid Glucose 62, Fluid LDH 720 03/28/25 05:36: WBC 6.5, RBC 3.97 L, Hgb 11.1 L, Hct 35.5 L, MCV 89.4, MCH 28.0, MCHC 31.3 L, RDW 15.7, Plt Count 194, MPV 12.4 H, Neut % (Auto) 61.1, Lymph % (Auto) 22.2, [place] % (Auto) 13.3 H, Eos % (Auto) 2.6, Baso % (Auto) 0.3, Neut # (Auto) 4.0, Lymph # (Auto) 1.5, [place] # (Auto) 0.9, Eos # (Auto) 0.2, Baso # (Auto) 0.0, Sodium 139, Potassium 3.7, Chloride 110 H, Carbon Dioxide 28, Anion Gap 4.7 L, BUN 10, Creatinine 0.50 L D, Estimated Creat Clear 36, Estimated GFR 118, Est GFR ( Amer) 143 D, Glucose 92, Calcium 8.2 L, Magnesium 1.8, Total Bilirubin 0.4, AST 37 H, ALT 28, Alkaline Phosphatase 82, Total Protein 5.3 L, Albumin 2.6 L, Globulin 2.7, Albumin/Globulin Ratio 1.0 L I & O for Last 24 hours: Intake & Output 03/25/25 03/26/25 03/27/25 03/28/25 23:59 23:59 23:59 23:59 Intake Total 220 / 920 2029 / 4380 3640 / 3990 770 / 770 Output Total 220 / 220 93 / 93 0 / 0 0 / 0 Balance 0 / 700 1937 / 4287 3640 / 3990 770 / 770 Weight 115 lb 8.356 oz 117 lb 4.8 oz 119 lb 1 oz 117 lb 4 oz Microbiology Reports for the Last 24 Hours: Microbiology 03/25/25 15:15 Pericardial Fluid Gram Stain - Final 03/25/25 15:15 Pericardial Fluid Body Fluid Culture - Preliminary 03/25/25 09:56 Sputum - Expectorated Sputum Gram Stain - Final 03/25/25 09:56 Sputum - Expectorated Sputum Sputum Culture - Preliminary Constitutional Constitutional: no acute distress *Routine Respiratory Exam Respiratory: Present CTA bilaterally and symmetric chest movement *Routine Cardiovascular Exam Cardiovascular: Present RRR, Normal S1 and Normal S2 *Routine Abdominal Exam Abdominal: Present soft and normoactive bowel sounds; Absent tenderness *Routine Extremities Exam Extremities: Present full ROM and normal capillary refill; Absent edema *Routine Skin Exam Skin: Present intact, dry and warm Detailed Neck Exam: Thyroids Thyroid: Absent bruit Progress Note: A&P Assessment and plan (1) Right lower lobe pneumonia: Status: Acute (2) Pericardial effusion: Status: Acute (3) Mediastinal mass: Status: Acute (4) Mediastinal lymphadenopathy: Status: Acute Assessment and Plan Assessment and Plan for All Diagnoses:: Pericardial effusion Mediastinal mass Right lower lobe pneumonia Pericardial drain placed 530. Total output about a liter. Pericardial drain removed yesterday. Repeat limited echo today shows a trivial posterior residual pericardial effusion with no indication of tamponade. Compared to prior image on 03/25/2025 the size of the pericardial effusion has further improved Will defer mediastinal mass and right lower lobe pneumonia to pulmonology and primary service Hypertension Reported chronic cough Change lisinopril to losartan 25 mg p.o. daily. Patient reports she has a chronic cough which she thinks lisinopril might be contributing to. We discussed that in the setting of pneumonia and the mediastinal mass it is unclear if the lisinopril is contributing but we can try to switch it to losartan to see if it helps CV summary 03/28/2025: Repeat limited echo shows a trivial posterior residual pericardial effusion without indication of tamponade. Compared to prior images the pericardial effusion has improved. Patient is CV stable for discharge home. Will change lisinopril to losartan 25 mg p.o. daily. Please have patient follow-up in cardiology clinic in 1 week for reevaluation.
[2025-03-28 12:00] VITALS: BP 152/83; PULSE 90; PULSE 91; RESP 25; TEMP 36.8; O2SAT 96
[2025-03-28 14:11] LABS: Antinuclear Antibodies (ANA) Negative (Negative)
--- NOTE | 2025-03-28 15:03 | EXP.DC.SUM ---
General Admission date:: 03/24/25 Discharge date: 03/28/25 HPI HPI HPI: 84-year-old female who presents emergency department for evaluation of shortness of breath. This she has been experiencing shortness of breath for about 6 weeks, was initially diagnosed with bronchitis and took a course of antibiotics. States that she has gotten no better, it has been 6 weeks, and she decided to come in for a chest x-ray today. Patient denies any chest pain. satting in the low 90s on room air initially. She was placed on 2 L nasal cannula with improvement in her SpO2. Patient is hemodynamically stable upon arrival, afebrile. Physical exam notable for mild tachypnea, no increased work of breathing. Initial workup will be conducted with hematologic labs, CTA of the chest PE protocol, EKG. CT of the chest notable for a large pericardial effusion. Formal read of the CTA showed posterior right lower lobe pneumonia, large size pericardial effusion, 4x3 anterior mediastinal soft tissue mass. ER physician [id number] ultrasound in the ER, was reviewed by myself. LVEF is normal. RV function normal. No evidence of cardiac tamponade. She was started on doxycycline and Rocephin. I discussed CT findings and the fact that this is likely a malignant effusion. Discussed going to the [facility] tomorrow for a diagnostic and therapeutic pericardiocentesis and patient was agreeable. No other concerns or complaints at this time. History is independently interpreted by myself. I reviewed prior documentation. Diagnostic and laboratory evaluation independently interpreted . Discussed case with ER physician. Hospital Course Hospital Course Hospital Course: 84-year-old female presents with dyspnea present for 6 weeks and has been being treated for bronchitis without improvement. Presented with acute exacerbation of this dyspnea and was found to have a large pericardial effusion and also a mass with reported differential being lymphoma versus thymic mass. Given the size of her effusion without evidence of tamponade, this has been a chronic process, My concern is that is malignant effusion. Cardiology consulted along with pulmonology to perform pericardiocentesis and potential biopsy of mass. Will need close outpatient follow-up and referral to oncology at discharge. Cardial drain placed, removed about a liter of fluid. Study still pending at discharge. Stable at this time to discharge home with close follow-up as an outpatient. Remained on room air throughout admission. Problems addressed as follows: Pericardial effusion with tamponade Mediastinal mass with mediastinal lymphadenopathy -Imaging on presentation with large pericardial effusion. CT showing signs of early tamponade. Drain was placed on 03/25. Patient had about a liter of output. Removed drain on 03/27/25 due to minimal output (<50cc) in 24hrs. cardiology assisted with care during admission. Repeat echo obtained on 03/28 with trivial posterior residual pericardial effusion with no indication of tamponade. Studies sent for evaluation including cytology, Gram stain, cell count and culture. Culture and Gram stain negative. Monitored on telemetry with no events. Will refer patient to oncology as an outpatient for further evaluation of mediastinal mass. Pulmonology also consulted to evaluate and consider biopsy of mass pending cytology and fluid studies. Hypertension Reported chronic cough Change lisinopril to losartan 25 mg p.o. daily. Patient reports she has a chronic cough which she thinks lisinopril might be contributing to. We discussed that in the setting of pneumonia and the mediastinal mass it is unclear if the lisinopril is contributing but we can try to switch it to losartan to see if it helps RLL pneumonia -Initiated on antibiotics. Treated with ceftriaxone for 5 days and doxycycline twice daily for 5 days. Completed course on last day of admission. Stable on room air throughout admission. Treated with DuoNebs every 6 hours as needed. Pulmonology consulted during admission. Initiated flutter valve 3 times a day. Pulmonology to continue to follow pericardial fluid cytology and determine need for PET CT scan/biopsy in regard to mediastinal mass. AMANDA pending at discharge. Stable discharge home with further management as an outpatient. Continue Lipitor 10 mg nightly per home regime. Resume brimonidine and latanoprost eyedrops daily Anemia: Hemoglobin 10.8. White count 7.2. Kidney function stable with BUN 11, creatinine 0.4. Potassium 3.8 and magnesium 1.7. Repeat CBC, CMP, magnesium, and phosphorus ordered for the morning Total time spent on discharge 32 minutes in counseling, documentation, chart review, and direct care with patient. Exam Data for Last 24 hours Vital signs and Labs for Last 24 Hours: Temp Pulse Resp BP Pulse Ox O2 Del Method O2 Flow Rate 98.3 F 91 H 25 H 152/83 H 96 Room Air 1 03/28/25 12:03/28/25 12:03/28/25 12:03/28/25 12:00 03/28/25 12:00 03/28/25 13:00 03/25/25 15:45 Laboratory Results - last 24 hr 03/25/25 12:45: AMANDA Screen Negative 03/25/25 15:15: Fluid pH 7.4, Fluid Glucose 62, Fluid LDH 720 03/28/25 05:36: WBC 6.5, RBC 3.97 L, Hgb 11.1 L, Hct 35.5 L, MCV 89.4, MCH 28.0, MCHC 31.3 L, RDW 15.7, Plt Count 194, MPV 12.4 H, Neut % (Auto) 61.1, Lymph % (Auto) 22.2, [place] % (Auto) 13.3 H, Eos % (Auto) 2.6, Baso % (Auto) 0.3, Neut # (Auto) 4.0, Lymph # (Auto) 1.5, [place] # (Auto) 0.9, Eos # (Auto) 0.2, Baso # (Auto) 0.0, Sodium 139, Potassium 3.7, Chloride 110 H, Carbon Dioxide 28, Anion Gap 4.7 L, BUN 10, Creatinine 0.50 L D, Estimated Creat Clear 36, Estimated GFR 118, Est GFR ( Amer) 143 D, Glucose 92, Calcium 8.2 L, Magnesium 1.8, Total Bilirubin 0.4, AST 37 H, ALT 28, Alkaline Phosphatase 82, Total Protein 5.3 L, Albumin 2.6 L, Globulin 2.7, Albumin/Globulin Ratio 1.0 L I & O for Last 24 hours: Intake & Output 03/25/25 03/26/25 03/27/25 03/28/25 23:59 23:59 23:59 23:59 Intake Total 220 / 920 2029 / 4380 3640 / 3990 1130 / 1130 Output Total 220 / 220 93 / 93 0 / 0 0 / 0 Balance 0 / 700 1937 / 4287 3640 / 3990 1130 / 1130 Weight 52.4 kg 53.206 kg 54.006 kg 53.184 kg Microbiology Reports for the Last 24 Hours: Microbiology 03/25/25 09:56 Sputum - Expectorated Sputum Gram Stain - Final 03/25/25 09:56 Sputum - Expectorated Sputum Sputum Culture - Final Constitutional Constitutional: no acute distress, average body habitus, chronically ill appearing and cooperative *Routine HEENT Exam Head: Present normocephalic Eye: Present EOMI and PERRL ENT: Present mucous membranes moist *Routine Neck Exam Neck: Present supple; Absent lymphadenopathy Routine Chest/Breast/Axilla Exam Comments: site of drain insertion CDI *Routine Respiratory Exam Respiratory: Present CTA bilaterally; Absent rhonchi, wheezes or crackles Comments: dry cough *Routine Cardiovascular Exam Cardiovascular: Present RRR; Absent murmur or rubs *Routine Abdominal Exam Abdominal: Present soft and normoactive bowel sounds; Absent tenderness *Routine Rectal Exam Patient deferred: visual exam *Routine Exam Patient deferred: external exam *Routine Extremities Exam Extremities: Absent cyanosis, clubbing or edema *Routine Skin Exam Skin: Present intact and warm; Absent rash *Routine Neurological Exam Neurological: Present alert, oriented X3 and moving all extremities; Absent altered mental status Results Data Completed and Pending Labs on day of discharge: Labs from last 24 hours 03/28/25 03/25/25 03/25/25 05:36 15:15 12:45 WBC 6.5 RBC 3.97 L Hgb 11.1 L Hct 35.5 L MCV 89.4 MCH 28.0 MCHC 31.3 L RDW 15.7 Plt Count 194 MPV 12.4 H Neut % (Auto) 61.1 Lymph % (Auto) 22.2 [place] % (Auto) 13.3 H Eos % (Auto) 2.6 Baso % (Auto) 0.3 Neut # (Auto) 4.0 Lymph # (Auto) 1.5 [place] # (Auto) 0.9 Eos # (Auto) 0.2 Baso # (Auto) 0.0 Sodium 139 Potassium 3.7 Chloride 110 H Carbon Dioxide 28 Anion Gap 4.7 L BUN 10 Creatinine 0.50 L D Estimated Creat Clear 36 Estimated GFR 118 Est GFR ( Amer) 143 D Glucose 92 Calcium 8.2 L Magnesium 1.8 Total Bilirubin 0.4 AST 37 H ALT 28 Alkaline Phosphatase 82 Total Protein 5.3 L Albumin 2.6 L Globulin 2.7 Albumin/Globulin Ratio 1.0 L Fluid pH 7.4 Fluid Glucose 62 Fluid LDH 720 AMANDA Screen Negative Preliminary micro results at discharge 03/25/25 15:15 Body Fluid Culture - Preliminary Pericardial Fluid DS: Diagnosis Discharge Diagnosis (1) Right lower lobe pneumonia: Status: Acute Code(s): J18.9 - Pneumonia, unspecified organism Qualifiers: Pneumonia type: due to unspecified organism Qualified Code(s): J18.9 - Pneumonia, unspecified organism (2) Pericardial effusion: Status: Acute Code(s): I31.39 - Other pericardial effusion (noninflammatory) (3) Mediastinal mass: Status: Acute Code(s): J98.59 - Other diseases of mediastinum, not elsewhere classified (4) Mediastinal lymphadenopathy: Status: Acute Code(s): R59.0 - Localized enlarged lymph nodes Meds Home Medications and Allergies Home Medications ?Medication ?Instructions ?Recorded ?Confirmed ?Type atorvastatin 10 mg tablet 10 mg PO HS 09/19/23 03/31/25 History calcium 600 mg (as 1 tab PO BID 07/20/24 03/31/25 History carbonate)-vitamin D3 5 mcg (200 unit) tablet ferrous sulfate 325 mg (65 mg 325 mg PO DAILY 07/20/24 03/31/25 History iron) tablet (iron) magnesium 100 mg capsule 100 mg PO DAILY 07/20/24 03/31/25 History multivitamin 1 tab PO DAILY 07/20/24 03/31/25 History vitamin E 200 unit capsule 45 mg PO DAILY 07/20/24 03/31/25 History zinc 10 mg tablet 10 mg PO DAILY 07/20/24 03/31/25 History fluticasone propionate 50 1 spray intranasal DAILY #16 grams 02/26/25 03/31/25 Rx mcg/actuation nasal spray,suspension (Flonase Allergy Relief) brimonidine 0.1 % eye drops 1 drp ophthalmic (eye) DIRECTED 03/25/25 03/31/25 History latanoprost 0.005 % eye drops 1 drp ophthalmic (eye) DIRECTED 03/25/25 03/31/25 History losartan 25 mg tablet 25 mg PO DAILY #30 tabs 03/28/25 03/31/25 Rx New Prescriptions to Start Prescriptions: Jeet Alvarez Allergies Allergy/AdvReac Type Severity Reaction Status Date / Time No Known Allergies Allergy Verified 03/31/25 11:18 Discharge Plan Disposition Patient Disposition: Home, Self-Care Condition: Fair Discharge Order Discharge Orders: Discharge Order (Routine); Ordered 03/28/25 Ordered By: Jeet Moses Follow up Plan Follow up with: Malaika Castrejon MD [Primary Care Provider, Medical] - Enter time for follow up Referral Note: please call for appointment Ravindra Jones PA [Physician Supervisor Production Managing, Cardiology] - 03/31/25 10:45 am Robert Stahl MD [Staff Physician, Oncology] - 04/01/25 9:30 am Prescriptions/Medication Reconciliation: New losartan 25 mg tablet 25 mg PO DAILY Qty: 30 0RF Continued fluticasone propionate [Flonase Allergy Relief] 50 mcg/actuation spray,suspension 1 spray intranasal DAILY Qty: 16 2RF Rx Instructions: administer into each nostril atorvastatin 10 mg tablet 10 mg PO HS latanoprost 0.005 % drops 1 drp ophthalmic (eye) DIRECTED Rx Instructions: 1 DROP BOTH EYES EACH EVENING, 1 DROP RIGHT EYE EACH MORNING brimonidine 0.1 % drops 1 drp ophthalmic (eye) DIRECTED Rx Instructions: 1 DROP BOTH EYES EACH EVENING, 1 DROP RIGHT EYE EACH MORNING multivitamin Tablet 1 tab PO DAILY vitamin E 200 unit Capsule 45 mg PO DAILY calcium carbonate-vitamin D3 600 mg-5 mcg (200 unit) Tablet 1 tab PO BID ferrous sulfate [iron] 325 mg (65 mg iron) Tablet 325 mg PO DAILY magnesium 100 mg Capsule 100 mg PO DAILY zinc 10 mg Tablet 10 mg PO DAILY Discontinued lisinopril 10 mg tablet 10 mg PO DAILY Problem Reconciliation Problems Reviewed?: Yes Patient Discharge Instructions ACTIVITY: Continue current activity DIET: continue same diet Patient Instructions: Pericarditis -- Adult, DI for Pneumonia -- Adult, DI for Pericardiocentesis, DI for Surgical Site Infection Print Language: Croatian Providers Primary Care Provider: Malaika Castrejon Admit Provider: Jeet Moses Attending Provider: Jeet Moses
[2025-03-28] MEDS: CEFTRIAXONE SODIUM 2 GM in 0.9 % SODIUM CHLORIDE 100 ML IV (15:26)
[2025-03-28 16:00] VITALS: BP 142/82; PULSE 92; RESP 20; TEMP 36.9; O2SAT 96
--- NOTE | 2025-03-29 10:23 | SW/DCPLANNER ---
Spoke with patient on the phone. Patient stated that she is doing very well. Patient stated that she is aware of her upcoming appointments and that she has to change the appointment with Dr Stahl due to conflicting appointment with her retina Dr. Patient stated that she was able to get her new medicine picked up from [facility]. Patient stated that she has no concerns or questions at this time. Rubio James
== END 2025-03-28 16:22 | disposition home or self-care (01) | DRG 314 ==
LOC: ER 21:42 → 2ND 22:12
PROVIDERS: Internal Medicine; Internal Medicine Pulmonary Disease; Nurse Practitioner Acute Care; Student in an Organized Health Care Education/Training Program; Admitting Provider Internal Medicine Adolescent Medicine; Emergency Provider Student in an Organized Health Care Education/Training Program; PCP Family Medicine; Visit Provider Internal Medicine Adolescent Medicine
PROC: 0W9D3ZZ Drainage of Pericardial Cavity, Percutaneous Approach (ICD-10-PCS; CPT 33016; principal; 2025-03-25 10:15)
DX: I31.39 Other pericardial effusion (noninflammatory) (principal); J18.9 Pneumonia, unspecified organism; J98.59 Other diseases of mediastinum, not elsewhere classified; I31.4 Cardiac tamponade; I10 Essential (primary) hypertension; J40 Bronchitis, not specified as acute or chronic; E78.2 Mixed hyperlipidemia; R59.0 Localized enlarged lymph nodes; D64.9 Anemia, unspecified; E83.39 Other disorders of phosphorus metabolism; R05.3 Chronic cough; Z77.22 Contact with and (suspected) exposure to environmental tobacco smoke (acute) (chronic); Z85.828 Personal history of other malignant neoplasm of skin; Z79.899 Other long term (current) drug therapy
CPT/HCPCS: 33016; 36415; 71275; 80053; 80061; 82378; 82945; 83605; 83615; 83735; 83986; 84100; 84443; 84703; 85014; 85018; 85025; 86038; 86140; 87070; 87205; 88112; 88305; 89051; 93306; 93308; 94640; 94668; 99152; 99153; 99285; C1725; C1894; J0696; J1644; J2003; J2004; J2250; J2704; J3010; J7040; J7050; Q9967

== ENCOUNTER 2025-04-13 14:31 | Outpatient (CLI) | payer MEDICARE, SELFPAY ==
--- NOTE | 2025-04-13 14:33 | XR_ITS ---
FINAL REPORT TECHNIQUE: Chest PA & Lateral CLINICAL HISTORY: sob states hx of pericardial effusion, had fluid drained. f/u to eval for fluid COMPARISON: 03/24/2025 FINDINGS: 2 views of the chest were performed. The heart size is normal. There has been significant interval decrease in size of the cardiac silhouette, probably due to resolved pericardial effusion. There is no acute cardiopulmonary process. Scarring is noted at the left costophrenic angle. There is no pneumothorax. The bony thorax appears intact. IMPRESSION: Significant decrease in size of cardiac silhouette. Reviewed, Interpreted and Dictated by Doug Thompson MD Transcribed by Ashlyn Mariscal Authenticated and [facility]
--- OUTSIDE RECORDS SUMMARY | 2025-04-13 14:35 | XMS_ITS | Encounter Summary ---
Author Organization Healthcare Address [address] [place] [address] Care Team Providers Care Barrel Rifler Name Role Phone Unavailable Primary Care Provider Unavailabl e Encounter Details Date Type Department Care Team (Late Contact Info) Description 11/29/2022 Orders Only External Location [address] [place] [address] Provider, External Social History Tobacco Use Types Packs/Day Years Used Date Smoking Tobacco: Never Assessed Comments Unknown Sex and Gender Information Value Date Recorded Sex Assigned at Not on file Legal Sex Female 6:35 PM EDT Gender Identity Not on file Sexual Orientation Not on file documented as of this encounter Plan of Treatment Upcoming Encounters Date Type Department Care Team (Late st Contact Info) Description 04/15/2025 2:15 PM EDT Office Visit [facility] [address] [facility], [address]nd [place] [address] Gilbert Roy, DO [address] [facility] [address] [place] [address] 06/10/2025 3:00 PM EDT Ovarian Cancer Screening [facility] Gynecology [address] [facility], [address]rd [place] [address] documented as of this encounter Procedures Procedure Name Priority Date/Time Associated Diagnosis Comments XR OUTSIDE IMAGES 11/29/2022 9:30 AM EST documented in this encounter Results * XR OUTSIDE IMAGES (11/29/2022 9:30 AM EST) Anatomical Region Laterality Modality Radiographic Zuleyma ging 11/29/2022 9:30 AM EST us External Provider IMG XR PROCEDURES Final Result documented in this encounter Visit Diagnoses Not on filedocumented in this encounter
--- OUTSIDE RECORDS SUMMARY | 2025-04-13 14:35 | XMS_ITS | Encounter Summary ---
Author Organization Healthcare Address [address] [place] [address] Care Team Providers Care Document Improvement Specialist Name Role Phone Unavailable Primary Care Provider Unavailabl e Encounter Details Date Type Department Care Team (Late Contact Info) Description 11/03/2023 Orders Only External Location [address] [place] [address] Provider, External Social History Tobacco Use Types [...] [facility] Res[facility] [address] [facility], [address]nd [place] [address] Gilbert Roy, DO [address] [facility] [address] [place] [address] 06/10/2025 3:00 PM EDT Ovarian Cancer Screening [facility] Gynecology [address] [facility], [address]rd [place] [address] documented as of this encounter Procedures Procedure Name Priority Date/Time Associated Diagnosis Comments CT NEURO OUTSIDE IMAGES 11/03/2023 8:55 PM EST documented in this encounter Results * CT NEURO OUTSIDE IMAGES (11/03/2023 8:55 PM EST) Anatomical Region Laterality Modality Computed Tomogra phy 11/03/2023 8:55 PM EST us External Provider IMG CT PROCEDURES Final Result documented in this encounter Visit Diagnoses Not on filedocumented in this encounter
--- OUTSIDE RECORDS SUMMARY | 2025-04-13 14:35 | XMS_ITS | Encounter Summary ---
Author Organization Healthcare Address [address] [place] [address] Care Team Providers Care Aboriginal Home School Liaison Officer Name Role Phone Unavailable Primary Care Provider Unavailabl e Encounter Details Date Type Department Care Team (Late Contact Info) Description 03/24/2025 Orders Only External Location [address] [place] [address] Provider, External Social History Tobacco Use Types [...] [facility] Res[facility] [address] [facility], [address]nd [place] [address] Gilbert Roy, DO [address] [facility] [address] [place] [address] 06/10/2025 3:00 PM EDT Ovarian Cancer Screening [facility] [address] [facility], [address] [place] [address] documented as of this encounter Procedures Procedure Name Priority Date/Time Associated Diagnosis Comments CT THORACIC OUTSIDE IMAGES 03/24/2025 8:45 PM EDT documented in this encounter Results * CT THORACIC OUTSIDE IMAGES (03/24/2025 8:45 PM EDT) Anatomical Region Laterality Modality Computed Tomogra phy 03/24/2025 8:45 PM EDT us External Provider IMG CT PROCEDURES Final Result documented in this encounter Visit Diagnoses Not on filedocumented in this encounter
--- OUTSIDE RECORDS SUMMARY | 2025-04-13 14:35 | XMS_ITS | Encounter Summary ---
Author Organization Healthcare Address [address] [place] [address] Care Team Providers Care Bail Bonding Agent Name Role Phone Unavailable Primary Care Provider Unavailabl e Encounter Details Date Type Department Care Team (Late Contact Info) Description 02/27/2025 Orders Only External Location [address] [place] [address] Provider, External Social History Tobacco Use Types [...] [facility] Res[facility] [address] [facility], [address]nd [place] [address] Gilbert Roy, DO [address] [facility] [address] [place] [address] 06/10/2025 3:00 PM EDT Ovarian Cancer Screening [facility] Gy[facility] [address] [facility], [address] [place] [address] documented as of this encounter Procedures Procedure Name Priority Date/Time Associated Diagnosis Comments XR OUTSIDE IMAGES 02/27/2025 2:36 PM EDT documented in this encounter Results * XR OUTSIDE IMAGES (02/27/2025 2:36 PM EDT) Anatomical Region Laterality Modality Radiographic Zuleyma ging 02/27/2025 2:36 PM EDT us External Provider IMG XR PROCEDURES Final Result documented in this encounter Visit Diagnoses Not on filedocumented in this encounter
--- OUTSIDE RECORDS SUMMARY | 2025-04-13 14:35 | XMS_ITS | Encounter Summary ---
Author Organization Healthcare Address [address] [place] [address] Care Team Providers Care American Sign Language Teacher Name Role Phone Unavailable Primary Care Provider Unavailabl e Encounter Details Date Type Department Care Team (Late Contact Info) Description 03/24/2025 Orders Only External Location [address] [place] [address] Provider, External Social History Tobacco Use Types [...] [facility] Res[facility] [address] [facility], [address] [place] [address] Gilbert Roy, DO [address] [facility] [address] [place] [address] 06/10/2025 3:00 PM EDT Ovarian Cancer Screening [facility] Gy[facility] [address] [facility], [address] [place] [address] documented as of this encounter Procedures Procedure Name Priority Date/Time Associated Diagnosis Comments XR OUTSIDE IMAGES 03/24/2025 9:15 AM EDT documented in this encounter Results * XR OUTSIDE IMAGES (03/24/2025 9:15 AM EDT) Anatomical Region Laterality Modality Radiographic Zuleyma ging 03/24/2025 9:15 AM EDT us External Provider IMG XR PROCEDURES Final Result documented in this encounter Visit Diagnoses Not on filedocumented in this encounter
--- OUTSIDE RECORDS SUMMARY | 2025-04-13 14:35 | XMS_ITS | Clinical Summary ---
Author Organization [facility] Address [address] [place] [address] Care Team Providers Care Management Lecturer Name Role Phone Unavailable Primary Care Provider Unavailabl e Encounters Date Type Department Care Team Description 03/24/2025 Orders Only External Location [address] [place] [address] Provider, External 03/24/2025 Orders Only External Location [address] [place] [address] Provider, External 02/27/2025 Orders Only External Location [address] [place] [address] Provider, External from Last 3 Months Social History Tobacco Use Types Packs/Day Years Used Date Smoking Tobacco: Never Assessed Comments Unknown Sex and Gender Information Value Date Recorded Sex Assigned at Not on file Legal Sex Female 6:35 PM EDT Gender Identity Not on file Sexual Orientation Not on file Plan of Treatment Upcoming Encounters Date Type Department Care Team (Late st Contact Info) Description 04/15/2025 2:15 PM EDT Office Visit [facility] Head[facility] Neck [facility] Respiratory [address] [facility], [address] [place] [address] Gilbert Roy, DO [address] [facility] [address] [place] [address] 06/10/2025 3:00 PM EDT Ovarian Cancer Screening [facility] Gy[facility]cology [address] [facility], [address]rd [place] [address] Health Maintenance Due Date Last Done Comments [facility]-Bone Density Scan 1940 [facility]-Depression Screening 1940 [facility]-Medicare Annual Wellness (AWV) 1940 [facility]-Infant/Child/Adol SDOH Screenings 1942 [facility]- SDOH Screenings 1960 [facility]-Adult SDOH Screenings 1960 [facility]-DTaP,Tdap,and Td Vaccines (1 - Tdap) 1961 [facility]-Pneumococcal Vaccine: 50+ Years (1 of 1 - PCV) 1992 [facility]-Zoster Vaccines (1 of 2) 1992 [facility]-RSV Vaccine: 60+ Years or (1 - 1-dose 75+ series) 2017 [id number] Vaccine ( season) 2025 08/10/2024, 07/24/2022, 02/14/2022, Additional history exists [facility]-Influenza Vaccine (Season Ended) 2025 08/06/2023, 08/23/2021 HPV Vaccines Aged Out No longer eligi ble based on patient's age to complete this topic [facility]-HIB Vaccines Aged Out No longer e ligible based on patient's age to complete this topic [facility]-Hepatitis A Vaccines Aged Out No longer eligible based on patient's age to complete this topic [facility]-IPV Vaccines Aged Out No longer e ligible based on patient's age to complete this topic [facility]-Rotavirus Vaccines Aged Out No lo nger eligible based on patient's age to complete this topic Procedures Procedure Name Priority Date/Time Associated Diagnosis Comments CT THORACIC OUTSIDE IMAGES 03/24/2025 8:45 PM EDT XR OUTSIDE IMAGES 03/24/2025 9:15 AM EDT XR OUTSIDE IMAGES 02/27/2025 2:36 PM EDT from Last 3 Months Results * CT THORACIC OUTSIDE IMAGES (03/24/2025 8:45 PM EDT) Anatomical Region Laterality Modality Computed Tomogra phy 03/24/2025 8:45 PM EDT us External Provider IMG CT PROCEDURES Final Result * XR OUTSIDE IMAGES (03/24/2025 9:15 AM EDT) Only the most recent of2 resultswithin the time period is included. Anatomical Region Laterality Modality Radiographic Zuleyma ging 03/24/2025 9:15 AM EDT us External Provider IMG XR PROCEDURES Final Result from Last 3 Months Insurance [facility] [place] [address]
== END 2025-04-13 23:59 | disposition home or self-care (01) ==
LOC: RAD 14:31
PROVIDERS: PCP Family Medicine; Visit Provider Internal Medicine Pulmonary Disease
DX: R93.1 Abnormal findings on diagnostic imaging of heart and coronary circulation (principal); R06.02 Shortness of breath
CPT/HCPCS: 71046

== ENCOUNTER 2025-04-18 12:52 | Outpatient (CLI) | payer MEDICARE, SELFPAY ==
--- OUTSIDE RECORDS SUMMARY | 2025-04-15 14:15 | XMS_ITS | Encounter Summary ---
Author Organization [facility] Address [address] [place] [address] Care Team Providers Care Community Cultural Development Officer Name Role Phone DeonLeah oshea EBONY Primary Care Provider [phone] Reason for Referral * Imaging (Routine) - Pending Review Specialty Diagnoses / Procedures Referred By Contac t Referred To Contact Radiology Diagnoses Mediastinal mass Procedures Consult to Interventional Radiology Gilbert Roy DO [address] [address] Phone: tel: fax: Referral ID Status Reason Start Date Expiration Date V isits Requested Visits Authorized [id number] Pending Review 04/15/2025 10/15/2026 1 1 * Imaging (Routine) - Pending Review Specialty Diagnoses / Procedures Referred By Contac t Referred To Contact Radiology Diagnoses Mediastinal mass Procedures PET/CT FDG Skull Base To Mid Thigh Gilbert Roy DO [address] [address] Phone: tel: fax: Referral ID Status Reason Start Date Expiration Date V isits Requested Visits Authorized [id number] Pending Review 04/15/2025 10/15/2026 2 2 Reason for Visit * Reason Comments New Patient * Consultation (Routine) - Closed Specialty Diagnoses / Procedures Referred By Contac t Referred To Contact Cardiothoracic Surgery Diagnoses Mediastinal mass Price Vang MD [address] [place] [address] Phone: tel: fax: Cardiothoracic Surgery [address] [place] [address] Phone: tel: Referral ID Status Reason Start Date Expiration Date V isits Requested Visits Authorized [id number] Closed Specialty Services Required 04/07/2025 10/07/2026 1 1 Encounter Details Date Type Department Care Team ([facility] st Contact Info) Description 04/15/2025 2:15 PM EDT Office Visit Pav [facility] Head[facility] Neck [facility] Respiratory [address] [facility], [address]nd [place] [address] Gilbert Roy, DO [address] [facility] [address] [place] [address] Mediastinal mass (Primary Dx) Social History Tobacco [...] Indicated 04/15/2025 1:46 PM EDT Temitope Diaz Question Answer Date of Assessment Author 1. Wish to be (Past 1 Month) No 025 1:46 PM EDT Temitope Diaz 2. Non-Specific Active Suici ricci Thoughts (Past 1 Month) No 04/15/2025 1:46 PM EDT Josh Diaz 6. Suicidal Behavior (Lifetime) No 5 1:46 PM EDT Temitope Diaz documented as of this encounter Plan of Treatment Upcoming Encounters Date Type Department Care Team (Late st Contact Info) Description 06/10/2025 3:00 PM EDT Ovarian Cancer Screening [facility] Gynecology [address] [facility], [address]rd [place] [address] Scheduled Orders Name Type Priority Associated Diagnoses Orde r Schedule Pulmonary function testing PFT Routine Mediastinal mass Expected: 04/15/2025 (Approximate), Expires: 04/15/2026 PET/CT FDG Skull Base To Mid Thigh Imaging Routine Mediastinal mass Expected: 04/15/2025 (Approximate), Expires: 10/15/2026 Consult to Interventional Radiology Imaging Routine Mediastinal mass 1 Occurrences starting 04/15/2025 until 10/15/2026 documented as of this encounter Visit Diagnoses Diagnosis Mediastinal mass- Primary Swelling, mass, or lump in chest documented in this encounter Additional Health Concerns Assessment Noted Time A fall risk assessment has been complete d for the patient 04/15/2025 1:46 PM EDT documented as of this encounter Care Teams Community Cultural Development Officer Relationship Specialty Start Date End Date Leah Chavarria APRN [address] [place] [address] PCP - General 04/15/25 documented as of this encounter
--- OUTSIDE RECORDS SUMMARY | 2025-04-18 12:55 | XMS_ITS | Clinical Summary ---
Author Organization [facility] Address [address] [place] [address] Care Team Providers Care Presetter Operator Name Role Phone Leah Chavarria EBONY Primary Care Provider [phone] Allergies No known active allergies Medications losartan (Cozaar) 25 MG tablet 03/28/2025 Active atorvastatin (Lipitor) 10 MG tablet 03/07/2025 Active latanoprost (Xalatan) 0.005 % ophthalmic solution 02/05/2025 Active brimonidine (AlphaGAN P) 0.1 % ophthalmic solution 02/05/2025 Active Calcium-Magnesiu m-Zinc 500-250-12.5 MG tablet Take by mouth. Active VITAMIN E PO Take by mouth. Active Encounters Date Type Department Care Team Description 04/15/2025 2:15 PM EDT Office Visit Pav [facility] Head[facility] Neck & Respiratory [address] [facility], [address]nd [place] [address] Gilbert Roy, DO Mediastinal mass (Primary Dx) 04/15/2025 Orders Only Ch Radiology Virtual Dept. [address] [place] [address] Zeyad Toussaint MD 04/15/2025 Travel 03/24/2025 Orders Only External Location [address] [place] [address] Provider, External 03/24/2025 Orders Only External Location [address] [place] [address] Provider, External 02/27/2025 Orders Only External Location [address] [place] [address] Provider, External from Last 3 Months Family History Medical History Relation Name Comments No Known Problems Father No Known Problems Mother Relation Name Status Comments Father Mother Social History Tobacco Use Types Packs/Day Years Used Date Smoking Tobacco: Never Smokeless Tobacco: Never Tobacco Cessation:Counseling Given: No Comments Unknown Sex and Gender Information Value Date Recorded Sex Assigned at Not on file Legal Sex Female 6:35 PM EDT Gender Identity Not on file Sexual Orientation Not on file Last Filed Vital Signs Vital Sign Reading [...] Mass Index 20.99 04/15/2025 1:41 PM EDT Plan of Treatment Upcoming Encounters Date Type Department Care Team (Late st Contact Info) Description 06/10/2025 3:00 PM EDT Ovarian Cancer Screening [facility] Gynecology [address] [facility], [address]rd [place] [address] Health Maintenance Due Date Last Done Comments [...] or (1 - 1-dose 75+ series) 2017 [id number] Vaccine ( season) 2025 08/10/2024, 07/24/2022, 02/14/2022, [...] Final Result from Last 3 Months Insurance MAIRA BOLDEN [id number] [facility] MEDICARE Advance Directives Documents on File Type Date Recorded Patient Director Selection And Administration Expl anation Advance Directives and Livin g Will 04/15/2025 Living Will & POA Care Teams Presetter Operator Relationship Specialty Start Date End Date Leah Chavarria APRN [address] [place] [address] PCP - General 04/15/25
--- OUTSIDE RECORDS SUMMARY | 2025-04-18 12:55 | XMS_ITS | Encounter Summary ---
Author Organization [facility] Address [address] [place] [address] Care Team Providers Care Guitar Technician Name Role Phone Leah Chavarria APRN Primary Care Provider [phone] Encounter Details Date Type Department Care Team (Late st Contact Info) Description 11/29/2022 Orders Only External Location [address] [place] [address] Provider, External Social History Tobacco Use Types [...] EDT Ovarian Cancer Screening [facility] Gynecology [address] [facility], 3rd Floor [address] documented as of this encounter Procedures Procedure [...] Diagnoses Not on filedocumented in this encounter Care Teams Guitar Technician Relationship Specialty Start Date End Date Leah Chavarria APRN [address] [place] [address] PCP - General 04/15/25 documented as of this encounter
--- OUTSIDE RECORDS SUMMARY | 2025-04-18 12:55 | XMS_ITS | Encounter Summary ---
Author Organization [facility] Address [address] [place] [address] Care Team Providers Care Developer Prover Upholstering Name Role Phone Leah Chavarria APRN Primary Care Provider [phone] Encounter Details Date Type Department Care Team (Late st Contact Info) Description 11/03/2023 Orders Only External Location [address] [place] [address] Provider, External Social History Tobacco Use Types [...] EDT Ovarian Cancer Screening [facility] Gynecology [address] [facility], [address] [place] [address] documented as of this encounter Procedures Procedure [...] on filedocumented in this encounter Care Teams Developer Prover Upholstering Relationship Specialty Start Date End Date Leah Chavarria APRN [address] [place] [address] PCP - General 04/15/25 documented as of this encounter
--- OUTSIDE RECORDS SUMMARY | 2025-04-18 12:55 | XMS_ITS | Encounter Summary ---
Author Organization [facility] Address [address] [place] [address] Care Team Providers Care Email Campaign Specialist Name Role Phone Leah Chavarria EBONY Primary Care Provider Encounter Details Date Type Department Care Team (Late st Contact Info) Description 04/15/2025 Orders Only Ch Radiology Virtual Dept. [address] [place] [address] Zeyad Toussaint MD [address] [place] [address] Social History Tobacco Use Types Packs/Day Years Used Date Smoking Tobacco: Never Smokeless Tobacco: Never Comments Unknown Sex and Gender Information Value Date Recorded Sex Assigned at Not on file Legal Sex Female 6:35 PM EDT Gender Identity Not on file Sexual Orientation Not on file documented as of this encounter Functional Status * Calculated C-SSRS [...] Josh Diaz 6. Suicidal Behavior (Lifetime) No 1:46 PM EDT Temitope Diaz documented as of this encounter Plan of Treatment Upcoming Encounters Date Type Department Care Team (Late st Contact Info) Description 06/10/2025 3:00 PM EDT Ovarian Cancer Screening [facility] Gynecology [address] [place] [address] documented as of this encounter Visit Diagnoses Not on filedocumented in this encounter Additional Health Concerns Assessment Noted Time A fall risk assessment has been complete d for the patient 04/15/2025 1:46 PM EDT documented as of this encounter Care Teams Email Campaign Specialist Relationship Specialty Start Date End Date Leah Chavarria APRN [address] [place] [address] PCP - General 04/15/25 documented as of this encounter
--- OUTSIDE RECORDS SUMMARY | 2025-04-18 12:55 | XMS_ITS | Encounter Summary ---
Author Organization [facility] Address [address] [place] [address] Care Team Providers Care Materials Scheduler Name Role Phone Leah Chavarria APRN Primary Care Provider Encounter Details Date Type Department Care Team (Late st Contact Info) Description 03/24/2025 Orders Only External Location [address] [place] [address] Provider, External Social History Tobacco Use Types [...] 06/10/2025 3:00 PM EDT Ovarian Cancer Screening [facility] Gynecology [address] [facility], [address]rd [place] [address] documented as of this encounter Procedures Procedure [...] on filedocumented in this encounter Care Teams Materials Scheduler Relationship Specialty Start Date End Date Leah Chavarria APRN [address] [place], [place] [id number] PCP - General 04/15/25 documented as of this encounter
--- OUTSIDE RECORDS SUMMARY | 2025-04-18 12:55 | XMS_ITS | Encounter Summary ---
Author Organization [facility] Address [address] [place] [address] Care Team Providers Care Shank Stitcher Name Role Phone Leah Chavarria APRN Primary Care Provider [phone] Encounter Details Date Type Department Care Team (Late st Contact Info) Description 03/24/2025 Orders Only External Location [address] [place] [address] Provider, External Social History Tobacco Use Types [...] 06/10/2025 3:00 PM EDT Ovarian Cancer Screening [facility] Gynecology [address] [facility], [address] [place] [address] documented as of this encounter Procedures Procedure [...] on filedocumented in this encounter Care Teams Shank Stitcher Relationship Specialty Start Date End Date Leah Chavarria APRN [address] [place] [address] PCP - General 04/15/25 documented as of this encounter
--- OUTSIDE RECORDS SUMMARY | 2025-04-18 12:55 | XMS_ITS | Encounter Summary ---
Author Organization [facility] Address [address] [place] [address] Care Team Providers Care Gut Sorter Name Role Phone Leah Chavarria APRN Primary Care Provider [phone] Encounter Details Date Type Department Care Team (Late st Contact Info) Description 02/27/2025 Orders Only External Location [address] [place] [address] Provider, External Social History Tobacco Use Types [...] 06/10/2025 3:00 PM EDT Ovarian Cancer Screening [facility] Gynecology [address] [facility], [address]rd [place] [address] documented as of this encounter Procedures Procedure Name Priority Date/Time Associated Diagnosis Comments XR OUTSIDE IMAGES 02/27/2025 2:36 PM EDT documented in this encounter Results * XR OUTSIDE IMAGES (02/27/2025 2:36 PM EDT) Anatomical Region Laterality Modality Radiographic Zuleyma ging 02/27/2025 2:36 PM EDT External Provider IMG XR PROCEDURES Final Result documented in this encounter Visit Diagnoses Not on filedocumented in this encounter Care Teams Gut Sorter Relationship Specialty Start Date End Date Leah Chavarria APRN [address] [place] [address] PCP - General 04/15/25 documented as of this encounter
--- OUTSIDE RECORDS SUMMARY | 2025-04-18 12:55 | XMS_ITS | Referral Summary ---
Author Organization [facility] Address [address] [place] [address] Care Team Providers Care Fish Drier Name Role Phone Unavailable Primary Care Provider Unavailabl e Social History Tobacco Use Types Packs/Day Years Used Date Smoking Tobacco: Never Assessed Comments Unknown Sex and Gender Information Value Date Recorded Sex Assigned at Female 04/23/2022 1:29 PM CDT Legal Sex Female 1:29 PM CDT Gender Identity Female 04/23/2022 1:29 PM CDT Sexual Orientation Not on file Plan of Treatment Not on file
--- OUTSIDE RECORDS SUMMARY | 2025-04-18 12:55 | XMS_ITS | Encounter Summary ---
Author Organization [facility] Address [address] [place] [address] Care Team Providers Care Director Of Sales Support Name Role Phone Leah Chavarria EBONY Primary Care Provider [phone] Encounter Details Date Type Department Care Team (Latest Contact Info) Description 04/15/2025 Travel Social History Tobacco Use Types Packs/Day Years [...] 1 Month) No 04/15/2025 1:46 PM EDT Tierra Diaz 6. Suicidal Behavior (Lifetime) No 5 1:46 PM EDT Temitope Diaz documented as of this encounter Plan of Treatment Upcoming Encounters Date Type Department Care Team (Late st Contact Info) Description 06/10/2025 3:00 PM EDT Ovarian Cancer Screening [facility] Gynecology [address] [facility], [address]rd [place] [address] documented as of this encounter Visit Diagnoses Not on filedocumented in this encounter Additional Health Concerns Assessment Noted Time A fall risk assessment has been complete d for the patient 04/15/2025 1:46 PM EDT documented as of this encounter Care Teams Director Of Sales Support Relationship Specialty Start Date End Date Leah Chavarria, EBONY [address] [place], [place] [id number] PCP - General 04/15/25 documented as of this encounter
--- OUTSIDE RECORDS SUMMARY | 2025-04-18 12:55 | XMS_ITS | Clinical Summary ---
Author Organization [facility] Address [address] [place] [address] Care Team Providers Care Online Marketing Strategist Name Role Phone Unavailable Primary Care Provider [...]
--- NOTE | 2025-04-18 13:00 | CA_ITS ---
APPROVED REPORT EXAM: Limited 2D Echocardiogram Commanding Officer Homicide Squad: Marily Lester CRT Ht: 5 ft 1 in Wt: 110lbs BSA: 1.47 BP: 143/96 mmHg Indications: Pericardial Effusion check Other Information Study Quality: Technically Difficult Conclusion This is a limited TTE to evaluate for pericardial effusion. Limited windows are obtained. Technically difficult study. There is a trivial posterior pericardial effusion present. There is also a small sized anterior pericardial effusion measuring up to 0.4 cm in diastole. The anterior effusion is heterogeneous in appearance and loculated. No evidence of chamber collapse. The IVC is normal in size and collapsibility. No echo indications of tamponade. Electronically signed by : Rukhsana Lugo MD 04/18/2025 23:14:16
== END 2025-04-18 23:59 | disposition home or self-care (01) ==
LOC: RT 12:53
PROVIDERS: PCP Family Medicine; Visit Provider Nurse Practitioner Family
DX: I31.39 Other pericardial effusion (noninflammatory) (principal)
CPT/HCPCS: 93308

== ENCOUNTER 2025-06-08 11:08 | Outpatient (CLI) | payer MEDICARE, SELFPAY ==
--- OUTSIDE RECORDS SUMMARY | 2025-04-15 14:15 | XMS_ITS | Encounter Summary ---
Author Organization [facility] Address [address] [place] [address] Care Team Providers Care Financial Business Analyst Name Role Phone Leah Chavarria APRN Primary Care Provider [phone] Reason for Referral * Imaging (Routine) - Closed Specialty Diagnoses / Procedures Referred By Contac t Referred To Contact Radiology Diagnoses Mediastinal mass Procedures CT Guided Biopsy Muscle Consult to Interventional Radiology Gilbert Roy DO [address] [address] Phone: tel: fax: Referral ID Status Reason Start Date Expiration Date Visits Re quested Visits Authorized [id number] Closed 04/15/2025 10/15/2026 1 1 * Imaging (Routine) - Closed Specialty Diagnoses / Procedures Referred By Contac t Referred To Contact Radiology Diagnoses Mediastinal mass Procedures PET/CT FDG Skull Base To Mid Thigh Gilbret Roy DO [address] [address] Phone: tel: fax: Referral ID Status Reason Start Date Expiration Date Visits Re quested Visits Authorized [id number] Closed 04/15/2025 10/15/2026 2 2 Reason for Visit * Reason Comments New Patient * Consultation (Routine) - Closed Specialty Diagnoses / Procedures Referred By Maico lopez Referred To Contact Cardiothoracic Surgery Diagnoses Mediastinal mass Price Vang MD [address] [place] [address] Phone: tel: fax: Cardiothoracic Surgery [address] [place] [address] Phone: tel: Referral ID Status Reason Start Date Expiration Date V isits Requested Visits Authorized [id number] Closed Specialty Services Required 04/07/2025 10/07/2026 1 1 Encounter Details Date Type Department Care Team (Late st Contact Info) Description 04/15/2025 2:15 PM EDT Office Visit Pav [facility] Head, Neck & Respiratory [address] [facility]nd [place] [phone] Gilbert Roy, DO [address] [facility] [address] [place] [id number] Mediastinal mass (Primary Dx) Social History Tobacco Use Types Packs/Day Years Used Date Smoking Tobacco: Never Smokeless Tobacco: Never Tobacco Cessation:Counseling Given: No Comments Unknown Sex and Gender Information Value Date Recorded Sex Assigned at Not on file Legal Sex Female 6:35 PM EDT Gender Identity Not on file Sexual Orientation Not on file documented as of this encounter Last Filed Vital Signs Vital Sign Reading Time Taken Comments Blood Pressure 135/70 04/15/2025 1:41 PM EDT Pulse 89 04/15/2025 1:41 PM EDT Temperature 36.6 C (97.9 F) 04/15/2025 1:41 PM EDT Respiratory Rate 16 04/15/2025 1:41 PM EDT Oxygen Saturation 98% 04/15/2025 1:41 PM EDT Inhaled Oxygen Concentration - - Weight 50.4 kg (111 lb 1.8 oz) 04/15/2025 1:41 P M EDT Height 154.9 cm (5' 1 ) 04/15/2025 1:41 PM EDT Body Mass Index 20.99 04/15/2025 1:41 PM EDT documented in this encounter Functional Status * Calculated C-SSRS Risk Score (Lifetime/Recent) Answer Date of Assessment Author No Risk Indicated 04/15/2025 1:46 PM EDT Temitope Diaz * Question Answer Date of Assessment Author 1. Wish to be (Past 1 Month) No 025 1:46 PM EDT Temitope Diaz 2. Non-Specific Active Suici ricci Thoughts (Past 1 Month) No 04/15/2025 1:46 PM EDT Josh Diaz R 6. Suicidal Behavior (Lifetime) No 5 1:46 PM EDT Temitope Diaz documented as of this encounter Miscellaneous Notes * Progress Notes - Preston Ardon MD - 04/15/2025 2:15 PM EDT Images from the original note were not included. [facility] Department of Surgery Section of Thoracic Surgery History & Physical Note Consulting MD: Price Vang MD Reason for Consultation/Chief complaint: Mediastinal mass History of Present Illness: Graciela Owens is a 84 y.o. female w/ history of hypertension and hyperlipidemia, and surgical history of SCC of the nose (s/p resection approximately 15 years ago), basal cell carcinoma (s/p resection approximately 10 years ago) who is seen in consultation at the request of the above provider concerning newly diagnosed anterior mediastinal mass. Patient was recently seen at [facility](end of February) for concern of respiratory distress and in her workup was found to have evidence of right lower lobe pneumonia in addition to radiological evidence of pericardial effusion (s/p pericardiocentesis) and a anterior mediastinal mass with mediastinal lymphadenopathy. Patient reports that she had been dealing with bronchitis for approximately 6 weeks prior to presenting to her local ED in [place]. At which time she was admitted for administration of IV antibiotics and drainage of her pericardial effusion. She reports significant improvement in her respiratory status after her hospitalization. She does report however that she has had a 20 lb weight loss since last August (2023) when she was hospitalized for influenza A infection. She reports starting to gain weight in the past few weeks since her hospitalization. She has had some intermittent fevers and chills in the past few weeks that have resolved without need for medications. She otherwise does not report any recent visual disturbances, headaches, dizziness, coughing, sneezing, dyspnea, chest pain, abdominal pain, lower extremity pain/inflammation/edema or constitutional symptoms of infection. Patient has a retired hairdresser and lives in [place] with her . She denies a history of smoking/alcohol/drug use. Past Medical History: Past Medical History: Diagnosis Date High cholesterol Skin cancer Otherwise as per HPI above Past Surgical History: Past Surgical History: Procedure Laterality Date BACK SURGERY CATARACT EXTRACTION TONSILLECTOMY TUBAL LIGATION Otherwise as per HPI above Social History: Social History Socioeconomic History Marital status: Tobacco Use Smoking status: Never Smokeless tobacco: Never Family Medical History: family history includes No Known Problems in her father and mother. Allergies: No Known Allergies Home Medications: Current Outpatient Medications: atorvastatin (Lipitor) 10 MG tablet, , Disp: , Rfl: brimonidine (AlphaGAN P) 0.1 % ophthalmic solution, , Disp: , Rfl: Iblnqkl-Ushrrlxtu-Pweb 500-250-12.5 MG tablet, Take by mouth., Disp: , Rfl: latanoprost (Xalatan) 0.005 % ophthalmic solution, , Disp: , Rfl: losartan (Cozaar) 25 MG tablet, , Disp: , Rfl: VITAMIN E PO, Take by mouth., Disp: , Rfl: ROS: General: no fevers or chills, no heat or cold intolerance HEENT: no changes in vision, no sore throat, no changes in hearing, no tinnitus, no nasal drainage CV: no chest pain, no palpitations, no lightheadedness, no PND, no orthopnea, no LE swelling, no claudication Pulm: no shortness of breath, no cough, no hemoptysis GI: no nausea, no vomiting, no abdominal pain, no constipation, no diarrhea, no melena, no hematochezia, no dysphagia, no heartburn Skin: no rash Neuro: no numbness, no tingling, no headache, no difficulties with speech, no gait disturbance Heme: no easy bruising, no bleeding from the gums Endo: No polyuria or polydypsia Psych: no depression or anxiety Physical exam: Visit Vitals BP 135/70 (BP Location: Right arm) Pulse 89 Temp 36.6 ??C (97.9 ??F) (Oral) Ht 1.549 m (5' 1 ) Wt 50.4 kg (111 lb 1.8 oz) SpO2 98% BMI 20.99 kg/m?? Wt Readings from Last 3 Encounters: 04/15/25 50.4 kg (111 lb 1.8 oz) CONSTITUTIONAL: NAD, A&O x3 HEAD: Normocephalic, atraumatic; EYES: EOMI NECK: Supple, No JVD; trachea midline CARDIAC: Regular rate and rhythm CHEST/PULM: Symmetrical chest wall rise; NWOB; no wheezes or rhonchi GASTROINTESTINAL: NT, ND; No rebound or guarding EXTREMITIES: No peripheral edema Otherwise normal ROM in BUE/BLE SKIN: Otherwise warm and dry NEUROLOGIC: No focal deficits; motor and sensation intact PSYCH: Appropriate mood and responses Imaging: I independently visualized the imaging which includes: CT chest with IV contrast (03/24/2025) Additional testing: Transthoracic echo (03/25/2025) Impression Normal biventricular systolic function. Biatrial dilation. Mild mitral regurgitation, mild tricuspid regurgitation. Large size, circumferential pericardial effusion. Assessment and Plan: Graciela Owens is a 84 y.o. female w/ history as described above who is being seen for evaluation of an anterior mediastinal mass, likely incidentally found via workup for respiratory distress back in February(2024), and saw her symptoms of coughing and dyspnea improved after she had pericardiocentesis for a large pericardial effusion. Patient has had a history of weight loss, fevers and chills in the past 6 months. We had a adrian and candid discussion regarding the differential diagnosis of anterior mediastinal masses including benign and malignant causes. We have recommended proceeding with an IR biopsy for tissue diagnosis to help guide next steps. In addition we would like the patient to have a PET/CT scan and pulmonary function tests prior to returning to clinic. PLAN -Recommend image guided CNB for tissue diagnosis -Recommend obtaining Pulmonary function tests and PET-CT scan -Will have patient return back to clinic following the above imaging/procedures to discuss next steps Preston Ardon MD 04/15/25 2:46 PM Cosigned by Gilbert Roy DO at 04/18/2025 3:31 PM EDT Associated attestation - Gilbert Roy, DO - 04/18/2025 3:31 PM EDT I saw and evaluated the patient with the resident/fellow. I discussed the case with the resident/fellow and agree with the findings and plan as documented. documented in this encounter Plan of Treatment Upcoming Encounters Date Type Department Care Team (Late st Contact Info) Description 06/16/2026 2:00 PM EDT Ovarian Cancer Screening PAV Gynecology [address] [facility] [place] [address] documented as of this encounter Results * Pulmonary function testing (06/02/2025 1:11 PM EDT) [id number] 1.48 L 06/02/2025 12:59 PM EDT VYAIRE PFT FVC PRED 2.02 06/02/2025 12:59 PM EDT VYAIRE PFT FVC LLN 1.40 06/02/2025 12:59 PM EDT VYAIRE PFT FVCPREZSCORE -1.44 06/02/2025 12:59 PM EDT VYAIRE PFT FVCPRE%PRED 73 % % 06/02/2025 12:59 PM EDT VYAIRE PFT FVC PREDAUTH US_Quanjer GLI (2011) 06/02/2025 12:59 PM EDT VYAIRE PFT FVC Z-SCORE -1.44 06/02/2025 12:59 PM EDT VYAIRE PFT FEV1 PRE 1.07 L 06/02/2025 12:59 PM EDT VYAIRE PFT FEV1 PRED 1.55 06/02/2025 12:59 PM EDT VYAIRE PFT FEV1 LLN 1.07 06/02/2025 12:59 PM EDT VYAIRE PFT ILP5ZIZVQMULP -1.64 06/02/2025 12:59 PM EDT VYAIRE PFT FEV1_Pre%Pred 69 % % 06/02/2025 12:59 PM EDT VYAIRE PFT FEV1 PREDAUTH US_Quanjer GLI (2011) 06/02/2025 12:59 PM EDT VYAIRE PFT FEV1 Z-SCORE -1.64 06/02/2025 12:59 PM EDT VYAIRE PFT FEV1/FVC PRE 72.67 % 06/02/2025 12:59 PM EDT VYAIRE PFT ABM2UQVCRXC 77 06/02/2025 12:59 PM EDT VYAIRE PFT PBU0WQRUOZ 62 06/02/2025 12:59 PM EDT VYAIRE PFT DWM6IBMIKNCNINSQ -0.55 06/02/20 25 12:59 PM EDT VYAIRE PFT LXB0HSNNBP%PRED 94 % % 12:59 PM EDT VYAIRE PFT [facility]DNMUSFDP [facility] ([facility] 06/02/2025 12:59 PM EDT VYAIRE PFT DTD4STSYPBZZB -1 06/02/2025 12:59 PM EDT VYAIRE PFT PAE10-01% PRE 0.74 L/s 06/02/2025 12:59 PM EDT VYAIRE PFT AHU55-70%_Pred 1.31 06/02/2025 12:59 PM EDT VYAIRE PFT OBW8802%LLN 0.53 06/02/2025 12:59 PM EDT VYAIRE PFT ZMA5989%PREZSCORE -1.12 025 12:59 PM EDT VYAIRE PFT YMJ8613%PRE%PRED 56 % % 06/02/20 12:59 PM EDT VYAIRE PFT ZIU4580%PREDAUTH Meenawanda COTTER (2011) 06/02/2025 12:59 PM EDT VYAIRE PFT PEF PRE 3.94 L/s 06/02/2025 12:59 PM EDT VYAIRE PFT PEF PRED 4.63 06/02/2025 12:59 PM EDT VYAIRE PFT PEF LLN 3.14 06/02/2025 12:59 PM EDT VYAIRE PFT PEFPREZSCORE -0.76 06/02/2025 12:59 PM EDT VYAIRE PFT PEFPRE%PRED 85 % % 06/02/2025 12:59 PM EDT VYAIRE PFT PEF PREDAUTH ECCS (1992) 06/02/2025 12:59 PM EDT VYAIRE PFT PWGCDKRHODNJHJLU8KPG 12.46 ml/(min* mmHg) 06/02/2025 12:59 PM EDT VYAIRE PFT DLCOSINGLEBREATH PRED 15.75 06/02/2025 12:59 PM EDT VYAIRE PFT DLCOSINGLEBREATH LLN 11.59 0804/2025 12:59 PM EDT VYAIRE PFT DLCOSINGLEBREATH Z-SCORE -1.27 06/02/2025 12:59 PM EDT VYAIRE PFT DLCOSINGLEBREATH % PRED 79.1 % 06/02/2025 12:59 PM EDT VYAIRE PFT [facility]LCOSINGLEBREATH [facility] Rlnanci TLCO GLI (2019) 06/02/2025 12:59 PM EDT VYAIRE PFT DLCOSINGLEBREATH Z-SCORE -1.27 06/02/2025 12:59 PM EDT VYAIRE PFT GBRSBOZVXPFGAIVBZ2PW E 12.58 ml/(min* mmHg) 06/02/2025 12:59 PM EDT VYAIRE PFT DLCOCSINGLEBREATH PRED 15.75 06/02/2025 12:59 PM EDT VYAIRE PFT DLCOCSINGLEBREATH LLN 11.59 06/02/2025 12:59 PM EDT VYAIRE PFT DLCOCSINGLEBREATH Z-SCORE -1.22 06/02/2025 12:59 PM EDT VYAIRE PFT DLCOCSINGLEBREATH % PRED 79.8 % 06/02/2025 12:59 PM EDT VYAIRE PFT DLCOCSINGLEBREATH [facility] Reese TLCO GLI (2019) 06/02/2025 12:59 PM EDT VYAIRE PFT PZMXPP3HQF 5.27 ml/(min* mmHg*L) 06/02/2025 12:59 PM EDT VYAIRE PFT DLCOVAPRED 4.29 06/02/2025 12:59 PM EDT VYAIRE PFT DLCOVALLN 3.23 06/02/2025 12:59 PM EDT VYAIRE PFT DLCOVAZSCORE 1.34 06/02/2025 12:59 PM EDT VYAIRE PFT DLCOVA%PRED 122.8 % 06/02/2025 12:59 PM EDT VYAIRE PFT DLCOVAPREDAUTH Reese TLCO GLI (2019) 06/02/2025 12:59 PM EDT VYAIRE PFT DLCOVAZSCORE 1.34 06/02/2025 12:59 PM EDT VYAIRE PFT KKPPKMNSQ5OAL 5.32 ml/(min* mmHg*L) 06/02/2025 12:59 PM EDT VYAIRE PFT DLCOC SB/VA PRED 4.29 06/02/20 12:59 PM EDT VYAIRE PFT DLCOC SB/VA LLN 3.23 12:59 PM EDT VYAIRE PFT DLCOC SB/VA Z-SCORE 1.41 06/02 12:59 PM EDT VYAIRE PFT DLCOC SB/VA % PRED 124.0 % 2024 12:59 PM EDT VYAIRE PFT DLCOC SB[facility] Reese TLCO GLI (2019) 06/02/2025 12:59 PM EDT VYAIRE PFT DLCOC SB/VA Z-SCORE 1.41 06/02 12:59 PM EDT VYAIRE PFT TASCWUECLCRZCO1FKD 2.36 L 2024 12:59 PM EDT VYAIRE PFT VASINGLEBREATH PRED 3.65 06/02 12:59 PM EDT VYAIRE PFT VASINGLEBREATH LLN 2.88 2024 12:59 PM EDT VYAIRE PFT VASINGLEBREATH Z-SCORE -2.86 06/02/2025 12:59 PM EDT VYAIRE PFT VASINGLEBREATH % PRED 64.7 % 06/02/2025 12:59 PM EDT VYAIRE PFT VASINGLEBREATH PREDAUT Reese TLCO GLI (2019) 06/02/2025 12:59 PM EDT VYAIRE PFT VASINGLEBREATH Z-SCORE -2.86 06/02/2025 12:59 PM EDT VYAIRE PFT QZXREPNZEQQKDUT0HDV 1.38 L 06/02 12:59 PM EDT VYAIRE PFT IVCSINGLEBREATH PRED 2.02 0804/2025 12:59 PM EDT VYAIRE PFT IVCSINGLEBREATH LLN 1.40 06/02 12:59 PM EDT VYAIRE PFT IVCSINGLEBREATH Z-SCORE -1.72 06/02/2025 12:59 PM EDT VYAIRE PFT IVCSINGLEBREATH % PRED 67.9 % 06/02/2025 12:59 PM EDT VYAIRE PFT IVCSINGLEBREATH PREDAUTH US_Quanjer GLI (2011) 06/02/2025 12:59 PM EDT VYAIRE PFT HB PRE 13.10 g(Hb)/dL 06/02/2025 12:59 PM EDT VYAIRE PFT XTR7NPQ 3.21 L 06/02/2025 12:59 PM EDT VYAIRE PFT TLCPRED 4.04 06/02/2025 12:59 PM EDT VYAIRE PFT TLCLLN 3.06 06/02/2025 12:59 PM EDT VYAIRE PFT TLCULN 5.03 06/02/2025 12:59 PM EDT VYAIRE PFT TLCZSCORE -1.39 06/02/2025 12:59 PM EDT VYAIRE PFT TLC%PRED 79.3 % 06/02/2025 12:59 PM EDT VYAIRE PFT TLCPREDAUTH ECCS (1992) 06/02/2025 12:59 PM EDT VYAIRE PFT VC0PRE 1.69 L 06/02/2025 12:59 PM EDT VYAIRE PFT VCPRED 2.02 06/02/2025 12:59 PM EDT VYAIRE PFT VCLLN 1.40 06/02/2025 12:59 PM EDT VYAIRE PFT VCULN 2.68 06/02/2025 12:59 PM EDT VYAIRE PFT VCZSCORE -0.87 06/02/2025 12:59 PM EDT VYAIRE PFT VC%PRED 83.5 % 06/02/2025 12:59 PM EDT VYAIRE PFT VCPREDAUTH US_Maria R GLI (2011) 06/02/2025 12:59 PM EDT VYAIRE PFT IC0PRE 1.15 L 06/02/2025 12:59 PM EDT VYAIRE PFT ICPRED 1.28 06/02/2025 12:59 PM EDT VYAIRE PFT ICLLN 1.28 06/02/2025 12:59 PM EDT VYAIRE PFT ICULN 1.28 06/02/2025 12:59 PM EDT VYAIRE PFT IC%PRED 89.5 % 06/02/2025 12:59 PM EDT VYAIRE PFT ICPREDAUTH ECCS calculated (1992) 06/02/2025 12:59 PM EDT VYAIRE PFT ORJCIFCY2WVR 2.06 L 06/02/2025 12:59 PM EDT VYAIRE PFT FRCPLETH PRED 2.42 06/02/2025 12:59 PM EDT VYAIRE PFT FRCPLETH LLN 1.60 06/02/2025 12:59 PM EDT VYAIRE PFT FRCPLETH ULN 3.24 06/02/2025 12:59 PM EDT VYAIRE PFT FRCPLETH Z-SCORE -0.73 06/02/20 12:59 PM EDT VYAIRE PFT FRCPLETH % PRED 85.0 % 12:59 PM EDT VYAIRE PFT FRCPLETH PREDAUTH ECCS (1992) 2024 12:59 PM EDT VYAIRE PFT NGR7FVQ 0.52 L 06/02/2025 12:59 PM EDT VYAIRE PFT ERVPRED 0.41 06/02/2025 12:59 PM EDT VYAIRE PFT ERVLLN 0.41 06/02/2025 12:59 PM EDT VYAIRE PFT ERVULN 0.41 06/02/2025 12:59 PM EDT VYAIRE PFT ERV%PRED 126.6 % 06/02/2025 12:59 PM EDT VYAIRE PFT ERVPREDAUTH ECCS calculated (1992) 06/02/2025 12:59 PM EDT VYAIRE PFT RV0PRE 1.52 L 06/02/2025 12:59 PM EDT VYAIRE PFT RVPRED 2.01 06/02/2025 12:59 PM EDT VYAIRE PFT RVLLN 1.43 06/02/2025 12:59 PM EDT VYAIRE PFT RVULN 2.58 06/02/2025 12:59 PM EDT VYAIRE PFT RVZSCORE -1.41 06/02/2025 12:59 PM EDT VYAIRE PFT RV%PRED 75.5 % 06/02/2025 12:59 PM EDT VYAIRE PFT RVPREDAUTH ECCS (1992) 06/02/2025 12:59 PM EDT VYAIRE PFT RV%FPV9OSC 47.30 % 06/02/2025 12:59 PM EDT VYAIRE PFT RV%TLCPRED 47 06/02/2025 12:59 PM EDT VYAIRE PFT RV%TLCLLN 37 06/02/2025 12:59 PM EDT VYAIRE PFT RV%TLCULN 56 06/02/2025 12:59 PM EDT VYAIRE PFT RV%TLCZSCORE 0.08 06/02/2025 12:59 PM EDT VYAIRE PFT RV%TLC%PRED 101.0 % 06/02/2025 12:59 PM EDT VYAIRE PFT RV%TLCPREDAUTH ECCS (1992) 12:59 PM EDT VYAIRE PFT ZTR9OEU 2.08 L 06/02/2025 12:59 PM EDT VYAIRE PFT Anatomical Region Laterality Modality PFT 06/02/2025 12:2 4 PM EDT Narrative 06/03/2025 10:59 PM EDT Pulmonary Function Testing Report Graciela Owens underwent pulmonary function testing today at the [facility]. The patient underwent spirometry, lung volumes by body plethysmography, and diffusion capacity testing. All tests were appropriately administered via ATS/ERS criteria. All tests are acceptable and repeatable; however, IVC was not 90% of VC which may indicate issues with effort. Interpret with caution. Spirometry: Normal spirometry Lung Volumes: Normal lung volumes. Diffusion Capacity: Diffusion capacity uncorrected for Hb is normal. Trend: There are no prior studies for comparison. Gilbert Roy DO PFT ORDERABLES Final Result * CT Guided Biopsy Muscle (05/30/2025 10:01 AM EDT) Anatomical Region Laterality Modality Computed Tomogra phy Impressions 05/30/2025 10:[address] guided percutaneous biopsy of anterior mediastinal mass. PLAN: -Routine sedation recovery -Chest radiograph will be obtained post procedure to assess for presence of pneumothorax or other complications. -Patient will follow-up with ordering provider for biopsy results. CRITICAL RESULT: No. COMMUNICATION: Per this written report. Drafted by Lee Castaneda MD on 05/30/2025 10:24 AM Final report signed by Lee Castaneda MD on 05/30/2025 10:36 AM Narrative 05/30/2025 10:36 AM EDT CLINICAL INDICATION: 84-year-old female with past medical history of SCC, basal for carcinoma an anterior mediastinal mass presenting for CT guided biopsy TECHNIQUE: Building Inspector: Lee Castaneda MD Secondary Compliance Advisor: Colten Escobar MS4 DLP: 1002.01 mGy*cm Medications: IV conscious sedation with continuous physiologic monitoring provided by a qualified healthcare professional using Versed 2.5 mg IV and Fentanyl 75 mcg IV. 1% Lidocaine SQ. Duration of Conscious Sedation: Time out: 937 close out: 1000 Procedure: After discussion of risks and benefits, informed written consent was obtained. Appropriate time out was performed to confirm patient identity and planned procedure and side. The patient was placed supine on the CT table and initial scanning carried out. The skin overlying the planned tract was prepped and draped, and local anesthetic administered. The anterior mediastinal mass was accessed under CT guidance with a 17G needle and position confirmed. Via the needle several cores were taken with an 18G biopsy device. Once sampling was felt sufficient the needle was removed while injecting Gelfoam. Post scanning revealed no immediate complication. A sterile dressing was applied to the puncture site. The patient tolerated the procedure well, and was transferred to the recovery area in good condition. Cytopathology was present for the procedure and confirmed adequacy of the sampling for their purposes Total DLP (Dose-Length Product): 1002.07 mGy.cm. Please note: The reported value represents the total of one or more individual components during the CT acquisition on this date and at this time, and as such, the same value may appear in more than one CT report depending on the interpreting/reporting physicians. COMPARISON: None. FINDINGS: Please see body of report. COMPLICATION: No. Procedure Note Lee Hopson MD - 05/30/2025 CLINICAL INDICATION: 84-year-old female with past medical history of SCC, basal for carcinomaan anterior mediastinal mass presenting for CT guided biopsy TECHNIQUE: Building Inspector: Lee Castaneda MD Secondary Compliance Advisor: Colten Escobar MS4 DLP: 1002.01 mGy*cm Medications: IV conscious sedation with continuous physiologic monitoringprovided by a qualified healthcare professional using Versed 2.5 mg IV andFentanyl 75 mcg IV. 1% Lidocaine SQ. Duration of Conscious Sedation: Time out: 937 close out: 1000 Procedure: After discussion of risks and benefits, informed written consent wasobtained. Appropriate time out was performed to confirm patient identityand planned procedure and side. The patient was placed supine on the CT table and initial scanning carriedout. The skin overlying the planned tract was prepped and draped, andlocal anesthetic administered. The anterior mediastinal mass was accessedunder CT guidance with a 17G needle and position confirmed. Via the needleseveral cores were taken with an 18G biopsy device. Once sampling was feltsufficient the needle was removed while injecting Gelfoam. Post scanningrevealed no immediate complication. A sterile dressing was applied to thepuncture site. The patient tolerated the procedure well, and wastransferred to the recovery area in good condition. Cytopathology was present for the procedure and confirmed adequacy of thesampling for their purposes Total DLP (Dose-Length Product): 1002.07 mGy.cm. Please note: The reportedvalue represents the total of one or more individual components during theCT acquisition on this date and at this time, and as such, the same valuemay appear in more than one CT report depending on theinterpreting/reporting physicians. COMPARISON: None. FINDINGS: Please see body of report. COMPLICATION: No. IMPRESSION: CT guided percutaneous biopsy of anterior mediastinal mass. PLAN: -Routine sedation recovery -Chest radiograph will be obtained post procedure to assess for presenceof pneumothorax or other complications. -Patient will follow-up with ordering provider for biopsy results. CRITICAL RESULT: No. COMMUNICATION: Per this written report. Drafted by Lee Castaneda MD on 05/30/2025 10:24 AM Final report signed by Lee Castaneda MD on 05/30/2025 10:36 AM Gilbert Roy DO IM CT PROCEDURES Final Resul t * PET/CT FDG Skull Base To Mid Thigh (04/26/2025 12:44 PM EDT) Anatomical Region Laterality Modality Nuclear Medicine Impressions 04/27/2025 12:38 PM EDT Intensely hypermetabolic anterior mediastinal mass with increased size from 2 months prior suspicious for lymphoma. Correlation with tissue sampling is recommended. Hypermetabolic left hilar lymph node is indeterminate given the significant discrepancy in maximum SUV between the primary mass and lymph node, and may represent a reactive lymph node at the anterior mediastinal mass is determined to be lymphoma. If the anterior mediastinal mass is a different neoplasm, then metastasis becomes more probable. Nonspecific focus of hypermetabolic activity at the ileocecal junction which is most commonly physiologic and less commonly correlates to a nodule of unknown malignant potential. When clinically appropriate, correlation with colonoscopy or capsule endoscopy is suggested. CRITICAL RESULT: No. COMMUNICATION: Per this written report. By electronically signing this report, I, the attending physician, attest that I have personally reviewed the images/data for the above examination(s) and agree with the final edited report. Drafted by Cooper Hua DO on 04/27/2025 10:40 AM Final report signed by Zeyad Toussaint MD on 04/27/2025 12:38 PM Narrative 04/27/2025 12:38 PM EDT CLINICAL INDICATION: 84F with recently discovered mediastinal mass at outside hospital. Planned for biopsy. PET performed for initial treatment strategy. TECHNIQUE: Preparation: Last oral intake (except water) on 04/25/2025 at 11:00 PM. Diabetic: No. Blood glucose at time of FDG administration: 102 mg/dL. Radiopharmaceutical: 12.65 mCi of F-18 FDG administered intravenously at right antecubital fossa at 11:42 AM. Incubation interval: 50 minutes. Oral contrast: Not applicable. Positioning: Arms raised. PET/CT scanner: Siemens Biograph 40 mCT. PET/CT acquisition: [id number]-[id number]. Standardized uptake value (SUV): Corrected for body weight only. CT: Low-dose, [id number], without intravenous contrast. TOTAL DLP (Dose Length Product): 311.34 mGy cm. COMPARISON/CORRELATION: No PET/CT comparison. Outside chest CT 03/24/2025. FINDINGS: Technical quality: Diagnostic. Measurements: Unless otherwise specified, all SUVs refer to maximum value in the target (mSUV). Reference: mean SUV liver 2.9 CT linear measurements performed on axial images. Head and Neck: No suspicious metabolically active lesions within the head and neck. No suspicious metabolically active or pathologically enlarged adenopathy. Unremarkable thyroid gland. Clear paranasal sinuses and mastoid air-cells. Chest: Intense hypermetabolic activity within the anterior mediastinal mass with maximum SUV of 19.3 (104/3). The mass has increased in size from 2 months prior now measuring 49 x 44 mm versus 47 x 36 mm previously, and contains a few small foci of calcification (106/4). Hypermetabolic activity fusing to bilateral hilar lymph nodes which are difficult to measure on the current study, with maximum SUV of 5.5 on the left and 3.7 on the right (113/3). No suspicious pulmonary nodules or masses. Normal caliber of the atherosclerotic thoracic aorta. Calcifications of the mitral valve annulus. No pleural effusion or pneumothorax. Near complete resolution of pericardial effusion now trace residual fluid remaining. Abdomen and Pelvis: No suspicious metabolically active lesions within the abdomen and pelvis. No suspicious metabolically active or pathologically enlarged retroperitoneal or pelvic adenopathy. Solid Abdominal Organs: No suspicious focal hypermetabolic lesions in the liver significantly greater than the heterogeneous physiologic uptake. 29 mm simple cyst in the left hepatic lobe. Otherwise unremarkable noncontrast appearance of the liver. The spleen, pancreas, bilateral adrenal glands and kidneys are unremarkable. No hydronephrosis. GI Tract/Mesentery/Peritoneum: Focal hypermetabolic activity at the ileocecal junction correlating to soft tissue nodule, decompressed bowel, or peristalsing bowel, maximum SUV 7.8 (series 4 image 223). The large and small bowel appear normal in caliber. No suspicious peritoneal/mesenteric findings. Pelvic Viscera: No suspicious pelvic masses. 21 mm cystic structure in the right adnexa without associated hypermetabolic activity, likely benign (223/4). Vasculature: Normal caliber of the atherosclerotic abdominal aorta Free Fluid: No ascites or drainable fluid collection Skeleton and Soft Tissues: No suspicious metabolically active osseous or soft tissue lesions. Mild hypermetabolic activity fusing to the posterior rotator cuff musculature, likely degenerative in nature (73/3). No aggressive osseous lytic or sclerotic lesions. Mild multilevel degenerative changes of the visualized spine. Osteopenia. Prior posterior fusion of L4-L5. Procedure Note Zeyad Toussaint MD - 04/27/2025 CLINICAL INDICATION: 84F with recently discovered mediastinal mass at outside hospital. Plannedfor biopsy. PET performed for initial treatment strategy. TECHNIQUE: Preparation: Last oral intake (except water) on 04/25/2025 at 11:00 PM. Diabetic: No. Blood glucose at time of FDG administration: 102 mg/dL. Radiopharmaceutical: 12.65 mCi of F-18 FDG administered intravenously atright antecubital fossa at 11:42 AM. Incubation interval: 50 minutes. Oral contrast: Not applicable. Positioning: Arms raised. PET/CT scanner: Siemens Biograph 40 mCT. PET/CT acquisition: [id number]. Standardized uptake value (SUV): Corrected for body weight only. CT: Low-dose, [id number], without intravenous contrast. TOTAL DLP (Dose Length Product): 311.34 mGy cm. COMPARISON/CORRELATION: No PET/CT comparison. Outside chest CT 03/24/2025. FINDINGS: Technical quality: Diagnostic. Measurements: Unless otherwise specified, all SUVs refer to maximum valuein the target (mSUV). Reference: mean SUV liver 2.9 CT linear measurements performed on axial images. Head and Neck: No suspicious metabolically active lesions within the head and neck. No suspicious metabolically active or pathologically enlargedadenopathy. Unremarkable thyroid gland. Clear paranasal sinuses and mastoid air-cells. Chest: Intense hypermetabolic activity within the anterior mediastinal mass withmaximum SUV of 19.3 (104/3). The mass has increased in size from 2 monthsprior now measuring 49 x 44 mm versus 47 x 36 mm previously, and containsa few small foci of calcification (106/4). Hypermetabolic activity fusing to bilateral hilar lymph nodes which aredifficult to measure on the current study, with maximum SUV of 5.5 on theleft and 3.7 on the right (113/3). No suspicious pulmonary nodules or masses. Normal caliber of the atherosclerotic thoracic aorta. Calcifications ofthe mitral valve annulus. No pleural effusion or pneumothorax. Near complete resolution ofpericardial effusion now trace residual fluid remaining. Abdomen and Pelvis: No suspicious metabolically active lesions within the abdomen andpelvis. No suspicious metabolically active or pathologically enlargedretroperitoneal or pelvic adenopathy. Solid Abdominal Organs: No suspicious focal hypermetabolic lesions in the liver significantlygreater than the heterogeneous physiologic uptake. 29 mm simple cyst inthe left hepatic lobe. Otherwise unremarkable noncontrast appearance ofthe liver. The spleen, pancreas, bilateral adrenal glands and kidneys areunremarkable. No hydronephrosis. GI Tract/Mesentery/Peritoneum: Focal hypermetabolic activity at the ileocecal junction correlating tosoft tissue nodule, decompressed bowel, or peristalsing bowel, maximum SUV7.8 (series 4 image 223). The large and small bowel appear normal incaliber. No suspicious peritoneal/mesenteric findings. Pelvic Viscera: No suspicious pelvic masses. 21 mm cystic structure in theright adnexa without associated hypermetabolic activity, likely benign(223/4). Vasculature: Normal caliber of the atherosclerotic abdominal aorta Free Fluid: No ascites or drainable fluid collection Skeleton and Soft Tissues: No suspicious metabolically active osseous or soft tissue lesions. Mildhypermetabolic activity fusing to the posterior rotator cuff musculature,likely degenerative in nature (73/3). No aggressive osseous lytic or sclerotic lesions. Mild multilevel degenerative changes of the visualized spine. Osteopenia.Prior posterior fusion of L4-L5. IMPRESSION: Intensely hypermetabolic anterior mediastinal mass with increased sizefrom 2 months prior suspicious for lymphoma. Correlation with tissuesampling is recommended. Hypermetabolic left hilar lymph node is indeterminate given thesignificant discrepancy in maximum SUV between the primary mass and lymphnode, and may represent a reactive lymph node at the anterior mediastinalmass is determined to be lymphoma. If the anterior mediastinal mass is adifferent neoplasm, then metastasis becomes more probable. Nonspecific focus of hypermetabolic activity at the ileocecal junctionwhich is most commonly physiologic and less commonly correlates to anodule of unknown malignant potential. When clinically appropriate,correlation with colonoscopy or capsule endoscopy is suggested. CRITICAL RESULT: No. COMMUNICATION: Per this written report. By electronically signing this report, I, the attending physician, maribeth I have personally reviewed the images/data for the aboveexamination(s) and agree with the final edited report. Drafted by Cooper Hua DO on 04/27/2025 10:40 AM Final report signed by Zeyad Toussaint MD on 04/27/2025 12:38 PM Gilbert Roy DO IMG NM PROCEDURES Final Resul t documented in this encounter Visit Diagnoses Diagnosis Mediastinal mass- Primary Swelling, mass, or lump in chest Mediastinal mass Swelling, mass, or lump in chest Mediastinal mass Swelling, mass, or lump in chest Mediastinal mass Swelling, mass, or lump in chest documented in this encounter Additional Health Concerns Assessment Noted Time A fall risk assessment has been complete d for the patient 04/15/2025 1:46 PM EDT A Body Mass Index follow-up plan has been documented for the patient 04/18/2025 3:31 PM EDT documented as of this encounter Care Teams Financial Business Analyst Relationship Specialty Start Date End Date Leah Chavarria APRN [address] [place] [address] PCP - General 04/15/25 documented as of this encounter
--- OUTSIDE RECORDS SUMMARY | 2025-04-26 11:10 | XMS_ITS | Encounter Summary ---
Author Organization [facility] Address [address] [place] [address] Care Team Providers Care Nuclear Weapons Specialist Name Role Phone Leah Chavarria APRN Primary Care Provider [phone] Reason for Visit * Imaging (Routine) - Closed Specialty Diagnoses / Procedures Referred By Maico t Referred To Contact Radiology Diagnoses Mediastinal mass Procedures PET/CT FDG Skull Base To Mid Thigh Gilbert Roy, [address] [address] Phone: tel: fax: Referral ID Status Reason Start Date Expiration Date Visits Re quested Visits Authorized [id number] Closed 04/15/2025 10/15/2026 2 2 Encounter Details Date Type Department Care Team (Latest Contact Info) Description 04/26/2025 11:10 AM EDT - 04/26/2025 11:59 PM EDT Hospital Encounter [facility] PET Scan [address] [place] [address] Discharge Disposition: Home or Self Care Social History Tobacco Use Types Packs/Day Years Used Date Smoking Tobacco: Never Smokeless Tobacco: Never Comments Unknown Sex and Gender Information Value Date Recorded Sex Assigned at Not on file Legal Sex Female 6:35 PM EDT Gender Identity Not on file Sexual Orientation Not on file documented as of this encounter Medications at Time of Discharge atorvastatin (Lipitor) 10 MG tablet 03/07/2025 brimonidine (AlphaGAN P) 0.1 % ophthalmic solution 02/05/2025 Calcium-Magnesium- Zinc 500-250-12.5 MG tablet Take by mouth. latanoprost (Xalatan) 0.005 % ophthalmic solution 02/05/2025 losartan (Cozaar) 25 MG tablet 03/28/2025 VITAMIN E PO Take by mouth. documented as of this encounter Plan of Treatment Upcoming Encounters Date Type Department Care Team (Late st Contact Info) Description 06/16/2026 2:00 PM EDT Ovarian Cancer Screening [facility] [address] [place] [address] documented as of this encounter Procedures Procedure Name Priority Date/Time Associated Diagnosis Comments PET/CT FDG SKULL BASE TO MID THIGH Routine 04/26/2025 12:44 PM EDT Mediastinal mass documented in this encounter Results * PET/CT FDG Skull Base To Mid [...] scanner: Siemens Biograph 40 mCT. PET/CT acquisition: Nkabrk-ct-glb-thighs. Standardized uptake value (SUV): Corrected for body weight only. CT: Low-dose, emq-lcnjwn-lxex, without intravenous contrast. TOTAL DLP (Dose Length [...] scanner: Siemens Biograph 40 mCT. PET/CT acquisition: Ocxsup-to-igm-thighs. Standardized uptake value (SUV): Corrected for body weight only. CT: Low-dose, pab-riealh-qkwh, without intravenous contrast. TOTAL DLP (Dose Length [...] t documented in this encounter Visit Diagnoses Not on filedocumented in this encounter Additional Health Concerns Assessment Noted Time A fall risk assessment has been complete d for the patient 04/15/2025 1:46 PM EDT A Body Mass Index follow-up plan has been documented for the patient 04/18/2025 3:31 PM EDT documented as of this encounter Care Teams Nuclear Weapons Specialist Relationship Specialty Start Date End Date Leah Chavarria APRN [address] [place] [address] PCP - General 04/15/25 documented as of this encounter
--- OUTSIDE RECORDS SUMMARY | 2025-04-26 11:10 | XMS_ITS | Encounter Summary ---
Author Organization [facility] Address [address] [place] [address] Care Team Providers Care Insurance Actuary Name Role Phone Leah Chavarria APRN Primary Care Provider [phone] Reason for Referral * Imaging (Routine) - Closed Specialty Diagnoses / Procedures Referred By Contac t Referred To Contact Radiology Diagnoses Mediastinal mass Procedures PET/CT FDG Skull Base To Mid Thigh Gilbert Roy DO [address] [address] Phone: tel: fax: Referral ID Status Reason Start Date Expiration Date Visits Re quested Visits Authorized [id number] Closed 04/15/2025 10/15/2026 2 2 Reason for Visit * Imaging (Routine) - Closed Specialty Diagnoses / Procedures Referred By Contac t Referred To Contact Radiology Diagnoses Mediastinal mass Procedures PET/CT FDG Skull Base To Mid Thigh Gilbert Roy DO [address] [address] Phone: tel: fax: Referral ID Status Reason Start Date Expiration Date Visits Re quested Visits Authorized [id number] Closed 04/15/2025 10/15/2026 2 2 Encounter Details Date Type Department Care Team (Latest Contact Info) Description 04/26/2025 11:10 AM EDT - 04/26/2025 11:59 PM EDT Hospital Encounter [facility] PET Scan [address] [place] [address] Mediastinal mass Discharge Disposition: Home or Self Care Social [...] EDT Ovarian Cancer Screening [facility] [address] [facility], [address]rd [place] [address] documented as of this encounter Procedures Procedure [...] scanner: Siemens Biograph 40 mCT. PET/CT acquisition: Gxscac-bf-jlm-thighs. Standardized uptake value (SUV): Corrected for body weight only. CT: Low-dose, mop-ggbyrg-ftpo, without intravenous contrast. TOTAL DLP (Dose Length [...] scanner: Siemens Biograph 40 mCT. PET/CT acquisition: Opfmcn-vm-dmo-thighs. Standardized uptake value (SUV): Corrected for body weight only. CT: Low-dose, sob-xgfxfu-swrn, without intravenous contrast. TOTAL DLP (Dose Length [...] signing this report, I, the attending physician, attestthat I have personally reviewed the images/data for the aboveexamination(s) and agree with the final edited report. Drafted by Cooper Hua DO on 04/27/2025 10:40 AM Final report signed by Zeyad Toussaint MD on 04/27/2025 12:38 PM Gilbert Roy DO IMG NM PROCEDURES Final Resul t documented in this encounter Visit Diagnoses Diagnosis Mediastinal mass Swelling, mass, or lump in chest documented in this encounter Administered Medications Inactive Administered Medications - up to 3 most recent administrations Medication Order MAR Action Action Date Dose Rate Site Fludeoxyglucose F 18 (FDG 18) radio-isotope injection 10 millicurie 10 millicurie, Intravenous, Once, 1 dose, On Fri04/26/25 at 1300, Routine, Imaging NM Protocol Orders Given 04/26/2025 11:42 AM EDT 12.65 millicuries Right Hand documented in this encounter Additional Health Concerns Assessment Noted Time A fall risk assessment has been complete d for the patient 04/15/2025 1:46 PM EDT A Body Mass Index follow-up plan has been documented for the patient 04/18/2025 3:31 PM EDT documented as of this encounter Care Teams Insurance Actuary Relationship Specialty Start Date End Date Leah Chavarria APRN [address] [place] [address] PCP - General 04/15/25 documented as of this encounter
--- OUTSIDE RECORDS SUMMARY | 2025-05-23 12:00 | XMS_ITS | Encounter Summary ---
Author Organization [facility] Address [address] [place] [address] Care Team Providers Care Skating Rink Manager Name Role Phone Deon Leah García APRN Primary Care Provider [phone] Reason for Visit * Reason Comments Consult Encounter Details Date Type Department Care Team (Latest Contact Info) Description 05/23/2025 12:00 PM EDT [facility] [address] [place] [address] Marge Malhotra, MEDICAL HOUSEKEEPER [address] [place] [address] Encounter for other preprocedural examination (Primary Dx) Social History Tobacco Use Types Packs/Day Years Used Date Smoking Tobacco: Never Smokeless Tobacco: Never Tobacco Cessation:Counseling Given: Not Answered PHQ-2 Answer Date Recorded Patient Health Questionnaire-2 Score 0 05/23/2025 Comments Unknown Sex and Gender Information Value Date Recorded Sex Assigned at Not on file Legal Sex Female 6:35 PM EDT Gender Identity Not on file Sexual Orientation Not on file documented as of this encounter Last Filed Vital Signs Vital Sign Reading Time Taken Comments Blood Pressure 135/83 05/23/2025 11:48 AM EDT Pulse 81 05/23/2025 11:48 AM EDT Temperature 36.6 C (97.8 F) 05/23/2025 11:48 AM EDT Respiratory Rate - - Oxygen Saturation 96% 05/23/2025 11:48 AM EDT Inhaled Oxygen Concentration - - Weight 51.5 kg (113 lb 8.6 oz) 05/23/2025 11:48 AM EDT Height 154.9 cm (5' 1 ) 05/23/2025 11:48 AM EDT Body Mass Index 21.45 05/23/2025 11:48 AM EDT documented in this encounter Functional Status * Over the past 2 weeks, how often have you been bothered by any of the following problems? Question Answer Date of Assessment Author Little interest or pleasure in doing things Not at all 05/23/2025 11:55 AM EDT Aurora Anaya Feeling down, depressed, or hopeless Not at all 05/23/2025 11:55 AM EDT Aurora Anaya Patient Health Questionnaire -2 Score 0 05/23/2025 11:55 AM EDT Aurora Anaya * If you checked off any problems on this questionnaire so far, Question Answer Date of Assessment Author How difficult have these problems made it for you to do your work, take care of things at home, or get along with other people? Not difficult at all 05/23/2025 11:55 AM EDT Annetta Anaya documented as of this encounter Miscellaneous Notes * H&P - Marge Malhotra APRN - 05/23/2025 12:00 PM EDT Images from the original note were not included. Graciela Owens presents today for consultation as requested by dr. Gilbert Roy regarding assessment ofanterior mediastinal mass. Subjective History of Present Illness: ISMA Owens is a 84 y.o. 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 She is being evaluated for anteriormediastinal mass. In summary; She presented to OSH during 02/2025 for respiratory distress and in her workup was foundto have evidence of right lower lobe pneumonia, pericardial effusion [s/p pericardiocentesis], and anterior mediastinal mass with mediastinal lymphadenopathy. She was referred to [facility], establishing care with them on 04/15/25. Subsequent PET/CT obtained on 04/26/25 for further evaluation, this demonstrated hypermetabolic anterior mediastinal mass, which appears to have slightly increase in size since 02/2025 imaging. This prompted referral to us for biopsy of anterior mediastinal mass. She is presenting today to be evaluated prior to biopsy. She is very pleasant. Non-toxic. Independent. She denies a history of smoking/alcohol/drug use. Endorses unintentional weight loss, about 20-30 lbs over the past year. She has had some intermittent fevers and chills in the past few weeks thathave resolved without need for medications. She otherwise does not report any recent visual disturbances, headaches, dizziness, coughing, sneezing, dyspnea, chest pain, abdominal pain, lower extremity pain/inflammation/edema or constitutional symptoms of infection. Allergies: Patient has no known allergies. Medications: Current Medications[1] Past Surgical History: Graciela has a past surgical history that includes Back surgery; Tonsillectomy; Tubal ligation; and Cataract extraction. Past Medical History: She has a past medical history of High cholesterol and Skin cancer. Past Family History: Herfamily history includes No Known Problems in her father and mother. Past Social History: She reports that she has never smoked. She has never used smokeless tobacco. Review of Systems: Review of Systems 14 point ROS negative except for above. Objective Physical Exam: There were no vitals filed for this visit. Physical Exam Visit Vitals Ht 1.549 m (5' 1 ) Wt 51.5 kg (113 lb 8.6 oz) BMI 21.45 kg/m?? Smoking Status Never BSA 1.49 m?? General Appearance: Alert, cooperative, no distress, appears stated age Head: Normocephalic, without obvious abnormality, atraumatic Eyes: PERRL, conjunctiva/corneas clear, EOM's intact, fundi benign, both eyes Ears: Normal TM's and external ear canals, both ears Nose: Nares normal, septum midline, mucosa normal, no drainage or sinus tenderness Throat: Lips, mucosa, and tongue normal; teeth and gums normal Neck: Supple, symmetrical, trachea midline, no adenopathy; thyroid: no enlargement/tenderness/nodules; no carotid bruit or JVD Back: Symmetric, no curvature, ROM normal, no CVA tenderness Lungs: Clear to auscultation bilaterally, respirations unlabored Chest Wall: No tenderness or deformity Heart: Regular rate and rhythm, S1 and S2 normal, no murmur, rub or gallop Breast Exam: No tenderness, masses, or nipple abnormality Abdomen: Soft, non-tender, bowel sounds active all four quadrants, no masses, no organomegaly Extremities: Extremities normal, atraumatic, no cyanosis or edema Pulses: 2+ and symmetric all extremities Skin: Skin color, texture, turgor normal, no rashes or lesions Lymph nodes: Cervical, supraclavicular, and axillary nodes normal Neurologic: CNII-XII intact, normal strength, sensation and reflexes throughout Imaging: PET/CT FDG Skull Base To Mid Thigh Narrative: CLINICAL INDICATION: 84F with recently discovered mediastinal mass at outside hospital. Planned for biopsy. PET performed for initial treatment strategy. TECHNIQUE: Preparation: Last oral intake (except water) on 04/25/2025 at 11:00 PM. Diabetic: No. Blood glucose at time of FDG administration: 102 mg/dL. Radiopharmaceutical: 12.65 mCi of F-18 FDG administered intravenously at right antecubital fossa at11:42 AM. Incubation interval: 50 minutes. Oral contrast: Not applicable. Positioning: Arms raised. PET/CT scanner: Siemens Biograph 40 mCT. PET/CT acquisition: Orivld-rw-chm-thighs. Standardized uptake value (SUV): Corrected for body weight only. CT: Low-dose, rsk-elbjnj-pfjw, without intravenous contrast. TOTAL DLP (Dose Length [...] nodes which are difficult to measure on thecurrent study, with maximum SUV of 5.5 on [...] in the left hepatic lobe. Otherwise unremarkable noncontrastappearance of the liver. The spleen, pancreas, bilateral [...] the visualized spine. Osteopenia. Prior posterior fusion ofL4-L5. Impression: Intensely hypermetabolic anterior mediastinal mass with increased size from 2 months prior suspicious for lymphoma. Correlation with tissue sampling is recommended. Hypermetabolic left hilar lymph node is indeterminate given the significant discrepancy in maximum SUV between the primary mass and lymph node, and may represent a reactive lymph node at the anteriormediastinal mass is determined to be lymphoma. If [...] Zeyad Toussaint MD on 04/27/2025 12:38 PM Labs: Labs in chart were reviewed. No results found for: WBC , HGB , HCT , PLT No results found for: NA , K , CL , CO2 , BUN , CREATININE , GLUCOSE No results found for: CALCIUM , MG , PHOS No results found for: AST , ALT , ALKPHOS No results found for: APTT , INR Assessment/Plan Anterior mediastinal mass Hx of SCC of nose Hx of basal cell carcinoma -SCC of nose s/p resection approximately 15 years ago. -Basal cell carcinoma s/p resection approximately 10 years ago. -Personally reviewed CT chest 03/24/25: Anterior mediastinal mass. Large circumferential pericardialeffusion. -Personally reviewed PET/CT 04/26/25: Hypermetabolic anterior mediastinal mass, increased in size compared to prior, 5 X 4.5cm. Hypermetabolic left hilar lymph node. -Thoracic Surgery following PLAN -Will perform CT guided biopsy of anterior mediastinal mass on 05/30/25. -Will obtain labs and consent today. -Anticoagulation; denies. -NPO after midnight evening prior. -Discussed moderate risk of bleeding, damage to surrounding organs including heart, lung. Discussedrisk of pneumothorax. Discussed this will be performed under conscious sedation. Discussed it will take 3-5 days for pathology to result and referring provider should follow up with those for her. Thank you for allowing me to participate in the care of Graciela Owens. Marge Malhotra APRN Vascular & Interventional Radiology I spent >58 minutes on this encounter; including preparing to see the patient, which involved review/interpretation of diagnostics and reports; obtaining and/or reviewing separately obtained history; performing appropriate physical exam; communicating finding, reviewing labs/imaging, counseling/educating the patient; documentation in EMR; and formulating subsequent treatment plan. [1] Current Outpatient Medications: atorvastatin (Lipitor) 10 MG tablet, , Disp: , Rfl: brimonidine (AlphaGAN P) 0.1 % ophthalmic solution, , Disp: , Rfl: Kshnkua-Fsnoojide-Qayp 500-250-12.5 MG tablet, Take by mouth., Disp: , Rfl: latanoprost (Xalatan) 0.005 % ophthalmic solution, , Disp: , Rfl: losartan (Cozaar) 25 MG tablet, , Disp: , Rfl: VITAMIN E PO, Take by mouth., Disp: , Rfl: documented in this encounter Plan of Treatment Upcoming Encounters Date Type Department Care Team (Late st Contact Info) Description 06/16/2026 2:00 PM EDT Ovarian Cancer Screening [facility] Gynecology [address] [facility], [address] [place] [address] documented as of this encounter Results * (ABNORMAL) CBC W/O Differential (05/23/2025 12:30 PM EDT) WBC Count 7.32 3.70 - 10.30 10*3/uL LAB HEMATOLOGY METHOD 05/23/2025 2:31 PM EDT [facility] RBC Count 4.55 3.90 - 5.20 10*6/uL LAB HEMATOLOGY METHOD 05/23/2025 2:31 PM EDT [facility] HGB 13.1 11.2 - 15.7 g/dL LAB HEMATOLOGY METHOD 05/23/2025 2:31 PM EDT [facility] HCT 41.4 34.0 - 45.0 % LAB HEMATOLOGY METHOD 05/23/2025 2:31 PM EDT [facility] Platelet Count 192 155 - 369 10*3/uL LAB HEMATOLOGY METHOD 05/23/2025 2:31 PM EDT [facility] MCV 91 79 - 98 fL LAB HEMATOLOGY METHOD 05/23/2025 2:31 PM EDT [facility] MCH 28.8 26.0 - 32.0 pg LAB HEMATOLOGY METHOD 05/23/2025 2:31 PM EDT [facility] MCHC 31.6 30.7 - 35.5 g/dL LAB HEMATOLOGY METHOD 05/23/2025 2:31 PM EDT [facility] RDW 14.7(H) 11.5 - 14.5 % LAB HEMATOLOGY METHOD 05/23/2025 2:31 PM EDT [facility] MPV 12.6(H) 8.8 - 12.5 fL LAB HEMATOLOGY METHOD 05/23/2025 2:31 PM EDT [facility] nRBC 0.0 <=0.0 per 100 WBCs LAB HEMATOLOGY METHOD 05/23/2025 2:31 PM EDT [facility] Blood Venous blood specimen / Unknown Venipuncture / Unknown 05/23/2025 12:30 PM EDT 05/23/2025 12:31 PM EDT us Marge Malhotra MEDICAL HOUSEKEEPER LAB BLOOD ORDERABLES Final R esult [facility] [address] [place] [address] * (ABNORMAL) Comprehensive Metabolic Panel, Plasma (05/23/2025 12:30 PM EDT) Glucose, Plasma 92 74 - 99 mg/dL 05/23/2025 2:40 PM EDT [facility] BUN, Plasma 15 8 - 23 mg/dL 05/23/2025 2:40 PM EDT [facility] Creatinine, Plasma 0.63 0.60 - 1.10 mg/dL 05/23/2025 2:40 PM EDT [facility] BUN/Creatinine Ratio 24 05/23/2025 2:40 PM EDT [facility] Sodium, Plasma 139 136 - 145 mmol/L 05/23/2025 2:40 PM EDT [facility] Potassium, Plasma 5.3(H) 3.6 - 4.9 mmol/L 05/23/2025 2:40 PM EDT [facility] Chloride, Plasma 102 97 - 107 mmol/L 05/23/2025 2:40 PM EDT [facility] CO2, Plasma 25 22 - 29 mmol/L 05/23/2025 2:40 PM EDT [facility] Anion Gap 12 6 - 16 mmol/L 05/23/2025 2:40 PM EDT [facility] Total Calcium, Plasma 9.5 8.9 - 10.2 mg/dL 05/23/2025 2:40 PM EDT [facility] Total Protein 7.7 6.3 - 7.9 g/dL 05/23/2025 2:40 PM EDT [facility] Albumin, Plasma 4.1 3.5 - 5.2 g/dL 05/23/2025 2:40 PM EDT [facility] AST, Plasma 26 10 - 35 U/L 05/23/2025 2:40 PM EDT [facility] ALT, Plasma 20 10 - 35 U/L 05/23/2025 2:40 PM EDT [facility] Alkaline Phosphatase, Plasma 91 46 - 142 U/L 05/23/2025 2:40 PM EDT [facility] Total Bilirubin, Plasma 0.8 0.2 - 1.1 mg/dL 05/23/2025 2:40 PM EDT [facility] eGFRcr 88.7 mL/min/1.7 3m*2 05/23/2025 2:40 PM EDT [facility] Comment:Reported eGFRcr in m L/min/1.73m2 is based the CKD-EPI 2020 equation that does not use a race coefficient. Blood Venous blood specimen / Unknown Venipuncture / Unknown 05/23/2025 12:30 PM EDT 05/23/2025 12:31 PM EDT us Marge Malhotra APRN LAB BLOOD ORDERABLES Final R esult [facility] [address] [place] [address] * (ABNORMAL) Prothrombin Time/INR (05/23/2025 12:30 PM EDT) Prothrombin Time 15.2(H) 12.0 - 14.3 sec LAB COAGULATION METHOD 05/23/2025 2:46 PM EDT [facility] INR 1.2(H) 0.9 - 1.1 LAB COAGULATION METHOD 05/23/2025 2:46 PM EDT [facility] Blood Venous blood specimen / Unknown Venipuncture / Unknown 05/23/2025 12:30 PM EDT 05/23/2025 12:31 PM EDT Narrative [facility] - 05/23/2025 2:46 PM EDT OPTIMAL INR RANGES FOR PATIENT ON ORAL ANTICOAGULANT THERAPY Prevention of venous thromboembolism INR 2.0 to 3.0 In patients with heart disease: Atrial fibrillation INR 2.0 to 3.0 Valvular heart disease INR 2.0 to 3.0 Tissue heart valves INR 2.0 to 3.0 Mechanical prosthetic valves INR 2.5 to 3.5 Prevention of recurrent [place] INR 2.5 to 3.5 us Marge Malhotra MEDICAL HOUSEKEEPER LAB BLOOD ORDERABLES Final R esult [facility] [address] [place] [address] documented in this encounter Visit Diagnoses Diagnosis Encounter for other preprocedural examination- Primary documented in this encounter Additional Health Concerns Assessment Noted Time A fall risk assessment has been complete d for the patient 05/23/2025 11:53 AM EDT A Body Mass Index follow-up plan has been documented for the patient 05/23/2025 12:13 PM EDT documented as of this encounter Care Teams Skating Rink Manager Relationship Specialty Start Date End Date Leah Chavarria APRN [address] [place] [address] PCP - General 04/15/25 documented as of this encounter
--- OUTSIDE RECORDS SUMMARY | 2025-05-30 07:53 | XMS_ITS | Encounter Summary ---
Author Organization [facility] Address [address] [place] [address] Care Team Providers Care Claims Director Name Role Phone Leah Chavarria APRN Primary Care Provider [phone] Reason for Referral * Imaging (Routine) - Closed Specialty Diagnoses / Procedures Referred By Contac t Referred To Contact Radiology Diagnoses Mediastinal mass Procedures CT Guided Biopsy Muscle Consult to Interventional Radiology Gilbert Roy DO [address] [address] Phone: tel: fax: Referral ID Status Reason Start Date Expiration Date Visits Re quested Visits Authorized [id number] Closed 04/15/2025 10/15/2026 1 1 Reason for Visit * Imaging (Routine) - Closed Specialty Diagnoses / Procedures Referred By Contac t Referred To Contact Radiology Diagnoses Mediastinal mass Procedures CT Guided Biopsy Muscle Consult to Interventional Radiology Gilbert Roy DO [address] [address] Phone: tel: fax: Referral ID Status Reason Start Date Expiration Date Visits Re quested Visits Authorized [id number] Closed 04/15/2025 10/15/2026 1 1 Encounter Details Date Type Department Care Team (Latest Contact Info) Description 05/30/2025 7:53 AM EDT - 05/30/2025 10:17 AM EDT Hospital Encounter [facility] Interventional Radiology [address] [place] [address] Tanner Christiansen, RN Mediastinal mass Discharge Disposition: [...] kg (116 lb 10 oz) 05/30/2025 8:25 A M EDT Height 154.9 cm (5' 1 [...] at the site of the biopsy. Call [phone] right away if any of these occur: Shortness of breath Chest pain *Interventional Radiology* (IR) Questions/Concerns & Appointments: If there are questions or concerns after discharge please call: [facility] at [phone] Friday - Friday 8:00 AM to 4:30 PM After hours, weekends, and holidays please call [phone] and ask for the Interventional Radiology provider/Resident on-call Intervention Radiology Appointments: If you need to reschedule a procedure, please call our Schedulers at [phone], option [phone]. If you need to schedule or reschedule a clinic appointment, please call [phone]. [facility] Vascular [facility] Interventional Radiology Clinic [address], [address] [place] [address] documented in this encounter Medications at Time [...] Brief Postprocedure Note Attending: Lee Romero MD Reimbursement Specialist: DANIA Logan Pre-operative Diagnosis: Hypermetabolic anterior mediastinal [...] saw and evaluated the patient with the medical/STONE DRILLER HELPER/PA student. I discussed the case with the medical/STONE DRILLER HELPER/PA student and agree with the findings and [...] been discussed with the patient and/or their sales and service representative. All questions answered and they agree to proceed. [1] Social History Tobacco Use Smoking Status Never Smokeless Tobacco Never [2] Current Outpatient Medications Medication Sig Dispense Refill atorvastatin (Lipitor) 10 MG tablet brimonidine (AlphaGAN P) 0.1 % ophthalmic solution Djzfghi-Rzmmofwcr-Qqdj 500-250-12.5 MG tablet Take by mouth. ferrous [...] saw and evaluated the patient with the medical/STONE DRILLER HELPER/PA student. I discussed the case with the medical/STONE DRILLER HELPER/PA student and agree with the findings and [...] saw and evaluated the patient with the medical/STONE DRILLER HELPER/PA student. I discussed the case with the medical/STONE DRILLER HELPER/PA student and agree with the findings and [...] scanner: Siemens Biograph 40 mCT. PET/CT acquisition: Amzauc-ac-qsa-thighs. Standardized uptake value (SUV): Corrected for body weight only. CT: Low-dose, pni-nkvyig-acyt, without intravenous contrast. TOTAL DLP (Dose Length [...] % ophthalmic solution, , Disp: , Rfl: Evtnetl-Wemjleqoo-Hycx 500-250-12.5 MG tablet, Take by mouth., Disp: , Rfl: latanoprost (Xalatan) 0.005 % ophthalmic solution, , Disp: , Rfl: losartan (Cozaar) 25 MG tablet, , Disp: , Rfl: VITAMIN E PO, Take by mouth., Disp: , Rfl: documented in this encounter Plan of Treatment Upcoming Encounters Date Type Department Care Team (Late st Contact Info) Description 06/16/2026 2:00 PM EDT Ovarian Cancer Screening [facility] Gynecology [address] [place] [address], [address] [place] [address] documented as of this encounter Procedures Procedure [...] mass presenting for CT guided biopsy TECHNIQUE: Application Integration Specialist: Lee Castaneda MD Secondary Parker: Colten Escobar 4 DLP: 1002.01 mGy*cm Medications: IV conscious sedation [...] mass presenting for CT guided biopsy TECHNIQUE: Application Integration Specialist: Lee Castaneda MD Secondary Parker: Colten QUISPE DLP: 1002.01 mGy*cm Medications: IV [...] on 05/30/2025 10:36 AM Gilbert Roy DO [facility] CT PROCEDURES Final Resul t * Fine needle aspiration - Core Biopsy (05/30/2025 9:55 AM EDT) Case Report Cytology Case: [id number] Authorizing Provider: Lee Hopson MD Collected: 05/30/2025 0955 Ordering Location: [facility] Interventional Received: 05/30/2025 1043 Radiology Pathologist: Jyoti Bruner MD Specimen: Mass, Core Biopsy with Touch Preparation (Specify Site), MEDIASTINAL MASS, CT GUIDED CORE BIOPSY WITH TOUCH PREPS 5 3:22 PM EDT [facility] Final Diagnosis A. MEDIASTINAL MASS, CT GUIDED CORE BIOPSY: - POSITIVE FOR MALIGNANCY, SQUAMOUS CELL CARCINOMA (SEE COMMENT). 3:22 PM EDT [facility] at 1522 EDT Comment The immunophenotype would favor a thymic primary, although metastases from other sites cannot be entirely excluded. Clinical correlation is suggested. 3:22 PM EDT [facility] Special and Immunohistochemical Stains IHC: A1-1 Johns Cytokeratin AE1 AE3: Positive A1-2 QI55-WIM: Negative A1-3 CD117: Positive A1-4 CK7: Focally positive A1-5 CK20: Negative A1-6 TTF-1: Negative A1-13 P40: Focally positive A1-14 Synaptophysin: Negative A1-15 CD5: Focally positive All controls show appropriate reactivity. All immunohistochemis try, in situ hybridization, and histochemical tests were developed by and are performed at the [facility], [address] [place] [address]. All tests reported here, except those addressing [...] negativity on decalcified specimens. 3:22 PM EDT [facility] Intradepartmental Consultation with Agreement Dr. Susan Jin 3:22 PM EDT [facility] Immediate Evaluation Core biopsy performed [...] appears on the report. 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 B Symptoms past year. 3:22 PM EDT [facility] Procedure Type CT 3:22 PM EDT [facility] Size/Description of Lesion mediastinal 3:22 PM EDT [facility] Cancer History Yes 3:22 PM EDT [facility] Previous Cancer Primary Site Skin Cancer 3:22 PM EDT [facility] Gross Description A. MEDIASTINAL MASS, CT GUIDED CORE BIOPSY WITH TOUCH PREPS Multiple white huerta cores of friable tissue, all measuring less than 0.1 cm in diameter and ranging from 0.1 cm to 0.8 cm in length, entirely submitted in biowrap and/or cassette. Received 2 diff quick touch prep slides. Cold Time: 19m 3:22 PM EDT [facility] Note: A resident was involved in the service. I attest I examined the relevant preparations for the specimens and confirmed the diagnosis or interpretation. 3:22 PM EDT [facility] Clinical Information No Dx found. 3:22 PM EDT [facility] Fine Needle Aspirate Specimen from mass / Unknown Non-blood Collection / Unknown 05/30/2025 9:55 AM EDT 05/30/2025 10:43 AM EDT us Lee Romero MD LAB CYTOLOGY ORDERABLES Final Result [facility] [address] [place] [address] documented in this encounter Visit Diagnoses Diagnosis [...] documented as of this encounter Care Teams Claims Director Relationship Specialty Start Date End Date Leah Chavarria APRN [address] [place] [address] PCP - General 04/15/25 documented as of this encounter
--- OUTSIDE RECORDS SUMMARY | 2025-05-30 10:18 | XMS_ITS | Encounter Summary ---
Author Organization Healthcare Address [address] [place] [address] Care Team Providers Care Centrifugal Drier Operator Name Role Phone Leah Chavarria APRN Primary Care Provider [phone] Encounter Details Date Type Department Care Team (Latest Contact Info) Description 05/30/2025 10:18 AM EDT - 05/30/2025 11:59 PM EDT Hospital Encounter [facility] Radiology [address] [place] [phone] Discharge Disposition: Home or Self Care Social [...] [facility] Gynecology [address] [place] [address] documented as of this encounter Procedures Procedure [...] documented as of this encounter Care Teams Centrifugal Drier Operator Relationship Specialty Start Date End Date Leah Chavarria, PRE K SPECIAL EDUCATION TEACHER [address] [place] [address] PCP - General 04/15/25 documented as of this encounter
--- OUTSIDE RECORDS SUMMARY | 2025-06-02 12:11 | XMS_ITS | Encounter Summary ---
Author Organization Healthcare Address [address] [place] [address] Care Team Providers Care Mainframe Programmer Analyst Name Role Phone Leah Chavarria APRN Primary Care Provider [phone] Encounter Details Date Type Department Care Team (Latest Contact Info) Description 06/02/2025 12:11 PM EDT - 06/02/2025 11:59 PM EDT Hospital Encounter PAV H Pulmonary Function Testing [address] [place] [id number] Mediastinal mass Discharge Disposition: Home or Self [...] PAV Gynecology [address] [facility] [place] [address] documented as of this encounter Procedures Procedure Name Priority Date/Time Associated Diagnosis Comments HC DIFFUSING CAPACITY - CARBON MONOXIDE DIFFUSING CAPACITY Routine 06/02/2025 1:11 PM EDT Mediastinal mass documented in this encounter Results * Pulmonary function testing (06/02/2025 1:11 PM EDT) CRC2KNK 1.48 L 06/02/2025 12:59 PM EDT VYAIRE [...] 1.07 06/02/2025 12:59 PM EDT VYAIRE PFT UFN9OZLZWWEUA -1.64 06/02/2025 12:59 PM EDT VYAIRE PFT FEV1_Pre%Pred 69 % % 06/02/2025 12:59 PM EDT VYAIRE PFT FEV1 PREDAUTH JANJosewanda COTTER (2011) 06/02/2025 12:59 PM EDT VYAIRE PFT FEV1 Z-SCORE -1.64 06/02/2025 12:59 PM EDT VYAIRE PFT FEV1/FVC PRE 72.67 % 06/02/2025 12:59 PM EDT VYAIRE PFT YTH9HMPSTNX 77 06/02/2025 12:59 PM EDT VYAIRE PFT SIF6VCRUWC 62 06/02/2025 12:59 PM EDT VYAIRE PFT LTU7WMRMZVNIPEIK -0.55 06/02/20 25 12:59 PM EDT VYAIRE PFT AQS9NNQFUV%PRED 94 % % 12:59 PM EDT VYAIRE PFT OTS5JWZAAMFU Meenawanda COTTER (2011) 06/02/2025 12:59 PM EDT VYAIRE PFT WPR6ORVTJLASD -1 06/02/2025 12:59 PM EDT VYAIRE PFT BHV38-38% PRE 0.74 L/s 06/02/2025 12:59 PM EDT VYAIRE PFT ULC74-34%_Pred 1.31 06/02/2025 12:59 PM EDT VYAIRE PFT SCY7288%LLN 0.53 06/02/2025 12:59 PM EDT VYAIRE PFT PRS1449%PREZSCORE -1.12 025 12:59 PM EDT VYAIRE PFT TQM2718%PRE%PRED 56 % % 06/02/20 25 12:59 PM EDT VYAIRE PFT SPJ7759%PREDAUTH Lizettewnada COTTER (2011) 06/02/2025 12:59 PM EDT VYAIRE [...] (1992) 06/02/2025 12:59 PM EDT VYAIRE PFT HJPIQIXVCIYTFVZP5VET 12.46 ml/(min* mmHg) 06/02/2025 12:59 PM EDT [...] -1.27 06/02/2025 12:59 PM EDT VYAIRE PFT AZSYLRQYRWGGRYMRP2XI E 12.58 ml/(min* mmHg) 06/02/2025 12:59 PM EDT VYAIRE PFT DLCOCSINGLEBREATH PRED 15.75 06/02/2025 12:59 PM EDT VYAIRE PFT DLCOCSINGLEBREATH LLN 11.59 06/02/2025 12:59 PM EDT VYAIRE PFT DLCOCSINGLEBREATH Z-SCORE -1.22 06/02/2025 12:59 PM EDT VYAIRE PFT DLCOCSINGLEBREATH % PRED 79.8 % 06/02/2025 12:59 PM EDT VYAIRE PFT DLCOCSINGLEBREATH PREDAUT Rlonathan TLCO GLI (2019) 06/02/2025 12:59 PM EDT VYAIRE PFT QQMKNF8UDS 5.27 ml/(min* mmHg*L) 06/02/2025 12:59 PM EDT VYAIRE PFT DLCOVAPRED 4.29 06/02/2025 12:59 PM EDT VYAIRE PFT DLCOVALLN 3.23 06/02/2025 12:59 PM EDT VYAIRE PFT DLCOVAZSCORE 1.34 06/02/2025 12:59 PM EDT VYAIRE PFT DLCOVA%PRED 122.8 % 06/02/2025 12:59 PM EDT VYAIRE PFT DLCOVAPREDAUT Rlovancevic TLCO GLI (2019) 06/02/2025 12:59 PM EDT VYAIRE PFT DLCOVAZSCORE 1.34 06/02/2025 12:59 PM EDT VYAIRE PFT GFVPHXYJG3HNO 5.32 ml/(min* mmHg*L) 06/02/2025 12:59 PM EDT [...] 1.41 06/02 12:59 PM EDT VYAIRE PFT WYUYNKCULYKHRX4BRU 2.36 L 08/07/ 2025 12:59 PM EDT VYAIRE PFT VASINGLEBREATH PRED 3.65 06/02 12:59 PM EDT VYAIRE PFT VASINGLEBREATH LLN 2.88 2024 12:59 PM EDT VYAIRE PFT VASINGLEBREATH Z-SCORE -2.86 06/02/2025 12:59 PM EDT VYAIRE PFT VASINGLEBREATH % PRED 64.7 % 06/02/2025 12:59 PM EDT VYAIRE PFT VASINGLEBREATH [facility] Stantarasjebeverly TLCO GLI (2019) 06/02/2025 12:59 PM EDT VYAIRE PFT VASINGLEBREATH Z-SCORE -2.86 06/02/2025 12:59 PM EDT VYAIRE PFT XIVQTREXGDINSWE8ZZN 1.38 L 06/02 12:59 PM EDT VYAIRE PFT IVCSINGLEBREATH PRED 2.02 04/2025 12:59 PM EDT VYAIRE PFT IVCSINGLEBREATH LLN 1.40 06/02 12:59 PM EDT VYAIRE PFT IVCSINGLEBREATH Z-SCORE -1.72 06/02/2025 12:59 PM EDT VYAIRE PFT IVCSINGLEBREATH % PRED 67.9 % 06/02/2025 12:59 PM EDT VYAIRE PFT IVCSINGLEBREATH [facility] _Josejer GLI (2011) 06/02/2025 12:59 PM EDT VYAIRE PFT HB PRE 13.10 g(Hb)/dL 06/02/2025 12:59 PM EDT VYAIRE PFT UFH7GGD 3.21 L 06/02/2025 12:59 PM EDT VYAIRE [...] (1992) 06/02/2025 12:59 PM EDT VYAIRE PFT FBOKHQCD3ZDT 2.06 L 06/02/2025 12:59 PM EDT VYAIRE [...] (1992) 2024 12:59 PM EDT VYAIRE PFT GIJ4MTQ 0.52 L 06/02/2025 12:59 PM EDT VYAIRE [...] (1992) 06/02/2025 12:59 PM EDT VYAIRE PFT RV%AHI8AEC 47.30 % 06/02/2025 12:59 PM EDT VYAIRE PFT RV%TLCPRED 47 06/02/2025 12:59 PM EDT VYAIRE PFT RV%TLCLLN 37 06/02/2025 12:59 PM EDT VYAIRE PFT RV%TLCULN 56 06/02/2025 12:59 PM EDT VYAIRE PFT RV%TLCZSCORE 0.08 06/02/2025 12:59 PM EDT VYAIRE PFT RV%TLC%PRED 101.0 % 06/02/2025 12:59 PM EDT VYAIRE PFT RV%TLCPREDAUTH ECCS (1993) 12:59 PM EDT VYAIRE PFT YUL5LVH 2.08 L 06/02/2025 12:59 PM EDT VYAIRE PFT Anatomical Region Laterality Modality PFT 06/02/2025 12:2 4 PM EDT Narrative 06/03/2025 10:59 PM EDT Pulmonary Function Testing Report Graciela Owens underwent pulmonary function testing today at the [facility]. The patient underwent spirometry, lung [...] documented as of this encounter Care Teams Mainframe Programmer Analyst Relationship Specialty Start Date End Date Leah Chavarria APRN [address] [place] [address] PCP - General 04/15/25 documented as of this encounter
--- OUTSIDE RECORDS SUMMARY | 2025-06-02 14:00 | XMS_ITS | Encounter Summary ---
Author Organization [facility] Address [address] [place] [address] Care Team Providers Care Parts Cleaner Name Role Phone Leah Chavarria APRN Primary Care Provider [phone] Reason for Referral * Consultation (Routine) - Authorized Specialty Diagnoses / Procedures Referred By Contsavita t Referred To Contact Medical Oncology Diagnoses Mediastinal mass Gilbert Roy DO [address] [address] Phone: tel: fax: Referral ID Status Reason Start Date Expiration Date Visits Requested Visits Authorized [id number] Authorized Specialty Services Required 06/02/2025 12/02/2026 [address] Stahl at [facility] Reason for Visit * Reason Comments Follow-up Encounter Details Date Type Department Care Team (Late st Contact Info) Description 06/02/2025 2:00 PM EDT Office Visit Pav CC Head, Neck & Respiratory 800 [facility], [address]nd [place] [phone] Gilbert Roy DO [address] [address] Mediastinal mass Social History Tobacco [...] from the original note were not included. [facility] Department of Surgery Section of Thoracic Surgery [...] to Medical radiation close to home in [facility]. We will reach out to [...] 06/16/2026 2:00 PM EDT Ovarian Cancer Screening [facility] Gynecology 800 [facility], [address]rd [place] [address] Scheduled Referrals Name Type Priority Associated Diagnoses [...] documented as of this encounter Care Teams Parts Cleaner Relationship Specialty Start Date End Date Leah Chavarria APRN [address] [place], [place] [id number] PCP - General 04/15/25 documented as of this encounter
--- OUTSIDE RECORDS SUMMARY | 2025-06-08 11:11 | XMS_ITS | Encounter Summary ---
Author Organization [facility] Address [address] [place] [address] Care Team Providers Care Concreter Name Role Phone DeonLeah oshea Raquel BECK Primary Care Provider [phone] Encounter Details Date Type Department Care Team (Late st Contact Info) Description 05/03/2025 Telephone Pav [facility] Head, Neck & Respiratory [address], [address] [place] [address] Karla Gavin RN [facility] Social History Tobacco Use Types Packs/Day Years Used Date Smoking Tobacco: Never Smokeless Tobacco: Never Comments Unknown Sex and Gender Information Value Date Recorded Sex Assigned at Not on file Legal Sex Female 6:35 PM EDT Gender Identity Not on file Sexual Orientation Not on file documented as of this encounter Miscellaneous Notes * Telephone Encounter - Karla Gavin RN - 05/03/2025 4:05 PM EDT RN spoke to the pt. Informed of PFT and RTC appts. RN discussed possibility of bx not being resulted, in which case RN will call the day before to let the pt know and RS. Pt verbalized understanding and agreeable to plan. documented in this encounter Plan of Treatment Upcoming Encounters Date Type Department Care Team (Late st Contact Info) Description 06/16/2026 2:00 PM EDT Ovarian Cancer Screening [facility] Gynecology [address] [place] [address] documented as of this encounter Visit Diagnoses Not on filedocumented in this encounter Additional Health Concerns Assessment Noted Time A fall risk assessment has been complete d for the patient 04/15/2025 1:46 PM EDT A Body Mass Index follow-up plan has been documented for the patient 04/18/2025 3:31 PM EDT documented as of this encounter Care Teams Concreter Relationship Specialty Start Date End Date Leah Chavarria APRN [address] [place] [address] PCP - General 04/15/25 documented as of this encounter
--- OUTSIDE RECORDS SUMMARY | 2025-06-08 11:11 | XMS_ITS | Encounter Summary ---
Author Organization [facility] Address [address] [place] [address] Care Team Providers Care Hat Parts Cutter Machine Name Role Phone DeonLeah Raquel BECK Primary Care Provider [phone] Encounter Details Date Type Department Care Team (Late st Contact Info) Description 11/29/2022 Orders Only External Location [address] [place] [address] Provider, External Social History Tobacco Use Types Packs/Day Years Used Date Smoking Tobacco: Never Assessed Comments Unknown Sex and Gender Information Value Date Recorded Sex Assigned at Not on file Legal Sex Female 6:35 PM EDT Gender Identity Not on file Sexual Orientation Not on file documented as of this encounter Plan of Treatment Upcoming Encounters Date Type Department Care Team (Late Contact Info) Description 06/16/2026 2:00 PM EDT Ovarian Cancer Screening [facility] Gynecology [address] [place] [address] documented as of this encounter Procedures Procedure [...] on filedocumented in this encounter Care Teams Hat Parts Cutter Machine Relationship Specialty Start Date End Date Leah Chavarria APRN [address] [place], [place] [phone] PCP - General 04/15/25 documented as of this encounter
--- OUTSIDE RECORDS SUMMARY | 2025-06-08 11:11 | XMS_ITS | Encounter Summary ---
Author Organization [facility] Address [address] [place] [address] Care Team Providers Care Area Mechanic Name Role Phone Leah Chavarria APRN Primary Care Provider [phone] Encounter Details Date Type Department Care Team (Latest Contact Info) Description 05/23/2025 Travel Social History Tobacco Use Types Packs/Day [...] as of this encounter Functional Status * Over the past 2 weeks, how often have you been bothered by any of the following problems? Question Answer Date of Assessment Author Little interest or pleasure in doing things Not at all 05/23/2025 11:55 AM Aurora Dennis Feeling down, depressed, or hopeless Not at all 05/23/2025 11:55 AM Aurora Dennis Patient Health Questionnaire -2 Score 0 05/23/2025 11:55 AM Aurora Dennis * If you checked off any problems on this questionnaire so far, Question Answer Date of Assessment Author How difficult have these problems made it for you to do your work, take care of things at home, or get along with other people? Not difficult at all 05/23/2025 11:55 AM EDT Annetta Anaya documented as of this encounter Plan of Treatment Upcoming Encounters Date Type Department Care Team (Late st Contact Info) Description 06/16/2026 2:00 PM EDT Ovarian Cancer Screening [facility] Gynecology 800 [facility], [address]rd [place] [address] documented as of this encounter Visit Diagnoses Not on filedocumented in this encounter Additional Health Concerns Assessment Noted Time A fall risk assessment has been complete d for the patient 05/23/2025 11:53 AM EDT A Body Mass Index follow-up plan has been documented for the patient 05/23/2025 12:13 PM EDT documented as of this encounter Care Teams Area Mechanic Relationship Specialty Start Date End Date Leah Chavarria APRN [address] [place] [address] PCP - General 04/15/25 documented as of this encounter
--- OUTSIDE RECORDS SUMMARY | 2025-06-08 11:11 | XMS_ITS | Encounter Summary ---
Author Organization [facility] Address [address] [place] [address] Care Team Providers Care Transportation Driver Name Role Phone DeonLeah Raquel BECK Primary Care Provider [phone] Encounter Details Date Type Department Care Team (Late st Contact Info) Description 04/15/2025 Orders Only Ch Radiology Virtual Dept. [address] [place] [address] Zeyad Toussaint MD [address] [place] [address] Social History Tobacco Use Types [...] 06/16/2026 2:00 PM EDT Ovarian Cancer Screening [facility] Gynecology 800 [facility], [address]rd [place] [address] documented as of this encounter Visit Diagnoses Not on filedocumented in this encounter Additional Health Concerns Assessment Noted Time A fall risk assessment has been complete d for the patient 04/15/2025 1:46 PM EDT A Body Mass Index follow-up plan has been documented for the patient 04/18/2025 3:31 PM EDT documented as of this encounter Care Teams Transportation Driver Relationship Specialty Start Date End Date Leah Chavarria APRN [address] [place], [place] [id number] PCP - General 04/15/25 documented as of this encounter
--- OUTSIDE RECORDS SUMMARY | 2025-06-08 11:11 | XMS_ITS | Encounter Summary ---
Author Organization [facility] Address [address] [place] [address] Care Team Providers Care Mental Health Specialist Name Role Phone DeonLeah Raquel BECK Primary Care Provider [phone] Encounter Details Date Type Department Care Team (Late Contact Info) Description 03/24/2025 Orders Only External Location [address] [place] [phone] Provider, External Social History Tobacco Use Types [...] PM EDT Ovarian Cancer Screening [facility] Gynecology [address] [place] [address] documented as of this encounter Procedures Procedure [...] on filedocumented in this encounter Care Teams Mental Health Specialist Relationship Specialty Start Date End Date Leah Chavarria, EBONY [address] [place] [address] PCP - General 04/15/25 documented as of this encounter
--- OUTSIDE RECORDS SUMMARY | 2025-06-08 11:11 | XMS_ITS | Encounter Summary ---
Author Organization [facility] Address [address] [place] [address] Care Team Providers Care Licensed Embalmer Supervisor Name Role Phone DeonLeah Raquel BECK Primary Care Provider [phone] Encounter Details Date Type Department Care Team (Late Contact Info) Description 03/24/2025 Orders Only External Location 800 [place] [phone] Provider, External Social History Tobacco Use Types [...] [facility] Gynecology [address] [place] [address] documented as of this encounter Procedures Procedure [...] on filedocumented in this encounter Care Teams Licensed Embalmer Supervisor Relationship Specialty Start Date End Date Leah Chavarria APRN [address] [place] [address] PCP - General 04/15/25 documented as of this encounter
--- OUTSIDE RECORDS SUMMARY | 2025-06-08 11:11 | XMS_ITS | Referral Summary ---
Author Organization [employer] ([place], [place], [place], [place]) Address [address] [place] [address] Care Team Providers Care Swatcher Name Role Phone Unavailable Primary Care Provider [...]
--- OUTSIDE RECORDS SUMMARY | 2025-06-08 11:11 | XMS_ITS | Encounter Summary ---
Author Organization [facility] Address [address] [place] [address] Care Team Providers Care Security Police Name Role Phone Leah Chavarria APRN Primary Care Provider [phone] Encounter Details Date Type Department Care Team (Latest Contact Info) Description 05/17/2025 Travel Social History Tobacco Use Types Packs/Day [...] [facility] Gynecology [address] [place] [address] documented as of this encounter Visit Diagnoses Not on filedocumented in this encounter Additional Health Concerns Assessment Noted Time A fall risk assessment has been complete d for the patient 04/15/2025 1:46 PM EDT A Body Mass Index follow-up plan has been documented for the patient 04/18/2025 3:31 PM EDT documented as of this encounter Care Teams Security Police Relationship Specialty Start Date End Date Leah Chavarria APRN [address] [place] [address] PCP - General 04/15/25 documented as of this encounter
--- OUTSIDE RECORDS SUMMARY | 2025-06-08 11:11 | XMS_ITS | Encounter Summary ---
Author Organization [facility] Address [address] [place] [address] Care Team Providers Care It Intern Name Role Phone Leah Chavarria APRN Primary Care Provider [phone] Encounter Details Date Type Department Care Team (Latest Contact Info) Description 05/30/2025 Travel Social History Tobacco Use Types Packs/Day [...] 06/16/2026 2:00 PM EDT Ovarian Cancer Screening [facility] Gynecology [address] [facility], 3rd [place] [address] documented as of this encounter Visit Diagnoses Not on filedocumented in this encounter Additional Health Concerns Assessment Noted Time A fall risk assessment has been complete d for the patient 05/23/2025 11:53 AM EDT A Body Mass Index follow-up plan has been documented for the patient 05/30/2025 10:29 AM EDT documented as of this encounter Care Teams It Intern Relationship Specialty Start Date End Date Leah Chavarria APRN [address] [place] [address] PCP - General 04/15/25 documented as of this encounter
--- OUTSIDE RECORDS SUMMARY | 2025-06-08 11:11 | XMS_ITS | Encounter Summary ---
Author Organization [facility] Address [address] [place] [address] Care Team Providers Care Sash Assembler Name Role Phone DeonLeah Raquel BECK Primary Care Provider [phone] Encounter Details Date Type Department Care Team (Late Contact Info) Description 02/27/2025 Orders Only External Location [address] [place] [id number] Provider, External Social History Tobacco Use Types [...] 06/16/2026 2:00 PM EDT Ovarian Cancer Screening [facility] Gynecology [address] [place] [address] documented as of this encounter Procedures Procedure [...] on filedocumented in this encounter Care Teams Sash Assembler Relationship Specialty Start Date End Date Leah Chavarria, EBONY [address] [place] [address] PCP - General 04/15/25 documented as of this encounter
--- OUTSIDE RECORDS SUMMARY | 2025-06-08 11:11 | XMS_ITS | Encounter Summary ---
Author Organization [facility] Address [address] [place] [address] Care Team Providers Care Outside Plant Cable Engineer Name Role Phone DeonLeah Raquel BECK Primary Care Provider [phone] Encounter Details Date Type Department Care Team (Latest Contact Info) Description 06/02/2025 Travel Social History Tobacco Use Types Packs/Day [...] Functional Status documented as of this encounter Plan of Treatment Upcoming Encounters Date Type Department Care Team (Late st Contact Info) Description 06/16/2026 2:00 PM EDT Ovarian Cancer Screening [facility] Gynecology [address] [facility], [address]rd [place] [address] documented as of this encounter Visit Diagnoses Not on filedocumented in this encounter Additional Health Concerns Assessment Noted Time A fall risk assessment has been complete d for the patient 06/02/2025 1:06 PM EDT A Body Mass Index follow-up plan has been documented for the patient 06/03/2025 11:51 AM EDT documented as of this encounter Care Teams Outside Plant Cable Engineer Relationship Specialty Start Date End Date Leah Chavarria APRN [address] [place] [address] PCP - General 04/15/25 documented as of this encounter
--- OUTSIDE RECORDS SUMMARY | 2025-06-08 11:11 | XMS_ITS | Clinical Summary ---
Author Organization [facility] Address [address] [place] [address] Care Team Providers Care Tool Grinder Operator Name Role Phone Deon Leahradhika García APRN Primary Care Provider [phone] Allergies No known active allergies Medications losartan (Cozaar) 25 MG tablet 5 Active atorvastatin (Lipitor) 10 MG tablet 5 Active latanoprost (Xalatan) 0.005 % ophthalmic solution 5 Active brimonidine (AlphaGAN P) 0.1 % ophthalmic solution 5 Active Calcium-Magnesi um-Zinc 500-250-12.5 MG tablet Take by mouth. Activ e VITAMIN E PO Take by mouth. Ac tive Multiple Vitamin (multivitamin) tablet Take 1 tablet by mouth daily. Active ferrous sulfate 325 (65 Fe) MG EC tablet Take 1 tablet by mouth 3 times a day with meals. Do not crush, chew, or split. Active fluticasone (Flonase) 50 MCG/ACT nasal spray Administer 1 spray into each nostril daily. Shake gently. Before first use, prime pump. After use, clean tip and replace cap. Active Active Problems No known active problems Encounters Date Type Department Care Team Description 06/02/2025 2:00 PM EDT Office Visit [facility] [address] , [address] [place] [address] Gilbert Roy, DO Mediastinal mass 06/02/2025 12:11 PM EDT - 06/02/2025 11:59 PM EDT Hospital Encounter [facility] Pulmonary Function Testing [address] [place] [address] Mediastinal mass Discharge Disposition: Home or Self Care 06/02/2025 Travel 05/31/2025 Travel 05/30/2025 10:18 AM EDT - 05/30/2025 11:59 PM EDT Hospital Encounter [facility] Radiology [address] [place] [address] Discharge Disposition: Home or Self Care 05/30/2025 7:53 AM EDT - 05/30/2025 10:17 AM EDT Hospital Encounter [facility] Interventional Radiology [address] [place] [address] Tanner Christiansen, RN Mediastinal mass Discharge Disposition: Home or Self Care 05/30/2025 Travel 05/23/2025 12:00 PM EDT Office Visit [facility] Vascular Interventional Radiology [address] [facility] [address] [place] [address] Marge Malhotra, ROLLER TURNER Encounter for other preprocedural examination (Primary Dx) 05/23/2025 Travel 05/17/2025 Travel 05/03/2025 Telephone [facility] [address] [facility], [address] [place] [address] Karla Gavin RN 04/26/2025 11:10 AM EDT - 04/26/2025 11:59 PM EDT Hospital Encounter [facility] PET Scan [address] [place] [address] Discharge Disposition: Home or Self Care 04/26/2025 11:10 AM EDT - 04/26/2025 11:59 PM EDT Hospital Encounter [facility] PET Scan [address] [place] [address] Mediastinal mass Discharge Disposition: Home or Self Care 04/26/2025 Travel 04/21/2025 Travel 04/15/2025 2:15 PM EDT Office Visit [facility] [address] [address] Gilbert Roy, DO Mediastinal mass (Primary Dx) 04/15/2025 Orders Only Ch Radiology Virtual Dept. [address] [place] [address] Zeyad Toussaint MD 04/15/2025 Travel 03/24/2025 Orders Only External Location [address] [place] [address] Provider, External 03/24/2025 Orders Only External Location [address] [place] [address] Provider, External from Last 3 [...] Mass Index 21.62 06/02/2025 1:06 PM EDT Plan of Treatment Upcoming Encounters Date Type Department Care Team ([facility] st Contact Info) Description 06/16/2026 2:00 PM EDT Ovarian Cancer Screening [facility] Gynecology [address], [address] [place] [address] Health Maintenance Due Date Last Done Comments [facility]-Bone Density Scan 1940 [facility]-Medicare Annual Wellness (AWV) 1942 [facility]-/Child/Adol SDOH Screenings 1942 [facility]- SDOH Screenings 1960 [facility]-Adult SDOH Screenings 1960 [facility]-DTaP,Tdap,and Td Vaccines (1 - Tdap) 1961 [facility]-Pneumococcal Vaccine: 50+ Years (1 of 1 - PCV) 1992 [facility]-Zoster Vaccines (1 of 2) 1992 [facility]-RSV Vaccine: 60+ Years or (1 - 1-dose 75+ series) 2017 BZN-RIIAR-24 Vaccine ( season) 2025 08/10/2024, 07/24/2022, 02/14/2022, Additional history exists [facility]-Influenza Vaccine (#1) 2025 08/06/2023, [facility]-Depression Screening 05/23/2026 05/23/2025 HPV Vaccines Aged Out No longer eligi [...] Routine 06/02/2025 1:11 PM EDT Mediastinal mass XR CHEST 1 VIEW Routine 05/30/2025 10:[address] GUIDED BIOPSY MUSCLE Routine 05/30/2025 10:01 AM EDT Mediastinal mass FINE NEEDLE ASPIRATION - CORE BIOPSY Routine 05/30/2025 9:55 AM EDT PROTHROMBIN TIME(PT) / INR Routine 05/23/2025 12:30 PM EDT Encounter for other preprocedural examination COMPREHENSIVE METABOLIC PANEL, PLASMA Routine 05/23/2025 12:30 PM EDT Encounter for other preprocedural examination CBC W/O DIFFERENTIAL Routine 05/23/2025 12:30 PM EDT Encounter for other preprocedural examination PET/CT FDG SKULL BASE TO MID THIGH Routine 04/26/2025 12:44 PM EDT Mediastinal mass CT THORACIC OUTSIDE IMAGES 03/24/2025 8:45 PM EDT XR OUTSIDE IMAGES 03/24/2025 9:1 5 AM EDT from Last 3 Months Results * Pulmonary function testing (06/02/2025 1:11 PM EDT) [id number] 1.48 L 06/02/2025 12:59 PM EDT VYAIRE PFT FVC PRED 2.02 06/02/2025 12:59 PM EDT VYAIRE PFT FVC LLN 1.40 06/02/2025 12:59 PM EDT VYAIRE PFT FVCPREZSCORE -1.44 06/02/2025 12:59 PM EDT VYAIRE PFT FVCPRE%PRED 73 % % 06/02/2025 12:59 PM EDT VYAIRE PFT FVC PREDAUTH US_Quanjer GLI (2012) 06/02/2025 12:59 PM EDT VYAIRE PFT FVC Z-SCORE -1.44 06/02/2025 12:59 PM EDT VYAIRE PFT FEV1 PRE 1.07 L 06/02/2025 12:59 PM EDT VYAIRE PFT FEV1 PRED 1.55 06/02/2025 12:59 PM EDT VYAIRE PFT FEV1 LLN 1.07 06/02/2025 12:59 PM EDT VYAIRE PFT LTM4INUTMQEHE -1.64 06/02/2025 12:59 PM EDT VYAIRE PFT FEV1_Pre%Pred 69 % % 06/02/2025 12:59 PM EDT VYAIRE PFT FEV1 PREDAUT Yumikoanatoliy COTTER (2011) 06/02/2025 12:59 PM EDT VYAIRE PFT FEV1 Z-SCORE -1.64 06/02/2025 12:59 PM EDT VYAIRE PFT FEV1/FVC PRE 72.67 % 06/02/2025 12:59 PM EDT VYAIRE PFT YBT1RKJBDQS 77 06/02/2025 12:59 PM EDT VYAIRE PFT ZHQ0VWTFYV 62 06/02/2025 12:59 PM EDT VYAIRE PFT ASK0FECQEDREWDMG -0.55 06/02/20 12:59 PM EDT VYAIRE PFT QYT2OESXVS%PRED 94 % % 12:59 PM EDT VYAIRE PFT RZG5IEBMWMMO Yumikoanatoliy COTTER (2011) 06/02/2025 12:59 PM EDT VYAIRE PFT QBJ3UVNWCCWBW -1 06/02/2025 12:59 PM EDT VYAIRE PFT WIY29-02% PRE 0.74 L/s 06/02/2025 12:59 PM EDT VYAIRE PFT HTF98-06%_Pred 1.31 06/02/2025 12:59 PM EDT VYAIRE PFT FJC9238%LLN 0.53 06/02/2025 12:59 PM EDT VYAIRE PFT MXS1641%PREZSCORE -1.12 025 12:59 PM EDT VYAIRE PFT SBI1748%PRE%PRED 56 % % 06/02/20 12:59 PM EDT VYAIRE PFT EZP0967%PREDAUTH Yumikoanatoliy COTTER (2011) 06/02/2025 12:59 PM EDT VYAIRE [...] (1992) 06/02/2025 12:59 PM EDT VYAIRE PFT DPCMREDYNXJCEILT9ULW 12.46 ml/(min* mmHg) 06/02/2025 12:59 PM EDT VYAIRE PFT DLCOSINGLEBREATH PRED 15.75 06/02/2025 12:59 PM EDT VYAIRE PFT DLCOSINGLEBREATH LLN 11.59 04/2025 12:59 PM EDT VYAIRE PFT DLCOSINGLEBREATH Z-SCORE -1.27 06/02/2025 12:59 PM EDT VYAIRE PFT DLCOSINGLEBREATH % PRED 79.1 % 06/02/2025 12:59 PM EDT VYAIRE PFT DLCOSINGLEBREATH PREDCarolinas ContinueCARE Hospital at Pinevilleovancevic TLCO GLI (2019) 06/02/2025 12:59 PM EDT VYAIRE PFT DLCOSINGLEBREATH Z-SCORE -1.27 06/02/2025 12:59 PM EDT VYAIRE PFT GUBZXFLIPBNIXGHFJ4PG E 12.58 ml/(min* mmHg) 06/02/2025 12:59 PM EDT VYAIRE PFT DLCOCSINGLEBREATH PRED 15.75 06/02/2025 12:59 PM EDT VYAIRE PFT DLCOCSINGLEBREATH LLN 11.59 06/02/2025 12:59 PM EDT VYAIRE PFT DLCOCSINGLEBREATH Z-SCORE -1.22 06/02/2025 12:59 PM EDT VYAIRE PFT DLCOCSINGLEBREATH % PRED 79.8 % 06/02/2025 12:59 PM EDT VYAIRE PFT DLCOCSINGLEBREATH [facility] Stanojevic TLCO GLI (2019) 06/02/2025 12:59 PM EDT VYAIRE PFT YOTPOW3OWT 5.27 ml/(min* mmHg*L) 06/02/2025 12:59 PM EDT VYAIRE PFT DLCOVAPRED 4.29 06/02/2025 12:59 PM EDT VYAIRE PFT DLCOVALLN 3.23 06/02/2025 12:59 PM EDT VYAIRE PFT DLCOVAZSCORE 1.34 06/02/2025 12:59 PM EDT VYAIRE PFT DLCOVA%PRED 122.8 % 06/02/2025 12:59 PM EDT VYAIRE PFT DLCOVAPREDAUTH Reese TLCO GLI (2019) 06/02/2025 12:59 PM EDT VYAIRE PFT DLCOVAZSCORE 1.34 06/02/2025 12:59 PM EDT VYAIRE PFT SNYRABDTA4CJV 5.32 ml/(min* mmHg*L) 06/02/2025 12:59 PM EDT VYAIRE PFT DLCOC SB/VA PRED 4.29 06/02/20 12:59 PM EDT VYAIRE PFT DLCOC SB/VA LLN 3.23 12:59 PM EDT VYAIRE PFT DLCOC SB/VA Z-SCORE 1.41 06/02 12:59 PM EDT VYAIRE PFT DLCOC SB/VA % PRED 124.0 % 2024 12:59 PM EDT VYAIRE PFT DLCOC SB/VA PREDAUTH Rlnanci TLCO GLI (2019) 06/02/2025 12:59 PM EDT VYAIRE PFT DLCOC SB/VA Z-SCORE 1.41 06/02 12:59 PM EDT VYAIRE PFT DRKRKOISPEDXAI1PZP 2.36 L 2024 12:59 PM EDT VYAIRE PFT VASINGLEBREATH PRED 3.65 06/02 12:59 PM EDT VYAIRE PFT VASINGLEBREATH LLN 2.88 2024 12:59 PM EDT VYAIRE PFT VASINGLEBREATH Z-SCORE -2.86 06/02/2025 12:59 PM EDT VYAIRE PFT VASINGLEBREATH % PRED 64.7 % 06/02/2025 12:59 PM EDT VYAIRE PFT VASINGLEBREATH PRED[facility] Reese TLCO GLI (2019) 06/02/2025 12:59 PM EDT VYAIRE PFT VASINGLEBREATH Z-SCORE -2.86 06/02/2025 12:59 PM EDT VYAIRE PFT LXLVWHQXNPHCPXK0GKE 1.38 L 06/02 12:59 PM EDT VYAIRE PFT IVCSINGLEBREATH PRED 2.02 04/2025 12:59 PM EDT VYAIRE PFT IVCSINGLEBREATH LLN 1.40 06/02 12:59 PM EDT VYAIRE PFT IVCSINGLEBREATH Z-SCORE -1.72 06/02/2025 12:59 PM EDT VYAIRE PFT IVCSINGLEBREATH % PRED 67.9 % 06/02/2025 12:59 PM EDT VYAIRE PFT IVCSINGLEBREATH PREDALBU[facility] US_Quanjer GLI (2011) 06/02/2025 12:59 PM EDT VYAIRE PFT HB PRE 13.10 g(Hb)/dL 06/02/2025 12:59 PM EDT VYAIRE PFT NUC0WJP 3.21 L 06/02/2025 12:59 PM EDT VYAIRE [...] (1992) 06/02/2025 12:59 PM EDT VYAIRE PFT WUYQGHLE0ZDL 2.06 L 06/02/2025 12:59 PM EDT VYAIRE [...] (1992) 2024 12:59 PM EDT VYAIRE PFT CCY9USL 0.52 L 06/02/2025 12:59 PM EDT VYAIRE [...] (1992) 06/02/2025 12:59 PM EDT VYAIRE PFT RV%KFU4BXX 47.30 % 06/02/2025 12:59 PM EDT VYAIRE PFT RV%TLCPRED 47 06/02/2025 12:59 PM EDT VYAIRE PFT RV%TLCLLN 37 06/02/2025 12:59 PM EDT VYAIRE PFT RV%TLCULN 56 06/02/2025 12:59 PM EDT VYAIRE PFT RV%TLCZSCORE 0.08 06/02/2025 12:59 PM EDT VYAIRE PFT RV%TLC%PRED 101.0 % 06/02/2025 12:59 PM EDT VYAIRE PFT RV%TLCPREDAUTH ECCS (1992) 12:59 PM EDT VYAIRE PFT KVC5HLX 2.08 L 06/02/2025 12:59 PM EDT VYAIRE PFT Anatomical Region Laterality Modality PFT 06/02/2025 12:2 4 PM EDT Narrative 06/03/2025 10:59 PM EDT Pulmonary Function Testing Report Graciela Owens underwent pulmonary function testing today at the [facility]. The patient underwent spirometry, lung volumes [...] Roy DO PFT ORDERABLES Final Result * XR Chest 1 View (05/30/2025 10:51 [...] signing this report, I, the attending physician, attamyat I have personally reviewed the images/data for [...] mass presenting for CT guided biopsy TECHNIQUE: Information Technology Consultant: Lee Castaneda MD Secondary Design Tech: Colten Escobar MS4 DLP: 1002.01 mGy*cm Medications: [...] mass presenting for CT guided biopsy TECHNIQUE: Information Technology Consultant: Lee Castaneda MD Secondary Design Tech: Colten Escobar MS4 DLP: 1002.01 mGy*cm Medications: IV conscious sedation with continuous physiologic monitoringprovided by a qualified healthcare professional using Versed 2.5 mg IV andFentanyl 75 mcg IV. 1% Lidocaine SQ. Duration of Conscious Sedation: Time out: 0938 close out: 1000 Procedure: After discussion of [...] IM CT PROCEDURES Final Resul t * Fine needle aspiration - Core Biopsy (05/30/2025 9:55 AM EDT) Case Report Cytology Case: [id number] Authorizing Provider: Lee Hopson MD Collected: 05/30/2025 0955 Ordering Location: [facility] A Interventional Received: 05/30/2025 1043 Radiology Pathologist: Jyoti Bruner MD Specimen: Mass, Core Biopsy with Touch Preparation (Specify Site), MEDIASTINAL MASS, CT GUIDED CORE BIOPSY WITH TOUCH PREPS 3:22 PM EDT [facility] Final Diagnosis A. MEDIASTINAL MASS, CT GUIDED CORE BIOPSY: - POSITIVE FOR MALIGNANCY, SQUAMOUS CELL CARCINOMA (SEE COMMENT). 3:22 PM EDT [facility] at 1522 EDT Comment The immunophenotype would favor a thymic primary, although metastases from other sites cannot be entirely excluded. Clinical correlation is suggested. 3:22 PM EDT [facility] Special and Immunohistochemical Stains IHC: A1-1 Johns Cytokeratin AE1 AE3: Positive A1-2 AU88-KLG: Negative A1-3 CD117: Positive A1-4 CK7: Focally positive A1-5 CK20: Negative A1-6 TTF-1: Negative A1-13 P40: Focally positive A1-14 Synaptophysin: Negative A1-15 CD5: Focally positive All controls show appropriate reactivity. All immunohistochemis try, in situ hybridization, and histochemical tests were developed by and are performed at the [facility], [address] [place] [address]. All tests reported here, except those addressing [...] likelihood of false negativity on decalcified specimens. 5 3:22 PM EDT [facility] Intradepartmental Consultation with Agreement Dr. Susan Jin 3:22 PM EDT [facility] Immediate Evaluation Core biopsy [...] the diagnosis that appears on the report. 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 B Symptoms past year. 5 3:22 PM EDT [facility] Procedure Type CT 5 3:22 PM EDT [facility] Size/Description of Lesion mediastinal 5 3:22 PM EDT [facility] Cancer History Yes 5 3:22 PM EDT [facility] Previous Cancer Primary Site Skin Cancer 3:22 PM EDT [facility] Gross Description A. MEDIASTINAL MASS, CT GUIDED CORE BIOPSY WITH TOUCH PREPS Multiple white huerta cores of friable tissue, all measuring less than 0.1 cm in diameter and ranging from 0.1 cm to 0.8 cm in length, entirely submitted in biowrap and/or cassette. Received 2 diff quick touch prep slides. Cold Time: 19m 3:22 PM EDT [facility] Note: A resident was involved in the service. I attest I examined the relevant preparations for the specimens and confirmed the diagnosis or interpretation. 3:22 PM EDT [facility] Clinical Information No Dx found. 3:22 PM EDT [facility] Fine Needle Aspirate Specimen from mass / Unknown Non-blood Collection / Unknown 05/30/2025 9:55 AM EDT 05/30/2025 10:43 AM EDT Lee Romero MD LAB CYTOLOGY ORDERABLES Final Result [facility] [address] [place] [address] * (ABNORMAL) Prothrombin Time/INR (05/23/2025 12:30 PM EDT) Prothrombin Time 15.2(H) 12.0 - 14.3 sec LAB COAGULATION METHOD 05/23/2025 2:46 PM EDT [facility] INR 1.2(H) 0.9 - 1.1 LAB COAGULATION METHOD 05/23/2025 2:46 PM EDT [facility] Blood Venous blood specimen / Unknown Venipuncture / Unknown 05/23/2025 12:30 PM EDT 05/23/2025 12:31 PM EDT Narrative [facility] - 05/23/2025 2:46 PM EDT OPTIMAL INR RANGES FOR PATIENT ON ORAL ANTICOAGULANT THERAPY Prevention of venous thromboembolism INR 2.0 to 3.0 In patients with heart disease: Atrial fibrillation INR 2.0 to 3.0 Valvular heart disease INR 2.0 to 3.0 Tissue heart valves INR 2.0 to 3.0 Mechanical prosthetic valves INR 2.5 to 3.5 Prevention of recurrent FL INR 2.5 to 3.5 us Marge Malhotra ROLLER TURNER LAB BLOOD ORDERABLES Final R esult [facility] [address] [place] [address] * (ABNORMAL) CBC W/O Differential (05/23/2025 12:30 PM EDT) WBC Count 7.32 3.70 - 10.30 10*3/uL LAB HEMATOLOGY METHOD 05/23/2025 2:31 PM EDT [facility] RBC Count 4.55 3.90 - 5.20 10*6/uL LAB HEMATOLOGY METHOD 05/23/2025 2:31 PM EDT [facility] HGB 13.1 11.2 - 15.7 g/dL LAB HEMATOLOGY METHOD 05/23/2025 2:31 PM EDT [facility] HCT 41.4 34.0 - 45.0 % LAB HEMATOLOGY METHOD 05/23/2025 2:31 PM EDT [facility] Platelet Count 192 155 - 369 10*3/uL LAB HEMATOLOGY METHOD 05/23/2025 2:31 PM EDT [facility] MCV 91 79 - 98 fL LAB HEMATOLOGY METHOD 05/23/2025 2:31 PM EDT [facility] MCH 28.8 26.0 - 32.0 pg LAB HEMATOLOGY METHOD 05/23/2025 2:31 PM EDT [facility] MCHC 31.6 30.7 - 35.5 g/dL LAB HEMATOLOGY METHOD 05/23/2025 2:31 PM EDT [facility] RDW 14.7(H) 11.5 - 14.5 % LAB HEMATOLOGY METHOD 05/23/2025 2:31 PM EDT [facility] MPV 12.6(H) 8.8 - 12.5 fL LAB HEMATOLOGY METHOD 05/23/2025 2:31 PM EDT [facility] nRBC 0.0 <=0.0 per 100 WBCs LAB HEMATOLOGY METHOD 05/23/2025 2:31 PM EDT [facility] Blood Venous blood specimen / Unknown Venipuncture / Unknown 05/23/2025 12:30 PM EDT 05/23/2025 12:31 PM EDT us Marge Malhotra ROLLER TURNER LAB BLOOD ORDERABLES Final R esult [facility] [address] [place] [address] * (ABNORMAL) Comprehensive Metabolic Panel, Plasma (05/23/2025 12:30 PM EDT) Pathologist [facility] Glucose, Plasma 92 74 - 99 mg/dL 05/23/2025 2:40 PM EDT [facility] BUN, Plasma 15 8 - 23 mg/dL 05/23/2025 2:40 PM EDT [facility] Creatinine, Plasma 0.63 0.60 - 1.10 mg/dL 05/23/2025 2:40 PM EDT [facility] BUN/Creatinine Ratio 24 05/23/2025 2:40 PM EDT [facility] Sodium, Plasma 139 136 - 145 mmol/L 05/23/2025 2:40 PM EDT [facility] Potassium, Plasma 5.3(H) 3.6 - 4.9 mmol/L 05/23/2025 2:40 PM EDT [facility] Chloride, Plasma 102 97 - 107 mmol/L 05/23/2025 2:40 PM EDT [facility] CO2, Plasma 25 22 - 29 mmol/L 05/23/2025 2:40 PM EDT [facility] Anion Gap 12 6 - 16 mmol/L 05/23/2025 2:40 PM EDT [facility] Total Calcium, Plasma 9.5 8.9 - 10.2 mg/dL 05/23/2025 2:40 PM EDT [facility] Total Protein 7.7 6.3 - 7.9 g/dL 05/23/2025 2:40 PM EDT [facility] Albumin, Plasma 4.1 3.5 - 5.2 g/dL 05/23/2025 2:40 PM EDT [facility] AST, Plasma 26 10 - 35 U/L 05/23/2025 2:40 PM EDT [facility] ALT, Plasma 20 10 - 35 U/L 05/23/2025 2:40 PM EDT [facility] Alkaline Phosphatase, Plasma 91 46 - 142 U/L 05/23/2025 2:40 PM EDT [facility] Total Bilirubin, Plasma 0.8 0.2 - 1.1 mg/dL 05/23/2025 2:40 PM EDT [facility] eGFRcr 88.7 mL/min/1.7 3m*2 05/23/2025 2:40 PM EDT [facility] Comment:Reported eGFRcr in m L/min/1.73m2 is based the CKD-EPI 2020 equation that does not use a race coefficient. Blood Venous blood specimen / Unknown Venipuncture / Unknown 05/23/2025 12:30 PM EDT 05/23/2025 12:31 PM EDT us Marge Malhotra ROLLER TURNER LAB BLOOD ORDERABLES Final R esult [facility] [address] [place] [address] * PET/CT FDG Skull Base To Mid [...] applicable. Positioning: Arms raised. PET/CT scanner: Siemens PBS-Biograph 40 mCT. PET/CT acquisition: Qntbtm-cb-cgp-thighs. Standardized uptake value (SUV): Corrected for body weight only. CT: Low-dose, lsd-vaddmt-akdv, without intravenous contrast. TOTAL DLP (Dose Length [...] scanner: Siemens Biograph 40 mCT. PET/CT acquisition: Vpwitf-dj-dow-thighs. Standardized uptake value (SUV): Corrected for body weight only. CT: Low-dose, skq-lgwjjw-vght, without intravenous contrast. TOTAL DLP (Dose Length [...] DO IMG NM PROCEDURES Final Resul t * CT THORACIC OUTSIDE IMAGES (03/24/2025 8:45 PM EDT) Anatomical Region Laterality Modality Computed Tomogra phy 03/24/2025 8:45 PM EDT us External Provider IMG CT PROCEDURES Final Result * XR OUTSIDE IMAGES (03/24/2025 9:15 AM EDT) Anatomical Region Laterality Modality Radiographic Zuleyma ging 03/24/2025 9:15 AM EDT External Provider IMG XR PROCEDURES Final Result from Last [address] [place] [address] [facility] MEDIC[facility] Advance Directives Documents on File Type Date Recorded Patient Paper Roll Machine Operator Expl anation Advance Directives and Livin g Will 04/15/2025 Living Will & POA Care Teams Tool Grinder Operator Relationship Specialty Start Date End Date Leah Chavarria APRN [address] [place] [address] PCP - General 04/15/25
--- OUTSIDE RECORDS SUMMARY | 2025-06-08 11:11 | XMS_ITS | Encounter Summary ---
Author Organization [facility] Address [address] [place] [address] Care Team Providers Care Forging Press Setter Up Name Role Phone Leah Chavarria APRN Primary Care Provider [phone] Encounter Details Date Type Department Care Team (Latest Contact Info) Description 05/31/2025 Travel Social History Tobacco Use Types Packs/Day [...] 06/16/2026 2:00 PM EDT Ovarian Cancer Screening [facility] Gynecology [address] [facility], [address] [place] [address] documented as of this encounter Visit Diagnoses Not on filedocumented in this encounter Additional Health Concerns Assessment Noted Time A fall risk assessment has been complete d for the patient 05/23/2025 11:53 AM EDT A Body Mass Index follow-up plan has been documented for the patient 05/30/2025 10:29 AM EDT documented as of this encounter Care Teams Forging Press Setter Up Relationship Specialty Start Date End Date Leah Chavarria APRN [address] [place] [address] PCP - General 04/15/25 documented as of this encounter
--- OUTSIDE RECORDS SUMMARY | 2025-06-08 11:11 | XMS_ITS | Encounter Summary ---
Author Organization [facility] Address [address] [place] [address] Care Team Providers Care Assembler Molded Frames Name Role Phone DeonLeah Raquel BECK Primary Care Provider [phone] Encounter Details Date Type Department Care Team (Late Contact Info) Description 11/03/2023 Orders Only External Location [address] [place] [id number] Provider, External Social History Tobacco Use Types [...] [facility] [address] [place] [address] documented as of this encounter Procedures Procedure [...] on filedocumented in this encounter Care Teams Assembler Molded Frames Relationship Specialty Start Date End Date Leah Chavarria, EBONY [address] [place] [address] PCP - General 04/15/25 documented as of this encounter
--- OUTSIDE RECORDS SUMMARY | 2025-06-08 11:11 | XMS_ITS | Clinical Summary ---
Author Organization [employer] ([place], [place], [place], [place]) Address [address] [place] [address] Care Team Providers Care Sales Project Manager Name Role Phone Unavailable Primary Care Provider [...]
--- OUTSIDE RECORDS SUMMARY | 2025-06-08 11:11 | XMS_ITS | Encounter Summary ---
Author Organization [facility] Address [address] [place] [address] Care Team Providers Care Doll Wig Hackler Name Role Phone DeonLeah Raquel BECK Primary Care Provider [phone] Encounter Details Date Type Department Care Team [...] [facility] [address] [place] [address] documented as of this encounter Visit Diagnoses Not on filedocumented in this encounter Additional Health Concerns Assessment Noted Time A fall risk assessment has been complete d for the patient 04/15/2025 1:46 PM EDT A Body Mass Index follow-up plan has been documented for the patient 04/18/2025 3:31 PM EDT documented as of this encounter Care Teams Doll Wig Hackler Relationship Specialty Start Date End Date Leah Chavarria APRN [address] [place] [address] PCP - General 04/15/25 documented as of this encounter
--- OUTSIDE RECORDS SUMMARY | 2025-06-08 11:12 | XMS_ITS | Encounter Summary ---
Author Organization [facility] Address [address] [place] [address] Care Team Providers Care Lab Courier Name Role Phone Leah Chavarria APRN Primary Care Provider [phone] Encounter Details Date Type Department Care Team (Latest Contact Info) Description 04/21/2025 Travel Social History Tobacco Use Types Packs/Day [...] [facility] [address] , [address] [place] [address] documented as of this encounter Visit Diagnoses Not on filedocumented in this encounter Additional Health Concerns Assessment Noted Time A fall risk assessment has been complete d for the patient 04/15/2025 1:46 PM EDT A Body Mass Index follow-up plan has been documented for the patient 04/18/2025 3:31 PM EDT documented as of this encounter Care Teams Lab Courier Relationship Specialty Start Date End Date Leah Chavarria APRN [address] [place] [address] PCP - General 04/15/25 documented as of this encounter
--- OUTSIDE RECORDS SUMMARY | 2025-06-08 11:12 | XMS_ITS | Encounter Summary ---
Author Organization [facility] Address [address] [place] [address] Care Team Providers Care Printing Pressman Name Role Phone Leah Chavarria APRN Primary Care Provider [phone] Encounter Details Date Type Department Care Team (Latest Contact Info) Description 04/26/2025 Travel Social History Tobacco Use Types Packs/Day [...] [facility] [address] [place] [address] documented as of this encounter Visit Diagnoses Not on filedocumented in this encounter Additional Health Concerns Assessment Noted Time A fall risk assessment has been complete d for the patient 04/15/2025 1:46 PM EDT A Body Mass Index follow-up plan has been documented for the patient 04/18/2025 3:31 PM EDT documented as of this encounter Care Teams Printing Pressman Relationship Specialty Start Date End Date Leah Chavarria APRN [address] [place] [address] PCP - General 04/15/25 documented as of this encounter
[2025-06-08 11:56] LABS: Hematocrit 40.5 % (37.0-47.0); Hemoglobin 12.8 g/dL (12.2-16.2); Immature Granulocytes % 0.1 %; Mean Corpuscular HGB Conc 31.6 g/dL (31.8-35.4); Mean Corpuscular Hemoglobin 28.6 pg (27.0-31.2); Mean Corpuscular Volume 90.4 fl (81-99); Nucleated Red Blood Cells % 0 %; Platelet Count 209 K/mm3 (142-424); Red Blood Count 4.48 M/mm3 (4.20-5.40); Red Cell Distribution Width-SD 49.0 fL; White Blood Count 6.8 K/mm3 (4.8-10.8)
[2025-06-08 12:29] LABS: Albumin Level 4.2 g/dl (3.5-5.0); Chloride 101 mmol/L (98-107); Potassium 4.8 mmoL/L (3.5-5.1); Sodium 139 mmol/L (136-145)
[2025-06-08 12:31] LABS: Blood Urea Nitrogen 21 mg/dl (7-17); Creatinine,Serum 0.50 mg/dl (0.52-1.04); Estimated Glomerular Filt Rate 118 ml/min (>60); GFR (African American) 143 ML/MIN (>60)
[2025-06-08 12:32] LABS: Alanine Aminotransferase 19 U/L (12-78); Albumin/Globulin Ratio 1.4 (1.1-1.8); Alkaline Phosphatase 90 U/L (38-126); Anion Gap 12.8 mEq/L (5-15); Aspartate Amino Transferase 29 U/L (14-36); Bilirubin,Total 0.8 mg/dl (0.2-1.3); Calcium 9.2 mg/dl (8.4-10.2); Carbon Dioxide 30 mmol/L (22.0-30.0); Globulin 3.0 g/dL (1.3-3.2); Glucose 97 mg/dl (74-100); Total Protein,Serum 7.2 g/dl (6.3-8.2)
== END 2025-06-08 23:59 | disposition home or self-care (01) ==
LOC: LAB 11:09
PROVIDERS: PCP Family Medicine; Visit Provider Internal Medicine Medical Oncology
DX: C44.92 Squamous cell carcinoma of skin, unspecified (principal); R59.0 Localized enlarged lymph nodes
CPT/HCPCS: 36415; 80053; 85025

== ENCOUNTER 2025-06-30 09:17 | Outpatient (CLI) | payer MEDICARE, SELFPAY ==
--- OUTSIDE RECORDS SUMMARY | 2025-06-30 09:19 | XMS_ITS | Referral Summary ---
Author Organization [employer] ([place], [place], [place], [place]) Address [address] [place] [address] Care Team Providers Care Staff Antisubmarine Officer Name Role Phone Unavailable Primary Care [...]
--- OUTSIDE RECORDS SUMMARY | 2025-06-30 09:19 | XMS_ITS | Clinical Summary ---
Author Organization [employer] ([place], [place], [place], [place]) Address [address] [place] [address] Care Team Providers Care Trailer Technician Name Role Phone Unavailable Primary Care Provider [...]
[2025-06-30 09:47] LABS: Hematocrit 38.5 % (37.0-47.0); Hemoglobin 12.2 g/dL (12.2-16.2); Immature Granulocytes % 0.5 %; Mean Corpuscular HGB Conc 31.7 g/dL (31.8-35.4); Mean Corpuscular Hemoglobin 28.4 pg (27.0-31.2); Mean Corpuscular Volume 89.5 fl (81-99); Nucleated Red Blood Cells % 0 %; Platelet Count 218 K/mm3 (142-424); Red Blood Count 4.30 M/mm3 (4.20-5.40); Red Cell Distribution Width-SD 47.6 fL; White Blood Count 6.6 K/mm3 (4.8-10.8)
[2025-06-30 09:59] LABS: Chloride 105 mmol/L (98-107)
[2025-06-30 10:00] LABS: Albumin Level 4.2 g/dl (3.5-5.0); Potassium 4.3 mmoL/L (3.5-5.1); Sodium 140 mmol/L (136-145)
[2025-06-30 10:02] LABS: Blood Urea Nitrogen 17 mg/dl (7-17); Creatinine,Serum 0.70 mg/dl (0.52-1.04); Estimated Glomerular Filt Rate 80 ml/min (>60); GFR (African American) 97 ML/MIN (>60)
[2025-06-30 10:03] LABS: Alanine Aminotransferase 20 U/L (12-78); Albumin/Globulin Ratio 1.3 (1.1-1.8); Alkaline Phosphatase 73 U/L (38-126); Anion Gap 11.3 mEq/L (5-15); Aspartate Amino Transferase 33 U/L (14-36); Bilirubin,Total 0.7 mg/dl (0.2-1.3); Calcium 9.6 mg/dl (8.4-10.2); Carbon Dioxide 28 mmol/L (22.0-30.0); Globulin 3.2 g/dL (1.3-3.2); Glucose 127 mg/dl (74-100); Total Protein,Serum 7.4 g/dl (6.3-8.2)
[2025-06-30 10:05] VITALS: BP 152/82; PULSE 90; RESP 18; TEMP 36.6; O2SAT 98
[2025-06-30] MEDS: ONDANSETRON 4MG ODT 16 MG SL (10:05)
[2025-06-30] MEDS: DEXAMETHASONE 4MG TABLET 12 MG PO (10:05)
[2025-06-30] MEDS: LORATADINE 10MG TABLET 10 MG PO (10:05)
[2025-06-30] MEDS: FAMOTIDINE 20MG TABLET 20 MG PO (10:05)
[2025-06-30] MEDS: 0.9 % SODIUM CHLORIDE 100 ML 25 ML IV (10:05)
[2025-06-30] MEDS: SODIUM CHLORIDE 0.9% 10ML FLUSH SYRINGE 10 ML IV (10:23)
[2025-06-30 10:30] VITALS: BP 151/85; PULSE 88; RESP 18; O2SAT 99
[2025-06-30] MEDS: WATER IV (10:30)
[2025-06-30] MEDS: DEXTROSE 5% IV (10:30)
[2025-06-30] MEDS: PACLITAXEL IV (10:30)
[2025-06-30 11:00] VITALS: BP 170/78; PULSE 73; RESP 18; O2SAT 99
[2025-06-30] MEDS: CARBOplatin 150 MG in 0.9 % SODIUM CHLORIDE 100 ML 230 MG IV (11:29)
[2025-06-30 11:30] VITALS: BP 165/75; PULSE 78; RESP 20; O2SAT 99
[2025-06-30 12:00] VITALS: BP 159/72; PULSE 77; RESP 20; O2SAT 98
== END 2025-06-30 12:00 | disposition home or self-care (01) ==
LOC: INF 09:18
PROVIDERS: PCP Family Medicine; Visit Provider Internal Medicine Medical Oncology
DX: C37 Malignant neoplasm of thymus (principal); Z51.11 Encounter for antineoplastic chemotherapy
CPT/HCPCS: 80053; 85025; 96413; 96415; 96417; J7060; J8540; J9045; J9267; Q0162

== ENCOUNTER 2025-07-07 09:27 | Outpatient (CLI) | payer MEDICARE, SELFPAY ==
--- OUTSIDE RECORDS SUMMARY | 2025-05-23 12:00 | XMS_ITS | Encounter Summary ---
Author Organization Healthcare Address [address] [place] [address] Care Team Providers Care Cocoa Bean Roaster Helper Name Role Phone Deon Leah García APRN Primary Care Provider [phone] Reason for Visit * Reason Comments Consult Encounter Details Date Type Department Care Team (Latest Contact Info) Description 05/23/2025 12:00 PM EDT Office Visit [place] [facility] Interventional Radiology [address] [place] [address] Marge Malhotra, SENIOR EXECUTIVE COMPENSATION ANALYST [address] [place] [address] Encounter for other preprocedural examination [...] scanner: Siemens Biograph 40 mCT. PET/CT acquisition: Uuajiq-vg-nwi-thighs. Standardized uptake value (SUV): Corrected for body weight only. CT: Low-dose, iks-mwzpgf-itzf, without intravenous contrast. TOTAL DLP (Dose Length [...] % ophthalmic solution, , Disp: , Rfl: Kodyabu-Mlplimolq-Kmpy 500-250-12.5 MG tablet, Take by mouth., Disp: , Rfl: latanoprost (Xalatan) 0.005 % ophthalmic solution, , Disp: , Rfl: losartan (Cozaar) 25 MG tablet, , Disp: , Rfl: VITAMIN E PO, Take by mouth., Disp: , Rfl: documented in this encounter Plan of Treatment Upcoming Encounters Date Type Department Care Team (Late st Contact Info) Description 06/16/2026 2:00 PM EDT Ovarian Cancer Screening [facility] Gynecology [address] [facility] [place] [address] documented as of this encounter Results * (ABNORMAL) CBC W/O Differential (05/23/2025 12:30 PM EDT) WBC Count 7.32 3.70 - 10.30 10*3/uL LAB HEMATOLOGY METHOD 05/23/2025 2:31 PM EDT [facility] RBC Count 4.55 3.90 - 5.20 10*6/uL LAB HEMATOLOGY METHOD 05/23/2025 2:31 PM EDT [facility] HGB 13.1 11.2 - 15.7 g/dL LAB HEMATOLOGY METHOD 05/23/2025 2:31 PM EDT [facility] HCT 41.4 34.0 - 45.0 % LAB HEMATOLOGY METHOD 05/23/2025 2:31 PM EDT [facility] Platelet Count 192 155 - 369 10*3/uL LAB HEMATOLOGY METHOD 05/23/2025 2:31 PM EDT [facility] MCV 91 79 - 98 fL LAB HEMATOLOGY METHOD 05/23/2025 2:31 PM EDT [facility] MCH 28.8 26.0 - 32.0 pg LAB HEMATOLOGY METHOD 05/23/2025 2:31 PM EDT [facility] MCHC 31.6 30.7 - 35.5 g/dL LAB HEMATOLOGY METHOD 05/23/2025 2:31 PM EDT [facility] RDW 14.7(H) 11.5 - 14.5 % LAB HEMATOLOGY METHOD 05/23/2025 2:31 PM EDT [facility] MPV 12.6(H) 8.8 - 12.5 fL LAB HEMATOLOGY METHOD 05/23/2025 2:31 PM EDT [facility] nRBC 0.0 <=0.0 per 100 WBCs LAB HEMATOLOGY METHOD 05/23/2025 2:31 PM EDT [facility] Blood Venous blood specimen / Unknown Venipuncture / Unknown 05/23/2025 12:30 PM EDT 05/23/2025 12:31 PM EDT us Marge Malhotra SENIOR EXECUTIVE COMPENSATION ANALYST LAB BLOOD ORDERABLES Final R esult [facility] [address] [place] [address] * (ABNORMAL) Comprehensive Metabolic Panel, Plasma (05/23/2025 12:30 PM EDT) Glucose, Plasma 92 74 - 99 mg/dL 05/23/2025 2:40 PM EDT [facility] BUN, Plasma 15 8 - 23 mg/dL 05/23/2025 2:40 PM EDT [facility] Creatinine, Plasma 0.63 0.60 - 1.10 mg/dL 05/23/2025 2:40 PM EDT [facility] BUN/Creatinine Ratio 24 05/23/2025 2:40 PM EDT [facility] Sodium, Plasma 139 136 - 145 mmol/L 05/23/2025 2:40 PM EDT [facility] Potassium, Plasma 5.3(H) 3.6 - 4.9 mmol/L 05/23/2025 2:40 PM EDT [facility] Chloride, Plasma 102 97 - 107 mmol/L 05/23/2025 2:40 PM EDT [facility] CO2, Plasma 25 22 - 29 mmol/L 05/23/2025 2:40 PM EDT [facility] Anion Gap 12 6 - 16 mmol/L 05/23/2025 2:40 PM EDT [facility] Total Calcium, Plasma 9.5 8.9 - 10.2 mg/dL 05/23/2025 2:40 PM EDT [facility] Total Protein 7.7 6.3 - 7.9 g/dL 05/23/2025 2:40 PM EDT [facility] Albumin, Plasma 4.1 3.5 - 5.2 g/dL 05/23/2025 2:40 PM EDT [facility] AST, Plasma 26 10 - 35 U/L 05/23/2025 2:40 PM EDT [facility] ALT, Plasma 20 10 - 35 U/L 05/23/2025 2:40 PM EDT [facility] Alkaline Phosphatase, Plasma 91 46 - 142 U/L 05/23/2025 2:40 PM EDT [facility] Total Bilirubin, Plasma 0.8 0.2 - 1.1 mg/dL 05/23/2025 2:40 PM EDT [facility] eGFRcr 88.7 mL/min/1.7 3m*2 05/23/2025 2:40 PM EDT [facility] Comment:Reported eGFRcr in m L/min/1.73m2 is based the CKD-EPI 2020 equation that does not use a race coefficient. Blood Venous blood specimen / Unknown Venipuncture / Unknown 05/23/2025 12:30 PM EDT 05/23/2025 12:31 PM EDT us Marge Malhotra APRN LAB BLOOD ORDERABLES Final R esult [facility] [address] [place] [address] * (ABNORMAL) Prothrombin Time/INR (05/23/2025 12:30 PM EDT) Prothrombin Time 15.2(H) 12.0 - 14.3 sec LAB COAGULATION METHOD 05/23/2025 2:46 PM EDT [facility] INR 1.2(H) 0.9 - 1.1 LAB COAGULATION METHOD 05/23/2025 2:46 PM EDT [facility] Blood Venous blood specimen / Unknown Venipuncture / Unknown 05/23/2025 12:30 PM EDT 05/23/2025 12:31 PM EDT Narrative [facility] - 05/23/2025 2:46 PM EDT OPTIMAL INR RANGES FOR PATIENT ON ORAL ANTICOAGULANT THERAPY Prevention of venous thromboembolism INR 2.0 to 3.0 In patients with heart disease: Atrial fibrillation INR 2.0 to 3.0 Valvular heart disease INR 2.0 to 3.0 Tissue heart valves INR 2.0 to 3.0 Mechanical prosthetic valves INR 2.5 to 3.5 Prevention of recurrent [place] INR 2.5 to 3.5 us Marge Malhotra SENIOR EXECUTIVE COMPENSATION ANALYST LAB BLOOD ORDERABLES Final R esult [facility] [address] [place] [address] documented in this encounter Visit Diagnoses Diagnosis Encounter for other preprocedural examination- Primary documented in this encounter Additional Health Concerns Assessment Noted Time A fall risk assessment has been complete d for the patient 05/23/2025 11:53 AM EDT A Body Mass Index follow-up plan has been documented for the patient 05/23/2025 12:13 PM EDT documented as of this encounter Care Teams Cocoa Bean Roaster Helper Relationship Specialty Start Date End Date Leah Chavarria APRN [address] [place] [address] PCP - General 04/15/25 documented as of this encounter
--- OUTSIDE RECORDS SUMMARY | 2025-05-30 07:53 | XMS_ITS | Encounter Summary ---
Author Organization [facility] Address [address] [place] [address] Care Team Providers Care Orthopedics Pediatric Physician Name Role Phone Leah Chavarria APRN Primary Care Provider [phone] Reason for Referral * Imaging (Routine) - Closed Specialty Diagnoses / Procedures Referred By Contac t Referred To Contact Radiology Diagnoses Mediastinal mass Procedures CT Guided Biopsy Muscle Consult to Interventional Radiology Gilbert Roy DO [address] [address] Phone: tel: fax: Referral ID Status Reason Start Date Expiration Date Visits Re quested Visits Authorized [id number] Closed 04/15/2025 10/15/2026 1 1 Reason for Visit * Imaging (Routine) - Closed Specialty Diagnoses / Procedures Referred By Contac t Referred To Contact Radiology Diagnoses Mediastinal mass Procedures CT Guided Biopsy Muscle Consult to Interventional Radiology Gilbert Roy DO [address] [address] Phone: tel: fax: Referral ID Status Reason Start Date Expiration Date Visits Re quested Visits Authorized [id number] Closed 04/15/2025 10/15/2026 1 1 Encounter Details Date Type Department Care Team (Latest Contact Info) Description 05/30/2025 7:53 AM EDT - 05/30/2025 10:17 AM EDT Hospital Encounter [facility] Interventional Radiology [address] [place] [address] Tanner Christiansen, RN Mediastinal mass Discharge Disposition: Home or Self Care Social History Tobacco Use Types Packs/Day Years Used Date Smoking Tobacco: Never Smokeless Tobacco: Never PHQ-2 Answer Date Recorded Patient Health Questionnaire-2 Score 0 05/23/2025 Comments Unknown Sex and Gender Information Value Date Recorded Sex Assigned at Not on file Legal Sex Female 6:35 PM EDT Gender Identity Not on file Sexual Orientation Not on file documented as of this encounter Last Filed Vital Signs Vital Sign Reading Time Taken Comments Blood Pressure 121/72 05/30/2025 10:16 AM EDT Pulse 79 05/30/2025 10:16 AM EDT Temperature 36.4 C (97.6 F) 05/30/2025 8:25 AM EDT Respiratory Rate 13 05/30/2025 10:16 AM EDT Oxygen Saturation 94% 05/30/2025 10:16 AM EDT Inhaled Oxygen Concentration - - Weight 52.9 kg (116 lb 10 oz) 05/30/2025 8:25 AM EDT Height 154.9 cm (5' 1 ) 05/30/2025 8:25 AM EDT Body Mass Index 22.04 05/30/2025 8:25 AM EDT documented in this encounter Discharge Instructions * Discharge Instructions* Tanner Christiansen, RN - 05/30/2025 10:29 AM EDT General Biopsy Discharge The site of the biopsy may feel numb for a while if you got numbing medicine. You might have a little soreness after the needle biopsy. Keep the bandage clean, dry, and intact for 24 hours. Do not shower for 24 hours. After 24 hours have passed, you may remove the bandage and shower. Let warm, soapy water run over the biopsy site, but do not scrub or pick at it. You may be sleepy after the biopsy if you got medicine to help you relax (sedation). Don't drive for 24 hours. Don't do heavy lifting, a lot of stair climbing, vigorous exercise, or take part in sports the day of your biopsy. You can get back to your regular activities as instructed by your healthcare provider. Call your healthcare provider right away if any of these occur: Infection (redness, pain, swelling, or drainage at the site of your biopsy). Excessive bleeding at the site of the biopsy. Call [phone] right away if any of these occur: Shortness of breath Chest pain *Interventional Radiology* (IR) Questions/Concerns & Appointments: If there are questions or concerns after discharge please call: [facility] at [phone] Friday - Friday 8:00 AM to 4:30 PM After hours, weekends, and holidays please call [phone] and ask for the Interventional Radiology provider/Resident on-call Intervention Radiology Appointments: If you need to reschedule a procedure, please call our Schedulers at [phone], option [phone]. If you need to schedule or reschedule a clinic appointment, please call [phone]. [facility] Vascular and Interventional Radiology Clinic [place] [id number] [facility], First [address] [place] [address] documented in this encounter Medications at Time of Discharge atorvastatin (Lipitor) 10 MG tablet 03/07/2025 brimonidine (AlphaGAN P) 0.1 % ophthalmic solution 02/05/2025 Calcium-Magnesiu m-Zinc 500-250-12.5 MG tablet Take by mouth. ferrous sulfate 325 (65 Fe) MG EC tablet Take 1 tablet by mouth 3 times a day with meals. Do not crush, chew, or split. fluticasone (Flonase) 50 MCG/ACT nasal spray Administer 1 spray into each nostril daily. Shake gently. Before first use, prime pump. After use, clean tip and replace cap. latanoprost (Xalatan) 0.005 % ophthalmic solution 02/05/2025 losartan (Cozaar) 25 MG tablet 03/28/2025 Multiple Vitamin (multivitamin) tablet Take 1 tablet by mouth daily. VITAMIN E PO Take by mouth. documented as of this encounter Miscellaneous Notes * Post-Procedure Note - Wesly Escobar - 05/30/2025 9:30 AM EDT Vascular and Interventional Radiology Brief Postprocedure Note Attending: Lee Romero MD Seat Joiner Chainstitch: DANIA Logan Pre-operative Diagnosis: Hypermetabolic anterior mediastinal mass Post-operative Diagnosis: Same Type of Anesthesia: Conscious Sedation Description of Findings: CT Guided biopsy of Anterior Mediastinal Mass with 7 core Biopsies. See Report for further details. Technical/Surgical Procedures Used: CT Guided Biopsy Specimen Obtained: Yes, 7 core biopsies Complications: None Estimated Blood Loss: minimal Procedure Events Event Event Time Sedation Start 05/30/2025 9:38 AM Sedation Stop 05/30/2025 10:00 AM See detailed result report with images in PACS. The patient tolerated the procedure well without incident or complication and is in stable condition. Cosigned by Lee Hopson MD at 05/30/2025 10:08 AM EDT Associated attestation - Lee Hopson MD - 05/30/2025 10:08 AM EDT I saw and evaluated the patient with the medical/DIPLOMATIC INTERPRETER/PA student. I discussed the case with the medical/DIPLOMATIC INTERPRETER/PA student and agree with the findings and plan as documented. I personally performed the Examand Medical Decision Making. Lee Romero MD * Pre-Procedure Note - Wesly Escobar - 05/30/2025 9:30 AM EDT Images from the original note were not included. 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 Previous problems with surgery, anesthesia or sedation: No Previous family history or problems with anesthesia or sedation: No History of tobacco use, alcohol use, or substance abuse: Tobacco Use History[1], Social History Substance and Sexual Activity Alcohol Use None , Social History Substance and Sexual Activity Drug Use Not on file Height and Weight: There were no vitals taken for this visit. Allergies to medication: Patient has no known allergies. Current medications: Current Medications[2] Relevant Labs: Lab Results Component Value Date CREATININE 0.63 05/23/2025 EGFR 88.7 05/23/2025 INR 1.2 (H) 05/23/2025 Planned Sedation/Anesthesia: Moderate Airway assessment: normal Mallampati Score: III (soft and hard palate and base of uvula visible) ASA: ASA 3 - Patient with moderate systemic disease with functional limitations Directed physical examination: There were no vitals filed for this visit. Patient is awake, alert and oriented. Hemodynamically stable. S1S2 NSR, Normal auscultation Lungs CTA No respiratory difficulty. No acute distress. Benefits, risks and alternatives of procedure and planned sedation have been discussed with the patient and/or their telephone service representative. All questions answered and they agree to proceed. [1] Social History Tobacco Use Smoking Status Never Smokeless Tobacco Never [2] Current Outpatient Medications Medication Sig Dispense Refill atorvastatin (Lipitor) 10 MG tablet brimonidine (AlphaGAN P) 0.1 % ophthalmic solution Biwfagd-Kestvosfd-Pnso 500-250-12.5 MG tablet Take by mouth. ferrous sulfate 325 (65 Fe) MG EC tablet Take 1 tablet by mouth 3 times a day with meals. Do not crush, chew, or split. fluticasone (Flonase) 50 MCG/ACT nasal spray Administer 1 spray into each nostril daily. Shake gently. Before first use, prime pump. After use, clean tip and replace cap. latanoprost (Xalatan) 0.005 % ophthalmic solution losartan (Cozaar) 25 MG tablet Multiple Vitamin (multivitamin) tablet Take 1 tablet by mouth daily. VITAMIN E PO Take by mouth. No current facility-administered medications for this visit. Cosigned by Lee Hopson MD at 05/30/2025 8:56 AM EDT Associated attestation - Lee Hopson MD - 05/30/2025 8:56 AM EDT I saw and evaluated the patient with the medical/DIPLOMATIC INTERPRETER/PA student. I discussed the case with the medical/DIPLOMATIC INTERPRETER/PA student and agree with the findings and plan as documented. I personally performed the Examand Medical Decision Making. Lee Romero MD * Interval H&P Note - Wesly Escobar - 05/30/2025 9:30 AM EDT H&P reviewed. The patient was examined and there are no changes to the H&P and the surgicalsite was marked. Cosigned by Lee Hopson MD at 05/30/2025 8:46 AM EDT Associated attestation - Lee Hopson MD - 05/30/2025 8:46 AM EDT I saw and evaluated the patient with the medical/DIPLOMATIC INTERPRETER/PA student. I discussed the case with the medical/DIPLOMATIC INTERPRETER/PA student and agree with the findings and plan as documented. I personally performed the Examand Medical Decision Making. Lee Romero MD Source Note - Marge Malhotra APRN - 05/23/2025 12:00 [...] with mediastinal lymphadenopathy. She was referred to thoracic surgery, establishing care with them on [...] scanner: Siemens Biograph 40 mCT. PET/CT acquisition: [id number]. Standardized uptake value (SUV): Corrected for body weight only. CT: Low-dose, [id number], without intravenous contrast. TOTAL DLP (Dose Length [...] % ophthalmic solution, , Disp: , Rfl: Vpobkur-Lxakeogzi-Oblo 500-250-12.5 MG tablet, Take by mouth., Disp: , Rfl: latanoprost (Xalatan) 0.005 % ophthalmic solution, , Disp: , Rfl: losartan (Cozaar) 25 MG tablet, , Disp: , Rfl: VITAMIN E PO, Take by mouth., Disp: , Rfl: documented in this encounter Plan of Treatment Upcoming Encounters Date Type Department Care Team (Late st Contact Info) Description 06/16/2026 2:00 PM EDT Ovarian Cancer Screening [facility] Gynecology [address] [place] [address], [address] [place] [address] documented as of this encounter Procedures Procedure Name Priority Date/Time Associated Diagnosis Comments XR CHEST 1 VIEW Routine 05/30/2025 10:[address] GUIDED BIOPSY MUSCLE Routine 05/30/2025 10:01 AM EDT Mediastinal mass FINE NEEDLE ASPIRATION - CORE BIOPSY Routine 05/30/2025 9:55 AM EDT documented in this encounter Results * XR Chest 1 View (05/30/2025 10:51 AM EDT) Anatomical Region Laterality Modality Chest Digital Radiogra phy Impressions 05/30/2025 12:37 PM EDT No pneumothorax or overt pneumomediastinum. CRITICAL RESULT: No. COMMUNICATION: Per this written report. Preliminary report signed by Eloy Lechuga MD on 05/30/2025 11:12 AM By electronically signing this report, I, the attending physician, attest that I have personally reviewed the images/data for the above examination(s) and agree with the final edited report. Drafted by Eloy Lechuga MD on 05/30/2025 11:10 AM Final report signed by Wenceslao Dias MD on 05/30/2025 12:37 PM Narrative 05/30/2025 12:37 PM EDT CLINICAL INDICATION: post mediastinal biopsy TECHNIQUE: XR CHEST 1 VIEW COMPARISON: May 30, 2025 FINDINGS: No pneumothorax. Underlying changes of emphysema. No overt effusions or consolidations. Normal cardiac silhouette and mediastinal contours. Procedure Note Wenceslao Dias MD - 05/30/2025 CLINICAL INDICATION: post mediastinal biopsy TECHNIQUE: XR CHEST 1 VIEW COMPARISON: May 30, 2025 FINDINGS: No pneumothorax. Underlying changes of emphysema. No overt effusions orconsolidations. Normal cardiac silhouette and mediastinal contours. IMPRESSION: No pneumothorax or overt pneumomediastinum. CRITICAL RESULT: No. COMMUNICATION: Per this written report. Preliminary report signed by Eloy Lechuga MD on 05/30/2025 11:12 AM By electronically signing this report, I, the attending physician, attestthat I have personally reviewed the images/data for the aboveexamination(s) and agree with the final edited report. Drafted by Eloy Lechuga MD on 05/30/2025 11:10 AM Final report signed by Wenceslao Dias MD on 05/30/2025 12:37 PM us Lee Romero MD IMG XR PROCEDURES Final Resul t * CT Guided Biopsy Muscle (05/30/2025 10:01 [...] mass presenting for CT guided biopsy TECHNIQUE: Gifts Officer: Lee Castaneda MD Secondary Patient Scheduling Manager: Colten Escobar MS4 DLP: 1002.01 mGy*cm Medications: [...] mass presenting for CT guided biopsy TECHNIQUE: Gifts Officer: Lee Castaneda MD Secondary Patient Scheduling Manager: Colten QUISPE DLP: 1002.01 mGy*cm Medications: IV conscious sedation [...] on 05/30/2025 10:36 AM Gilbert Roy DO [facility] CT PROCEDURES Final Resul t * Fine needle aspiration - Core Biopsy (05/30/2025 9:55 AM EDT) Case Report Cytology Case: [id number] Authorizing Provider: Lee Hopson MD Collected: 05/30/2025 0955 Ordering Location: [facility] Interventional Received: 05/30/2025 1043 Radiology Pathologist: Jyoti Bruner MD Specimen: Mass, Core Biopsy with Touch Preparation (Specify Site), MEDIASTINAL MASS, CT GUIDED CORE BIOPSY WITH TOUCH PREPS 5 3:22 PM EDT [facility] Final Diagnosis A. MEDIASTINAL MASS, CT GUIDED CORE BIOPSY: - POSITIVE FOR MALIGNANCY, SQUAMOUS CELL CARCINOMA (SEE COMMENT). 3:22 PM EDT [facility] at 1522 EDT Comment The immunophenotype would favor a thymic primary, although metastases from other sites cannot be entirely excluded. Clinical correlation is suggested. 3:22 PM EDT [facility] Special and Immunohistochemical Stains IHC: A1-1 Johns Cytokeratin AE1 AE3: Positive A1-2 EY41-TIS: Negative A1-3 CD117: Positive A1-4 CK7: Focally positive A1-5 CK20: Negative A1-6 TTF-1: Negative A1-13 P40: Focally positive A1-14 Synaptophysin: Negative A1-15 CD5: Focally positive All controls show appropriate reactivity. All immunohistochemis try, in situ hybridization, and histochemical tests were developed by and are performed at the [facility], [address] [place] [address]. All tests reported here, except those addressing HER2 (breast) and PD-L1 expression as predictive markers, have not been cleared by or approved by the US Food and Drug Administration (FDA). The FDA has determined that such clearance or approval is not necessary. The laboratory is regulated under CLIA as qualified to perform high-complexity testing. The tests are used for clinical purposes. They should not be regarded as investigational or for research. This assay has not been validated on decalcified tissues. Results should be interpreted with caution given the likelihood of false negativity on decalcified specimens. 3:22 PM EDT [facility] Intradepartmental Consultation with Agreement Dr. Susan Jin 3:22 PM EDT [facility] Immediate Evaluation Core biopsy performed by: Dr. Castaneda Number of sticks: 7 Touch Prep performed by: Dr. Bruner / LT Immediate evaluation episode Touch Prep # 1-2: Positive The immediate evaluation in this case was performed via telecytology by the attending physician listed above. This service has been rendered in part by a resident. A pathologist has personally reviewed the slides/tissue and has rendered and is responsible for diagnosis for the diagnosis that appears on the report. 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 B Symptoms past year. 3:22 PM EDT [facility] Procedure Type CT 3:22 PM EDT [facility] Size/Description of Lesion mediastinal 3:22 PM EDT [facility] Cancer History Yes 3:22 PM EDT [facility] Previous Cancer Primary Site Skin Cancer 3:22 PM EDT [facility] Gross Description A. MEDIASTINAL MASS, CT GUIDED CORE BIOPSY WITH TOUCH PREPS Multiple white huerta cores of friable tissue, all measuring less than 0.1 cm in diameter and ranging from 0.1 cm to 0.8 cm in length, entirely submitted in biowrap and/or cassette. Received 2 diff quick touch prep slides. Cold Time: 19m 3:22 PM EDT [facility] Note: A resident was involved in the service. I attest I examined the relevant preparations for the specimens and confirmed the diagnosis or interpretation. 3:22 PM EDT [facility] Clinical Information No Dx found. 3:22 PM EDT [facility] Fine Needle Aspirate Specimen from mass / Unknown Non-blood Collection / Unknown 05/30/2025 9:55 AM EDT 05/30/2025 10:43 AM EDT us Lee Romero MD LAB CYTOLOGY ORDERABLES Final Result [facility] [address] [place] [address] documented in this encounter Visit Diagnoses Diagnosis Mediastinal mass Swelling, mass, or lump in chest documented in this encounter Administered Medications Inactive Administered Medications - up to 3 most recent administrations Medication Order MAR Action Action Date Dose Rate Site fentaNYL (Sublimaze) injection Intravenous, As needed, Starting on Fri05/30/25 at 0939, Until Fri05/30/25 at 0953, Routine, Intraprocedure Given 05/30/2025 9:53 AM EDT 25 mcg Given 05/30/2025 9:39 AM EDT 50 mcg lidocaine (Xylocaine) 1 % injection Intradermal, As needed, Starting on Fri05/30/25 at 0946, Until Fri05/30/25 at 0946, Routine, Intraprocedure Given 05/30/2025 9:46 AM EDT 5 mL Left Chest midazolam (Versed) injection Intravenous, As needed, Starting on Fri05/30/25 at 0940, Until Fri05/30/25 at 0954, Routine, Intraprocedure Given 05/30/2025 9:54 AM EDT 0.5 mg Given 05/30/2025 9:40 AM EDT 2 mg documented in this encounter Additional Health Concerns Assessment Noted Time A fall risk assessment has been complete d for the patient 05/23/2025 11:53 AM EDT A Body Mass Index follow-up plan has been documented for the patient 05/30/2025 10:29 AM EDT documented as of this encounter Care Teams Orthopedics Pediatric Physician Relationship Specialty Start Date End Date Leah Chavarria APRN [address] [place] [address] PCP - General 04/15/25 documented as of this encounter
--- OUTSIDE RECORDS SUMMARY | 2025-05-30 10:18 | XMS_ITS | Encounter Summary ---
Author Organization Healthcare Address [address] [place] [address] Care Team Providers Care Furniture Inspector Name Role Phone Leah Chavarria APRN Primary Care Provider [phone] Encounter Details Date Type Department Care Team (Latest Contact Info) Description 05/30/2025 10:18 AM EDT - 05/30/2025 11:59 PM EDT Hospital Encounter [facility] Radiology [address] [place] [phone] Discharge Disposition: Home or Self Care Social [...] [facility] Gynecology [address] [place] [address] documented as of this encounter Procedures Procedure [...] documented as of this encounter Care Teams Furniture Inspector Relationship Specialty Start Date End Date Leah Chavarria, BACK END ENGINEER [address] [place] [address] PCP - General 04/15/25 documented as of this encounter
--- OUTSIDE RECORDS SUMMARY | 2025-06-02 12:11 | XMS_ITS | Encounter Summary ---
Author Organization Healthcare Address [address] [place] [address] Care Team Providers Care Broadband Installer Name Role Phone Leah Chavarria APRN Primary Care Provider [phone] Encounter Details Date Type Department Care Team (Latest Contact Info) Description 06/02/2025 12:11 PM EDT - 06/02/2025 11:59 PM EDT Hospital Encounter [facility] Pulmonary Function Testing [address] [place] [phone] Mediastinal mass Discharge Disposition: Home or Self Care Social History Tobacco Use Types Packs/Day Years Used Date Smoking Tobacco: Never Smokeless Tobacco: Never PHQ-2 Answer Date Recorded Patient Health Questionnaire-2 Score 0 05/23/2025 AUDIT-C Answer Date Recorded Q1: How often do you have a drink containing alc ohol? Never 06/02/2025 Average Number of Drinks Not on file 025 Frequency of Binge Drinking Not on file 04/2025 Comments Unknown Sex and Gender Information Value Date Recorded Sex Assigned at Not on file Legal Sex Female 6:35 PM EDT Gender Identity Not on file Sexual Orientation Not on file documented as of this encounter Functional Status documented as of this encounter Medications at [...] EDT Ovarian Cancer Screening [facility] Gynecology [address] [facility], [address]rd [place] [address] documented as of this encounter Procedures Procedure Name Priority Date/Time Associated Diagnosis Comments HC DIFFUSING CAPACITY - CARBON MONOXIDE DIFFUSING CAPACITY Routine 06/02/2025 1:11 PM EDT Mediastinal mass documented in this encounter Results * Pulmonary function testing (06/02/2025 1:11 PM EDT) ZPR7RFW 1.48 L 06/02/2025 12:59 PM EDT [facility] PFT FVC PRED 2.02 06/02/2025 12:59 PM EDT [facility] PFT FVC LLN 1.40 06/02/2025 12:59 PM EDT [facility]RE PFT FVCPREZSCORE -1.44 06/02/2025 12:59 PM EDT [facility] PFT FVCPRE%PRED 73 % % 06/02/2025 12:59 PM EDT [facility] PFT FVC PREDAUTH US_Quanwanda GLI (2012) 06/02/2025 12:59 PM EDT [facility] PFT FVC Z-SCORE -1.44 06/02/2025 12:59 PM EDT [facility] PFT FEV1 PRE 1.07 L 06/02/2025 12:59 PM EDT [facility] PFT FEV1 PRED 1.55 06/02/2025 12:59 PM EDT [facility] PFT FEV1 LLN 1.07 06/02/2025 12:59 PM EDT [facility]RE PFT HZL3XZTHNGFPU -1.64 06/02/2025 12:59 PM EDT [facility] PFT FEV1_Pre%Pred 69 % % 06/02/2025 12:59 PM EDT [facility]RE PFT FEV1 PREDAUTH JANJosewanda COTTER (2011) 06/02/2025 12:59 PM EDT [facility]RE PFT FEV1 Z-SCORE -1.64 06/02/2025 12:59 PM EDT [facility] PFT FEV1/FVC PRE 72.67 % 06/02/2025 12:59 PM EDT [facility]RE PFT USR7YSTCLGR 77 06/02/2025 12:59 PM EDT [facility]RE PFT GSO3DFPZDM 62 06/02/2025 12:59 PM EDT [facility]RE PFT LQO6THDTJWSPJFJP -0.55 06/02/20 25 12:59 PM EDT V[facility]RE PFT DNQ9UEYDCX%PRED 94 % % 12:59 PM EDT VY[facility]RE PFT LWJ6HWMHCDAC Meenawanda COTTER (2011) 06/02/2025 12:59 PM EDT VYAIRE PFT NYY7QWDRCXJLP -1 06/02/2025 12:59 PM EDT [facility]RE PFT RGD72-10% PRE 0.74 L/s 06/02/2025 12:59 PM EDT [facility] PFT BLJ49-53%_Pred 1.31 06/02/2025 12:59 PM EDT [facility] PFT STL8069%LLN 0.53 06/02/2025 12:59 PM EDT [facility]RE PFT KDS9427%PREZSCORE -1.12 025 12:59 PM EDT [facility] PFT GWJ1918%PRE%PRED 56 % % 06/02/20 25 12:59 PM EDT [facility] PFT VAO4978%PREDAUTH Lizettewanda COTTER (2011) 06/02/2025 12:59 PM EDT VYAIRE [...] (1992) 06/02/2025 12:59 PM EDT VYAIRE PFT BFIZZURZWWNTENSM4KAK 12.46 ml/(min* mmHg) 06/02/2025 12:59 PM EDT [facility] PFT DLCOSINGLEBREATH PRED 15.75 06/02/2025 12:59 PM EDT [facility]RE PFT DLCOSINGLEBREATH LLN 11.59 04/2025 12:59 PM EDT VYAIRE PFT DLCOSINGLEBREATH Z-SCORE -1.27 06/02/2025 12:59 PM EDT VYAIRE PFT DLCOSINGLEBREATH % PRED 79.1 % 06/02/2025 12:59 PM EDT VYAIRE PFT DLCOSINGLEBREATH PREDAUT Stanonathan TLCO GLI (2019) 06/02/2025 12:59 PM EDT VYAIRE PFT DLCOSINGLEBREATH Z-SCORE -1.27 06/02/2025 12:59 PM EDT VYAIRE PFT NFKZMHIIOJJGQNYMG6SZ E 12.58 ml/(min* mmHg) 06/02/2025 12:59 PM EDT VYAIRE PFT DLCOCSINGLEBREATH PRED 15.75 06/02/2025 12:59 PM EDT VYAIRE PFT DLCOCSINGLEBREATH LLN 11.59 06/02/2025 12:59 PM EDT VYAIRE PFT DLCOCSINGLEBREATH Z-SCORE -1.22 06/02/2025 12:59 PM EDT VYAIRE PFT DLCOCSINGLEBREATH % PRED 79.8 % 06/02/2025 12:59 PM EDT VYAIRE PFT DLCOCSINGLEBREATH PREDAUT Rlonathan TLCO GLI (2019) 06/02/2025 12:59 PM EDT VYAIRE PFT UOOEZA6PKV 5.27 ml/(min* mmHg*L) 06/02/2025 12:59 PM EDT VYAIRE PFT DLCOVAPRED 4.29 06/02/2025 12:59 PM EDT VYAIRE PFT DLCOVALLN 3.23 06/02/2025 12:59 PM EDT VYAIRE PFT DLCOVAZSCORE 1.34 06/02/2025 12:59 PM EDT VYAIRE PFT DLCOVA%PRED 122.8 % 06/02/2025 12:59 PM EDT VYAIRE PFT DLCOVAPREDAUT Rlovancevic TLCO GLI (2019) 06/02/2025 12:59 PM EDT VYAIRE PFT DLCOVAZSCORE 1.34 06/02/2025 12:59 PM EDT VY[facility]RE PFT ARDBVESPP1XCG 5.32 ml/(min* mmHg*L) 06/02/2025 12:59 PM EDT VYAIRE PFT DLCOC SB/VA PRED 4.29 06/02/20 25 12:59 PM EDT VYAIRE PFT DLCOC SB/VA LLN 3.23 12:59 PM EDT VYAIRE PFT DLCOC SB/VA Z-SCORE 1.41 06/02 12:59 PM EDT VYAIRE PFT DLCOC SB/VA % PRED 124.0 % 2024 12:59 PM EDT VYAIRE PFT DLCOC SB/VA PREDAUT Stanonathan TLCO GLI (2019) 06/02/2025 12:59 PM EDT VYAIRE PFT DLCOC SB/VA Z-SCORE 1.41 06/02 12:59 PM EDT VYAIRE PFT MBZJSOMLCGHHPF9NXL 2.36 L 08/07/ 2025 12:59 PM EDT VYAIRE PFT VASINGLEBREATH PRED 3.65 06/02 12:59 PM EDT VYAIRE PFT VASINGLEBREATH LLN 2.88 2024 12:59 PM EDT VYAIRE PFT VASINGLEBREATH Z-SCORE -2.86 06/02/2025 12:59 PM EDT VYAIRE PFT VASINGLEBREATH % PRED 64.7 % 06/02/2025 12:59 PM EDT VYAIRE PFT VASINGLEBREATH [facility] Stantarasjebeverly TLCO GLI (2019) 06/02/2025 12:59 PM EDT VYAIRE PFT VASINGLEBREATH Z-SCORE -2.86 06/02/2025 12:59 PM EDT VYAIRE PFT SCASCSUNVTLLPMR9LBC 1.38 L 06/02 12:59 PM EDT VYAIRE PFT IVCSINGLEBREATH PRED 2.02 04/2025 12:59 PM EDT VYAIRE PFT IVCSINGLEBREATH LLN 1.40 06/02 12:59 PM EDT VYAIRE PFT IVCSINGLEBREATH Z-SCORE -1.72 06/02/2025 12:59 PM EDT VYAIRE PFT IVCSINGLEBREATH % PRED 67.9 % 06/02/2025 12:59 PM EDT VYAIRE PFT IVCSINGLEBREATH [facility] _Josejer GLI (2011) 06/02/2025 12:59 PM EDT VYAIRE PFT HB PRE 13.10 g(Hb)/dL 06/02/2025 12:59 PM EDT VYAIRE PFT NOB8UFH 3.21 L 06/02/2025 12:59 PM EDT VYAIRE [...] 06/02/2025 12:59 PM EDT VYAIRE PFT VCPREDAUTH US_Quanjer GLI (2011) 06/02/2025 12:59 PM EDT VYAIRE PFT IC0PRE 1.15 L 06/02/2025 12:59 PM EDT VYAIRE PFT ICPRED 1.28 06/02/2025 12:59 PM EDT VYAIRE PFT ICLLN 1.28 06/02/2025 12:59 PM EDT VYAIRE PFT ICULN 1.28 06/02/2025 12:59 PM EDT VYAIRE PFT IC%PRED 89.5 % 06/02/2025 12:59 PM EDT VYAIRE PFT ICPREDAUTH ECCS calculated (1992) 06/02/2025 12:59 PM EDT VYAIRE PFT HRXNHPIF8YKY 2.06 L 06/02/2025 12:59 PM EDT VYAIRE [...] (1992) 2024 12:59 PM EDT VYAIRE PFT HNN8UUN 0.52 L 06/02/2025 12:59 PM EDT VYAIRE [...] % 06/02/2025 12:59 PM EDT VYAIRE PFT RVPREDAUT ECCS (1992) 06/02/2025 12:59 PM EDT VYAIRE PFT RV%DPW8KQO 47.30 % 06/02/2025 12:59 PM EDT VYAIRE PFT RV%TLCPRED 47 06/02/2025 12:59 PM EDT VYAIRE PFT RV%TLCLLN 37 06/02/2025 12:59 PM EDT VYAIRE PFT RV%TLCULN 56 06/02/2025 12:59 PM EDT VYAIRE PFT RV%TLCZSCORE 0.08 06/02/2025 12:59 PM EDT VYAIRE PFT RV%TLC%PRED 101.0 % 06/02/2025 12:59 PM EDT VYAIRE PFT RV%TLCPREDAUTH ECCS (1993) 12:59 PM EDT VYAIRE PFT BQX0ALB 2.08 L 06/02/2025 12:59 PM EDT VYAIRE PFT Anatomical Region Laterality Modality PFT 06/02/2025 12:2 4 PM EDT Narrative 06/03/2025 10:59 PM EDT Pulmonary Function Testing Report Graciela Owens underwent pulmonary function testing today at the [facility]. The patient underwent spirometry, lung volumes by [...] Gilbert Roy DO PFT ORDERABLES Final Result documented in this encounter Visit Diagnoses Diagnosis Mediastinal mass Swelling, mass, or lump in chest documented in this encounter Additional Health Concerns Assessment Noted Time A fall risk assessment has been complete d for the patient 06/02/2025 1:06 PM EDT A Body Mass Index follow-up plan has been documented for the patient 06/03/2025 11:51 AM EDT documented as of this encounter Care Teams Broadband Installer Relationship Specialty Start Date End Date Leah Chavarria APRN [address] [place] [address] PCP - General 04/15/25 documented as of this encounter
--- OUTSIDE RECORDS SUMMARY | 2025-06-02 14:00 | XMS_ITS | Encounter Summary ---
Author Organization [facility] Address [address] [place] [address] Care Team Providers Care Office Machine Mechanic Name Role Phone Leah Chavarria APRN Primary Care Provider [phone] Reason for Referral * Consultation (Routine) - Authorized Specialty Diagnoses / Procedures Referred By Contsavita t Referred To Contact Medical Oncology Diagnoses Mediastinal mass Gilbert Roy DO [address] [address] Phone: tel: fax: Referral ID Status Reason Start Date Expiration Date Visits Requested Visits Authorized [id number] Authorized Specialty Services Required 06/02/2025 12/02/2026 [address] Stahl at [facility] Reason for Visit * Reason Comments Follow-up Encounter Details Date Type Department Care Team (Late st Contact Info) Description 06/02/2025 2:00 PM EDT Office Visit Pav [facility] Head, Neck & Respiratory 800 [facility], [address]nd [place] [phone] Gilbert Roy DO [address] [address] Mediastinal mass Social History Tobacco Use Types Packs/Day Years [...] Sign Reading Time Taken Comments Blood Pressure 185/87 06/02/2025 1:11 PM EDT rec hewck Pulse 85 06/02/2025 1:06 PM EDT Temperature 36.4 C (97.5 F) 06/02/2025 1:06 PM EDT Respiratory Rate 16 06/02/2025 1:06 PM EDT Oxygen Saturation 99% 06/02/2025 1:06 PM EDT Inhaled Oxygen Concentration - - Weight 51.9 kg (114 lb 6.7 oz) 06/02/2025 1:06 P M EDT Height 154.9 cm (5' 1 ) 06/02/2025 1:06 PM EDT Body Mass Index 21.62 06/02/2025 1:06 PM EDT documented in this encounter Functional Status documented as of this encounter Miscellaneous Notes * Progress Notes - Ramón Aguilar APRN - 06/02/2025 2:00 PM EDT Images from the original note were not included. [facility] Department of Surgery Section of Thoracic Surgery Outpatient Clinic Note Diagnosis: Mediastinal Mass Procedure: 05/30 FNA Biopsy Pathology: Thymic SCC 49 x 44 mm Interval History: Graciela Owens is a 84 y.o. female w/ history of hypertension and hyperlipidemia, and surgical history of SCC of the nose (s/p resection approximately 15 years ago), basal cell carcinoma(s/p resection approximately 10 years ago). Her story of illness leading up to diagnosis includes PNA, Pericardial effusion and hospitalization with weight loss. Today she returns for possible surgical consultation for anterior mediastinal mass. Since we last saw her she was able to get the mass biopsied, PFTs complete and repeat PET scan. Today she denies any symptoms and feels good today. ROS: General: no fevers or chills, no heat or cold intolerance, no subjective weight loss HEENT: no changes in vision, no sore throat, no changes in hearing, no tinnitus, no nasal drainage CV: no chest pain, no palpitations, no lightheadedness, no PND, no orthopnea, no LE swelling, no claudication Pulm: no shortness of breath, no cough, no hemoptysis GI: no nausea, no vomiting, no abdominal pain, no constipation, no diarrhea, no melenal, no hematochezia, no dysphagia, no heartburn Skin: no rash Neuro: no numbness, no tingling, no headache, no difficulties with speech, no gait disturbance Heme: no easy bruising, no bleeding from the gums Endo: No polyuria or polydypsia Psych: no depression or anxiety Physical exam: Visit Vitals BP (!) 185/87 Comment: rechewck Pulse 85 Temp 36.4 ??C (97.5 ??F) (Oral) Ht 1.549 m (5' 1 ) Wt 51.9 kg (114 lb 6.7 oz) SpO2 99% BMI 21.62 kg/m?? General: alert and oriented, appropriate Lungs: CTA B, no wheezes or rhonchi Heart: RRR, no murmurs Abdomen: soft NT/ND, normal bowel sounds Lymph nodes: no palpable supraclavicular or cervical adenopathy Extremities: no peripheral edema Skin: no rash, no cyanosis and warm to touch Psychiatric: oriented to person/place/time and normal mood/affect Incisions: none Imaging: PET 05/27 Head and Neck: No suspicious metabolically active [...] visualized spine. Osteopenia. Prior posterior fusion ofL4-L5. IMPRESSION: Intensely hypermetabolic anterior mediastinal mass with [...] capsule endoscopy is suggested. CRITICAL RESULT: No. Pathology 05/30/25 Final Diagnosis A. MEDIASTINAL MASS, CT GUIDED CORE BIOPSY: - POSITIVE FOR MALIGNANCY, SQUAMOUS CELL CARCINOMA (SEE COMMENT). at 1522 EDT PFT 06/02/25 Assessment and Plan: Graciela Owens is a 84 y.o. female w/ history of hypertension and hyperlipidemia, and surgical history of SCC of the nose (s/p resection approximately 15 years ago), basal cell carcinoma (s/p resection approximately 10 years ago). We had a adrian and candid discussion with the patient regarding the results of her biopsy including the fact that it was squamous cell carcinoma. It is located in the anterior mediastinum however there is loss of fat plane between the aorta and the pulmonary artery. As such we do not feel as though the mass is able to be completely resected. She has been discussed in a multidisciplinary fashion and recommendations are for chemotherapy and radiation. She has requested areferral to Medical radiation close to home in [facility]. We will reach out to Dr. Stahl and we will relay our recommendations Images and pathology reviewed and discussed with the patient at today's visit and all questions answered. Patient will return to clinic as needed only. The patient understands this plan and will callour office for any additional questions or concerns. Ramón Aguilar APRN 06/02/25 1:14 PM Cosigned by Gilbert Roy DO at 06/03/2025 11:51 AM EDT Associated attestation - Gilbert Roy DO - 06/03/2025 11:51 AM EDT I attest to being involved in more than half the total time in patient care. documented in this encounter Plan of Treatment Upcoming Encounters Date Type Department Care Team (Late st Contact Info) Description 06/16/2026 2:00 PM EDT Ovarian Cancer Screening [facility] Gynecology 800 [facility], [address]rd [place] [address] Scheduled Referrals Name Type Priority Associated Diagnoses Order Schedule Ambulatory referral to Hematology Oncology/Medical Oncology Outpatient Referral Routine Mediastinal mass Expected: 06/02/2025 (Approximate), Expires: 12/04/2026 documented as of this encounter Visit Diagnoses Diagnosis Mediastinal mass Swelling, mass, or lump in chest documented in this encounter Additional Health Concerns Assessment Noted Time A fall risk assessment has been complete d for the patient 06/02/2025 1:06 PM EDT A Body Mass Index follow-up plan has been documented for the patient 06/03/2025 11:51 AM EDT documented as of this encounter Care Teams Office Machine Mechanic Relationship Specialty Start Date End Date Leah Chavarria APRN [address] [place], [place] [id number] PCP - General 04/15/25 documented as of this encounter
--- OUTSIDE RECORDS SUMMARY | 2025-07-07 09:43 | XMS_ITS | Encounter Summary ---
Author Organization [facility] Address [address] [place] [address] Care Team Providers Care Landscape Nurseryman Name Role Phone DeonLeah Raquel BECK Primary Care Provider [phone] Encounter Details Date Type Department Care Team (Late Contact Info) Description 02/27/2025 Orders Only External Location [address] [place] [id number] Provider, External Social History Tobacco Use Types [...] 06/16/2026 2:00 PM EDT Ovarian Cancer Screening [facility] Gynecology [address] , [address] [place] [address] documented as of this encounter Procedures Procedure [...] on filedocumented in this encounter Care Teams Landscape Nurseryman Relationship Specialty Start Date End Date Leah Chavarria, EBONY [address] [place] [address] PCP - General 04/15/25 documented as of this encounter
--- OUTSIDE RECORDS SUMMARY | 2025-07-07 09:43 | XMS_ITS | Encounter Summary ---
Author Organization [facility] Address [address] [place] [address] Care Team Providers Care Senior Gis Analyst Name Role Phone DeonLeah Raquel BECK Primary Care Provider [phone] Encounter Details Date Type Department Care Team (Late Contact Info) Description 03/24/2025 Orders Only External Location [address] [place] [phone] Provider, External Social History Tobacco Use Types [...] [facility] [address] [place] [address] documented as of this encounter Procedures Procedure [...] on filedocumented in this encounter Care Teams Senior Gis Analyst Relationship Specialty Start Date End Date Leah Chavarria APRN [address] [place] [address] PCP - General 04/15/25 documented as of this encounter
--- OUTSIDE RECORDS SUMMARY | 2025-07-07 09:43 | XMS_ITS | Encounter Summary ---
Author Organization [facility] Address [address] [place] [address] Care Team Providers Care Orchard Worker Name Role Phone Deon Leah Raquel BECK Primary Care Provider [phone] Encounter Details Date Type Department Care Team (Late st Contact Info) Description 11/29/2022 Orders Only External Location [address] [place] [address] Provider, External Social History Tobacco Use Types [...] [facility] [address] , [address] [place] [address] documented as of this encounter Procedures Procedure [...] on filedocumented in this encounter Care Teams Orchard Worker Relationship Specialty Start Date End Date Leah Chavarria APRN [address] [place], [place] [id number] PCP - General 04/15/25 documented as of this encounter
--- OUTSIDE RECORDS SUMMARY | 2025-07-07 09:43 | XMS_ITS | Referral Summary ---
Author Organization [employer] ([place], [place], [place], [place]) Address [address] [place] [address] Care Team Providers Care Spindle Carver Name Role Phone Unavailable Primary Care Provider [...]
--- OUTSIDE RECORDS SUMMARY | 2025-07-07 09:43 | XMS_ITS | Encounter Summary ---
Author Organization [facility] Address [address] [place] [address] Care Team Providers Care Stock Wetter Name Role Phone DeonLeah Raquel BECK Primary Care Provider [phone] Encounter Details Date Type Department Care Team (Late Contact Info) Description 11/03/2023 Orders Only External Location [address] [place] [phone] Provider, External Social History Tobacco Use Types [...] [facility] [address] [place] [address] documented as of this encounter Procedures Procedure [...] on filedocumented in this encounter Care Teams Stock Wetter Relationship Specialty Start Date End Date Leah Chavarria, EBONY [address] [place] [address] PCP - General 04/15/25 documented as of this encounter
--- OUTSIDE RECORDS SUMMARY | 2025-07-07 09:43 | XMS_ITS | Encounter Summary ---
Author Organization [facility] Address [address] [place] [address] Care Team Providers Care Typing Secretary Name Role Phone DeonLeah Raquel BECK Primary Care Provider [phone] Encounter Details Date Type Department Care Team (Late Contact Info) Description 03/24/2025 Orders Only External Location [address] [place] [phone] Provider, External Social History Tobacco Use Types [...] PM EDT Ovarian Cancer Screening [facility] Gynecology [address] [place] [address] documented as of this encounter Procedures Procedure [...] on filedocumented in this encounter Care Teams Typing Secretary Relationship Specialty Start Date End Date Leah Chavarria, EBONY [address] [place] [address] PCP - General 04/15/25 documented as of this encounter
--- OUTSIDE RECORDS SUMMARY | 2025-07-07 09:44 | XMS_ITS | Encounter Summary ---
Author Organization [facility] Address [address] [place] [address] Care Team Providers Care Foreign Language Teacher Name Role Phone Leah Chavarria APRN Primary Care Provider [phone] Encounter Details Date Type Department Care Team [...] 06/16/2026 2:00 PM EDT Ovarian Cancer Screening [facility] Gynecology [address] [facility], [address] [place] [address] documented as of this encounter Visit Diagnoses Not on filedocumented in this encounter Additional Health Concerns Assessment Noted Time A fall risk assessment has been complete d for the patient 05/23/2025 11:53 AM EDT A Body Mass Index follow-up plan has been documented for the patient 05/23/2025 12:13 PM EDT documented as of this encounter Care Teams Foreign Language Teacher Relationship Specialty Start Date End Date Leah Chavarria APRN [address] [place] [address] PCP - General 04/15/25 documented as of this encounter
--- OUTSIDE RECORDS SUMMARY | 2025-07-07 09:44 | XMS_ITS | Clinical Summary ---
Author Organization [employer] ([place], [place], [place], [place]) Address [address] [place] [address] Care Team Providers Care Television Camera Operator Name Role Phone Unavailable Primary Care Provider [...]
--- OUTSIDE RECORDS SUMMARY | 2025-07-07 09:44 | XMS_ITS | Clinical Summary ---
Author Organization [facility] Address [address] [place] [address] Care Team Providers Care Psychological Stress Evaluator Name Role Phone Deon Leahradhika García APRN Primary Care Provider [phone] Allergies No known active allergies Medications losartan [...] & Respiratory [address] , [address] [place] [address] Gilbert Roy, DO Mediastinal mass 06/02/2025 12:11 PM EDT - 06/02/2025 11:59 PM EDT Hospital Encounter [facility] Pulmonary Function Testing [address] [place] [address] Mediastinal mass Discharge Disposition: Home or Self Care 06/02/2025 Travel 05/31/2025 Travel 05/30/2025 10:18 AM EDT - 05/30/2025 11:59 PM EDT Hospital Encounter [facility] Radiology [address] [place] [address] Discharge Disposition: Home or Self Care 05/30/2025 7:53 AM EDT - 05/30/2025 10:17 AM EDT Hospital Encounter [facility] A Interventional Radiology [address] [place] [address] Tanner Christiansen, RN Mediastinal mass Discharge Disposition: Home or Self Care 05/30/2025 Travel 05/23/2025 12:00 PM EDT Office Visit [facility] Vascular Interventional Radiology [address] [facility] [address] [place] [address] Marge Malhotra, CAR RUNNER Encounter for other preprocedural examination (Primary Dx) 05/23/2025 Travel 05/17/2025 Travel 05/03/2025 Telephone [facility] Head, Neck & Respiratory [address] [facility], [address] [place] [address] Karla Gavin RN 04/26/2025 11:10 AM EDT - 04/26/2025 11:59 PM EDT Hospital Encounter [facility] PET Scan [address] [place] [address] Discharge Disposition: Home or Self Care 04/26/2025 11:10 AM EDT - 04/26/2025 11:59 PM EDT Hospital Encounter [facility] PET Scan [address] [place] [address] Mediastinal mass Discharge Disposition: Home or Self Care 04/26/2025 Travel 04/21/2025 Travel 04/15/2025 2:15 PM EDT Office Visit [facility] Head[facility] Neck & Respiratory [address] [address] Gilbert Roy, DO Mediastinal mass (Primary Dx) 04/15/2025 Orders Only Ch Radiology Virtual Dept. [address] [place] [address] Zeyad Toussaint MD 04/15/2025 Travel from Last 3 Months Family History Medical [...] Upcoming Encounters Date Type Department Care Team ([facility] Contact Info) Description 06/16/2026 2:00 PM EDT Ovarian Cancer Screening [facility] Gynecology [address] [facility], [address]rd [place] [address] Health Maintenance Due Date Last Done Comments [facility]-Bone Density Scan 1942 [facility]-Medicare Annual Wellness (AWV) 1942 [facility]-/Child/Adol SDOH Screenings 1942 [facility]- SDOH Screenings 1960 [facility]-Adult SDOH Screenings 1960 [facility]-DTaP,Tdap,and Td Vaccines (1 - Tdap) 1961 [facility]-Pneumococcal Vaccine: 50+ Years (1 of 2 - PCV) 1961 [facility]-Zoster Vaccines (1 of 2) 1961 [facility]-RSV Vaccine: 60+ Years or (1 - 1-dose 75+ series) 2017 [facility]-[id number]-75 Vaccine (7 - Pfizer risk season) 2025 08/10/2024, 07/24/2022, 02/14/2022, Additional history [...] Routine 04/26/2025 12:44 PM EDT Mediastinal mass from Last 3 Months Results * Pulmonary function testing (06/02/2025 1:11 PM EDT) CLO9LXN 1.48 L 06/02/2025 12:59 PM EDT VYAIRE [...] 1.07 06/02/2025 12:59 PM EDT VYAIRE PFT JRZ0GUTPCFNGQ -1.64 06/02/2025 12:59 PM EDT VYAIRE PFT FEV1_Pre%Pred 69 % % 06/02/2025 12:59 PM EDT VYAIRE PFT FEV1 PREDAUTH US_Quanjer GLI (2011) 06/02/2025 12:59 PM EDT VYAIRE PFT FEV1 Z-SCORE -1.64 06/02/2025 12:59 PM EDT VYAIRE PFT FEV1/FVC PRE 72.67 % 06/02/2025 12:59 PM EDT VYAIRE PFT QYW1SHPHVSA 77 06/02/2025 12:59 PM EDT VYAIRE PFT FSK8MFRRFV 62 06/02/2025 12:59 PM EDT VYAIRE PFT DPP4GVIXMLLLJXJL -0.55 06/02/20 25 12:59 PM EDT VYAIRE PFT VQW3AXRYQV%PRED 94 % % 12:59 PM EDT VYAIRE PFT YXX8OWDUBEHD US_Quanvancer VAHE (2011) 06/02/2025 12:59 PM EDT VYAIRE PFT FRU3OEJMVURKF -1 06/02/2025 12:59 PM EDT VYAIRE PFT DHQ73-31% PRE 0.74 L/s 06/02/2025 12:59 PM EDT VYAIRE PFT PBR97-02%_Pred 1.31 06/02/2025 12:59 PM EDT VYAIRE PFT BQA6930%LLN 0.53 06/02/2025 12:59 PM EDT VYAIRE PFT SBJ4130%PREZSCORE -1.12 025 12:59 PM EDT VYAIRE PFT SNP0439%PRE%PRED 56 % % 06/02/20 12:59 PM EDT VYAIRE PFT MMH1045%PREDAUTH US_Brittr VAHE (2011) 06/02/2025 12:59 PM EDT VYAIRE [...] (1992) 06/02/2025 12:59 PM EDT VYAIRE PFT BLDWYBTGUUITVUDA8MHB 12.46 ml/(min* mmHg) 06/02/2025 12:59 PM EDT VYAIRE PFT DLCOSINGLEBREATH PRED 15.75 06/02/2025 12:59 PM EDT VYAIRE PFT DLCOSINGLEBREATH LLN 11.59 0804/2025 12:59 PM EDT VYAIRE PFT DLCOSINGLEBREATH Z-SCORE -1.27 06/02/2025 12:59 PM EDT VYAIRE PFT DLCOSINGLEBREATH % PRED 79.1 % 06/02/2025 12:59 PM EDT VYAIRE PFT DLCOSINGLEBREATH PR[facility] Reese TLCO GLI (2019) 06/02/2025 12:59 PM EDT VYAIRE PFT DLCOSINGLEBREATH Z-SCORE -1.27 06/02/2025 12:59 PM EDT VYAIRE PFT MBWEHXRLDRVUHGDNM1PN E 12.58 ml/(min* mmHg) 06/02/2025 12:59 PM EDT VYAIRE PFT DLCOCSINGLEBREATH PRED 15.75 06/02/2025 12:59 PM EDT VYAIRE PFT DLCOCSINGLEBREATH LLN 11.59 06/02/2025 12:59 PM EDT VYAIRE PFT DLCOCSINGLEBREATH Z-SCORE -1.22 06/02/2025 12:59 PM EDT VYAIRE PFT DLCOCSINGLEBREATH % PRED 79.8 % 06/02/2025 12:59 PM EDT VYAIRE PFT DLCOCSINGLEBREATH PREDAUT [employer]enifervic TLCO GLI (2019) 06/02/2025 12:59 PM EDT VYAIRE PFT TQAWPX4KCZ 5.27 ml/(min* mmHg*L) 06/02/2025 12:59 PM EDT VYAIRE PFT DLCOVAPRED 4.29 06/02/2025 12:59 PM EDT VYAIRE PFT DLCOVALLN 3.23 06/02/2025 12:59 PM EDT VYAIRE PFT DLCOVAZSCORE 1.34 06/02/2025 12:59 PM EDT VYAIRE PFT DLCOVA%PRED 122.8 % 06/02/2025 12:59 PM EDT VYAIRE PFT DLCOVAPREDAUT Reese TLCO GLI (2019) 06/02/2025 12:59 PM EDT VYAIRE PFT DLCOVAZSCORE 1.34 06/02/2025 12:59 PM EDT VYAIRE PFT ZAQPTUOXG0ZSS 5.32 ml/(min* mmHg*L) 06/02/2025 12:59 PM EDT VYAIRE PFT DLCOC SB/VA PRED 4.29 06/02/20 12:59 PM EDT VYAIRE PFT DLCOC SB/VA LLN 3.23 12:59 PM EDT VYAIRE PFT DLCOC SB/VA Z-SCORE 1.41 06/02 12:59 PM EDT VYAIRE PFT DLCOC SB/VA % PRED 124.0 % 2024 12:59 PM EDT VYAIRE PFT DLCOC SB/VA PREDAUT Rltarasvancebeverly TLCO GLI (2019) 06/02/2025 12:59 PM EDT VYAIRE PFT DLCOC SB/VA Z-SCORE 1.41 06/02 12:59 PM EDT VYAIRE PFT SUBRKVLIHMFNNB1ZQK 2.36 L 2024 12:59 PM EDT VYAIRE PFT VASINGLEBREATH PRED 3.65 06/02 12:59 PM EDT VYAIRE PFT VASINGLEBREATH LLN 2.88 2024 12:59 PM EDT VYAIRE PFT VASINGLEBREATH Z-SCORE -2.86 06/02/2025 12:59 PM EDT VYAIRE PFT VASINGLEBREATH % PRED 64.7 % 06/02/2025 12:59 PM EDT VYAIRE PFT VASINGLEBREATH PREDAUT Rltarasvancebeverly TLCO GLI (2019) 06/02/2025 12:59 PM EDT VYAIRE PFT VASINGLEBREATH Z-SCORE -2.86 06/02/2025 12:59 PM EDT VYAIRE PFT IAPPSOUAXJSHSJG2AMG 1.38 L 06/02 12:59 PM EDT VYAIRE PFT IVCSINGLEBREATH PRED 2.02 08/0 04/2025 12:59 PM EDT VYAIRE PFT IVCSINGLEBREATH LLN 1.40 06/02 12:59 PM EDT VYAIRE PFT IVCSINGLEBREATH Z-SCORE -1.72 06/02/2025 12:59 PM EDT VYAIRE PFT IVCSINGLEBREATH % PRED 67.9 % 06/02/2025 12:59 PM EDT VYAIRE PFT IVCSINGLEBREATH PRED[facility] US_Josejer GLI (2011) 06/02/2025 12:59 PM EDT VYAIRE PFT HB PRE 13.10 g(Hb)/dL 06/02/2025 12:59 PM EDT VYAIRE PFT YOG5TUD 3.21 L 06/02/2025 12:59 PM EDT VYAIRE PFT TLCPRED 4.04 06/02/2025 12:59 PM EDT VYAIRE PFT TLCLLN 3.06 06/02/2025 12:59 PM EDT VYAIRE PFT TLCULN 5.03 06/02/2025 12:59 PM EDT VYAIRE PFT TLCZSCORE -1.39 06/02/2025 12:59 PM EDT VYAIRE PFT TLC%PRED 79.3 % 06/02/2025 12:59 PM EDT VYAIRE PFT TLCPREDAUT ECCS (1992) 06/02/2025 12:59 PM EDT VYAIRE [...] (1992) 06/02/2025 12:59 PM EDT VYAIRE PFT EFHMANFR9ROQ 2.06 L 06/02/2025 12:59 PM EDT VYAIRE [...] (1992) 2024 12:59 PM EDT VYAIRE PFT BUI0LOH 0.52 L 06/02/2025 12:59 PM EDT VYAIRE [...] (1992) 06/02/2025 12:59 PM EDT VYAIRE PFT RV%LPI4WDL 47.30 % 06/02/2025 12:59 PM EDT VYAIRE PFT RV%TLCPRED 47 06/02/2025 12:59 PM EDT VYAIRE PFT RV%TLCLLN 37 06/02/2025 12:59 PM EDT VYAIRE PFT RV%TLCULN 56 06/02/2025 12:59 PM EDT VYAIRE PFT RV%TLCZSCORE 0.08 06/02/2025 12:59 PM EDT VYAIRE PFT RV%TLC%PRED 101.0 % 06/02/2025 12:59 PM EDT VYAIRE PFT RV%TLCPREDAUTH ECCS (1992) 12:59 PM EDT VYAIRE PFT XLV2OIP 2.08 L 06/02/2025 12:59 PM EDT VYAIRE PFT Anatomical Region Laterality Modality PFT 06/02/2025 12:2 4 PM EDT Narrative 06/03/2025 10:59 PM EDT Pulmonary Function Testing Report Graciela Owens underwent pulmonary function testing today at the [facility]. The patient underwent spirometry, lung [...] There are no prior studies for comparison. us Gilbert Roy DO PFT ORDERABLES Final Result [...] mass presenting for CT guided biopsy TECHNIQUE: Senior Quality Assurance Specialist: Lee Castaneda MD Secondary Facilities Flight Check Pilot: Colten Escobar MS4 DLP: 1002.01 mGy*cm Medications: [...] mass presenting for CT guided biopsy TECHNIQUE: Senior Quality Assurance Specialist: Lee Castaneda MD Secondary Facilities Flight Check Pilot: Colten Escobar MS4 DLP: 1002.01 mGy*cm Medications: [...] on 05/30/2025 10:36 AM Gilbert Roy DO IMG CT PROCEDURES Final Resul t * Fine needle aspiration - Core Biopsy (05/30/2025 9:55 AM EDT) Case Report Cytology Case: [id number] Authorizing Provider: Lee Hopson MD Collected: 05/30/2025 0955 Ordering Location: [facility] A Interventional Received: 05/30/2025 1043 Radiology Pathologist: Jyoti Bruner MD Specimen: Mass, Core Biopsy with Touch Preparation (Specify Site), MEDIASTINAL MASS, CT GUIDED CORE BIOPSY WITH TOUCH PREPS 3:22 PM EDT [facility] [...] A1-1 Johns Cytokeratin AE1 AE3: Positive A1-2 IM43-DFK: Negative A1-3 CD117: Positive A1-4 CK7: Focally positive A1-5 CK20: Negative A1-6 TTF-1: Negative A1-13 P40: Focally positive A1-14 Synaptophysin: Negative A1-15 CD5: Focally positive All controls show appropriate reactivity. All immunohistochemis try, in situ hybridization, and histochemical tests were developed by and are performed at the [facility], [address] [place] [address]. All tests reported here, except those addressing [...] Touch Prep performed by: Dr. Bruner / Immediate evaluation episode Touch Prep # 1-2: Positive The immediate evaluation in this case was performed via telecytology by the attending physician listed above. This service has been rendered in part by a resident. A pathologist has personally reviewed the slides/tissue and has rendered and is responsible for diagnosis for the diagnosis that appears on the report. 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 B Symptoms past year. 5 3:22 PM EDT [facility] Procedure Type CT 5 3:22 PM EDT [facility] Size/Description of Lesion mediastinal 5 3:22 PM EDT [facility] Cancer History Yes 5 3:22 PM EDT [facility] Previous Cancer Primary Site Skin Cancer 5 3:22 PM EDT [facility] [...] the diagnosis or interpretation. 3:22 PM EDT [facility] Clinical Information No Dx found. 3:22 PM EDT [facility] Fine Needle Aspirate Specimen from mass / Unknown Non-blood Collection / Unknown 05/30/2025 9:55 AM EDT 05/30/2025 10:43 AM EDT us Lee Romero MD LAB CYTOLOGY ORDERABLES Final Result Performing Organization Address [facility] [place] [address] * (ABNORMAL) Prothrombin Time/INR (05/23/2025 12:30 PM EDT) Prothrombin Time 15.2(H) 12.0 - 14.3 sec LAB COAGULATION METHOD 05/23/2025 2:46 PM EDT [facility] INR 1.2(H) 0.9 - 1.1 LAB COAGULATION METHOD 05/23/2025 2:46 PM EDT [facility] Blood Venous blood specimen / Unknown Venipuncture / Unknown 05/23/2025 12:30 PM EDT 05/23/2025 12:31 PM EDT Narrative [facility] - 05/23/2025 2:46 PM EDT OPTIMAL INR RANGES FOR PATIENT ON ORAL ANTICOAGULANT THERAPY Prevention of venous thromboembolism INR 2.0 to 3.0 In patients with heart disease: Atrial fibrillation INR 2.0 to 3.0 Valvular heart disease INR 2.0 to 3.0 Tissue heart valves INR 2.0 to 3.0 Mechanical prosthetic valves INR 2.5 to 3.5 Prevention of recurrent SD INR 2.5 to 3.5 us Marge Malhotra APRN LAB BLOOD ORDERABLES Final R esult Performing Organization Address City/[facility]/ZIP Co de Phone Number [facility] [address] [place] [address] * (ABNORMAL) CBC W/O Differential (05/23/2025 12:30 PM EDT) WBC Count 7.32 3.70 - 10.30 10*3/uL LAB HEMATOLOGY METHOD 05/23/2025 2:31 PM EDT [facility] RBC Count 4.55 3.90 - 5.20 10*6/uL LAB HEMATOLOGY METHOD 05/23/2025 2:31 PM EDT [facility] HGB 13.1 11.2 - 15.7 g/dL LAB HEMATOLOGY METHOD 05/23/2025 2:31 PM EDT [facility] HCT 41.4 34.0 - 45.0 % LAB HEMATOLOGY METHOD 05/23/2025 2:31 PM EDT [facility] Platelet Count 192 155 - 369 10*3/uL LAB HEMATOLOGY METHOD 05/23/2025 2:31 PM EDT [facility] MCV 91 79 - 98 fL LAB HEMATOLOGY METHOD 05/23/2025 2:31 PM EDT [facility] MCH 28.8 26.0 - 32.0 pg LAB HEMATOLOGY METHOD 05/23/2025 2:31 PM EDT [facility] MCHC 31.6 30.7 - 35.5 g/dL LAB HEMATOLOGY METHOD 05/23/2025 2:31 PM EDT [facility] RDW 14.7(H) 11.5 - 14.5 % LAB HEMATOLOGY METHOD 05/23/2025 2:31 PM EDT [facility] MPV 12.6(H) 8.8 - 12.5 fL LAB HEMATOLOGY METHOD 05/23/2025 2:31 PM EDT [facility] nRBC 0.0 <=0.0 per 100 WBCs LAB HEMATOLOGY METHOD 05/23/2025 2:31 PM EDT [facility] Blood Venous blood specimen / Unknown Venipuncture / Unknown 05/23/2025 12:30 PM EDT 05/23/2025 12:31 PM EDT us Marge Malhotra CAR RUNNER LAB BLOOD ORDERABLES Final R esult [facility] [address] [place] [address] * (ABNORMAL) Comprehensive Metabolic Panel, Plasma (05/23/2025 12:30 PM EDT) [facility] Glucose, Plasma 92 74 - 99 mg/dL 05/23/2025 2:40 PM EDT [facility] BUN, Plasma 15 8 - 23 mg/dL 05/23/2025 2:40 PM EDT [facility] Creatinine, Plasma 0.63 0.60 - 1.10 mg/dL 05/23/2025 2:40 PM EDT [facility] BUN/Creatinine Ratio 24 05/23/2025 2:40 PM EDT [facility] Sodium, Plasma 139 136 - 145 mmol/L 05/23/2025 2:40 PM EDT [facility] Potassium, Plasma 5.3(H) 3.6 - 4.9 mmol/L 05/23/2025 2:40 PM EDT [facility] Chloride, Plasma 102 97 - 107 mmol/L 05/23/2025 2:40 PM EDT [facility] CO2, Plasma 25 22 - 29 mmol/L 05/23/2025 2:40 PM EDT [facility] Anion Gap 12 6 - 16 mmol/L 05/23/2025 2:40 PM EDT [facility] Total Calcium, Plasma 9.5 8.9 - 10.2 mg/dL 05/23/2025 2:40 PM EDT [facility] Total Protein 7.7 6.3 - 7.9 g/dL 05/23/2025 2:40 PM EDT [facility] Albumin, Plasma 4.1 3.5 - 5.2 g/dL 05/23/2025 2:40 PM EDT [facility] AST, Plasma 26 10 - 35 U/L 05/23/2025 2:40 PM EDT [facility] ALT, Plasma 20 10 - 35 U/L 05/23/2025 2:40 PM EDT [facility] Alkaline Phosphatase, Plasma 91 46 - 142 U/L 05/23/2025 2:40 PM EDT [facility] Total Bilirubin, Plasma 0.8 0.2 - 1.1 mg/dL 05/23/2025 2:40 PM EDT [facility] eGFRcr 88.7 mL/min/1.7 3m*2 05/23/2025 2:40 PM EDT [facility] Comment:Reported eGFRcr in m L/min/1.73m2 is based the CKD-EPI 2020 equation that does not use a race coefficient. Blood Venous blood specimen / Unknown Venipuncture / Unknown 05/23/2025 12:30 PM EDT 05/23/2025 12:31 PM EDT us Marge Malhotra CAR RUNNER LAB BLOOD ORDERABLES Final R esult [facility] [address] [place] [address] * PET/CT FDG Skull Base To Mid [...] scanner: Siemens Biograph 40 mCT. PET/CT acquisition: Klacvd-pf-fyo-thighs. Standardized uptake value (SUV): Corrected for body weight only. CT: Low-dose, fwl-wxopzr-dbgg, without intravenous contrast. TOTAL DLP (Dose Length [...] scanner: Siemens Biograph 40 mCT. PET/CT acquisition: Zzhrab-mv-nnj-thighs. Standardized uptake value (SUV): Corrected for body weight only. CT: Low-dose, jhr-duintg-vubu, without intravenous contrast. TOTAL DLP (Dose Length [...] DO IMG NM PROCEDURES Final Resul t from Last 3 Months Insurance [facility] MEDICARE Advance Directives Documents on File Type Date Recorded Patient Systems Checkout Mechanic Expl anation Advance Directives and Livin g Will 04/15/2025 Living Will & POA Care Teams Psychological Stress Evaluator Relationship Specialty Start Date End Date Leah Chavarria APRN [address] [place] [address] PCP - General 04/15/25
--- OUTSIDE RECORDS SUMMARY | 2025-07-07 09:44 | XMS_ITS | Encounter Summary ---
Author Organization [facility] Address [address] [place] [address] Care Team Providers Care Production Mechanic Name Role Phone DeonLeah Raquel BECK Primary Care Provider [phone] Encounter Details Date Type Department Care Team [...] 2:00 PM EDT Ovarian Cancer Screening [facility] Gynecology [address] [facility]rd [place] [address] documented as of this encounter Visit Diagnoses Not on filedocumented in this encounter Additional Health Concerns Assessment Noted Time A fall risk assessment has been complete d for the patient 06/02/2025 1:06 PM EDT A Body Mass Index follow-up plan has been documented for the patient 06/03/2025 11:51 AM EDT documented as of this encounter Care Teams Production Mechanic Relationship Specialty Start Date End Date Leah Chavarria APRN [address] [place] [address] PCP - General 04/15/25 documented as of this encounter
--- OUTSIDE RECORDS SUMMARY | 2025-07-07 09:44 | XMS_ITS | Encounter Summary ---
Author Organization [facility] Address [address] [place] [address] Care Team Providers Care Chiropractic Care Name Role Phone Leah Chavarria APRN Primary Care Provider [phone] Encounter Details Date Type Department Care Team [...] 06/16/2026 2:00 PM EDT Ovarian Cancer Screening [facility] Gynecology [address] [facility], [address] [place] [address] documented as of this encounter Visit Diagnoses Not on filedocumented in this encounter Additional Health Concerns Assessment Noted Time A fall risk assessment has been complete d for the patient 05/23/2025 11:53 AM EDT A Body Mass Index follow-up plan has been documented for the patient 05/30/2025 10:29 AM EDT documented as of this encounter Care Teams Chiropractic Care Relationship Specialty Start Date End Date Leah Chavarria APRN [address] [place] [address] PCP - General 04/15/25 documented as of this encounter
--- OUTSIDE RECORDS SUMMARY | 2025-07-07 09:44 | XMS_ITS | Encounter Summary ---
Author Organization [facility] Address [address] [place] [address] Care Team Providers Care Extension Service Advisor Name Role Phone Leah Cahvarria APRN Primary Care Provider [phone] Encounter Details Date Type Department Care Team [...] PM EDT Ovarian Cancer Screening [facility] Gynecology [address] [facility], [address] [place] [address] documented as of this encounter Visit Diagnoses Not on filedocumented in this encounter Additional Health Concerns Assessment Noted Time A fall risk assessment has been complete d for the patient 05/23/2025 11:53 AM EDT A Body Mass Index follow-up plan has been documented for the patient 05/30/2025 10:29 AM EDT documented as of this encounter Care Teams Extension Service Advisor Relationship Specialty Start Date End Date Leah Chavarria APRN [address] [place] [address] PCP - General 04/15/25 documented as of this encounter
--- OUTSIDE RECORDS SUMMARY | 2025-07-07 09:44 | XMS_ITS | Encounter Summary ---
Author Organization [facility] Address [address] [place] [address] Care Team Providers Care Service Unit Operator Name Role Phone Leah Chavarria APRN Primary Care Provider [phone] Encounter Details Date Type Department Care Team [...] [facility] Gynecology [address] [place] [address] documented as of this encounter Visit Diagnoses Not on filedocumented in this encounter Additional Health Concerns Assessment Noted Time A fall risk assessment has been complete d for the patient 04/15/2025 1:46 PM EDT A Body Mass Index follow-up plan has been documented for the patient 04/18/2025 3:31 PM EDT documented as of this encounter Care Teams Service Unit Operator Relationship Specialty Start Date End Date Leah Chavarria APRN [address] [place] [address] PCP - General 04/15/25 documented as of this encounter
[2025-07-07 10:05] LABS: Alanine Aminotransferase 22 U/L (12-78); Albumin Level 4.0 g/dl (3.5-5.0); Albumin/Globulin Ratio 1.3 (1.1-1.8); Alkaline Phosphatase 39 U/L (38-126); Anion Gap 12.1 mEq/L (5-15); Aspartate Amino Transferase 53 U/L (14-36); Bilirubin,Total 1.3 mg/dl (0.2-1.3); Blood Urea Nitrogen 25 mg/dl (7-17); Calcium 8.8 mg/dl (8.4-10.2); Carbon Dioxide 24 mmol/L (22.0-30.0); Chloride 105 mmol/L (98-107); Creatinine,Serum 0.60 mg/dl (0.52-1.04); Estimated Glomerular Filt Rate 96 ml/min (>60); GFR (African American) 116 ML/MIN (>60); Globulin 3.2 g/dL (1.3-3.2); Glucose 141 mg/dl (74-100); Potassium 5.1 mmoL/L (3.5-5.1); Sodium 136 mmol/L (136-145); Total Protein,Serum 7.2 g/dl (6.3-8.2)
[2025-07-07 10:26] LABS: Hematocrit 36.9 % (37.0-47.0); Hemoglobin 11.9 g/dL (12.2-16.2); Immature Granulocytes % 0.6 %; Mean Corpuscular HGB Conc 32.2 g/dL (31.8-35.4); Mean Corpuscular Hemoglobin 29.0 pg (27.0-31.2); Mean Corpuscular Volume 90.0 fl (81-99); Nucleated Red Blood Cells % 0 %; Platelet Count 166 K/mm3 (142-424); Red Blood Count 4.10 M/mm3 (4.20-5.40); Red Cell Distribution Width-SD 47.9 fL; White Blood Count 5.4 K/mm3 (4.8-10.8)
[2025-07-07] MEDS: ONDANSETRON 4MG ODT 16 MG (10:35)
[2025-07-07] MEDS: DEXAMETHASONE 4MG TABLET 12 MG (10:35)
[2025-07-07] MEDS: LORATADINE 10MG TABLET 10 MG PO (10:36)
[2025-07-07] MEDS: FAMOTIDINE 20MG TABLET 20 MG (10:36)
[2025-07-07 11:13] VITALS: BP 125/73; PULSE 74; RESP 18; TEMP 36.8; O2SAT 97
[2025-07-07] MEDS: DEXTROSE 5% IV (11:13)
[2025-07-07] MEDS: WATER IV (11:13)
[2025-07-07] MEDS: PACLITAXEL IV (11:13)
[2025-07-07 11:45] VITALS: BP 131/74; PULSE 71
[2025-07-07 12:05] VITALS: BP 134/68; PULSE 70; RESP 18
[2025-07-07] MEDS: CARBOplatin 150 MG in 0.9 % SODIUM CHLORIDE 100 ML 230 MG IV (12:05)
[2025-07-07 12:35] VITALS: BP 129/64; PULSE 70; O2SAT 100
== END 2025-07-07 12:40 | disposition home or self-care (01) ==
LOC: INF 09:29
PROVIDERS: PCP Family Medicine; Visit Provider Internal Medicine Medical Oncology
DX: C37 Malignant neoplasm of thymus (principal); Z51.11 Encounter for antineoplastic chemotherapy
CPT/HCPCS: 80053; 85025; 96413; 96415; 96417; J7060; J8540; J9045; J9267; Q0162

== ENCOUNTER 2025-07-14 08:25 | Outpatient (CLI) | payer MEDICARE, SELFPAY ==
[2025-07-14] VITALS (8 sets, daily range): BP systolic 122–152; BP diastolic 65–87; PULSE 76–90; RESP 16–17; TEMP 36.6; O2SAT 97
[2025-07-14 09:13] LABS: Hematocrit 36.4 % (37.0-47.0); Hemoglobin 11.3 g/dL (12.2-16.2); Mean Corpuscular HGB Conc 31.0 g/dL (31.8-35.4); Mean Corpuscular Hemoglobin 28.1 pg (27.0-31.2); Mean Corpuscular Volume 90.5 fl (81-99); Nucleated Red Blood Cells % 0 %; Platelet Count 143 K/mm3 (142-424); Red Blood Count 4.02 M/mm3 (4.20-5.40); Red Cell Distribution Width-SD 48.5 fL; White Blood Count 3.9 K/mm3 (4.8-10.8)
[2025-07-14 09:28] LABS: Albumin Level 3.9 g/dl (3.5-5.0); Chloride 102 mmol/L (98-107)
[2025-07-14 09:29] LABS: Potassium 4.2 mmoL/L (3.5-5.1); Sodium 138 mmol/L (136-145)
[2025-07-14 09:31] LABS: Alanine Aminotransferase 19 U/L (12-78); Anion Gap 12.2 mEq/L (5-15); Aspartate Amino Transferase 32 U/L (14-36); Blood Urea Nitrogen 17 mg/dl (7-17); Carbon Dioxide 28 mmol/L (22.0-30.0); Creatinine,Serum 0.60 mg/dl (0.52-1.04); Estimated Glomerular Filt Rate 96 ml/min (>60); GFR (African American) 116 ML/MIN (>60)
[2025-07-14 09:32] LABS: Albumin/Globulin Ratio 1.3 (1.1-1.8); Alkaline Phosphatase 65 U/L (38-126); Bilirubin,Total 0.8 mg/dl (0.2-1.3); Calcium 9.2 mg/dl (8.4-10.2); Globulin 3.0 g/dL (1.3-3.2); Glucose 100 mg/dl (74-100); Total Protein,Serum 6.9 g/dl (6.3-8.2)
[2025-07-14 09:41] LABS: Immature Granulocytes % 0.5 %
[2025-07-14] MEDS: FAMOTIDINE 20MG TABLET 20 MG (09:54)
[2025-07-14] MEDS: LORATADINE 10MG TABLET 10 MG PO (09:54)
[2025-07-14] MEDS: DEXAMETHASONE 4MG TABLET 12 MG (09:54)
[2025-07-14] MEDS: ONDANSETRON 4MG ODT 16 MG (09:55)
[2025-07-14] MEDS: PACLITAXEL IV (10:25)
[2025-07-14] MEDS: WATER IV (10:25)
[2025-07-14] MEDS: SODIUM CHLORIDE 0.9% 100ML BAG 100 ML IV (10:25)
[2025-07-14] MEDS: DEXTROSE 5% IV (10:25)
[2025-07-14] MEDS: CARBOplatin 150 MG in 0.9 % SODIUM CHLORIDE 100 ML 230 MG IV (11:35)
== END 2025-07-14 23:59 | disposition home or self-care (01) ==
LOC: INF 08:26
PROVIDERS: PCP Family Medicine; Visit Provider Internal Medicine Medical Oncology
DX: C37 Malignant neoplasm of thymus (principal); Z51.11 Encounter for antineoplastic chemotherapy
CPT/HCPCS: 36415; 80053; 85025; 96413; 96415; 96417; J7060; J8540; J9045; J9267; Q0162

== ENCOUNTER 2025-07-21 09:23 | Outpatient (CLI) | payer MEDICARE, SELFPAY ==
--- OUTSIDE RECORDS SUMMARY | 2025-05-23 12:00 | XMS_ITS | Encounter Summary ---
Author Organization Healthcare Address [address] [place] [address] Care Team Providers Care Grievance Manager Name Role Phone Deon Leah García APRN Primary Care Provider [phone] Reason for Visit * Reason Comments Consult Encounter Details Date Type Department Care Team (Latest Contact Info) Description 05/23/2025 12:00 PM EDT Office Visit [facility]iology [address] [place] [address] Marge Malhotra, JOURNEYMAN LEVEL ACOUSTIC ANALYST [address] [place] [address] Encounter for other preprocedural examination [...] 05/23/2025 11:55 AM EDT Aurora Anaya * How difficult have these problems made it for you to do your work, take care of things at home, or get along with other people? Answer Date of Assessment Author Not difficult at all 05/23/2025 11:55 AM EDT Aurora Gr documented as of this encounter Miscellaneous Notes [...] scanner: Siemens Biograph 40 mCT. PET/CT acquisition: Ghdvdu-dg-nmt-thighs. Standardized uptake value (SUV): Corrected for body weight only. CT: Low-dose, oij-nmfsmf-tayq, without intravenous contrast. TOTAL DLP (Dose Length [...] % ophthalmic solution, , Disp: , Rfl: Xhbabyp-Hlydniwbd-Cjbt 500-250-12.5 MG tablet, Take by mouth., Disp: , Rfl: latanoprost (Xalatan) 0.005 % ophthalmic solution, , Disp: , Rfl: losartan (Cozaar) 25 MG tablet, , Disp: , Rfl: VITAMIN E PO, Take by mouth., Disp: , Rfl: documented in this encounter Plan of Treatment Upcoming Encounters Date Type Department Care Team (Late st Contact Info) Description 06/16/2026 2:00 PM EDT Ovarian Cancer Screening [facility] Gynecology [address] [facility] [place] [address] documented as of this encounter Results * (ABNORMAL) CBC W/O Differential (05/23/2025 12:30 PM EDT) WBC Count 7.32 3.70 - 10.30 10*3/uL LAB HEMATOLOGY METHOD 05/23/2025 2:31 PM EDT [facility] RBC Count 4.55 3.90 - 5.20 10*6/uL LAB HEMATOLOGY METHOD 05/23/2025 2:31 PM EDT [facility] HGB 13.1 11.2 - 15.7 g/dL LAB HEMATOLOGY METHOD 05/23/2025 2:31 PM EDT [facility] HCT 41.4 34.0 - 45.0 % LAB HEMATOLOGY METHOD 05/23/2025 2:31 PM EDT [facility] Platelet Count 192 155 - 369 10*3/uL LAB HEMATOLOGY METHOD 05/23/2025 2:31 PM EDT [facility] MCV 91 79 - 98 fL LAB HEMATOLOGY METHOD 05/23/2025 2:31 PM EDT [facility] MCH 28.8 26.0 - 32.0 pg LAB HEMATOLOGY METHOD 05/23/2025 2:31 PM EDT [facility] MCHC 31.6 30.7 - 35.5 g/dL LAB HEMATOLOGY METHOD 05/23/2025 2:31 PM EDT [facility] RDW 14.7(H) 11.5 - 14.5 % LAB HEMATOLOGY METHOD 05/23/2025 2:31 PM EDT [facility] MPV 12.6(H) 8.8 - 12.5 fL LAB HEMATOLOGY METHOD 05/23/2025 2:31 PM EDT [facility] nRBC 0.0 <=0.0 per 100 WBCs LAB HEMATOLOGY METHOD 05/23/2025 2:31 PM EDT [facility] Blood Venous blood specimen / Unknown Venipuncture / Unknown 05/23/2025 12:30 PM EDT 05/23/2025 12:31 PM EDT us Marge Malhotra JOURNEYMAN LEVEL ACOUSTIC ANALYST LAB BLOOD ORDERABLES Final R esult [facility] [address] [place] [address] * (ABNORMAL) Comprehensive Metabolic Panel, Plasma (05/23/2025 12:30 PM EDT) Glucose, Plasma 92 74 - 99 mg/dL 05/23/2025 2:40 PM EDT [facility] BUN, Plasma 15 8 - 23 mg/dL 05/23/2025 2:40 PM EDT [facility] Creatinine, Plasma 0.63 0.60 - 1.10 mg/dL 05/23/2025 2:40 PM EDT [facility] BUN/Creatinine Ratio 24 05/23/2025 2:40 PM EDT [facility] Sodium, Plasma 139 136 - 145 mmol/L 05/23/2025 2:40 PM EDT [facility] Potassium, Plasma 5.3(H) 3.6 - 4.9 mmol/L 05/23/2025 2:40 PM EDT [facility] Chloride, Plasma 102 97 - 107 mmol/L 05/23/2025 2:40 PM EDT [facility] CO2, Plasma 25 22 - 29 mmol/L 05/23/2025 2:40 PM EDT [facility] Anion Gap 12 6 - 16 mmol/L 05/23/2025 2:40 PM EDT [facility] Total Calcium, Plasma 9.5 8.9 - 10.2 mg/dL 05/23/2025 2:40 PM EDT [facility] Total Protein 7.7 6.3 - 7.9 g/dL 05/23/2025 2:40 PM EDT [facility] Albumin, Plasma 4.1 3.5 - 5.2 g/dL 05/23/2025 2:40 PM EDT [facility] AST, Plasma 26 10 - 35 U/L 05/23/2025 2:40 PM EDT [facility] ALT, Plasma 20 10 - 35 U/L 05/23/2025 2:40 PM EDT [facility] Alkaline Phosphatase, Plasma 91 46 - 142 U/L 05/23/2025 2:40 PM EDT [facility] Total Bilirubin, Plasma 0.8 0.2 - 1.1 mg/dL 05/23/2025 2:40 PM EDT [facility] eGFRcr 88.7 mL/min/1.7 3m*2 05/23/2025 2:40 PM EDT [facility] Comment:Reported eGFRcr in m L/min/1.73m2 is based the CKD-EPI 2020 equation that does not use a race coefficient. Blood Venous blood specimen / Unknown Venipuncture / Unknown 05/23/2025 12:30 PM EDT 05/23/2025 12:31 PM EDT us Marge Malhotra JOURNEYMAN LEVEL ACOUSTIC ANALYST LAB BLOOD ORDERABLES Final R esult [facility] [address] [place] [address] * (ABNORMAL) Prothrombin Time/INR (05/23/2025 12:30 PM EDT) Prothrombin Time 15.2(H) 12.0 - 14.3 sec LAB COAGULATION METHOD 05/23/2025 2:46 PM EDT [facility] INR 1.2(H) 0.9 - 1.1 LAB COAGULATION METHOD 05/23/2025 2:46 PM EDT [facility] Blood Venous blood specimen / Unknown Venipuncture / Unknown 05/23/2025 12:30 PM EDT 05/23/2025 12:31 PM EDT Narrative [facility] - 05/23/2025 2:46 PM EDT OPTIMAL INR RANGES FOR PATIENT ON ORAL ANTICOAGULANT THERAPY Prevention of venous thromboembolism INR 2.0 to 3.0 In patients with heart disease: Atrial fibrillation INR 2.0 to 3.0 Valvular heart disease INR 2.0 to 3.0 Tissue heart valves INR 2.0 to 3.0 Mechanical prosthetic valves INR 2.5 to 3.5 Prevention of recurrent DC INR 2.5 to 3.5 us Marge Malhotra APRN LAB BLOOD ORDERABLES Final R esult [facility] [address] [place] [address] documented in this encounter Visit Diagnoses Diagnosis Encounter for other preprocedural examination- Primary documented in this encounter Additional Health Concerns Assessment Noted Time A fall risk assessment has been complete d for the patient 05/23/2025 11:53 AM EDT A Body Mass Index follow-up plan has been documented for the patient 05/23/2025 12:13 PM EDT documented as of this encounter Care Teams Grievance Manager Relationship Specialty Start Date End Date Leah Chavarria APRN [address] [place] [address] PCP - General 04/15/25 documented as of this encounter
--- OUTSIDE RECORDS SUMMARY | 2025-05-30 07:53 | XMS_ITS | Encounter Summary ---
Author Organization [facility] Address [address] [place] [address] Care Team Providers Care Gas Prover Name Role Phone Leah Chavarria APRN Primary Care Provider [phone] Reason for Referral * Imaging (Routine) - Closed Specialty Diagnoses / Procedures Referred By Contac t Referred To Contact Radiology Diagnoses Mediastinal mass Procedures CT Guided Biopsy Muscle Consult to Interventional Radiology Gilbert Roy DO [address] [address] Phone: tel: fax: Referral ID Status Reason Start Date Expiration Date Visits Re quested Visits Authorized [id number] Closed 04/15/2025 10/15/2026 1 1 Reason for Visit * Imaging (Routine) - Closed Specialty Diagnoses / Procedures Referred By Contac t Referred To Contact Radiology Diagnoses Mediastinal mass Procedures CT Guided Biopsy Muscle Consult to Interventional Radiology Gilbert Roy DO [address] [address] Phone: tel: fax: Referral ID Status Reason Start Date Expiration Date Visits Re quested Visits Authorized [id number] Closed 04/15/2025 10/15/2026 1 1 Encounter Details Date Type Department Care Team (Latest Contact Info) Description 05/30/2025 7:53 AM EDT - 05/30/2025 10:17 AM EDT Hospital Encounter [facility] Interventional Radiology [address] [place] [address] Tanner Christiansen, RN Mediastinal mass Discharge Disposition: [...] at the site of the biopsy. Call [phone] right away if any of these occur: Shortness of breath Chest pain *Interventional Radiology* (IR) Questions/Concerns & Appointments: If there are questions or concerns after discharge please call: Vascular and Interventional Radiology Clinic at [phone] Friday - Friday 8:00 AM to 4:30 PM After hours, weekends, and holidays please call [phone] and ask for the Interventional Radiology provider/Resident on-call Intervention Radiology Appointments: If you need to reschedule a procedure, please call our Schedulers at [phone], option 4. If you need to schedule or reschedule a clinic appointment, please call [phone]. [facility] Vascular and Interventional Radiology Clinic [place] [address] [facility], First [address] [place] [address] documented in this encounter Medications at Time [...] Brief Postprocedure Note Attending: Lee Romero MD Food Processing Scientist: DANIA Logan Pre-operative Diagnosis: Hypermetabolic anterior mediastinal [...] saw and evaluated the patient with the medical/DOG SHOW JUDGE/PA student. I discussed the case with the medical/DOG SHOW JUDGE/PA student and agree with the findings and plan as documented. I personally performed the Examand Medical Decision Making. Lee Romero MD * Pre-Procedure Note - Wesly Ecsobar - 05/30/2025 9:30 AM EDT Images from [...] been discussed with the patient and/or their termite control representative. All questions answered and they agree to proceed. [1] Social History Tobacco Use Smoking Status Never Smokeless Tobacco Never [2] Current Outpatient Medications Medication Sig Dispense Refill atorvastatin (Lipitor) 10 MG tablet brimonidine (AlphaGAN P) 0.1 % ophthalmic solution Uqbbvxu-Fqpmtolvk-Igap 500-250-12.5 MG tablet Take by mouth. ferrous [...] saw and evaluated the patient with the medical/DOG SHOW JUDGE/PA student. I discussed the case with the medical/DOG SHOW JUDGE/PA student and agree with the findings and [...] saw and evaluated the patient with the medical/DOG SHOW JUDGE/PA student. I discussed the case with the medical/DOG SHOW JUDGE/PA student and agree with the findings and [...] scanner: Siemens Biograph 40 mCT. PET/CT acquisition: Wpqfmf-qo-uzb-thighs. Standardized uptake value (SUV): Corrected for body weight only. CT: Low-dose, wha-xhzhsj-rlbf, without intravenous contrast. TOTAL DLP (Dose Length [...] % ophthalmic solution, , Disp: , Rfl: Vfwzbpv-Hxnipmxae-Gtqs 500-250-12.5 MG tablet, Take by mouth., Disp: , Rfl: latanoprost (Xalatan) 0.005 % ophthalmic solution, , Disp: , Rfl: losartan (Cozaar) 25 MG tablet, , Disp: , Rfl: VITAMIN E PO, Take by mouth., Disp: , Rfl: documented in this encounter Plan of Treatment Upcoming Encounters Date Type Department Care Team (Late st Contact Info) Description 06/16/2026 2:00 PM EDT Ovarian Cancer Screening [facility] Gynecology [address] [place] [address], [address] [place] [address] documented as of this encounter Procedures Procedure [...] mass presenting for CT guided biopsy TECHNIQUE: Powerhouse Mechanic Helper: Lee Castaneda MD Secondary Assistant Professor Of Theater: Colten Escobar MS4 DLP: 1002.01 mGy*cm Medications: [...] mass presenting for CT guided biopsy TECHNIQUE: Powerhouse Mechanic Helper: Lee Castaneda MD Secondary Assistant Professor Of Theater: Colten QUISPE DLP: 1002.01 mGy*cm Medications: IV [...] on 05/30/2025 10:36 AM Gilbert Roy DO [facility] CT PROCEDURES Final Resul t * Fine needle aspiration - Core Biopsy (05/30/2025 9:55 AM EDT) Case Report Cytology Case: [id number] Authorizing Provider: Lee Hopson MD Collected: 05/30/2025 0955 Ordering Location: [facility] Interventional Received: 05/30/2025 1043 Radiology Pathologist: Jyoti Bruner MD Specimen: Mass, Core Biopsy with Touch Preparation (Specify Site), MEDIASTINAL MASS, CT GUIDED CORE BIOPSY WITH TOUCH PREPS 5 3:22 PM EDT [facility] Final Diagnosis A. MEDIASTINAL MASS, CT GUIDED CORE BIOPSY: - POSITIVE FOR MALIGNANCY, SQUAMOUS CELL CARCINOMA (SEE COMMENT). 3:22 PM EDT [facility] at 1522 EDT Comment The immunophenotype would favor a thymic primary, although metastases from other sites cannot be entirely excluded. Clinical correlation is suggested. 3:22 PM EDT [facility] Special and Immunohistochemical Stains IHC: A1-1 Johns Cytokeratin AE1 AE3: Positive A1-2 IH34-GCN: Negative A1-3 CD117: Positive A1-4 CK7: Focally positive A1-5 CK20: Negative A1-6 TTF-1: Negative A1-13 P40: Focally positive A1-14 Synaptophysin: Negative A1-15 CD5: Focally positive All controls show appropriate reactivity. All immunohistochemis try, in situ hybridization, and histochemical tests were developed by and are performed at the [facility], [address] [place] [address]. All tests reported here, except those addressing [...] negativity on decalcified specimens. 3:22 PM EDT [facility] Intradepartmental Consultation with Agreement Dr. Susan Jin 3:22 PM EDT [facility] Immediate Evaluation Core biopsy performed by: [...] appears on the report. 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 B Symptoms past year. 3:22 PM EDT [facility] Procedure Type CT 3:22 PM EDT [facility] Size/Description of Lesion mediastinal 3:22 PM EDT [facility] Cancer History Yes 3:22 PM EDT [facility] Previous Cancer Primary Site Skin Cancer 3:22 PM EDT [facility] Gross Description A. MEDIASTINAL MASS, CT GUIDED CORE BIOPSY WITH TOUCH PREPS Multiple white huerta cores of friable tissue, all measuring less than 0.1 cm in diameter and ranging from 0.1 cm to 0.8 cm in length, entirely submitted in biowrap and/or cassette. Received 2 diff quick touch prep slides. Cold Time: 19m 3:22 PM EDT [facility] Note: A resident was involved in the service. I attest I examined the relevant preparations for the specimens and confirmed the diagnosis or interpretation. 3:22 PM EDT [facility] Clinical Information No Dx found. 3:22 PM EDT [facility] Fine Needle Aspirate Specimen from mass / Unknown Non-blood Collection / Unknown 05/30/2025 9:55 AM EDT 05/30/2025 10:43 AM EDT us Lee Romero MD LAB CYTOLOGY ORDERABLES Final Result [facility] [address] [place] [address] documented in this encounter Visit Diagnoses Diagnosis [...] documented as of this encounter Care Teams Gas Prover Relationship Specialty Start Date End Date Leah Chavarria APRN [address] [place] [address] PCP - General 04/15/25 documented as of this encounter
--- OUTSIDE RECORDS SUMMARY | 2025-05-30 10:18 | XMS_ITS | Encounter Summary ---
Author Organization Healthcare Address [address] [place] [address] Care Team Providers Care Insurance Sales Associate Name Role Phone Leah Chavarria APRN Primary Care Provider [phone] Encounter Details Date Type Department Care Team (Latest Contact Info) Description 05/30/2025 10:18 AM EDT - 05/30/2025 11:59 PM EDT Hospital Encounter [facility] Radiology [address] [place] [phone] Discharge Disposition: Home or Self Care Social [...] [facility] Gynecology [address] [place] [address] documented as of this encounter Procedures Procedure Name Priority Date/Time Associated Diagnosis Comments XR CHEST 1 VIEW Routine 05/30/2025 10:51 AM EDT documented in this encounter Results [...] MD IMG XR PROCEDURES Final Resul t documented in this encounter Visit Diagnoses Not on filedocumented in this encounter Additional Health Concerns Assessment Noted Time A fall risk assessment has been complete d for the patient 05/23/2025 11:53 AM EDT A Body Mass Index follow-up plan has been documented for the patient 05/30/2025 10:29 AM EDT documented as of this encounter Care Teams Insurance Sales Associate Relationship Specialty Start Date End Date Leah Chavarria, BREED TO WEAN PRODUCTION TECHNICIAN [address] [place] [address] PCP - General 04/15/25 documented as of this encounter
--- OUTSIDE RECORDS SUMMARY | 2025-06-02 12:11 | XMS_ITS | Encounter Summary ---
Author Organization Healthcare Address [address] [place] [address] Care Team Providers Care Trust Operations Assistant Name Role Phone Leah Chavarria APRN Primary Care Provider [phone] Encounter Details Date Type Department Care Team (Latest Contact Info) Description 06/02/2025 12:11 PM EDT - 06/02/2025 11:59 PM EDT Hospital Encounter PAV H Pulmonary Function Testing [address] [place] [phone] Mediastinal mass Discharge Disposition: Home or Self [...] EDT Ovarian Cancer Screening PAV Gynecology [address] [facility], [address] [place] [address] documented as of this encounter Procedures Procedure Name Priority Date/Time Associated Diagnosis Comments HC DIFFUSING CAPACITY - CARBON MONOXIDE DIFFUSING CAPACITY Routine 06/02/2025 1:11 PM EDT Mediastinal mass documented in this encounter Results * Pulmonary function testing (06/02/2025 1:11 PM EDT) NKV6JSR 1.48 L 06/02/2025 12:59 PM EDT VYAIRE [...] 1.07 06/02/2025 12:59 PM EDT VYAIRE PFT EUJ0KLZYLVEHB -1.64 06/02/2025 12:59 PM EDT VYAIRE PFT FEV1_Pre%Pred 69 % % 06/02/2025 12:59 PM EDT VYAIRE PFT FEV1 PREDAUTH JANJosewanda COTTER (2011) 06/02/2025 12:59 PM EDT VYAIRE PFT FEV1 Z-SCORE -1.64 06/02/2025 12:59 PM EDT VYAIRE PFT FEV1/FVC PRE 72.67 % 06/02/2025 12:59 PM EDT VYAIRE PFT VCP1HPLHPMK 77 06/02/2025 12:59 PM EDT VYAIRE PFT EYC0PKWMAY 62 06/02/2025 12:59 PM EDT VYAIRE PFT DAB2GITJQNQLGAER -0.55 06/02/20 25 12:59 PM EDT VYAIRE PFT DZD0TEPPTW%PRED 94 % % 12:59 PM EDT VYAIRE PFT KVR8WPNLTDJS Meenawanda COTTER (2011) 06/02/2025 12:59 PM EDT VYAIRE PFT YXX2MEXGIMAZP -1 06/02/2025 12:59 PM EDT VYAIRE PFT TIQ57-36% PRE 0.74 L/s 06/02/2025 12:59 PM EDT VYAIRE PFT ZVI43-15%_Pred 1.31 06/02/2025 12:59 PM EDT VYAIRE PFT CLA8992%LLN 0.53 06/02/2025 12:59 PM EDT VYAIRE PFT DRN2640%PREZSCORE -1.12 025 12:59 PM EDT VYAIRE PFT NNQ3023%PRE%PRED 56 % % 06/02/20 25 12:59 PM EDT VYAIRE PFT XOD5651%PREDAUTH Lizettewanda COTTER (2011) 06/02/2025 12:59 PM EDT [...] (1992) 06/02/2025 12:59 PM EDT VYAIRE PFT NYBGDNOBHHASSPLK4SHZ 12.46 ml/(min* mmHg) 06/02/2025 12:59 PM EDT [...] -1.27 06/02/2025 12:59 PM EDT VYAIRE PFT JTCMKXUGWJWWYNKRR8XD E 12.58 ml/(min* mmHg) 06/02/2025 12:59 PM EDT VYAIRE PFT DLCOCSINGLEBREATH PRED 15.75 06/02/2025 12:59 PM EDT VYAIRE PFT DLCOCSINGLEBREATH LLN 11.59 06/02/2025 12:59 PM EDT VYAIRE PFT DLCOCSINGLEBREATH Z-SCORE -1.22 06/02/2025 12:59 PM EDT VYAIRE PFT DLCOCSINGLEBREATH % PRED 79.8 % 06/02/2025 12:59 PM EDT VYAIRE PFT DLCOCSINGLEBREATH PREDAUT Rlonathan TLCO GLI (2019) 06/02/2025 12:59 PM EDT VYAIRE PFT CBJTKC4DGX 5.27 ml/(min* mmHg*L) 06/02/2025 12:59 PM EDT VYAIRE PFT DLCOVAPRED 4.29 06/02/2025 12:59 PM EDT VYAIRE PFT DLCOVALLN 3.23 06/02/2025 12:59 PM EDT VYAIRE PFT DLCOVAZSCORE 1.34 06/02/2025 12:59 PM EDT VYAIRE PFT DLCOVA%PRED 122.8 % 06/02/2025 12:59 PM EDT VYAIRE PFT DLCOVAPREDAUT Rlovancevic TLCO GLI (2019) 06/02/2025 12:59 PM EDT VYAIRE PFT DLCOVAZSCORE 1.34 06/02/2025 12:59 PM EDT VYAIRE PFT [id number] 5.32 ml/(min* mmHg*L) 06/02/2025 12:59 PM EDT [...] 1.41 06/02 12:59 PM EDT VYAIRE PFT [id number] 2.36 L 08/07/ 2025 12:59 PM EDT VYAIRE PFT VASINGLEBREATH PRED 3.65 06/02 12:59 PM EDT VYAIRE PFT VASINGLEBREATH LLN 2.88 2024 12:59 PM EDT VYAIRE PFT VASINGLEBREATH Z-SCORE -2.86 06/02/2025 12:59 PM EDT VYAIRE PFT VASINGLEBREATH % PRED 64.7 % 06/02/2025 12:59 PM EDT VYAIRE PFT [facility]ASINGLEBREATH [facility] Stantarasjebeverly TLCO GLI (2019) 06/02/2025 12:59 PM EDT VYAIRE PFT VASINGLEBREATH Z-SCORE -2.86 06/02/2025 12:59 PM EDT VYAIRE PFT [id number] 1.38 L 06/02 12:59 PM EDT VYAIRE PFT IVCSINGLEBREATH PRED 2.02 04/2025 12:59 PM EDT VYAIRE PFT IVCSINGLEBREATH LLN 1.40 06/02 12:59 PM EDT VYAIRE PFT IVCSINGLEBREATH Z-SCORE -1.72 06/02/2025 12:59 PM EDT VYAIRE PFT IVCSINGLEBREATH % PRED 67.9 % 06/02/2025 12:59 PM EDT VYAIRE PFT IVCSINGLEBREATH [facility]CL[facility] _Josejer GLI (2011) 06/02/2025 12:59 PM EDT VYAIRE PFT HB PRE 13.10 g(Hb)/dL 06/02/2025 12:59 PM EDT VYAIRE PFT [id number] 3.21 L 06/02/2025 12:59 PM EDT VYAIRE [...] (1992) 06/02/2025 12:59 PM EDT VYAIRE PFT [id number] 2.06 L 06/02/2025 12:59 PM EDT VYAIRE [...] (1992) 2024 12:59 PM EDT VYAIRE PFT NZH7OST 0.52 L 06/02/2025 12:59 PM EDT VYAIRE [...] (1992) 06/02/2025 12:59 PM EDT VYAIRE PFT RV%JUL9FHO 47.30 % 06/02/2025 12:59 PM EDT VYAIRE PFT RV%TLCPRED 47 06/02/2025 12:59 PM EDT VYAIRE PFT RV%TLCLLN 37 06/02/2025 12:59 PM EDT VYAIRE PFT RV%TLCULN 56 06/02/2025 12:59 PM EDT VYAIRE PFT RV%TLCZSCORE 0.08 06/02/2025 12:59 PM EDT VYAIRE PFT RV%TLC%PRED 101.0 % 06/02/2025 12:59 PM EDT VYAIRE PFT RV%TLCPREDAUTH ECCS (1993) 12:59 PM EDT VYAIRE PFT CXM7YRD 2.08 L 06/02/2025 12:59 PM EDT VYAIRE PFT Anatomical Region Laterality Modality PFT 06/02/2025 12:2 4 PM EDT Narrative 06/03/2025 10:59 PM EDT Pulmonary Function Testing Report Graciela Owens underwent pulmonary function testing today at the [facility]. The patient underwent spirometry, lung volumes [...] documented as of this encounter Care Teams Trust Operations Assistant Relationship Specialty Start Date End Date Leah Chavarria APRN [id number] [place] [address] PCP - General 04/15/25 documented as of this encounter
--- OUTSIDE RECORDS SUMMARY | 2025-06-02 14:00 | XMS_ITS | Encounter Summary ---
Author Organization [facility] Address [address] [place] [address] Care Team Providers Care Guest Relations Officer Name Role Phone Leah Chavarria APRN Primary Care Provider [phone] Reason for Referral * Consultation (Routine) - Authorized Specialty Diagnoses / Procedures Referred By Contsavita t Referred To Contact Medical Oncology Diagnoses Mediastinal mass Gilbert Roy DO [address] [address] Phone: tel: fax: Referral ID Status Reason Start Date Expiration Date Visits Requested Visits Authorized [id number] Authorized Specialty Services Required 06/02/2025 12/02/2026 [address] Stahl at [facility] Reason for Visit * Reason Comments Follow-up Encounter Details Date Type Department Care Team (Late st Contact Info) Description 06/02/2025 2:00 PM EDT Office Visit Pav CC Head, Neck & Respiratory 800 [facility], [address]nd [place] [phone] Gilbert Roy DO [address] [address] Mediastinal mass Social History Tobacco [...] from the original note were not included. [facility] Department of Surgery Section of [...] to Medical radiation close to home in [facility]. We will reach out to Dr. [...] 06/16/2026 2:00 PM EDT Ovarian Cancer Screening [facility] Gynecology 800 [facility], [address]rd [place] [address] Scheduled Referrals Name Type Priority Associated Diagnoses [...] documented as of this encounter Care Teams Guest Relations Officer Relationship Specialty Start Date End Date Leah Chavarria APRN [address] [place], [place] [address] PCP - General 04/15/25 documented as of this encounter
[2025-07-21] VITALS (8 sets, daily range): BP systolic 124–161; BP diastolic 65–81; PULSE 74–89; RESP 16–17; O2SAT 99; BMI 21.9
--- OUTSIDE RECORDS SUMMARY | 2025-07-21 09:28 | XMS_ITS | Encounter Summary ---
Author Organization [facility] Address [address] [place] [address] Care Team Providers Care Survey Research Analyst Name Role Phone DeonLeah Raquel BECK Primary Care Provider [phone] Encounter Details Date Type Department Care Team (Late Contact Info) Description 03/24/2025 Orders Only External Location [address] [place] [id number] Provider, External Social History Tobacco Use Types [...] 06/16/2026 2:00 PM EDT Ovarian Cancer Screening [facility] Gynecology [address] [place] [address] documented as of this encounter Procedures Procedure [...] on filedocumented in this encounter Care Teams Survey Research Analyst Relationship Specialty Start Date End Date Leah Chavarria, EBONY [address] [place] [address] PCP - General 04/15/25 documented as of this encounter
--- OUTSIDE RECORDS SUMMARY | 2025-07-21 09:28 | XMS_ITS | Encounter Summary ---
Author Organization [facility] Address [address] [place] [address] Care Team Providers Care Keyboarding Teacher Name Role Phone DeonLeah Raquel BECK Primary Care Provider [phone] Encounter Details Date Type Department Care Team (Late Contact Info) Description 11/03/2023 Orders Only External Location [address] [place] [id number] Provider, External Social History Tobacco Use Types [...] [facility] Gynecology [address] [place] [address] documented as of this encounter Procedures Procedure [...] on filedocumented in this encounter Care Teams Keyboarding Teacher Relationship Specialty Start Date End Date Leah Cahvarria, EBONY [address] [place] [address] PCP - General 04/15/25 documented as of this encounter
--- OUTSIDE RECORDS SUMMARY | 2025-07-21 09:28 | XMS_ITS | Encounter Summary ---
Author Organization [facility] Address [address] [place] [address] Care Team Providers Care Public Health Engineer Name Role Phone Leah Chavarria APRN Primary Care Provider [phone] Encounter Details Date Type Department Care Team [...] Cancer Screening [facility] Gynecology [address] [facility], [address]rd [place] [address] documented as of this encounter Visit Diagnoses Not on filedocumented in this encounter Additional Health Concerns Assessment Noted Time A fall risk assessment has been complete d for the patient 05/23/2025 11:53 AM EDT A Body Mass Index follow-up plan has been documented for the patient 05/30/2025 10:29 AM EDT documented as of this encounter Care Teams Public Health Engineer Relationship Specialty Start Date End Date Leah Chavarria APRN [address] [place] [address] PCP - General 04/15/25 documented as of this encounter
--- OUTSIDE RECORDS SUMMARY | 2025-07-21 09:28 | XMS_ITS | Encounter Summary ---
Author Organization [facility] Address [address] [place] [address] Care Team Providers Care Brown Stock Washer Name Role Phone Leah Chavarria APRN Primary Care Provider [phone] Encounter Details Date Type Department Care Team [...] 0 05/23/2025 11:55 AM Aurora Dennis * How difficult have these problems made it for you to do your work, take care of things at home, or get along with other people? Answer Date of Assessment Author Not difficult at all 05/23/2025 11:55 AM Aurora Van documented as of this encounter Plan of Treatment Upcoming Encounters Date Type Department Care Team (Late st Contact Info) Description 06/16/2026 2:00 PM EDT Ovarian Cancer Screening [facility] Gynecology [address] [facility], [address]rd [place] [address] documented as of this encounter Visit Diagnoses Not on filedocumented in this encounter Additional Health Concerns Assessment Noted Time A fall risk assessment has been complete d for the patient 05/23/2025 11:53 AM EDT A Body Mass Index follow-up plan has been documented for the patient 05/23/2025 12:13 PM EDT documented as of this encounter Care Teams Brown Stock Washer Relationship Specialty Start Date End Date Leah Chavarria, EBONY [address] [place] [address] PCP - General 04/15/25 documented as of this encounter
--- OUTSIDE RECORDS SUMMARY | 2025-07-21 09:28 | XMS_ITS | Encounter Summary ---
Author Organization [facility] Address [address] [place] [address] Care Team Providers Care Registered Dietetic Technician Name Role Phone DeonLeah Raquel BECK Primary Care Provider [phone] Encounter Details Date Type Department Care Team (Late Contact Info) Description 02/27/2025 Orders Only External Location [address] [place] [phone] Provider, External Social History Tobacco Use Types [...] 06/16/2026 2:00 PM EDT Ovarian Cancer Screening [facility] Gynecology [address] [place] [address] documented as of this encounter Procedures Procedure [...] on filedocumented in this encounter Care Teams Registered Dietetic Technician Relationship Specialty Start Date End Date Leah Chavarria, EBONY [address] [place] [address] PCP - General 04/15/25 documented as of this encounter
--- OUTSIDE RECORDS SUMMARY | 2025-07-21 09:28 | XMS_ITS | Encounter Summary ---
Author Organization [facility] Address [address] [place] [address] Care Team Providers Care Job Checker Name Role Phone DeonLeah Raquel BECK Primary Care Provider [phone] Encounter Details Date Type Department Care Team [...] 06/16/2026 2:00 PM EDT Ovarian Cancer Screening [facility] Gynecology [address] [facility], [address]rd [place] [address] documented as of this encounter Visit Diagnoses Not on filedocumented in this encounter Additional Health Concerns Assessment Noted Time A fall risk assessment has been complete d for the patient 06/02/2025 1:06 PM EDT A Body Mass Index follow-up plan has been documented for the patient 06/03/2025 11:51 AM EDT documented as of this encounter Care Teams Job Checker Relationship Specialty Start Date End Date Leah Chavarria APRN [address] [place] [address] PCP - General 04/15/25 documented as of this encounter
--- OUTSIDE RECORDS SUMMARY | 2025-07-21 09:28 | XMS_ITS | Referral Summary ---
Author Organization [facility] [employer] ([place], [place], [place], [place]) Address [address] [place] [address] Care Team Providers Care Sewage Disposal Worker Name Role Phone Unavailable Primary Care Provider [...]
--- OUTSIDE RECORDS SUMMARY | 2025-07-21 09:28 | XMS_ITS | Encounter Summary ---
Author Organization [facility] Address [address] [place] [address] Care Team Providers Care Analytical Technician Name Role Phone Leah Chavarria APRN Primary Care Provider [phone] Encounter Details Date Type Department Care Team [...] 06/16/2026 2:00 PM EDT Ovarian Cancer Screening [facility] Gynecology [address] [facility], [address]rd [place] [address] documented as of this encounter Visit Diagnoses Not on filedocumented in this encounter Additional Health Concerns Assessment Noted Time A fall risk assessment has been complete d for the patient 05/23/2025 11:53 AM EDT A Body Mass Index follow-up plan has been documented for the patient 05/30/2025 10:29 AM EDT documented as of this encounter Care Teams Analytical Technician Relationship Specialty Start Date End Date Leah Chavarria APRN [address] [place] [address] PCP - General 04/15/25 documented as of this encounter
--- OUTSIDE RECORDS SUMMARY | 2025-07-21 09:28 | XMS_ITS | Encounter Summary ---
Author Organization [facility] Address [address] [place] [address] Care Team Providers Care Ict Security Specialist Name Role Phone DeonLeah Raquel BECK Primary Care Provider [phone] Encounter Details Date Type Department Care Team (Late st Contact Info) Description 11/29/2022 Orders Only External Location [address] [place] [address] Provider, External Social History Tobacco Use Types [...] [facility] Gynecology [address] , [address] [place] [address] documented as of this encounter Procedures Procedure [...] on filedocumented in this encounter Care Teams Ict Security Specialist Relationship Specialty Start Date End Date Leah Chavarria APRN [address] [place], [place] [id number] PCP - General 04/15/25 documented as of this encounter
--- OUTSIDE RECORDS SUMMARY | 2025-07-21 09:28 | XMS_ITS | Encounter Summary ---
Author Organization [facility] Address [address] [place] [address] Care Team Providers Care Supervisor Painting Name Role Phone DeonLeah Raquel BECK Primary Care Provider [phone] Encounter Details Date Type Department Care Team (Late Contact Info) Description 03/24/2025 Orders Only External Location [address] [place] [phone] Provider, External Social History Tobacco Use Types [...] [facility] Gynecology [address] , [address] [place] [address] documented as of this encounter Procedures Procedure [...] on filedocumented in this encounter Care Teams Supervisor Painting Relationship Specialty Start Date End Date Leah Chavarria APRN [address] [place] [address] PCP - General 04/15/25 documented as of this encounter
--- OUTSIDE RECORDS SUMMARY | 2025-07-21 09:29 | XMS_ITS | Clinical Summary ---
Author Organization [facility] Address [address] [place] [address] Care Team Providers Care Videotape Recording Engineer Name Role Phone DeonAyoradhika García APRN Primary Care Provider [phone] Allergies No known active allergies Medications losartan [...] & Respiratory [address] , [address] [place] [address] Gilbert Roy, DO Mediastinal mass 06/02/2025 12:11 PM EDT - 06/02/2025 11:59 PM EDT Hospital Encounter [facility] Pulmonary Function Testing [address] [place] [address] Mediastinal mass Discharge Disposition: Home or Self Care 06/02/2025 Travel 05/31/2025 Travel 05/30/2025 10:18 AM EDT - 05/30/2025 11:59 PM EDT Hospital Encounter [facility] Radiology [address] [place] [address] Discharge Disposition: Home or Self Care 05/30/2025 7:53 AM EDT - 05/30/2025 10:17 AM EDT Hospital Encounter [facility] Interventional Radiology [address] [place] [address] Tanner Christiansen, RN Mediastinal mass Discharge Disposition: Home or Self Care 05/30/2025 Travel 05/23/2025 12:00 PM EDT Office Visit [facility] Vascular Interventional Radiology [address], [facility] [address] [place] [address] Marge Malhotra, BE[place] PATROL LIEUTENANT Encounter for other preprocedural examination (Primary Dx) 05/23/2025 Travel 05/17/2025 Travel 05/03/2025 Telephone [facility] Head, Neck & Respiratory [address] [facility], 2nd [place] [address] Karla Gavin RN 04/26/2025 11:10 AM EDT - 04/26/2025 11:59 PM EDT Hospital Encounter [facility] PET Scan [address] [place] [address] Discharge Disposition: Home or Self Care 04/26/2025 11:10 AM EDT - 04/26/2025 11:59 PM EDT Hospital Encounter [facility] PET Scan [address] [place] [address] Mediastinal mass Discharge Disposition: Home or Self Care 04/26/2025 Travel 04/21/2025 Travel from Last 3 Months Family History [...] 06/16/2026 2:00 PM EDT Ovarian Cancer Screening [facility] Gynecology [address] [facility], 3rd [place] [address] Health Maintenance Due Date Last Done Comments [facility]-Bone Density Scan 1942 [facility]-Medicare Annual Wellness (AWV) 1942 [facility]-/Child/Adol SDOH Screenings 1942 [facility]- SDOH Screenings 1960 [facility]-Adult SDOH Screenings 1960 [facility]-DTaP,Tdap,and Td Vaccines (1 - Tdap) 1961 [facility]-Pneumococcal Vaccine: 50+ Years (1 of 2 - PCV) 1961 [facility]-Zoster Vaccines (1 of 2) 1961 [facility]-RSV Vaccine: 60+ Years or (1 - 1-dose 75+ series) 2017 [id number] Vaccine (7 - Pfizer risk season) 2025 [...] Pulmonary function testing (06/02/2025 1:11 PM EDT) UMD4YPV 1.48 L 06/02/2025 12:59 PM EDT VYAIRE PFT FVC PRED 2.02 06/02/2025 12:59 PM EDT VYAIRE PFT FVC LLN 1.40 06/02/2025 12:59 PM EDT VYAIRE PFT FVCPREZSCORE -1.44 06/02/2025 12:59 PM EDT VYAIRE PFT FVCPRE%PRED 73 % % 06/02/2025 12:59 PM EDT VYAIRE PFT FVC PREDAUTBenewah Community Hospitaljer VAHE (2011) 06/02/2025 12:59 PM EDT VYAIRE PFT FVC Z-SCORE -1.44 06/02/2025 12:59 PM EDT VYAIRE PFT FEV1 PRE 1.07 L 06/02/2025 12:59 PM EDT VYAIRE PFT FEV1 PRED 1.55 06/02/2025 12:59 PM EDT VYAIRE PFT FEV1 LLN 1.07 06/02/2025 12:59 PM EDT VYAIRE PFT FNG1UVABKYWMS -1.64 06/02/2025 12:59 PM EDT VYAIRE PFT FEV1_Pre%Pred 69 % % 06/02/2025 12:59 PM EDT VYAIRE PFT FEV1 PREDAUT US_Quanjer VAHE (2011) 06/02/2025 12:59 PM EDT VYAIRE PFT FEV1 Z-SCORE -1.64 06/02/2025 12:59 PM EDT VYAIRE PFT FEV1/FVC PRE 72.67 % 06/02/2025 12:59 PM EDT VYAIRE PFT PXW5VOHOJYH 77 06/02/2025 12:59 PM EDT VYAIRE PFT PDD1SEEDUK 62 06/02/2025 12:59 PM EDT VYAIRE PFT RBS6SNNHTMLOOLUR -0.55 06/02/20 25 12:59 PM EDT VYAIRE PFT QNY4BGICEU%PRED 94 % % 12:59 PM EDT VYAIRE PFT AFW4SPSUBUCD [facility]GASMaria R COTTER (2011) 06/02/2025 12:59 PM EDT VYAIRE PFT LIQ3FOROBJHOB -1 06/02/2025 12:59 PM EDT VYAIRE PFT OVH02-25% PRE 0.74 L/s 06/02/2025 12:59 PM EDT VYAIRE PFT HIQ90-72%_Pred 1.31 06/02/2025 12:59 PM EDT VYAIRE PFT FNR7820%LLN 0.53 06/02/2025 12:59 PM EDT VYAIRE PFT OAM4249%PREZSCORE -1.12 025 12:59 PM EDT VYAIRE PFT ILK8606%PRE%PRED 56 % % 06/02/20 25 12:59 PM EDT VYAIRE PFT TTR4654%PREDAUTMIMBRES MEMORIAL HOSPITALNorbert COTTER (2011) 06/02/2025 12:59 PM EDT VYAIRE [...] (1992) 06/02/2025 12:59 PM EDT VYAIRE PFT QZSLRBJSTEXBYFMQ2MXQ 12.46 ml/(min* mmHg) 06/02/2025 12:59 PM EDT VYAIRE PFT DLCOSINGLEBREATH PRED 15.75 06/02/2025 12:59 PM EDT VYAIRE PFT DLCOSINGLEBREATH LLN 11.59 04/2025 12:59 PM EDT VYAIRE PFT DLCOSINGLEBREATH Z-SCORE -1.27 06/02/2025 12:59 PM EDT VYAIRE PFT DLCOSINGLEBREATH % PRED 79.1 % 06/02/2025 12:59 PM EDT VYAIRE PFT DLCOSINGLEBREATH PREDAUTH Reese TLCO GLI (2019) 06/02/2025 12:59 PM EDT VYAIRE PFT DLCOSINGLEBREATH Z-SCORE -1.27 06/02/2025 12:59 PM EDT VYAIRE PFT UFRCQWYNIBASSZCVM6KD E 12.58 ml/(min* mmHg) 06/02/2025 12:59 PM EDT VYAIRE PFT DLCOCSINGLEBREATH PRED 15.75 06/02/2025 12:59 PM EDT VYAIRE PFT DLCOCSINGLEBREATH LLN 11.59 06/02/2025 12:59 PM EDT VYAIRE PFT DLCOCSINGLEBREATH Z-SCORE -1.22 06/02/2025 12:59 PM EDT VYAIRE PFT DLCOCSINGLEBREATH % PRED 79.8 % 06/02/2025 12:59 PM EDT VYAIRE PFT DLCOCSINGLEBREATH PREDAUTH Reese TLCO GLI (2019) 06/02/2025 12:59 PM EDT VYAIRE PFT VRVUWS5YKX 5.27 ml/(min* mmHg*L) 06/02/2025 12:59 PM EDT VYAIRE PFT DLCOVAPRED 4.29 06/02/2025 12:59 PM EDT VYAIRE PFT DLCOVALLN 3.23 06/02/2025 12:59 PM EDT VYAIRE PFT DLCOVAZSCORE 1.34 06/02/2025 12:59 PM EDT VYAIRE PFT DLCOVA%PRED 122.8 % 06/02/2025 12:59 PM EDT VYAIRE PFT DLCOVAPREDAUTH Rlonathan TLCO GLI (2019) 06/02/2025 12:59 PM EDT VYAIRE PFT DLCOVAZSCORE 1.34 06/02/2025 12:59 PM EDT VYAIRE PFT PIGFRZFIH8JVO 5.32 ml/(min* mmHg*L) 06/02/2025 12:59 PM EDT VYAIRE PFT DLCOC SB/VA PRED 4.29 06/02/20 12:59 PM EDT VYAIRE PFT DLCOC SB/VA LLN 3.23 12:59 PM EDT VYAIRE PFT DLCOC SB/VA Z-SCORE 1.41 06/02 12:59 PM EDT VYAIRE PFT DLCOC SB/VA % PRED 124.0 % 2024 12:59 PM EDT VYAIRE PFT DLCOC SB/VA PREDNOR-[facility] Reese TLCO GLI (2019) 06/02/2025 12:59 PM EDT VYAIRE PFT DLCOC SB/VA Z-SCORE 1.41 06/02 12:59 PM EDT VYAIRE PFT DXDFUVQCAOEEGV6ZYO 2.36 L 2024 12:59 PM EDT VYAIRE PFT VASINGLEBREATH PRED 3.65 06/02 12:59 PM EDT VYAIRE PFT VASINGLEBREATH LLN 2.88 2024 12:59 PM EDT VYAIRE PFT VASINGLEBREATH Z-SCORE -2.86 06/02/2025 12:59 PM EDT VYAIRE PFT VASINGLEBREATH % PRED 64.7 % 06/02/2025 12:59 PM EDT VYAIRE PFT VASINGLEBREATH PREDNOR-LEA GENERAL HOSPITAL Stanovancevic TLCO GLI (2019) 06/02/2025 12:59 PM EDT VYAIRE PFT VASINGLEBREATH Z-SCORE -2.86 06/02/2025 12:59 PM EDT VYAIRE PFT JBRXFUEWSLKLAUK6LJR 1.38 L 06/02 12:59 PM EDT VYAIRE PFT IVCSINGLEBREATH PRED 2.02 04/2025 12:59 PM EDT VYAIRE PFT IVCSINGLEBREATH LLN 1.40 06/02 12:59 PM EDT VYAIRE PFT IVCSINGLEBREATH Z-SCORE -1.72 06/02/2025 12:59 PM EDT VYAIRE PFT IVCSINGLEBREATH % PRED 67.9 % 06/02/2025 12:59 PM EDT VYAIRE PFT IVCSINGLEBREATH PREDAUTMIMBRES MEMORIAL HOSPITAL_Quanjer GLI (2011) 06/02/2025 12:59 PM EDT VYAIRE PFT HB PRE 13.10 g(Hb)/dL 06/02/2025 12:59 PM EDT VYAIRE PFT IFN5NFH 3.21 L 06/02/2025 12:59 PM EDT VYAIRE [...] % 06/02/2025 12:59 PM EDT VYAIRE PFT VCPREDAUTMIMBRES MEMORIAL HOSPITAL_Quanjer GLI (2011) 06/02/2025 12:59 PM EDT VYAIRE PFT IC0PRE 1.15 L 06/02/2025 12:59 PM EDT VYAIRE PFT ICPRED 1.28 06/02/2025 12:59 PM EDT VYAIRE PFT ICLLN 1.28 06/02/2025 12:59 PM EDT VYAIRE PFT ICULN 1.28 06/02/2025 12:59 PM EDT VYAIRE PFT IC%PRED 89.5 % 06/02/2025 12:59 PM EDT VYAIRE PFT ICPREDAUTH ECCS calculated (1992) 06/02/2025 12:59 PM EDT VYAIRE PFT CSHBIOZH7VUF 2.06 L 06/02/2025 12:59 PM EDT VYAIRE [...] (1992) 2024 12:59 PM EDT VYAIRE PFT RYM2MYR 0.52 L 06/02/2025 12:59 PM EDT VYAIRE [...] (1992) 06/02/2025 12:59 PM EDT VYAIRE PFT RV%HGE6PSN 47.30 % 06/02/2025 12:59 PM EDT VYAIRE PFT RV%TLCPRED 47 06/02/2025 12:59 PM EDT VYAIRE PFT RV%TLCLLN 37 06/02/2025 12:59 PM EDT VYAIRE PFT RV%TLCULN 56 06/02/2025 12:59 PM EDT VYAIRE PFT RV%TLCZSCORE 0.08 06/02/2025 12:59 PM EDT VYAIRE PFT RV%TLC%PRED 101.0 % 06/02/2025 12:59 PM EDT VYAIRE PFT RV%TLCPREDAUTH ECCS (1992) 12:59 PM EDT VYAIRE PFT KTA1YKP 2.08 L 06/02/2025 12:59 PM EDT VYAIRE PFT Anatomical Region Laterality Modality PFT 06/02/2025 12:2 4 PM EDT Narrative 06/03/2025 10:59 PM EDT Pulmonary Function Testing Report Graciela Owens underwent pulmonary function testing today at the [facility]. The patient underwent spirometry, lung [...] Wenceslao Dias MD on 05/30/2025 12:37 PM Lee Romero MD IMG XR PROCEDURES Final [...] mass presenting for CT guided biopsy TECHNIQUE: Willower: Lee Castaneda MD Secondary Responder: Colten Escobar MS4 DLP: 1002.01 mGy*cm Medications: [...] mass presenting for CT guided biopsy TECHNIQUE: Willower: Lee Castaneda MD Secondary Responder: Colten Morelandtes MS4 DLP: 1002.01 mGy*cm Medications: IV conscious [...] Lee Castaneda MD on 05/30/2025 10:36 AM us Gilbert Roy DO IMG CT PROCEDURES Final Resul t * Fine needle aspiration - Core Biopsy (05/30/2025 9:55 AM EDT) Case Report Cytology Case: [id number] Authorizing Provider: Lee Hopson MD Collected: 05/30/2025 0955 Ordering Location: [facility] A Interventional Received: 05/30/2025 1043 Radiology Pathologist: Jyoti Bruner MD Specimen: Mass, Core Biopsy with Touch Preparation (Specify Site), MEDIASTINAL MASS, CT GUIDED CORE BIOPSY WITH TOUCH PREPS 3:22 PM EDT [facility] Final Diagnosis A. MEDIASTINAL MASS, CT GUIDED CORE BIOPSY: - POSITIVE FOR MALIGNANCY, SQUAMOUS CELL CARCINOMA (SEE COMMENT). 3:22 PM EDT [facility] at 1522 EDT Comment The immunophenotype would favor a thymic primary, although metastases from other sites cannot be entirely excluded. Clinical correlation is suggested. 3:22 PM EDT [facility] Special and Immunohistochemical Stains IHC: A1-1 Johns Cytokeratin AE1 AE3: Positive A1-2 QP54-DSS: Negative A1-3 CD117: Positive A1-4 CK7: Focally positive A1-5 CK20: Negative A1-6 TTF-1: Negative A1-13 P40: Focally positive A1-14 Synaptophysin: Negative A1-15 CD5: Focally positive All controls show appropriate reactivity. All immunohistochemis try, in situ hybridization, and histochemical tests were developed by and are performed at the [facility], [address] [place] [address]. All tests reported here, except those addressing [...] negativity on decalcified specimens. 3:22 PM EDT [facility] Intradepartmental Consultation with Agreement Dr. Susan Jin 3:22 PM EDT [facility] Immediate Evaluation Core biopsy [...] appears on the report. 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 B Symptoms past year. 3:22 PM EDT [facility] Procedure Type CT 3:22 PM EDT [facility] Size/Description of Lesion mediastinal 3:22 PM EDT [facility] Cancer History Yes 3:22 PM EDT [facility] Previous Cancer Primary Site Skin Cancer 3:22 PM EDT [facility] Gross Description A. MEDIASTINAL MASS, CT GUIDED CORE BIOPSY WITH TOUCH PREPS Multiple white huerta cores of friable tissue, all measuring less than 0.1 cm in diameter and ranging from 0.1 cm to 0.8 cm in length, entirely submitted in biowrap and/or cassette. Received 2 diff quick touch prep slides. Cold Time: 19m 3:22 PM EDT [facility] Note: A resident was involved in the service. I attest I examined the relevant preparations for the specimens and confirmed the diagnosis or interpretation. 3:22 PM EDT [facility] Clinical Information No Dx found. 3:22 PM EDT [facility] Fine Needle Aspirate Specimen from mass / Unknown Non-blood Collection / Unknown 05/30/2025 9:55 AM EDT 05/30/2025 10:43 AM EDT Lee Romero MD LAB CYTOLOGY ORDERABLES Final Result Performing Organization Address City/[facility]/ZIP Co de Phone Number [facility] [address] [place] [address] * (ABNORMAL) Prothrombin Time/INR (05/23/2025 12:30 PM EDT) Prothrombin Time 15.2(H) 12.0 - 14.3 sec LAB COAGULATION METHOD 05/23/2025 2:46 PM EDT [facility] INR 1.2(H) 0.9 - 1.1 LAB COAGULATION METHOD 05/23/2025 2:46 PM EDT [facility] Blood Venous blood specimen / Unknown Venipuncture / Unknown 05/23/2025 12:30 PM EDT 05/23/2025 12:31 PM EDT Narrative [facility] - 05/23/2025 2:46 PM EDT OPTIMAL INR RANGES FOR PATIENT ON ORAL ANTICOAGULANT THERAPY Prevention of venous thromboembolism INR 2.0 to 3.0 In patients with heart disease: Atrial fibrillation INR 2.0 to 3.0 Valvular heart disease INR 2.0 to 3.0 Tissue heart valves INR 2.0 to 3.0 Mechanical prosthetic valves INR 2.5 to 3.5 Prevention of recurrent PR INR 2.5 to 3.5 us Marge Malhotra APRN LAB BLOOD ORDERABLES Final R esult [facility] [address] [place] [address] * (ABNORMAL) CBC W/O Differential (05/23/2025 12:30 PM EDT) WBC Count 7.32 3.70 - 10.30 10*3/uL LAB HEMATOLOGY METHOD 05/23/2025 2:31 PM EDT [facility] RBC Count 4.55 3.90 - 5.20 10*6/uL LAB HEMATOLOGY METHOD 05/23/2025 2:31 PM EDT [facility] HGB 13.1 11.2 - 15.7 g/dL LAB HEMATOLOGY METHOD 05/23/2025 2:31 PM EDT [facility] HCT 41.4 34.0 - 45.0 % LAB HEMATOLOGY METHOD 05/23/2025 2:31 PM EDT [facility] Platelet Count 192 155 - 369 10*3/uL LAB HEMATOLOGY METHOD 05/23/2025 2:31 PM EDT [facility] MCV 91 79 - 98 fL LAB HEMATOLOGY METHOD 05/23/2025 2:31 PM EDT [facility] MCH 28.8 26.0 - 32.0 pg LAB HEMATOLOGY METHOD 05/23/2025 2:31 PM EDT [facility] MCHC 31.6 30.7 - 35.5 g/dL LAB HEMATOLOGY METHOD 05/23/2025 2:31 PM EDT [facility] RDW 14.7(H) 11.5 - 14.5 % LAB HEMATOLOGY METHOD 05/23/2025 2:31 PM EDT [facility] MPV 12.6(H) 8.8 - 12.5 fL LAB HEMATOLOGY METHOD 05/23/2025 2:31 PM EDT [facility] nRBC 0.0 <=0.0 per 100 WBCs LAB HEMATOLOGY METHOD 05/23/2025 2:31 PM EDT [facility] Blood Venous blood specimen / Unknown Venipuncture / Unknown 05/23/2025 12:30 PM EDT 05/23/2025 12:31 PM EDT us Marge Malhotra [place] [employer]IEUTENANT LAB BLOOD ORDERABLES Final R esult [facility] [address] [place] [address] * (ABNORMAL) Comprehensive Metabolic Panel, Plasma (05/23/2025 12:30 PM EDT) Glucose, Plasma 92 74 - 99 mg/dL 05/23/2025 2:40 PM EDT [facility] BUN, Plasma 15 8 - 23 mg/dL 05/23/2025 2:40 PM EDT [facility] Creatinine, Plasma 0.63 0.60 - 1.10 mg/dL 05/23/2025 2:40 PM EDT [facility] BUN/Creatinine Ratio 24 05/23/2025 2:40 PM EDT [facility] Sodium, Plasma 139 136 - 145 mmol/L 05/23/2025 2:40 PM EDT [facility] Potassium, Plasma 5.3(H) 3.6 - 4.9 mmol/L 05/23/2025 2:40 PM EDT [facility] Chloride, Plasma 102 97 - 107 mmol/L 05/23/2025 2:40 PM EDT [facility] CO2, Plasma 25 22 - 29 mmol/L 05/23/2025 2:40 PM EDT [facility] Anion Gap 12 6 - 16 mmol/L 05/23/2025 2:40 PM EDT [facility] Total Calcium, Plasma 9.5 8.9 - 10.2 mg/dL 05/23/2025 2:40 PM EDT [facility] Total Protein 7.7 6.3 - 7.9 g/dL 05/23/2025 2:40 PM EDT [facility] Albumin, Plasma 4.1 3.5 - 5.2 g/dL 05/23/2025 2:40 PM EDT [facility] AST, Plasma 26 10 - 35 U/L 05/23/2025 2:40 PM EDT [facility] ALT, Plasma 20 10 - 35 U/L 05/23/2025 2:40 PM EDT [facility] Alkaline Phosphatase, Plasma 91 46 - 142 U/L 05/23/2025 2:40 PM EDT [facility] Total Bilirubin, Plasma 0.8 0.2 - 1.1 mg/dL 05/23/2025 2:40 PM EDT [facility] eGFRcr 88.7 mL/min/1.7 3m*2 05/23/2025 2:40 PM EDT [facility] Comment:Reported eGFRcr in m L/min/1.73m2 is based the CKD-EPI 2020 equation that does not use a race coefficient. Blood Venous blood specimen / Unknown Venipuncture / Unknown 05/23/2025 12:30 PM EDT 05/23/2025 12:31 PM EDT us Marge Malhotra [place] [employer] LAB BLOOD ORDERABLES Final R esult [facility] [address] [place] [address] * PET/CT FDG Skull Base To Mid [...] scanner: Siemens Biograph 40 mCT. PET/CT acquisition: Qhwnvf-yw-nsm-thighs. Standardized uptake value (SUV): Corrected for body weight only. CT: Low-dose, rlz-gfqvya-jssz, without intravenous contrast. TOTAL DLP (Dose Length [...] scanner: Siemens Biograph 40 mCT. PET/CT acquisition: Psyqzz-hx-anb-thighs. Standardized uptake value (SUV): Corrected for body weight only. CT: Low-dose, qje-aioakk-kasp, without intravenous contrast. TOTAL DLP (Dose Length [...] Resul t from [place] [address] [place] [id number] [facility] MEDICARE Advance Directives Documents on File Type Date Recorded Patient Beef Cattle Farm Worker Expl anation Advance Directives and Livin g Will 04/15/2025 Living Will & POA Care Teams Videotape Recording Engineer Relationship Specialty Start Date End Date Leah Chavarria APRN [address] [place] [address] PCP - General 04/15/25
--- OUTSIDE RECORDS SUMMARY | 2025-07-21 09:29 | XMS_ITS | Clinical Summary ---
Author Organization [facility] ([place], [place], [place], [place]) Address [address] [place] [address] Care Team Providers Care Cocoa Bean Cleaner Name Role Phone Unavailable Primary Care Provider [...]
[2025-07-21 10:10] LABS: Hematocrit 35.0 % (37.0-47.0); Hemoglobin 11.2 g/dL (12.2-16.2); Immature Granulocytes % 0 %; Mean Corpuscular HGB Conc 32.0 g/dL (31.8-35.4); Mean Corpuscular Hemoglobin 28.8 pg (27.0-31.2); Mean Corpuscular Volume 90.0 fl (81-99); Nucleated Red Blood Cells % 0 %; Platelet Count 175 K/mm3 (142-424); Red Blood Count 3.89 M/mm3 (4.20-5.40); Red Cell Distribution Width-SD 49.0 fL; White Blood Count 3.3 K/mm3 (4.8-10.8)
[2025-07-21 10:15] LABS: Albumin Level 3.5 g/dl (3.5-5.0); Chloride 104 mmol/L (98-107); Sodium 138 mmol/L (136-145)
[2025-07-21 10:16] LABS: Potassium 4.4 mmoL/L (3.5-5.1)
[2025-07-21 10:18] LABS: Anion Gap 14.4 mEq/L (5-15); Blood Urea Nitrogen 14 mg/dl (7-17); Carbon Dioxide 24 mmol/L (22.0-30.0); Creatinine Clearance Estimated 35 mL/min (50-200); Creatinine,Serum 0.50 mg/dl (0.52-1.04); Estimated Glomerular Filt Rate 118 ml/min (>60); GFR (African American) 143 ML/MIN (>60)
[2025-07-21 10:19] LABS: Alanine Aminotransferase 19 U/L (12-78); Albumin/Globulin Ratio 1.3 (1.1-1.8); Alkaline Phosphatase 56 U/L (38-126); Aspartate Amino Transferase 30 U/L (14-36); Bilirubin,Total 0.9 mg/dl (0.2-1.3); Calcium 9.1 mg/dl (8.4-10.2); Globulin 2.8 g/dL (1.3-3.2); Glucose 118 mg/dl (74-100); Total Protein,Serum 6.3 g/dl (6.3-8.2)
[2025-07-21] MEDS: DEXAMETHASONE 4MG TABLET 12 MG PO (10:29)
[2025-07-21] MEDS: FAMOTIDINE 20MG TABLET 20 MG PO (10:30)
[2025-07-21] MEDS: LORATADINE 10MG TABLET 10 MG PO (10:30)
[2025-07-21] MEDS: ONDANSETRON 4MG ODT 16 MG SL (10:30)
[2025-07-21] MEDS: 0.9 % SODIUM CHLORIDE 50 ML 100 ML IV (10:31)
[2025-07-21] MEDS: PACLITAXEL IV (11:10)
[2025-07-21] MEDS: DEXTROSE 5% IV (11:10)
[2025-07-21] MEDS: WATER IV (11:10)
[2025-07-21] MEDS: CARBOplatin 150 MG in 0.9 % SODIUM CHLORIDE 100 ML 230 MG IV (12:25)
== END 2025-07-21 23:59 | disposition home or self-care (01) ==
LOC: INF 09:24
PROVIDERS: PCP Family Medicine; Visit Provider Internal Medicine Medical Oncology
DX: C37 Malignant neoplasm of thymus (principal); Z51.11 Encounter for antineoplastic chemotherapy
CPT/HCPCS: 36415; 80053; 85025; 96413; 96415; 96417; J7060; J8540; J9045; J9267; Q0162

== ENCOUNTER 2025-07-26 08:03 | Outpatient (CLI) | payer MEDICARE, SELFPAY ==
--- OUTSIDE RECORDS SUMMARY | 2025-05-30 07:53 | XMS_ITS | Encounter Summary ---
Author Organization [facility] Address [address] [place] [address] Care Team Providers Care Brush Material Preparer Name Role Phone Leah Chavarria APRN Primary Care Provider [phone] Reason for Referral * Imaging (Routine) - Closed Specialty Diagnoses / Procedures Referred By Contac t Referred To Contact Radiology Diagnoses Mediastinal mass Procedures CT Guided Biopsy Muscle Consult to Interventional Radiology Gilbert Roy DO [address] [address] Phone: tel: fax: Referral ID Status Reason Start Date Expiration Date Visits Re quested Visits Authorized [id number] Closed 04/15/2025 10/15/2026 1 1 Reason for Visit * Imaging (Routine) - Closed Specialty Diagnoses / Procedures Referred By Contac t Referred To Contact Radiology Diagnoses Mediastinal mass Procedures CT Guided Biopsy Muscle Consult to Interventional Radiology Gilbert Roy DO [address] [address] Phone: tel: fax: Referral ID Status Reason Start Date Expiration Date Visits Re quested Visits Authorized [id number] Closed 04/15/2025 10/15/2026 1 1 Encounter Details Date Type Department Care Team (Latest Contact Info) Description 05/30/2025 7:53 AM EDT - 05/30/2025 10:17 AM EDT Hospital Encounter [facility] Interventional Radiology [address] [place] [address] Tanner Christiansen, RN Mediastinal mass Discharge Disposition: [...] at the site of the biopsy. Call [phone] right away if any of these occur: Shortness of breath Chest pain *Interventional Radiology* (IR) Questions/Concerns & Appointments: If there are questions or concerns after discharge please call: [facility] Inter[facility] Radiology Clinic at [phone] Friday - Friday 8:00 AM to 4:30 PM After hours, weekends, and holidays please call [phone] and ask for the Interventional Radiology provider/Resident on-call Intervention Radiology Appointments: If you need to reschedule a procedure, please call our Schedulers at [phone], option 4. If you need to schedule or reschedule a clinic appointment, please call [phone]. [facility] Vascular and Interventional Radiology Clinic [place] [id number] [facility], First Floor[address] [place] [address] documented in this encounter Medications at Time [...] Brief Postprocedure Note Attending: Lee Romero MD University Lecturer: DANIA Logan Pre-operative Diagnosis: Hypermetabolic anterior mediastinal [...] saw and evaluated the patient with the medical/SHOW DESIGN SUPERVISOR/PA student. I discussed the case with the medical/SHOW DESIGN SUPERVISOR/PA student and agree with the findings and [...] been discussed with the patient and/or their signs and displays sales representative. All questions answered and they agree to proceed. [1] Social History Tobacco Use Smoking Status Never Smokeless Tobacco Never [2] Current Outpatient Medications Medication Sig Dispense Refill atorvastatin (Lipitor) 10 MG tablet brimonidine (AlphaGAN P) 0.1 % ophthalmic solution Yhztvio-Qwtmqbeqg-Wwyn 500-250-12.5 MG tablet Take by mouth. ferrous [...] saw and evaluated the patient with the medical/SHOW DESIGN SUPERVISOR/PA student. I discussed the case with the medical/SHOW DESIGN SUPERVISOR/PA student and agree with the findings and [...] saw and evaluated the patient with the medical/SHOW DESIGN SUPERVISOR/PA student. I discussed the case with the medical/SHOW DESIGN SUPERVISOR/PA student and agree with the findings and [...] scanner: Siemens Biograph 40 mCT. PET/CT acquisition: Vbvboh-tb-hvr-thighs. Standardized uptake value (SUV): Corrected for body weight only. CT: Low-dose, jwv-ftofnr-lxbs, without intravenous contrast. TOTAL DLP (Dose Length [...] % ophthalmic solution, , Disp: , Rfl: Mbwhjkp-Oyuuegxsi-Iioi 500-250-12.5 MG tablet, Take by mouth., Disp: , Rfl: latanoprost (Xalatan) 0.005 % ophthalmic solution, , Disp: , Rfl: losartan (Cozaar) 25 MG tablet, , Disp: , Rfl: VITAMIN E PO, Take by mouth., Disp: , Rfl: documented in this encounter Plan of Treatment Upcoming Encounters Date Type Department Care Team (Late st Contact Info) Description 06/16/2026 2:00 PM EDT Ovarian Cancer Screening [facility] Gynecology [address] [place] [address], [address] [place] [address] documented as of this encounter Procedures Procedure [...] this written report. Preliminary report signed by Elyo Lechuga MD on 05/30/2025 11:12 AM By [...] mass presenting for CT guided biopsy TECHNIQUE: Auxiliary Power Equipment Operator: Lee Castaneda MD Secondary Last Waxer: Colten Escobar MS4 DLP: 1002.01 mGy*cm Medications: [...] mass presenting for CT guided biopsy TECHNIQUE: Auxiliary Power Equipment Operator: Lee Castaneda MD Secondary Last Waxer: Colten QUISPE DLP: 1002.01 mGy*cm Medications: IV [...] on 05/30/2025 10:36 AM Gilbert Roy DO [facility] CT PROCEDURES Final Resul t * Fine needle aspiration - Core Biopsy (05/30/2025 9:55 AM EDT) Case Report Cytology Case: [id number] Authorizing Provider: Lee Hopson MD Collected: 05/30/2025 0955 Ordering Location: [facility] Interventional Received: 05/30/2025 1043 Radiology Pathologist: Jyoti Bruner MD Specimen: Mass, Core Biopsy with Touch Preparation (Specify Site), MEDIASTINAL MASS, CT GUIDED CORE BIOPSY WITH TOUCH PREPS 5 3:22 PM EDT [facility] Final Diagnosis A. MEDIASTINAL MASS, CT GUIDED CORE BIOPSY: - POSITIVE FOR MALIGNANCY, SQUAMOUS CELL CARCINOMA (SEE COMMENT). 3:22 PM EDT [facility] at 1522 EDT Comment The immunophenotype would favor a thymic primary, although metastases from other sites cannot be entirely excluded. Clinical correlation is suggested. 3:22 PM EDT [facility] Special and Immunohistochemical Stains IHC: A1-1 Johns Cytokeratin AE1 AE3: Positive A1-2 LV27-MJD: Negative A1-3 CD117: Positive A1-4 CK7: Focally positive A1-5 CK20: Negative A1-6 TTF-1: Negative A1-13 P40: Focally positive A1-14 Synaptophysin: Negative A1-15 CD5: Focally positive All controls show appropriate reactivity. All immunohistochemis try, in situ hybridization, and histochemical tests were developed by and are performed at the [facility], [address] [place] [address]. All tests reported here, except those addressing [...] negativity on decalcified specimens. 3:22 PM EDT [facility] Intradepartmental Consultation with Agreement Dr. Susan Jin 3:22 PM EDT [facility] Immediate Evaluation Core biopsy performed [...] appears on the report. 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 B Symptoms past year. 3:22 PM EDT [facility] Procedure Type CT 3:22 PM EDT [facility] Size/Description of Lesion mediastinal 3:22 PM EDT [facility] Cancer History Yes 3:22 PM EDT [facility] Previous Cancer Primary Site Skin Cancer 3:22 PM EDT [facility] Gross Description A. MEDIASTINAL MASS, CT GUIDED CORE BIOPSY WITH TOUCH PREPS Multiple white huerta cores of friable tissue, all measuring less than 0.1 cm in diameter and ranging from 0.1 cm to 0.8 cm in length, entirely submitted in biowrap and/or cassette. Received 2 diff quick touch prep slides. Cold Time: 19m 3:22 PM EDT [facility] Note: A resident was involved in the service. I attest I examined the relevant preparations for the specimens and confirmed the diagnosis or interpretation. 3:22 PM EDT [facility] Clinical Information No Dx found. 3:22 PM EDT [facility] Fine Needle Aspirate Specimen from mass / Unknown Non-blood Collection / Unknown 05/30/2025 9:55 AM EDT 05/30/2025 10:43 AM EDT us Lee Romero MD LAB CYTOLOGY ORDERABLES Final Result [facility] [address] [place] [address] documented in this encounter Visit Diagnoses Diagnosis [...] documented as of this encounter Care Teams Brush Material Preparer Relationship Specialty Start Date End Date Leah Chavarria APRN [address] [place] [address] PCP - General 04/15/25 documented as of this encounter
--- OUTSIDE RECORDS SUMMARY | 2025-05-30 10:18 | XMS_ITS | Encounter Summary ---
Author Organization Healthcare Address [address] [place] [address] Care Team Providers Care Surtass Analyst Name Role Phone Leah Chavarria APRN Primary Care Provider [phone] Encounter Details Date Type Department Care Team (Latest Contact Info) Description 05/30/2025 10:18 AM EDT - 05/30/2025 11:59 PM EDT Hospital Encounter [facility] Radiology [address] [place] [phone] Discharge Disposition: Home or Self Care Social [...] [facility] Gynecology [address] [place] [address] documented as of this encounter Procedures Procedure [...] documented as of this encounter Care Teams Surtass Analyst Relationship Specialty Start Date End Date Leah Chavarria, LAW ENFORCEMENT OFFICER [address] [place] [address] PCP - General 04/15/25 documented as of this encounter
--- OUTSIDE RECORDS SUMMARY | 2025-06-02 12:11 | XMS_ITS | Encounter Summary ---
Author Organization Healthcare Address [address] [place] [address] Care Team Providers Care Application Chemist Name Role Phone Leah Chavarria APRN Primary Care Provider [phone] Encounter Details Date Type Department Care Team (Latest Contact Info) Description 06/02/2025 12:11 PM EDT - 06/02/2025 11:59 PM EDT Hospital Encounter PAV H Pulmonary Function Testing [address] [place] [id number] Mediastinal mass Discharge Disposition: Home or Self [...] EDT Ovarian Cancer Screening PAV Gynecology [address] [facility] [place] [address] documented as of this encounter Procedures Procedure Name Priority Date/Time Associated Diagnosis Comments HC DIFFUSING CAPACITY - CARBON MONOXIDE DIFFUSING CAPACITY Routine 06/02/2025 1:11 PM EDT Mediastinal mass documented in this encounter Results * Pulmonary function testing (06/02/2025 1:11 PM EDT) LRC8QSN 1.48 L 06/02/2025 12:59 PM EDT VYAIRE [...] 1.07 06/02/2025 12:59 PM EDT VYAIRE PFT ZPT0TKIBUNBPP -1.64 06/02/2025 12:59 PM EDT VYAIRE PFT FEV1_Pre%Pred 69 % % 06/02/2025 12:59 PM EDT VYAIRE PFT FEV1 PREDAUTH JANJosewanda COTTER (2011) 06/02/2025 12:59 PM EDT VYAIRE PFT FEV1 Z-SCORE -1.64 06/02/2025 12:59 PM EDT VYAIRE PFT FEV1/FVC PRE 72.67 % 06/02/2025 12:59 PM EDT VYAIRE PFT JHY8WWDFCXV 77 06/02/2025 12:59 PM EDT VYAIRE PFT AGL2AVUETG 62 06/02/2025 12:59 PM EDT VYAIRE PFT HBZ0AVAUEEPMDKNH -0.55 06/02/20 25 12:59 PM EDT VYAIRE PFT ZMI3YHWIAA%PRED 94 % % 12:59 PM EDT VYAIRE PFT BAI6GELRGEZR Meenawanda COTTER (2011) 06/02/2025 12:59 PM EDT VYAIRE PFT ADC5GQSMUJBYG -1 06/02/2025 12:59 PM EDT VYAIRE PFT OXI69-26% PRE 0.74 L/s 06/02/2025 12:59 PM EDT VYAIRE PFT KLA53-15%_Pred 1.31 06/02/2025 12:59 PM EDT VYAIRE PFT VPF5446%LLN 0.53 06/02/2025 12:59 PM EDT VYAIRE PFT SQN4361%PREZSCORE -1.12 025 12:59 PM EDT VYAIRE PFT GPE0254%PRE%PRED 56 % % 06/02/20 25 12:59 PM EDT VYAIRE PFT JMS6245%PREDAUTH Lizettewanda COTTER (2011) 06/02/2025 12:59 PM EDT [...] (1992) 06/02/2025 12:59 PM EDT VYAIRE PFT UBYHAZNYNNTHMOCQ8OBV 12.46 ml/(min* mmHg) 06/02/2025 12:59 PM EDT [...] -1.27 06/02/2025 12:59 PM EDT VYAIRE PFT BOXFDOQRHWIRTDCVP7LT E 12.58 ml/(min* mmHg) 06/02/2025 12:59 PM EDT VYAIRE PFT DLCOCSINGLEBREATH PRED 15.75 06/02/2025 12:59 PM EDT VYAIRE PFT DLCOCSINGLEBREATH LLN 11.59 06/02/2025 12:59 PM EDT VYAIRE PFT DLCOCSINGLEBREATH Z-SCORE -1.22 06/02/2025 12:59 PM EDT VYAIRE PFT DLCOCSINGLEBREATH % PRED 79.8 % 06/02/2025 12:59 PM EDT VYAIRE PFT DLCOCSINGLEBREATH PREDAUT Rlonathan TLCO GLI (2019) 06/02/2025 12:59 PM EDT VYAIRE PFT OQPPCR9JTT 5.27 ml/(min* mmHg*L) 06/02/2025 12:59 PM EDT VYAIRE PFT DLCOVAPRED 4.29 06/02/2025 12:59 PM EDT VYAIRE PFT DLCOVALLN 3.23 06/02/2025 12:59 PM EDT VYAIRE PFT DLCOVAZSCORE 1.34 06/02/2025 12:59 PM EDT VYAIRE PFT DLCOVA%PRED 122.8 % 06/02/2025 12:59 PM EDT VYAIRE PFT DLCOVAPREDAUT Rlovancevic TLCO GLI (2019) 06/02/2025 12:59 PM EDT VYAIRE PFT DLCOVAZSCORE 1.34 06/02/2025 12:59 PM EDT VYAIRE PFT TPGVRXOUU4RTV 5.32 ml/(min* mmHg*L) 06/02/2025 12:59 PM EDT [...] 1.41 06/02 12:59 PM EDT VYAIRE PFT BGXKHIFCWDEXHX8ZPI 2.36 L 08/07/ 2025 12:59 PM EDT VYAIRE PFT VASINGLEBREATH PRED 3.65 06/02 12:59 PM EDT VYAIRE PFT VASINGLEBREATH LLN 2.88 2024 12:59 PM EDT VYAIRE PFT VASINGLEBREATH Z-SCORE -2.86 06/02/2025 12:59 PM EDT VYAIRE PFT VASINGLEBREATH % PRED 64.7 % 06/02/2025 12:59 PM EDT VYAIRE PFT [facility]INGLEBREATH [facility] Stantarasjebeverly TLCO GLI (2019) 06/02/2025 12:59 PM EDT VYAIRE PFT VASINGLEBREATH Z-SCORE -2.86 06/02/2025 12:59 PM EDT VYAIRE PFT VAUEKDUPIWIGPWY0TDG 1.38 L 06/02 12:59 PM EDT VYAIRE PFT IVCSINGLEBREATH PRED 2.02 04/2025 12:59 PM EDT VYAIRE PFT IVCSINGLEBREATH LLN 1.40 06/02 12:59 PM EDT VYAIRE PFT IVCSINGLEBREATH Z-SCORE -1.72 06/02/2025 12:59 PM EDT VYAIRE PFT IVCSINGLEBREATH % PRED 67.9 % 06/02/2025 12:59 PM EDT VYAIRE PFT IVCSINGLEBREATH [facility] _Josejer GLI (2011) 06/02/2025 12:59 PM EDT VYAIRE PFT HB PRE 13.10 g(Hb)/dL 06/02/2025 12:59 PM EDT VYAIRE PFT IDN9NYA 3.21 L 06/02/2025 12:59 PM EDT VYAIRE [...] (1992) 06/02/2025 12:59 PM EDT VYAIRE PFT RNMNBHKS6QWZ 2.06 L 06/02/2025 12:59 PM EDT VYAIRE [...] (1992) 2024 12:59 PM EDT VYAIRE PFT FSD7QHQ 0.52 L 06/02/2025 12:59 PM EDT VYAIRE [...] (1992) 06/02/2025 12:59 PM EDT VYAIRE PFT RV%ZTY6PYN 47.30 % 06/02/2025 12:59 PM EDT VYAIRE PFT RV%TLCPRED 47 06/02/2025 12:59 PM EDT VYAIRE PFT RV%TLCLLN 37 06/02/2025 12:59 PM EDT VYAIRE PFT RV%TLCULN 56 06/02/2025 12:59 PM EDT VYAIRE PFT RV%TLCZSCORE 0.08 06/02/2025 12:59 PM EDT VYAIRE PFT RV%TLC%PRED 101.0 % 06/02/2025 12:59 PM EDT VYAIRE PFT RV%TLCPREDAUTH ECCS (1993) 12:59 PM EDT VYAIRE PFT WPA6NBR 2.08 L 06/02/2025 12:59 PM EDT VYAIRE PFT Anatomical Region Laterality Modality PFT 06/02/2025 12:2 4 PM EDT Narrative 06/03/2025 10:59 PM EDT Pulmonary Function Testing Report Graciela Owens underwent pulmonary function testing today at the [facility]. The patient underwent spirometry, lung volumes [...] documented as of this encounter Care Teams Application Chemist Relationship Specialty Start Date End Date Leah Chavarria APRN [address] [place] [address] PCP - General 04/15/25 documented as of this encounter
--- OUTSIDE RECORDS SUMMARY | 2025-06-02 14:00 | XMS_ITS | Encounter Summary ---
Author Organization [facility] Address [address] [place] [address] Care Team Providers Care Curb Hop Name Role Phone Leah Chavarria APRN Primary Care Provider [phone] Reason for Referral * Consultation (Routine) - Authorized Specialty Diagnoses / Procedures Referred By Contsavita t Referred To Contact Medical Oncology Diagnoses Mediastinal mass Gilbert Roy DO [address] [address] Phone: tel: fax: Referral ID Status Reason Start Date Expiration Date Visits Requested Visits Authorized [id number] Authorized Specialty Services Required 06/02/2025 12/02/2026 [address] Stahl at [facility] Reason for Visit * Reason Comments Follow-up Encounter Details Date Type Department Care Team (Late st Contact Info) Description 06/02/2025 2:00 PM EDT Office Visit Pav [facility] Head, Neck & Respiratory 800 [facility], [address]nd [place] [phone] Gilbert Roy DO [address] [address] Mediastinal mass Social History Tobacco [...] from the original note were not included. [facility] Department of Surgery Section of Thoracic Surgery [...] to Medical radiation close to home in [facility]. We will reach out to [...] PM EDT Ovarian Cancer Screening [facility] Gynecology [address] [facility], [address]rd [place] [address] Scheduled Referrals Name Type Priority Associated Diagnoses [...] documented as of this encounter Care Teams Curb Hop Relationship Specialty Start Date End Date Leah Chavarria APRN [address] [place], [place] [id number] PCP - General 04/15/25 documented as of this encounter
--- OUTSIDE RECORDS SUMMARY | 2025-07-26 08:10 | XMS_ITS | Encounter Summary ---
Author Organization Healthcare Address [address] [place] [address] Care Team Providers Care Dental Laboratory Assistant Name Role Phone DeonLeah Raquel BECK Primary Care Provider [phone] Encounter Details Date Type Department Care Team (Late Contact Info) Description 03/24/2025 Orders Only External Location [address] [place] [phone] Provider, External Social History Tobacco Use Types [...] [facility] Gynecology [address] , [address] [place] [address] documented as of this encounter Procedures Procedure [...] on filedocumented in this encounter Care Teams Dental Laboratory Assistant Relationship Specialty Start Date End Date Leah Chavarria APRN [address] [place] [address] PCP - General 04/15/25 documented as of this encounter
--- OUTSIDE RECORDS SUMMARY | 2025-07-26 08:11 | XMS_ITS | Encounter Summary ---
Author Organization [facility] Address [address] [place] [address] Care Team Providers Care Locks Tender Name Role Phone DeonLeah Raquel BECK Primary Care Provider [phone] Encounter Details Date Type Department Care Team (Late Contact Info) Description 11/03/2023 Orders Only External Location [address] [place] [id number] Provider, External Social History Tobacco Use Types [...] [facility] Gynecology [address] [place] [address] documented as of this encounter Procedures Procedure [...] on filedocumented in this encounter Care Teams Locks Tender Relationship Specialty Start Date End Date Leah Chavarria, EBONY [address] [place] [address] PCP - General 04/15/25 documented as of this encounter
--- OUTSIDE RECORDS SUMMARY | 2025-07-26 08:11 | XMS_ITS | Encounter Summary ---
Author Organization [facility] Address [address] [place] [address] Care Team Providers Care Human Resources Coordinator Name Role Phone DeonLeah Raquel BECK Primary Care Provider [phone] Encounter Details Date Type Department Care Team (Late Contact Info) Description 03/24/2025 Orders Only External Location [address] [place] [phone] Provider, External Social History Tobacco Use Types [...] 06/16/2026 2:00 PM EDT Ovarian Cancer Screening [facility] Gynecology [address] [place] [address] documented as of this encounter Procedures Procedure [...] on filedocumented in this encounter Care Teams Human Resources Coordinator Relationship Specialty Start Date End Date Leah Chavarria, EBONY [address] [place] [address] PCP - General 04/15/25 documented as of this encounter
--- OUTSIDE RECORDS SUMMARY | 2025-07-26 08:11 | XMS_ITS | Encounter Summary ---
Author Organization [facility] Address [address] [place] [address] Care Team Providers Care Steam Presser Name Role Phone DeonLeah Raquel BECK Primary Care Provider [phone] Encounter Details Date Type Department Care Team (Late Contact Info) Description 02/27/2025 Orders Only External Location [address] [place] [phone] Provider, External Social History Tobacco Use Types [...] 2:00 PM EDT Ovarian Cancer Screening [facility] Gynecology [address] [place] [address] documented as of this encounter Procedures Procedure [...] on filedocumented in this encounter Care Teams Steam Presser Relationship Specialty Start Date End Date Leah Chavarria, EBONY [address] [place] [address] PCP - General 04/15/25 documented as of this encounter
--- OUTSIDE RECORDS SUMMARY | 2025-07-26 08:12 | XMS_ITS | Encounter Summary ---
Author Organization [facility] Address [address] [place] [address] Care Team Providers Care Db2 Dba Name Role Phone DeonLeah Raquel BECK Primary Care Provider [phone] Encounter Details Date Type Department Care Team (Late st Contact Info) Description 11/29/2022 Orders Only External Location [address] [place] [address] Provider, External Social History Tobacco Use Types [...] [facility] Gynecology [address] [place] [address] documented as of this encounter Procedures Procedure [...] on filedocumented in this encounter Care Teams Db2 Dba Relationship Specialty Start Date End Date Leah Chavarria APRN [address] [place], [place] [id number] PCP - General 04/15/25 documented as of this encounter
--- OUTSIDE RECORDS SUMMARY | 2025-07-26 08:12 | XMS_ITS | Encounter Summary ---
Author Organization [facility] Address [address] [place] [address] Care Team Providers Care Paint Prep Technician Name Role Phone Leah Chavarria APRN Primary Care Provider [phone] Encounter Details Date Type Department Care Team [...] PM EDT Ovarian Cancer Screening [facility] Gynecology [address] [facility], [address] [place] [address] documented as of this encounter Visit Diagnoses Not on filedocumented in this encounter Additional Health Concerns Assessment Noted Time A fall risk assessment has been complete d for the patient 05/23/2025 11:53 AM EDT A Body Mass Index follow-up plan has been documented for the patient 05/30/2025 10:29 AM EDT documented as of this encounter Care Teams Paint Prep Technician Relationship Specialty Start Date End Date Leah Chavarria APRN [address] [place] [id number] PCP - General 04/15/25 documented as of this encounter
--- OUTSIDE RECORDS SUMMARY | 2025-07-26 08:12 | XMS_ITS | Encounter Summary ---
Author Organization [facility] Address [address] [place] [address] Care Team Providers Care Outsole Cementer Machine Name Role Phone DeonLeah Raquel BECK Primary Care Provider [phone] Encounter Details Date Type Department Care Team [...] 06/16/2026 2:00 PM EDT Ovarian Cancer Screening [facility] Gynecology [address] [facility], [address]rd [place] [address] documented as of this encounter Visit Diagnoses Not on filedocumented in this encounter Additional Health Concerns Assessment Noted Time A fall risk assessment has been complete d for the patient 06/02/2025 1:06 PM EDT A Body Mass Index follow-up plan has been documented for the patient 06/03/2025 11:51 AM EDT documented as of this encounter Care Teams Outsole Cementer Machine Relationship Specialty Start Date End Date Leah Chavarria APRN [address] [place] [address] PCP - General 04/15/25 documented as of this encounter
--- OUTSIDE RECORDS SUMMARY | 2025-07-26 08:13 | XMS_ITS | Clinical Summary ---
Author Organization [facility] Address [address] [place] [address] Care Team Providers Care Cane Stripper Name Role Phone Deon Leahradhika García APRN Primary Care Provider [phone] Allergies No known active allergies Medications losartan [...] & Respiratory [address] , [address] [place] [address] Gilbert Roy, DO Mediastinal mass 06/02/2025 12:11 PM EDT - 06/02/2025 11:59 PM EDT Hospital Encounter [facility] H Pulmonary Function Testing [address] [place] [address] Mediastinal mass Discharge Disposition: Home or Self Care 06/02/2025 Travel 05/31/2025 Travel 05/30/2025 10:18 AM EDT - 05/30/2025 11:59 PM EDT Hospital Encounter [facility] H Radiology [address] [place] [address] Discharge Disposition: Home or Self Care 05/30/2025 7:53 AM EDT - 05/30/2025 10:17 AM EDT Hospital Encounter [facility] A Interventional Radiology [address] [place] [address] Tanner Christiansen, RN Mediastinal mass Discharge Disposition: Home or Self Care 05/30/2025 Travel 05/23/2025 12:00 PM EDT Office Visit [facility] Vascular Interventional Radiology [address], [facility] [address] [place] [address] Marge Malhotra, FIRESTOPPER TECHNICIAN Encounter for other preprocedural examination (Primary Dx) 05/23/2025 Travel 05/17/2025 Travel 05/03/2025 Telephone Pav CC Head, Neck & Respiratory [address] [facility], [address]nd [place] [address] Karla Gavin RN 04/26/2025 11:10 AM EDT - 04/26/2025 11:59 PM EDT Hospital Encounter [facility] PET Scan [address] [place] [address] Discharge Disposition: Home or Self Care 04/26/2025 11:10 AM EDT - 04/26/2025 11:59 PM EDT Hospital Encounter [facility] PET Scan [address] [place] [address] Mediastinal mass Discharge Disposition: Home or Self Care 04/26/2025 Travel from Last 3 Months Family History [...] 06/16/2026 2:00 PM EDT Ovarian Cancer Screening [facility] Gynecology [address] [facility], [address]rd [place] [address] Health Maintenance Due Date Last Done Comments [facility]-Bone Density Scan 1940 [facility]-Medicare Annual Wellness (AWV) 1942 [facility]-Infant/Child/Adol SDOH Screenings 1942 [facility]- SDOH Screenings 1960 [facility]-Adult SDOH Screenings 1960 [facility]-DTaP,Tdap,and Td Vaccines (1 - Tdap) 1961 [facility]-Pneumococcal Vaccine: 50+ Years (1 of 2 - PCV) 1961 [facility]-Zoster Vaccines (1 of 2) 1961 [facility]-RSV Vaccine: 60+ Years or (1 - 1-dose 75+ series) 2017 [id number]-[id number]-03 Vaccine (7 - Pfizer risk season) 2025 [...] Pulmonary function testing (06/02/2025 1:11 PM EDT) LLN2NWN 1.48 L 06/02/2025 12:59 PM EDT VYAIRE PFT FVC PRED 2.02 06/02/2025 12:59 PM EDT VYAIRE PFT FVC LLN 1.40 06/02/2025 12:59 PM EDT VYAIRE PFT FVCPREZSCORE -1.44 06/02/2025 12:59 PM EDT VYAIRE PFT FVCPRE%PRED 73 % % 06/02/2025 12:59 PM EDT VYAIRE PFT FVC [facility] [place] VAHE (2011) 06/02/2025 12:59 PM EDT VYAIRE PFT FVC Z-SCORE -1.44 06/02/2025 12:59 PM EDT VYAIRE PFT FEV1 PRE 1.07 L 06/02/2025 12:59 PM EDT VYAIRE PFT FEV1 PRED 1.55 06/02/2025 12:59 PM EDT VYAIRE PFT FEV1 LLN 1.07 06/02/2025 12:59 PM EDT VYAIRE PFT XTL5DEZACIXNH -1.64 06/02/2025 12:59 PM EDT VYAIRE PFT FEV1_Pre%Pred 69 % % 06/02/2025 12:59 PM EDT VYAIRE PFT FEV1 PREDAUT US_Quanjer VAHE (2011) 06/02/2025 12:59 PM EDT VYAIRE PFT FEV1 Z-SCORE -1.64 06/02/2025 12:59 PM EDT VYAIRE PFT FEV1/FVC PRE 72.67 % 06/02/2025 12:59 PM EDT VYAIRE PFT MRU2SZLKUBO 77 06/02/2025 12:59 PM EDT VYAIRE PFT RBY2SHIIZC 62 06/02/2025 12:59 PM EDT VYAIRE PFT HAS5HBISOVIVVBMI -0.55 06/02/20 25 12:59 PM EDT VYAIRE PFT PJR5VAVKIC%PRED 94 % % 12:59 PM EDT VYAIRE PFT MYK1FWBNUPZL [facility] COTTER (2011) 06/02/2025 12:59 PM EDT VYAIRE PFT CLH4YSRBXVFSK -1 06/02/2025 12:59 PM EDT VYAIRE PFT OWC60-99% PRE 0.74 L/s 06/02/2025 12:59 PM EDT VYAIRE PFT TMK79-32%_Pred 1.31 06/02/2025 12:59 PM EDT VYAIRE PFT BZS4339%LLN 0.53 06/02/2025 12:59 PM EDT VYAIRE PFT VHM6092%PREZSCORE -1.12 025 12:59 PM EDT VYAIRE PFT ZHB9542%PRE%PRED 56 % % 06/02/20 25 12:59 PM EDT VYAIRE PFT VCE2006%PREDAUTGILA [facility]ENTERNorbert VAHE (2011) 06/02/2025 12:59 PM EDT VYAIRE [...] (1992) 06/02/2025 12:59 PM EDT VYAIRE PFT GNJGOFFXDDPRTJGE5XBQ 12.46 ml/(min* mmHg) 06/02/2025 12:59 PM EDT [...] -1.27 06/02/2025 12:59 PM EDT VYAIRE PFT HKMYBXDHUFDUUJEMR5LW E 12.58 ml/(min* mmHg) 06/02/2025 12:59 PM EDT VYAIRE PFT DLCOCSINGLEBREATH PRED 15.75 06/02/2025 12:59 PM EDT VYAIRE PFT DLCOCSINGLEBREATH LLN 11.59 06/02/2025 12:59 PM EDT VYAIRE PFT DLCOCSINGLEBREATH Z-SCORE -1.22 06/02/2025 12:59 PM EDT VYAIRE PFT DLCOCSINGLEBREATH % PRED 79.8 % 06/02/2025 12:59 PM EDT VYAIRE PFT DLCOCSINGLEBREATH PREDAUT Reese TLCO GLI (2019) 06/02/2025 12:59 PM EDT VYAIRE PFT LTFRFH8MHC 5.27 ml/(min* mmHg*L) 06/02/2025 12:59 PM EDT VYAIRE PFT DLCOVAPRED 4.29 06/02/2025 12:59 PM EDT VYAIRE PFT DLCOVALLN 3.23 06/02/2025 12:59 PM EDT VYAIRE PFT DLCOVAZSCORE 1.34 06/02/2025 12:59 PM EDT VYAIRE PFT DLCOVA%PRED 122.8 % 06/02/2025 12:59 PM EDT VYAIRE PFT DLCOVAPREDAUTH Stanonathan TLCO GLI (2019) 06/02/2025 12:59 PM EDT VYAIRE PFT DLCOVAZSCORE 1.34 06/02/2025 12:59 PM EDT VYAIRE PFT TWSSMVFWW6RCB 5.32 ml/(min* mmHg*L) 06/02/2025 12:59 PM EDT VYAIRE PFT DLCOC SB/VA PRED 4.29 06/02/20 12:59 PM EDT VYAIRE PFT DLCOC SB/VA LLN 3.23 12:59 PM EDT VYAIRE PFT DLCOC SB/VA Z-SCORE 1.41 06/02 12:59 PM EDT VYAIRE PFT DLCOC SB/VA % PRED 124.0 % 2024 12:59 PM EDT VYAIRE PFT DLCOC SB/VA [facility] Reese TLCO GLI (2019) 06/02/2025 12:59 PM EDT VYAIRE PFT DLCOC SB/VA Z-SCORE 1.41 06/02 12:59 PM EDT VYAIRE PFT AXNLOYXTBJNAWQ3AVM 2.36 L 2024 12:59 PM EDT VYAIRE PFT VASINGLEBREATH PRED 3.65 06/02 12:59 PM EDT VYAIRE PFT VASINGLEBREATH LLN 2.88 2024 12:59 PM EDT VYAIRE PFT VASINGLEBREATH Z-SCORE -2.86 06/02/2025 12:59 PM EDT VYAIRE PFT VASINGLEBREATH % PRED 64.7 % 06/02/2025 12:59 PM EDT VYAIRE PFT VASINGLEBREATH [facility] [employer]ic TLCO GLI (2019) 06/02/2025 12:59 PM EDT VYAIRE PFT VASINGLEBREATH Z-SCORE -2.86 06/02/2025 12:59 PM EDT VYAIRE PFT QIBUBGOEWWGLNTI3TCL 1.38 L 06/02 12:59 PM EDT VYAIRE PFT IVCSINGLEBREATH PRED 2.02 04/2025 12:59 PM EDT VYAIRE PFT IVCSINGLEBREATH LLN 1.40 06/02 12:59 PM EDT VYAIRE PFT IVCSINGLEBREATH Z-SCORE -1.72 06/02/2025 12:59 PM EDT VYAIRE PFT IVCSINGLEBREATH % PRED 67.9 % 06/02/2025 12:59 PM EDT VYAIRE PFT IVCSINGLEBREATH [facility] [place] GLI (2011) 06/02/2025 12:59 PM EDT VYAIRE PFT HB PRE 13.10 g(Hb)/dL 06/02/2025 12:59 PM EDT VYAIRE PFT BLI4LHK 3.21 L 06/02/2025 12:59 PM EDT VYAIRE [...] % 06/02/2025 12:59 PM EDT VYAIRE PFT VCPREDAUTUNM HOSPITALQuanjer GLI (2011) 06/02/2025 12:59 PM EDT VYAIRE PFT IC0PRE 1.15 L 06/02/2025 12:59 PM EDT VYAIRE PFT ICPRED 1.28 06/02/2025 12:59 PM EDT VYAIRE PFT ICLLN 1.28 06/02/2025 12:59 PM EDT VYAIRE PFT ICULN 1.28 06/02/2025 12:59 PM EDT VYAIRE PFT IC%PRED 89.5 % 06/02/2025 12:59 PM EDT VYAIRE PFT ICPREDAUTH ECCS calculated (1992) 06/02/2025 12:59 PM EDT VYAIRE PFT KGWJUQYW0PZR 2.06 L 06/02/2025 12:59 PM EDT VYAIRE [...] (1992) 2024 12:59 PM EDT VYAIRE PFT PGP0KIB 0.52 L 06/02/2025 12:59 PM EDT VYAIRE [...] (1992) 06/02/2025 12:59 PM EDT VYAIRE PFT RV%JSH7KNT 47.30 % 06/02/2025 12:59 PM EDT VYAIRE PFT RV%TLCPRED 47 06/02/2025 12:59 PM EDT VYAIRE PFT RV%TLCLLN 37 06/02/2025 12:59 PM EDT VYAIRE PFT RV%TLCULN 56 06/02/2025 12:59 PM EDT VYAIRE PFT RV%TLCZSCORE 0.08 06/02/2025 12:59 PM EDT VYAIRE PFT RV%TLC%PRED 101.0 % 06/02/2025 12:59 PM EDT VYAIRE PFT RV%TLCPREDAUTH ECCS (1992) 12:59 PM EDT VYAIRE PFT YLB6LJN 2.08 L 06/02/2025 12:59 PM EDT VYAIRE PFT Anatomical Region Laterality Modality PFT 06/02/2025 12:2 4 PM EDT Narrative 06/03/2025 10:59 PM EDT Pulmonary Function Testing Report Graciela Owens underwent pulmonary function testing today at the [facility]. The patient underwent spirometry, [...] mass presenting for CT guided biopsy TECHNIQUE: E Commerce Merchant: Lee Castaneda MD Secondary Inspector Barrel: Colten Escobar MS4 DLP: 1002.01 mGy*cm Medications: [...] mass presenting for CT guided biopsy TECHNIQUE: E Commerce Merchant: Lee Castaneda MD Secondary Inspector Barrel: Colten Morelandtes MS4 DLP: 1002.01 mGy*cm Medications: [...] 10:24 AM Final report signed by Lee Csataneda MD on 05/30/2025 10:36 AM Gilbert Roy DO IMG CT PROCEDURES Final Resul t * Fine needle aspiration - Core Biopsy (05/30/2025 9:55 AM EDT) Case Report Cytology Case: [id number] Authorizing Provider: Lee Hopson MD Collected: 05/30/2025 0955 Ordering Location: [facility] A Interventional Received: 05/30/2025 1043 Radiology Pathologist: Jyoti Bruner MD Specimen: Mass, Core Biopsy with Touch Preparation (Specify Site), MEDIASTINAL MASS, CT GUIDED CORE BIOPSY WITH TOUCH PREPS 3:22 PM EDT [facility] Final Diagnosis A. MEDIASTINAL MASS, CT GUIDED CORE BIOPSY: - POSITIVE FOR MALIGNANCY, SQUAMOUS CELL CARCINOMA (SEE COMMENT). 3:22 PM EDT [facility] at 1522 EDT Comment The immunophenotype would favor a thymic primary, although metastases from other sites cannot be entirely excluded. Clinical correlation is suggested. 3:22 PM EDT [facility] Special and Immunohistochemical Stains IHC: A1-1 Johns Cytokeratin AE1 AE3: Positive A1-2 QQ05-OTJ: Negative A1-3 CD117: Positive A1-4 CK7: Focally positive A1-5 CK20: Negative A1-6 TTF-1: Negative A1-13 P40: Focally positive A1-14 Synaptophysin: Negative A1-15 CD5: Focally positive All controls show appropriate reactivity. All immunohistochemis try, in situ hybridization, and histochemical tests were developed by and are performed at the [facility], [address] [place] [address]. All tests reported here, except those addressing [...] negativity on decalcified specimens. 3:22 PM EDT [facility] Intradepartmental Consultation with Agreement Dr. Susan Jin 3:22 PM EDT [facility] Immediate Evaluation Core biopsy performed [...] appears on the report. 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 B Symptoms past year. 3:22 PM EDT [facility] Procedure Type CT 3:22 PM EDT [facility] Size/Description of Lesion mediastinal 3:22 PM EDT [facility] Cancer History Yes 3:22 PM EDT [facility] Previous Cancer Primary Site Skin Cancer 3:22 PM EDT [facility] Gross Description A. MEDIASTINAL MASS, CT GUIDED CORE BIOPSY WITH TOUCH PREPS Multiple white huerta cores of friable tissue, all measuring less than 0.1 cm in diameter and ranging from 0.1 cm to 0.8 cm in length, entirely submitted in biowrap and/or cassette. Received 2 diff quick touch prep slides. Cold Time: 19m 3:22 PM EDT [facility] Note: A resident was involved in the service. I attest I examined the relevant preparations for the specimens and confirmed the diagnosis or interpretation. 3:22 PM EDT [facility] Clinical Information No Dx found. 3:22 PM EDT [facility] Fine Needle Aspirate Specimen from mass / Unknown Non-blood Collection / Unknown 05/30/2025 9:55 AM EDT 05/30/2025 10:43 AM EDT us Lee Romero MD LAB CYTOLOGY ORDERABLES Final Result Performing Organization Address City/[facility]/ZIP Co de Phone Number [facility] [address] [place] [address] * (ABNORMAL) Prothrombin Time/INR (05/23/2025 12:30 PM EDT) Prothrombin Time 15.2(H) 12.0 - 14.3 sec LAB COAGULATION METHOD 05/23/2025 2:46 PM EDT [facility] INR 1.2(H) 0.9 - 1.1 LAB COAGULATION METHOD 05/23/2025 2:46 PM EDT [facility] Blood Venous blood specimen / Unknown Venipuncture / Unknown 05/23/2025 12:30 PM EDT 05/23/2025 12:31 PM EDT Narrative [facility] - 05/23/2025 2:46 PM EDT OPTIMAL INR RANGES FOR PATIENT ON ORAL ANTICOAGULANT THERAPY Prevention of venous thromboembolism INR 2.0 to 3.0 In patients with heart disease: Atrial fibrillation INR 2.0 to 3.0 Valvular heart disease INR 2.0 to 3.0 Tissue heart valves INR 2.0 to 3.0 Mechanical prosthetic valves INR 2.5 to 3.5 Prevention of recurrent ND INR 2.5 to 3.5 us Marge Malhotra APRN LAB BLOOD ORDERABLES Final R esult [facility] [address] [place] [address] * (ABNORMAL) CBC W/O Differential (05/23/2025 12:30 PM EDT) WBC Count 7.32 3.70 - 10.30 10*3/uL LAB HEMATOLOGY METHOD 05/23/2025 2:31 PM EDT [facility] RBC Count 4.55 3.90 - 5.20 10*6/uL LAB HEMATOLOGY METHOD 05/23/2025 2:31 PM EDT [facility] HGB 13.1 11.2 - 15.7 g/dL LAB HEMATOLOGY METHOD 05/23/2025 2:31 PM EDT [facility] HCT 41.4 34.0 - 45.0 % LAB HEMATOLOGY METHOD 05/23/2025 2:31 PM EDT [facility] Platelet Count 192 155 - 369 10*3/uL LAB HEMATOLOGY METHOD 05/23/2025 2:31 PM EDT [facility] MCV 91 79 - 98 fL LAB HEMATOLOGY METHOD 05/23/2025 2:31 PM EDT [facility] MCH 28.8 26.0 - 32.0 pg LAB HEMATOLOGY METHOD 05/23/2025 2:31 PM EDT [facility] MCHC 31.6 30.7 - 35.5 g/dL LAB HEMATOLOGY METHOD 05/23/2025 2:31 PM EDT [facility] RDW 14.7(H) 11.5 - 14.5 % LAB HEMATOLOGY METHOD 05/23/2025 2:31 PM EDT [facility] MPV 12.6(H) 8.8 - 12.5 fL LAB HEMATOLOGY METHOD 05/23/2025 2:31 PM EDT [facility] nRBC 0.0 <=0.0 per 100 WBCs LAB HEMATOLOGY METHOD 05/23/2025 2:31 PM EDT [facility] Blood Venous blood specimen / Unknown Venipuncture / Unknown 05/23/2025 12:30 PM EDT 05/23/2025 12:31 PM EDT us Marge Malhotra FIRESTOPPER TECHNICIAN LAB BLOOD ORDERABLES Final R esult [facility] [address] [place] [address] * (ABNORMAL) Comprehensive Metabolic Panel, Plasma (05/23/2025 12:30 PM EDT) Glucose, Plasma 92 74 - 99 mg/dL 05/23/2025 2:40 PM EDT [facility] BUN, Plasma 15 8 - 23 mg/dL 05/23/2025 2:40 PM EDT [facility] Creatinine, Plasma 0.63 0.60 - 1.10 mg/dL 05/23/2025 2:40 PM EDT [facility] BUN/Creatinine Ratio 24 05/23/2025 2:40 PM EDT [facility] Sodium, Plasma 139 136 - 145 mmol/L 05/23/2025 2:40 PM EDT [facility] Potassium, Plasma 5.3(H) 3.6 - 4.9 mmol/L 05/23/2025 2:40 PM EDT [facility] Chloride, Plasma 102 97 - 107 mmol/L 05/23/2025 2:40 PM EDT [facility] CO2, Plasma 25 22 - 29 mmol/L 05/23/2025 2:40 PM EDT [facility] Anion Gap 12 6 - 16 mmol/L 05/23/2025 2:40 PM EDT [facility] Total Calcium, Plasma 9.5 8.9 - 10.2 mg/dL 05/23/2025 2:40 PM EDT [facility] Total Protein 7.7 6.3 - 7.9 g/dL 05/23/2025 2:40 PM EDT [facility] Albumin, Plasma 4.1 3.5 - 5.2 g/dL 05/23/2025 2:40 PM EDT [facility] AST, Plasma 26 10 - 35 U/L 05/23/2025 2:40 PM EDT [facility] ALT, Plasma 20 10 - 35 U/L 05/23/2025 2:40 PM EDT [facility] Alkaline Phosphatase, Plasma 91 46 - 142 U/L 05/23/2025 2:40 PM EDT [facility] Total Bilirubin, Plasma 0.8 0.2 - 1.1 mg/dL 05/23/2025 2:40 PM EDT [facility] eGFRcr 88.7 mL/min/1.7 3m*2 05/23/2025 2:40 PM EDT [facility] Comment:Reported eGFRcr in m L/min/1.73m2 is based the CKD-EPI 2020 equation that does not use a race coefficient. Blood Venous blood specimen / Unknown Venipuncture / Unknown 05/23/2025 12:30 PM EDT 05/23/2025 12:31 PM EDT us Marge Malhotra FIRESTOPPER TECHNICIAN LAB BLOOD ORDERABLES Final R esult [facility] [address] [place] [address] * PET/CT FDG Skull Base To Mid [...] scanner: Siemens Biograph 40 mCT. PET/CT acquisition: Jirvhb-ei-jrc-thighs. Standardized uptake value (SUV): Corrected for body weight only. CT: Low-dose, iml-dozskt-vlhm, without intravenous contrast. TOTAL DLP (Dose Length [...] scanner: Siemens Biograph 40 mCT. PET/CT acquisition: [id number]-yb-gsn-thighs. Standardized uptake value (SUV): Corrected for body weight only. CT: Low-dose, xvm-ylroix-mgvd, without intravenous contrast. TOTAL DLP (Dose Length [...] Resul t from Last 3 Months Insurance [facility] MEDICARE Advance Directives Documents on File Type Date Recorded Patient Subsorter Expl anation Advance Directives and Livin g Will 04/15/2025 Living Will & POA Care Teams Cane Stripper Relationship Specialty Start Date End Date Leah Chavarria APRN [address] [place] [address] PCP - General 04/15/25
--- OUTSIDE RECORDS SUMMARY | 2025-07-26 08:13 | XMS_ITS | Encounter Summary ---
Author Organization [facility] Address [address] [place] [address] Care Team Providers Care Engineering Program Analyst Name Role Phone Leah Chavarria APRN Primary Care Provider [phone] Encounter Details Date Type Department Care Team [...] [facility] Gynecology [address] [facility], [address]rd [place] [address] documented as of this encounter Visit Diagnoses Not on filedocumented in this encounter Additional Health Concerns Assessment Noted Time A fall risk assessment has been complete d for the patient 05/23/2025 11:53 AM EDT A Body Mass Index follow-up plan has been documented for the patient 05/30/2025 10:29 AM EDT documented as of this encounter Care Teams Engineering Program Analyst Relationship Specialty Start Date End Date Leah Chavarria APRN [address] [place] [address] PCP - General 04/15/25 documented as of this encounter
--- NOTE | 2025-07-26 08:54 | XR_ITS ---
FINAL REPORT CLINICAL HISTORY: PICC line placement COMPARISON: 05/30/2025 FINDINGS: CHEST 1 VIEW There is mild cardiomegaly. The mediastinum is normal. There are mild chronic changes in both lungs. There is no focal infiltrate or edema. There are no pleural effusions. There is no pneumothorax. There is no osseous abnormality. There is a left PICC line with the tip terminating in the SVC. IMPRESSION: Left PICC line with the tip terminating in the SVC. Mild cardiomegaly. Reviewed, Interpreted and Dictated by Doug Thompson MD Transcribed by Patricia Miller Authenticated and [facility]
== END 2025-07-26 23:59 | disposition home or self-care (01) ==
LOC: INF 08:04
PROVIDERS: PCP Family Medicine; Visit Provider Internal Medicine Medical Oncology
DX: C37 Malignant neoplasm of thymus (principal)
CPT/HCPCS: 71045; 36410; 36569; C1751

== ENCOUNTER 2025-07-28 09:21 | Outpatient (CLI) | payer MEDICARE, SELFPAY ==
--- OUTSIDE RECORDS SUMMARY | 2025-05-30 07:53 | XMS_ITS | Encounter Summary ---
Author Organization [facility] Address [address] [place] [address] Care Team Providers Care Planning Management It Specialist Name Role Phone Leah Chavarria APRN Primary Care Provider [phone] Reason for Referral * Imaging (Routine) - Closed Specialty Diagnoses / Procedures Referred By Contac t Referred To Contact Radiology Diagnoses Mediastinal mass Procedures CT Guided Biopsy Muscle Consult to Interventional Radiology Gilbert Roy DO [address] [address] Phone: tel: fax: Referral ID Status Reason Start Date Expiration Date Visits Re quested Visits Authorized [id number] Closed 04/15/2025 10/15/2026 1 1 Reason for Visit * Imaging (Routine) - Closed Specialty Diagnoses / Procedures Referred By Contac t Referred To Contact Radiology Diagnoses Mediastinal mass Procedures CT Guided Biopsy Muscle Consult to Interventional Radiology Gilbert Roy DO [address] [address] Phone: tel: fax: Referral ID Status Reason Start Date Expiration Date Visits Re quested Visits Authorized [id number] Closed 04/15/2025 10/15/2026 1 1 Encounter Details Date Type Department Care Team (Latest Contact Info) Description 05/30/2025 7:53 AM EDT - 05/30/2025 10:17 AM EDT Hospital Encounter [facility] Interventional Radiology [address] [place] [address] Tanner Christiansen, RN Mediastinal mass Discharge Disposition: [...] at the site of the biopsy. Call [phone] right away if any of these occur: Shortness of breath Chest pain *Interventional Radiology* (IR) Questions/Concerns & Appointments: If there are questions or concerns after discharge please call: Vascular and Interventional Radiology Clinic at [phone] Friday - Friday 8:00 AM to 4:30 PM After hours, weekends, and holidays please call [phone] and ask for the Interventional Radiology provider/Resident on-call Intervention Radiology Appointments: If you need to reschedule a procedure, please call our Schedulers at [phone], option 4. If you need to schedule or reschedule a clinic appointment, please call [phone]. [facility] Vascular and Interventional Radiology Clinic [place] [id number] [facility], First [address] [place] [address] documented in this encounter Medications at Time [...] Brief Postprocedure Note Attending: Lee Romero MD Hospital Housekeeper: DANIA Logan Pre-operative Diagnosis: Hypermetabolic anterior mediastinal [...] saw and evaluated the patient with the medical/PLANTING MACHINE CREWMAN/PA student. I discussed the case with the medical/PLANTING MACHINE CREWMAN/PA student and agree with the findings and [...] been discussed with the patient and/or their open claims representative. All questions answered and they agree to proceed. [1] Social History Tobacco Use Smoking Status Never Smokeless Tobacco Never [2] Current Outpatient Medications Medication Sig Dispense Refill atorvastatin (Lipitor) 10 MG tablet brimonidine (AlphaGAN P) 0.1 % ophthalmic solution Zhhuhaa-Tuycsqgya-Qzhf 500-250-12.5 MG tablet Take by mouth. ferrous [...] saw and evaluated the patient with the medical/PLANTING MACHINE CREWMAN/PA student. I discussed the case with the medical/PLANTING MACHINE CREWMAN/PA student and agree with the findings and [...] saw and evaluated the patient with the medical/PLANTING MACHINE CREWMAN/PA student. I discussed the case with the medical/PLANTING MACHINE CREWMAN/PA student and agree with the findings and [...] scanner: Siemens Biograph 40 mCT. PET/CT acquisition: Uvqgqw-na-bju-thighs. Standardized uptake value (SUV): Corrected for body weight only. CT: Low-dose, vio-hxqdqr-xuis, without intravenous contrast. TOTAL DLP (Dose Length [...] % ophthalmic solution, , Disp: , Rfl: Emjspue-Mnqycaexq-Fezb 500-250-12.5 MG tablet, Take by mouth., Disp: [...] PM EDT Ovarian Cancer Screening [facility] Gynecology [address] [place] [address], [address] [place] [address] documented as of this encounter Procedures Procedure [...] mass presenting for CT guided biopsy TECHNIQUE: Multifocal Lens Assembler: Lee Castaneda MD Secondary Clip Loading Machine Adjuster: Colten Escobar MS4 DLP: 1002.01 mGy*cm Medications: [...] mass presenting for CT guided biopsy TECHNIQUE: Multifocal Lens Assembler: Lee Castaneda MD Secondary Clip Loading Machine Adjuster: Colten QUISPE DLP: 1002.01 mGy*cm Medications: IV [...] on 05/30/2025 10:36 AM Gilbert Roy DO [facility] CT PROCEDURES Final Resul t * Fine needle aspiration - Core Biopsy (05/30/2025 9:55 AM EDT) Case Report Cytology Case: [id number] Authorizing Provider: Lee Hopson MD Collected: 05/30/2025 [...] A1-1 Johns Cytokeratin AE1 AE3: Positive A1-2 RQ21-EIV: Negative A1-3 CD117: Positive A1-4 CK7: Focally positive A1-5 CK20: Negative A1-6 TTF-1: Negative A1-13 P40: Focally positive A1-14 Synaptophysin: Negative A1-15 CD5: Focally positive All controls show appropriate reactivity. All immunohistochemis try, in situ hybridization, and histochemical tests were developed by and are performed at the [facility], [address] [place] [address]. All tests reported here, except those addressing [...] Final Result [facility] [address] [place] [address] documented in this encounter Visit Diagnoses Diagnosis [...] documented as of this encounter Care Teams Planning Management It Specialist Relationship Specialty Start Date End Date Leah Chavarria APRN [address] [place] [address] PCP - General 04/15/25 documented as of this encounter
--- OUTSIDE RECORDS SUMMARY | 2025-05-30 10:18 | XMS_ITS | Encounter Summary ---
Author Organization Healthcare Address [address] [place] [address] Care Team Providers Care Warehouse Delivery Manager Name Role Phone Leah Chavarria APRN Primary Care Provider [phone] Encounter Details Date Type Department Care Team (Latest Contact Info) Description 05/30/2025 10:18 AM EDT - 05/30/2025 11:59 PM EDT Hospital Encounter [facility] Radiology [address] [place] [phone] Discharge Disposition: Home or Self Care Social [...] [facility] Gynecology [address] [place] [address] documented as of this encounter Procedures Procedure [...] documented as of this encounter Care Teams Warehouse Delivery Manager Relationship Specialty Start Date End Date Leah Chavarria, RESEARCH GENETICIST [address] [place] [address] PCP - General 04/15/25 documented as of this encounter
--- OUTSIDE RECORDS SUMMARY | 2025-06-02 12:11 | XMS_ITS | Encounter Summary ---
Author Organization Healthcare Address [address] [place] [address] Care Team Providers Care Piccoloist Name Role Phone Leah Chavarria APRN Primary Care Provider Encounter Details Date Type Department Care Team (Latest Contact Info) Description 06/02/2025 12:11 PM EDT - 06/02/2025 11:59 PM EDT Hospital Encounter PAV H Pulmonary Function Testing [address] [place] [id number] Mediastinal mass Discharge Disposition: Home or Self [...] PAV Gynecology [address] [facility] [place] [address] documented as of this encounter Procedures Procedure Name Priority Date/Time Associated Diagnosis Comments HC DIFFUSING CAPACITY - CARBON MONOXIDE DIFFUSING CAPACITY Routine 06/02/2025 1:11 PM EDT Mediastinal mass documented in this encounter Results * Pulmonary function testing (06/02/2025 1:11 PM EDT) OJQ8PKS 1.48 L 06/02/2025 12:59 PM EDT VYAIRE [...] 1.07 06/02/2025 12:59 PM EDT VYAIRE PFT SAP7WMRILRIRW -1.64 06/02/2025 12:59 PM EDT VYAIRE PFT FEV1_Pre%Pred 69 % % 06/02/2025 12:59 PM EDT VYAIRE PFT FEV1 PREDAUTH JANJosewanda COTTER (2011) 06/02/2025 12:59 PM EDT VYAIRE PFT FEV1 Z-SCORE -1.64 06/02/2025 12:59 PM EDT VYAIRE PFT FEV1/FVC PRE 72.67 % 06/02/2025 12:59 PM EDT VYAIRE PFT RVR4LWCUSHL 77 06/02/2025 12:59 PM EDT VYAIRE PFT MSD5SEQZKI 62 06/02/2025 12:59 PM EDT VYAIRE PFT UXE6XYNPNABSVDRW -0.55 06/02/20 25 12:59 PM EDT VYAIRE PFT NEF8PDPDMU%PRED 94 % % 12:59 PM EDT VYAIRE PFT VIB6VFXLVAXF Meenawanda COTTER (2011) 06/02/2025 12:59 PM EDT VYAIRE PFT BXX2OQDYGCAFW -1 06/02/2025 12:59 PM EDT VYAIRE PFT JRC15-76% PRE 0.74 L/s 06/02/2025 12:59 PM EDT VYAIRE PFT GFH62-02%_Pred 1.31 06/02/2025 12:59 PM EDT VYAIRE PFT WPG0595%LLN 0.53 06/02/2025 12:59 PM EDT VYAIRE PFT DQI7855%PREZSCORE -1.12 025 12:59 PM EDT VYAIRE PFT QCG2093%PRE%PRED 56 % % 06/02/20 25 12:59 PM EDT VYAIRE PFT HCW9094%PREDAUTH Lizettewanda COTTER (2011) 06/02/2025 12:59 PM EDT [...] (1992) 06/02/2025 12:59 PM EDT VYAIRE PFT VLLNVYEGASAHHLVG9ONH 12.46 ml/(min* mmHg) 06/02/2025 12:59 PM EDT [...] -1.27 06/02/2025 12:59 PM EDT VYAIRE PFT EWFVAMWIHVLMPEBMI7QU E 12.58 ml/(min* mmHg) 06/02/2025 12:59 PM EDT VYAIRE PFT DLCOCSINGLEBREATH PRED 15.75 06/02/2025 12:59 PM EDT VYAIRE PFT DLCOCSINGLEBREATH LLN 11.59 06/02/2025 12:59 PM EDT VYAIRE PFT DLCOCSINGLEBREATH Z-SCORE -1.22 06/02/2025 12:59 PM EDT VYAIRE PFT DLCOCSINGLEBREATH % PRED 79.8 % 06/02/2025 12:59 PM EDT VYAIRE PFT DLCOCSINGLEBREATH PREDAUT Rlonathan TLCO GLI (2019) 06/02/2025 12:59 PM EDT VYAIRE PFT YRGQUI5FJI 5.27 ml/(min* mmHg*L) 06/02/2025 12:59 PM EDT VYAIRE PFT DLCOVAPRED 4.29 06/02/2025 12:59 PM EDT VYAIRE PFT DLCOVALLN 3.23 06/02/2025 12:59 PM EDT VYAIRE PFT DLCOVAZSCORE 1.34 06/02/2025 12:59 PM EDT VYAIRE PFT DLCOVA%PRED 122.8 % 06/02/2025 12:59 PM EDT VYAIRE PFT DLCOVAPREDAUT Rlovancevic TLCO GLI (2019) 06/02/2025 12:59 PM EDT VYAIRE PFT DLCOVAZSCORE 1.34 06/02/2025 12:59 PM EDT VYAIRE PFT HZZVDVXSA6OEZ 5.32 ml/(min* mmHg*L) 06/02/2025 12:59 PM EDT [...] 1.41 06/02 12:59 PM EDT VYAIRE PFT DZRLCVNUONVGXD8RWL 2.36 L 08/07/ 2025 12:59 PM EDT VYAIRE PFT VASINGLEBREATH PRED 3.65 06/02 12:59 PM EDT VYAIRE PFT VASINGLEBREATH LLN 2.88 2024 12:59 PM EDT VYAIRE PFT VASINGLEBREATH Z-SCORE -2.86 06/02/2025 12:59 PM EDT VYAIRE PFT VASINGLEBREATH % PRED 64.7 % 06/02/2025 12:59 PM EDT VYAIRE PFT VASINGLEBREATH [facility]UN[facility] Stantarasjebeverly TLCO GLI (2019) 06/02/2025 12:59 PM EDT VYAIRE PFT VASINGLEBREATH Z-SCORE -2.86 06/02/2025 12:59 PM EDT VYAIRE PFT XHSNTTMBSJYKBJF1AXS 1.38 L 06/02 12:59 PM EDT VYAIRE PFT IVCSINGLEBREATH PRED 2.02 04/2025 12:59 PM EDT VYAIRE PFT IVCSINGLEBREATH LLN 1.40 06/02 12:59 PM EDT VYAIRE PFT IVCSINGLEBREATH Z-SCORE -1.72 06/02/2025 12:59 PM EDT VYAIRE PFT IVCSINGLEBREATH % PRED 67.9 % 06/02/2025 12:59 PM EDT VYAIRE PFT IVCSINGLEBREATH PREDUN[facility] _Josejer GLI (2011) 06/02/2025 12:59 PM EDT VYAIRE PFT HB PRE 13.10 g(Hb)/dL 06/02/2025 12:59 PM EDT VYAIRE PFT OGI3HCH 3.21 L 06/02/2025 12:59 PM EDT VYAIRE [...] (1992) 06/02/2025 12:59 PM EDT VYAIRE PFT SWNEJRZL7LES 2.06 L 06/02/2025 12:59 PM EDT VYAIRE [...] (1992) 2024 12:59 PM EDT VYAIRE PFT DUV0OAS 0.52 L 06/02/2025 12:59 PM EDT VYAIRE [...] (1992) 06/02/2025 12:59 PM EDT VYAIRE PFT RV%NED2PPE 47.30 % 06/02/2025 12:59 PM EDT VYAIRE PFT RV%TLCPRED 47 06/02/2025 12:59 PM EDT VYAIRE PFT RV%TLCLLN 37 06/02/2025 12:59 PM EDT VYAIRE PFT RV%TLCULN 56 06/02/2025 12:59 PM EDT VYAIRE PFT RV%TLCZSCORE 0.08 06/02/2025 12:59 PM EDT VYAIRE PFT RV%TLC%PRED 101.0 % 06/02/2025 12:59 PM EDT VYAIRE PFT RV%TLCPREDAUTH ECCS (1993) 12:59 PM EDT VYAIRE PFT UCG6SDW 2.08 L 06/02/2025 12:59 PM EDT VYAIRE PFT Anatomical Region Laterality Modality PFT 06/02/2025 12:2 4 PM EDT Narrative 06/03/2025 10:59 PM EDT Pulmonary Function Testing Report Graciela Owens underwent pulmonary function testing today at the [facility]. The patient underwent spirometry, lung volumes by [...] documented as of this encounter Care Teams Piccoloist Relationship Specialty Start Date End Date Leah Chavarria APRN [address] [place] [address] PCP - General 04/15/25 documented as of this encounter
--- OUTSIDE RECORDS SUMMARY | 2025-06-02 14:00 | XMS_ITS | Encounter Summary ---
Author Organization [facility] Address [address] [place] [address] Care Team Providers Care Geothermal Hvac Technician Name Role Phone Leah Chavarria APRN Primary Care Provider [phone] Reason for Referral * Consultation (Routine) - Authorized Specialty Diagnoses / Procedures Referred By Contsavita t Referred To Contact Medical Oncology Diagnoses Mediastinal mass Gilbert Roy DO [address] [address] Phone: tel: fax: Referral ID Status Reason Start Date Expiration Date Visits Requested Visits Authorized [id number] Authorized Specialty Services Required 06/02/2025 12/02/2026 [address] Stahl at [facility] Reason for Visit * Reason Comments Follow-up Encounter Details Date Type Department Care Team (Late st Contact Info) Description 06/02/2025 2:00 PM EDT Office Visit Pav CC Head, Neck & Respiratory 800 [facility], [address]nd [place] [phone] Gilbetr Roy DO [address] [address] Mediastinal mass Social History Tobacco [...] from the original note were not included. [facility] Department of Surgery Section of [...] to Medical radiation close to home in [facility]. We will reach out to Dr. [...] 06/16/2026 2:00 PM EDT Ovarian Cancer Screening [facility] Gynecology 800 [facility], [address]rd [place] [address] Scheduled Referrals Name Type Priority Associated Diagnoses [...] documented as of this encounter Care Teams Geothermal Hvac Technician Relationship Specialty Start Date End Date Leah Chavarria APRN [address] [place], [place] [id number] PCP - General 04/15/25 documented as of this encounter
--- OUTSIDE RECORDS SUMMARY | 2025-07-28 09:25 | XMS_ITS | Encounter Summary ---
Author Organization [facility] Address [address] [place] [address] Care Team Providers Care Service Clerk Name Role Phone DeonLeah Raquel BECK Primary Care Provider [phone] Encounter Details Date Type Department Care Team (Late Contact Info) Description 03/24/2025 Orders Only External Location [address] [place] [phone] Provider, External Social History Tobacco Use Types [...] [facility] Gynecology [address] , [address] [place] [address] documented as of this encounter Procedures Procedure [...] on filedocumented in this encounter Care Teams Service Clerk Relationship Specialty Start Date End Date Leah Chavarria APRN [address] [place] [address] PCP - General 04/15/25 documented as of this encounter
--- OUTSIDE RECORDS SUMMARY | 2025-07-28 09:25 | XMS_ITS | Encounter Summary ---
Author Organization [facility] Address [address] [place] [address] Care Team Providers Care Cotton Stripper Name Role Phone DeonLeah Raquel BECK Primary Care Provider [phone] Encounter Details Date Type Department Care Team (Late Contact Info) Description 02/27/2025 Orders Only External Location [address] [place] [id number] Provider, External Social History Tobacco Use Types [...] Ovarian Cancer Screening [facility] Gynecology [address] , [address] [place] [address] documented as of this encounter Procedures Procedure [...] on filedocumented in this encounter Care Teams Cotton Stripper Relationship Specialty Start Date End Date Leah Chavarria, EBONY [address] [place] [address] PCP - General 04/15/25 documented as of this encounter
--- OUTSIDE RECORDS SUMMARY | 2025-07-28 09:25 | XMS_ITS | Encounter Summary ---
Author Organization [facility] Address [address] [place] [address] Care Team Providers Care Acoustic Warfare Analyst Name Role Phone DeonLeah Raquel BECK Primary Care Provider [phone] Encounter Details Date Type Department Care Team (Late Contact Info) Description 03/24/2025 Orders Only External Location [address] [place] [phone] Provider, External Social History Tobacco Use Types [...] PM EDT Ovarian Cancer Screening [facility] Gynecology [address] , [address] [place] [address] documented as of this encounter Procedures Procedure [...] on filedocumented in this encounter Care Teams Acoustic Warfare Analyst Relationship Specialty Start Date End Date Leah Chavarria, EBONY [address] [place] [address] PCP - General 04/15/25 documented as of this encounter
--- OUTSIDE RECORDS SUMMARY | 2025-07-28 09:25 | XMS_ITS | Encounter Summary ---
Author Organization [facility] Address [address] [place] [address] Care Team Providers Care Merchandise Planner Name Role Phone DeonLeah Raquel BECK Primary Care Provider [phone] Encounter Details Date Type Department Care Team (Late Contact Info) Description 11/03/2023 Orders Only External Location [address] [place] [phone] Provider, External Social History Tobacco Use Types [...] [facility] Gynecology [address] , [address] [place] [address] documented as of this encounter Procedures Procedure [...] on filedocumented in this encounter Care Teams Merchandise Planner Relationship Specialty Start Date End Date Leah Chavarria, EBONY [address] [place] [address] PCP - General 04/15/25 documented as of this encounter
--- OUTSIDE RECORDS SUMMARY | 2025-07-28 09:25 | XMS_ITS | Encounter Summary ---
Author Organization [facility] Address [address] [place] [address] Care Team Providers Care Straddle Carrier Operator Name Role Phone Deon Leah Raquel BECK Primary Care Provider [phone] Encounter Details Date Type Department Care Team (Late st Contact Info) Description 11/29/2022 Orders Only External Location [address] [place] [address] Provider, External Social History Tobacco Use Types [...] [facility] Gynecology [address] , [address] [place] [address] documented as of this encounter Procedures Procedure [...] on filedocumented in this encounter Care Teams Straddle Carrier Operator Relationship Specialty Start Date End Date Leah Chavarria APRN [address] [place], [place] [id number] PCP - General 04/15/25 documented as of this encounter
--- OUTSIDE RECORDS SUMMARY | 2025-07-28 09:26 | XMS_ITS | Encounter Summary ---
Author Organization [facility] Address [address] [place] [address] Care Team Providers Care Personnel Director Name Role Phone Leah Chavarria APRN Primary Care Provider [phone] Encounter Details Date Type Department Care Team [...] Cancer Screening [facility] Gynecology [address] [facility], [address]rd [place] [address] documented as of this encounter Visit Diagnoses Not on filedocumented in this encounter Additional Health Concerns Assessment Noted Time A fall risk assessment has been complete d for the patient 05/23/2025 11:53 AM EDT A Body Mass Index follow-up plan has been documented for the patient 05/30/2025 10:29 AM EDT documented as of this encounter Care Teams Personnel Director Relationship Specialty Start Date End Date Leah Chavarria APRN [address] [place] [address] PCP - General 04/15/25 documented as of this encounter
--- OUTSIDE RECORDS SUMMARY | 2025-07-28 09:26 | XMS_ITS | Clinical Summary ---
Author Organization [facility] Address [address] [place] [address] Care Team Providers Care Casino Attendant Name Role Phone Deon Leahradhika García APRN Primary Care Provider [phone] Allergies No known active allergies Medications losartan [...] & Respiratory [address] , [address] [place] [address] Gilbert Roy, DO Mediastinal mass 06/02/2025 12:11 PM EDT - 06/02/2025 11:59 PM EDT Hospital Encounter [facility] H Pulmonary Function Testing [address] [place] [address] Mediastinal mass Discharge Disposition: Home or Self Care 06/02/2025 Travel 05/31/2025 Travel 05/30/2025 10:18 AM EDT - 05/30/2025 11:59 PM EDT Hospital Encounter [facility] H Radiology [address] [place] [address] Discharge Disposition: Home or Self Care 05/30/2025 7:53 AM EDT - 05/30/2025 10:17 AM EDT Hospital Encounter [facility] A Interventional Radiology [address] [place] [address] Tanner Christiansen, RN Mediastinal mass Discharge Disposition: Home or Self Care 05/30/2025 Travel 05/23/2025 12:00 PM EDT Office Visit [facility] Vascular Interventional Radiology [address], [facility] [address] [place] [address] Marge Malhotra, PROFESSOR OF ECONOMICS Encounter for other preprocedural examination (Primary Dx) 05/23/2025 Travel 05/17/2025 Travel 05/03/2025 Telephone Pav CC Head, Neck & Respiratory [address] [facility], [address]nd [place] [address] Karla Gavin, RN from Last 3 Months Family History Medical [...] Frequency of Binge Drinking Not on file 0804/2025 Comments Unknown Sex and Gender Information Value [...] 06/16/2026 2:00 PM EDT Ovarian Cancer Screening [facility] Gynecology [address] [facility], [address]rd [place] [address] Health Maintenance Due Date Last Done Comments [facility]-Bone Density Scan 1940 [facility]-Medicare Annual Wellness (AWV) 1942 [facility]-/Child/Adol SDOH Screenings 1942 [facility]- SDOH Screenings 1960 [facility]-Adult SDOH Screenings 1960 [facility]-DTaP,Tdap,and Td Vaccines (1 - Tdap) 1961 [facility]-Pneumococcal Vaccine: 50+ Years (1 of 2 - PCV) 1961 [facility]-Zoster Vaccines (1 of 2) 1961 [facility]-RSV Vaccine: 60+ Years or (1 - 1-dose 75+ series) 2017 [id number]-60 Vaccine (7 - Pfizer risk season) 2025 [...] PM EDT Encounter for other preprocedural examination from Last 3 Months Results * Pulmonary function testing (06/02/2025 1:11 PM EDT) BOS8WPD 1.48 L 06/02/2025 12:59 PM EDT VYAIRE PFT FVC PRED 2.02 06/02/2025 12:59 PM EDT VYAIRE PFT FVC LLN 1.40 06/02/2025 12:59 PM EDT VYAIRE PFT FVCPREZSCORE -1.44 06/02/2025 12:59 PM EDT VYAIRE PFT FVCPRE%PRED 73 % % 06/02/2025 12:59 PM EDT VYAIRE PFT FVC PREDAUT US_Quanjer GLI (2011) 06/02/2025 12:59 PM EDT VYAIRE PFT FVC Z-SCORE -1.44 06/02/2025 12:59 PM EDT VYAIRE PFT FEV1 PRE 1.07 L 06/02/2025 12:59 PM EDT VYAIRE PFT FEV1 PRED 1.55 06/02/2025 12:59 PM EDT VYAIRE PFT FEV1 LLN 1.07 06/02/2025 12:59 PM EDT VYAIRE PFT ABE4YXIMCHWGT -1.64 06/02/2025 12:59 PM EDT VYAIRE PFT FEV1_Pre%Pred 69 % % 06/02/2025 12:59 PM EDT VYAIRE PFT FEV[facility]_Quanjer GLI (2011) 06/02/2025 12:59 PM EDT VYAIRE PFT FEV1 Z-SCORE -1.64 06/02/2025 12:59 PM EDT VYAIRE PFT FEV1/FVC PRE 72.67 % 06/02/2025 12:59 PM EDT VYAIRE PFT QQU8WXZNCAI 77 06/02/2025 12:59 PM EDT VYAIRE PFT URJ0XQZLBX 62 06/02/2025 12:59 PM EDT VYAIRE PFT JWU5CDMQNRDAZBEW -0.55 06/02/20 12:59 PM EDT VYAIRE PFT SYK2FTIBSV%PRED 94 % % 12:59 PM EDT VYAIRE PFT GTQ9WKEZYGNF [facility] (2011[facility] 06/02/2025 12:59 PM EDT VYAIRE PFT IRU5NMCLXOTGG -1 06/02/2025 12:59 PM EDT VYAIRE PFT CVC48-42% PRE 0.74 L/s 06/02/2025 12:59 PM EDT VYAIRE PFT UFT79-13%_Pred 1.31 06/02/2025 12:59 PM EDT VYAIRE PFT ZIM6241%LLN 0.53 06/02/2025 12:59 PM EDT VYAIRE PFT WAW2821%PREZSCORE -1.12 025 12:59 PM EDT VYAIRE PFT JYZ8072%PRE%PRED 56 % % 06/02/20 25 12:59 PM EDT VYAIRE PFT COO9839%[facility] Norma COTTER (2011) 06/02/2025 12:59 PM EDT VYAIRE PFT PEF PRE 3.94 L/s 06/02/2025 12:59 PM EDT VYAIRE PFT PEF PRED 4.63 06/02/2025 12:59 PM EDT VYAIRE PFT PEF LLN 3.14 06/02/2025 12:59 PM EDT VYAIRE PFT PEFPREZSCORE -0.76 06/02/2025 12:59 PM EDT VYAIRE PFT PEFPRE%PRED 85 % % 06/02/2025 12:59 PM EDT VYAIRE PFT PEF [facility] ECCS (1992) 06/02/2025 12:59 PM EDT VYAIRE PFT WRANHQBJMIKSDXSY1CFU 12.46 ml/(min* mmHg) 06/02/2025 12:59 PM EDT VYAIRE PFT DLCOSINGLEBREATH PRED 15.75 06/02/2025 12:59 PM EDT VYAIRE PFT DLCOSINGLEBREATH LLN 11.59 0804/2025 12:59 PM EDT VYAIRE PFT DLCOSINGLEBREATH Z-SCORE -1.27 06/02/2025 12:59 PM EDT VYAIRE PFT DLCOSINGLEBREATH % PRED 79.1 % 06/02/2025 12:59 PM EDT VYAIRE PFT DLCOSINGLEBREATH [facility] Rlnanci ROTHMANO GLI (2019) 06/02/2025 12:59 PM EDT VYAIRE PFT DLCOSINGLEBREATH Z-SCORE -1.27 06/02/2025 12:59 PM EDT VYAIRE PFT IZFZQPRDGTSIXWRSQ5EF E 12.58 ml/(min* mmHg) 06/02/2025 12:59 PM EDT VYAIRE PFT DLCOCSINGLEBREATH PRED 15.75 06/02/2025 12:59 PM EDT VYAIRE PFT DLCOCSINGLEBREATH LLN 11.59 06/02/2025 12:59 PM EDT VYAIRE PFT DLCOCSINGLEBREATH Z-SCORE -1.22 06/02/2025 12:59 PM EDT VYAIRE PFT DLCOCSINGLEBREATH % PRED 79.8 % 06/02/2025 12:59 PM EDT VYAIRE PFT DLCOCSINGLEBREATH PREDAUTNegrito Leigh TLCO GLI (2019) 06/02/2025 12:59 PM EDT VYAIRE PFT DRYKVK9XCN 5.27 ml/(min* mmHg*L) 06/02/2025 12:59 PM EDT VYAIRE PFT DLCOVAPRED 4.29 06/02/2025 12:59 PM EDT VYAIRE PFT DLCOVALLN 3.23 06/02/2025 12:59 PM EDT VYAIRE PFT DLCOVAZSCORE 1.34 06/02/2025 12:59 PM EDT VYAIRE PFT DLCOVA%PRED 122.8 % 06/02/2025 12:59 PM EDT VYAIRE PFT DLCOVAPREDAUT Reese TLCO GLI (2019) 06/02/2025 12:59 PM EDT VYAIRE PFT DLCOVAZSCORE 1.34 06/02/2025 12:59 PM EDT VYAIRE PFT BRVFAZBSB4MOO 5.32 ml/(min* mmHg*L) 06/02/2025 12:59 PM EDT VYAIRE PFT DLCOC SB/VA PRED 4.29 06/02/20 12:59 PM EDT VYAIRE PFT DLCOC SB/VA LLN 3.23 12:59 PM EDT VYAIRE PFT DLCOC SB/VA Z-SCORE 1.41 06/02 12:59 PM EDT VYAIRE PFT DLCOC SB/VA % PRED 124.0 % 2024 12:59 PM EDT VYAIRE PFT DLCOC SB/VA [facility] Reese TLCO GLI (2019) 06/02/2025 12:59 PM EDT VYAIRE PFT DLCOC SB/VA Z-SCORE 1.41 06/02 12:59 PM EDT VYAIRE PFT PFIJTHSVJVAMMO8WTF 2.36 L 2024 12:59 PM EDT VYAIRE PFT VASINGLEBREATH PRED 3.65 06/02 12:59 PM EDT VYAIRE PFT VASINGLEBREATH LLN 2.88 2024 12:59 PM EDT VYAIRE PFT VASINGLEBREATH Z-SCORE -2.86 06/02/2025 12:59 PM EDT VYAIRE PFT VASINGLEBREATH % PRED 64.7 % 06/02/2025 12:59 PM EDT VYAIRE PFT VASINGLEBREATH [facility] Reese TLCO GLI (2019) 06/02/2025 12:59 PM EDT VYAIRE PFT VASINGLEBREATH Z-SCORE -2.86 06/02/2025 12:59 PM EDT VYAIRE PFT HQCVYVPROQOHQVT4LIR 1.38 L 06/02 12:59 PM EDT VYAIRE PFT IVCSINGLEBREATH PRED 2.02 04/2025 12:59 PM EDT VYAIRE PFT IVCSINGLEBREATH LLN 1.40 06/02 12:59 PM EDT VYAIRE PFT IVCSINGLEBREATH Z-SCORE -1.72 06/02/2025 12:59 PM EDT VYAIRE PFT IVCSINGLEBREATH % PRED 67.9 % 06/02/2025 12:59 PM EDT VYAIRE PFT IVCSINGLEBREATH [facility] _Josejer GLI (2011) 06/02/2025 12:59 PM EDT VYAIRE PFT HB PRE 13.10 g(Hb)/dL 06/02/2025 12:59 PM EDT VYAIRE PFT IJC4PLJ 3.21 L 06/02/2025 12:59 PM EDT VYAIRE [...] 06/02/2025 12:59 PM EDT VYAIRE PFT VCPREDAUTH US_Josejer GLI (2011) 06/02/2025 12:59 PM EDT VYAIRE PFT IC0PRE 1.15 L 06/02/2025 12:59 PM EDT VYAIRE PFT ICPRED 1.28 06/02/2025 12:59 PM EDT VYAIRE PFT ICLLN 1.28 06/02/2025 12:59 PM EDT VYAIRE PFT ICULN 1.28 06/02/2025 12:59 PM EDT VYAIRE PFT IC%PRED 89.5 % 06/02/2025 12:59 PM EDT VYAIRE PFT ICPREDAUTH ECCS calculated (1992) 06/02/2025 12:59 PM EDT VYAIRE PFT MHTLDZFL9TCT 2.06 L 06/02/2025 12:59 PM EDT VYAIRE [...] (1992) 2024 12:59 PM EDT VYAIRE PFT ORA1AVT 0.52 L 06/02/2025 12:59 PM EDT VYAIRE [...] (1992) 06/02/2025 12:59 PM EDT VYAIRE PFT RV%LAA1TSC 47.30 % 06/02/2025 12:59 PM EDT VYAIRE PFT RV%TLCPRED 47 06/02/2025 12:59 PM EDT VYAIRE PFT RV%TLCLLN 37 06/02/2025 12:59 PM EDT VYAIRE PFT RV%TLCULN 56 06/02/2025 12:59 PM EDT VYAIRE PFT RV%TLCZSCORE 0.08 06/02/2025 12:59 PM EDT VYAIRE PFT RV%TLC%PRED 101.0 % 06/02/2025 12:59 PM EDT VYAIRE PFT RV%TLCPREDAUTH ECCS (1993) 12:59 PM EDT VYAIRE PFT QOY0MBN 2.08 L 06/02/2025 12:59 PM EDT VYAIRE [...] mass presenting for CT guided biopsy TECHNIQUE: Film Composer: Lee Castaneda MD Secondary Patient Registration Rep: Colten Escobar 4 DLP: 1002.01 mGy*cm Medications: [...] mass presenting for CT guided biopsy TECHNIQUE: Film Composer: Lee Castaneda MD Secondary Patient Registration Rep: Colten QUISPE DLP: 1002.01 mGy*cm Medications: IV [...] on 05/30/2025 10:36 AM Gilbert Roy DO [facility] [place] PROCEDURES Final Resul t * Fine needle aspiration - Core Biopsy (05/30/2025 9:55 AM EDT) Case Report Cytology Case: [id number] Authorizing Provider: Lee Hopson MD Collected: 05/30/2025 0955 Ordering Location: [facility] A Interventional Received: 05/30/2025 1043 Radiology Pathologist: Jyoti Bruner MD Specimen: Mass, Core Biopsy with Touch Preparation (Specify Site), MEDIASTINAL MASS, CT GUIDED CORE BIOPSY WITH TOUCH PREPS 3:22 PM EDT [facility] Final Diagnosis A. MEDIASTINAL MASS, CT GUIDED CORE BIOPSY: - POSITIVE FOR MALIGNANCY, SQUAMOUS CELL CARCINOMA (SEE COMMENT). 3:22 PM EDT [facility] at 1522 EDT Comment The immunophenotype would favor a thymic primary, although metastases from other sites cannot be entirely excluded. Clinical correlation is suggested. 3:22 PM EDT [facility] Special and Immunohistochemical Stains IHC: A1-1 Johns Cytokeratin AE1 AE3: Positive A1-2 FE52-ZVW: Negative A1-3 CD117: Positive A1-4 CK7: Focally positive A1-5 CK20: Negative A1-6 TTF-1: Negative A1-13 P40: Focally positive A1-14 Synaptophysin: Negative A1-15 CD5: Focally positive All controls show appropriate reactivity. All immunohistochemis try, in situ hybridization, and histochemical tests were developed by and are performed at the [facility], [address] [place] [address]. All tests reported here, except those addressing [...] negativity on decalcified specimens. 3:22 PM EDT [facility] Intradepartmental Consultation with Agreement Dr. Susan Jin 3:22 PM EDT [facility] Immediate Evaluation Core biopsy performed [...] appears on the report. 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 B Symptoms past year. 3:22 PM EDT [facility] Procedure Type CT 3:22 PM EDT [facility] Size/Description of Lesion mediastinal 3:22 PM EDT [facility] Cancer History Yes 3:22 PM EDT [facility] Previous Cancer Primary Site Skin Cancer 3:22 PM EDT [facility] Gross Description A. MEDIASTINAL MASS, CT GUIDED CORE BIOPSY WITH TOUCH PREPS Multiple white huerta cores of friable tissue, all measuring less than 0.1 cm in diameter and ranging from 0.1 cm to 0.8 cm in length, entirely submitted in biowrap and/or cassette. Received 2 diff quick touch prep slides. Cold Time: 19m 3:22 PM EDT [facility] Note: A resident was involved in the service. I attest I examined the relevant preparations for the specimens and confirmed the diagnosis or interpretation. 3:22 PM EDT [facility] Clinical Information No Dx found. 3:22 PM EDT [facility] Fine Needle Aspirate Specimen from mass / Unknown Non-blood Collection / Unknown 05/30/2025 9:55 AM EDT 05/30/2025 10:43 AM EDT us Lee Romero MD LAB CYTOLOGY ORDERABLES Final Result [facility] [address] [place] [address] * (ABNORMAL) Prothrombin Time/INR (05/23/2025 12:30 PM EDT) Prothrombin Time 15.2(H) 12.0 - 14.3 sec LAB COAGULATION METHOD 05/23/2025 2:46 PM EDT [facility] INR 1.2(H) 0.9 - 1.1 LAB COAGULATION METHOD 05/23/2025 2:46 PM EDT [facility] Blood Venous blood specimen / Unknown Venipuncture / Unknown 05/23/2025 12:30 PM EDT 05/23/2025 12:31 PM EDT Narrative [facility] - 05/23/2025 2:46 PM EDT OPTIMAL INR RANGES FOR PATIENT ON ORAL ANTICOAGULANT THERAPY Prevention of venous thromboembolism INR 2.0 to 3.0 In patients with heart disease: Atrial fibrillation INR 2.0 to 3.0 Valvular heart disease INR 2.0 to 3.0 Tissue heart valves INR 2.0 to 3.0 Mechanical prosthetic valves INR 2.5 to 3.5 Prevention of recurrent MT INR 2.5 to 3.5 us Marge Malhotra PROFESSOR OF ECONOMICS LAB BLOOD ORDERABLES Final R esult [facility] [address] [place] [address] * (ABNORMAL) CBC W/O Differential (05/23/2025 12:30 PM EDT) WBC Count 7.32 3.70 - 10.30 10*3/uL LAB HEMATOLOGY METHOD 05/23/2025 2:31 PM EDT [facility] RBC Count 4.55 3.90 - 5.20 10*6/uL LAB HEMATOLOGY METHOD 05/23/2025 2:31 PM EDT [facility] HGB 13.1 11.2 - 15.7 g/dL LAB HEMATOLOGY METHOD 05/23/2025 2:31 PM EDT [facility] HCT 41.4 34.0 - 45.0 % LAB HEMATOLOGY METHOD 05/23/2025 2:31 PM EDT [facility] Platelet Count 192 155 - 369 10*3/uL LAB HEMATOLOGY METHOD 05/23/2025 2:31 PM EDT [facility] MCV 91 79 - 98 fL LAB HEMATOLOGY METHOD 05/23/2025 2:31 PM EDT [facility] MCH 28.8 26.0 - 32.0 pg LAB HEMATOLOGY METHOD 05/23/2025 2:31 PM EDT [facility] MCHC 31.6 30.7 - 35.5 g/dL LAB HEMATOLOGY METHOD 05/23/2025 2:31 PM EDT [facility] RDW 14.7(H) 11.5 - 14.5 % LAB HEMATOLOGY METHOD 05/23/2025 2:31 PM EDT [facility] MPV 12.6(H) 8.8 - 12.5 fL LAB HEMATOLOGY METHOD 05/23/2025 2:31 PM EDT [facility] nRBC 0.0 <=0.0 per 100 WBCs LAB HEMATOLOGY METHOD 05/23/2025 2:31 PM EDT [facility] Blood Venous blood specimen / Unknown Venipuncture / Unknown 05/23/2025 12:30 PM EDT 05/23/2025 12:31 PM EDT us Marge Malhotra PROFESSOR OF ECONOMICS LAB BLOOD ORDERABLES Final R esult [facility] [address] [place] [address] * (ABNORMAL) Comprehensive Metabolic Panel, Plasma (05/23/2025 12:30 PM EDT) Glucose, Plasma 92 74 - 99 mg/dL 05/23/2025 2:40 PM EDT [facility] BUN, Plasma 15 8 - 23 mg/dL 05/23/2025 2:40 PM EDT [facility] Creatinine, Plasma 0.63 0.60 - 1.10 mg/dL 05/23/2025 2:40 PM EDT [facility] BUN/Creatinine Ratio 24 05/23/2025 2:40 PM EDT [facility] Sodium, Plasma 139 136 - 145 mmol/L 05/23/2025 2:40 PM EDT [facility] Potassium, Plasma 5.3(H) 3.6 - 4.9 mmol/L 05/23/2025 2:40 PM EDT [facility] Chloride, Plasma 102 97 - 107 mmol/L 05/23/2025 2:40 PM EDT [facility] CO2, Plasma 25 22 - 29 mmol/L 05/23/2025 2:40 PM EDT [facility] Anion Gap 12 6 - 16 mmol/L 05/23/2025 2:40 PM EDT [facility] Total Calcium, Plasma 9.5 8.9 - 10.2 mg/dL 05/23/2025 2:40 PM EDT [facility] Total Protein 7.7 6.3 - 7.9 g/dL 05/23/2025 2:40 PM EDT [facility] Albumin, Plasma 4.1 3.5 - 5.2 g/dL 05/23/2025 2:40 PM EDT [facility] AST, Plasma 26 10 - 35 U/L 05/23/2025 2:40 PM EDT [facility] ALT, Plasma 20 10 - 35 U/L 05/23/2025 2:40 PM EDT [facility] Alkaline Phosphatase, Plasma 91 46 - 142 U/L 05/23/2025 2:40 PM EDT [facility] Total Bilirubin, Plasma 0.8 0.2 - 1.1 mg/dL 05/23/2025 2:40 PM EDT [facility] eGFRcr 88.7 mL/min/1.7 3m*2 05/23/2025 2:40 PM EDT [facility] Comment:Reported eGFRcr in m L/min/1.73m2 is based the CKD-EPI 2020 equation that does not use a race coefficient. Blood Venous blood specimen / Unknown Venipuncture / Unknown 05/23/2025 12:30 PM EDT 05/23/2025 12:31 PM EDT us Marge Malhotra PROFESSOR OF ECONOMICS LAB BLOOD ORDERABLES Final R esult [facility] [address] [place] [address] from Last 3 Months Insurance [facility] MEDICARE Advance Directives Documents on File Type Date Recorded Patient Strategic Planning Consultant Expl anation Advance Directives and Livin g Will 04/15/2025 Living Will & POA Care Teams Casino Attendant Relationship Specialty Start Date End Date Leah Chavarria APRN [address] [place] [address] PCP - General 04/15/25
--- OUTSIDE RECORDS SUMMARY | 2025-07-28 09:26 | XMS_ITS | Encounter Summary ---
Author Organization [facility] Address [address] [place] [address] Care Team Providers Care Sap Pi Architect Name Role Phone Leah Chavarria APRN Primary Care Provider [phone] Encounter Details Date Type Department Care Team [...] Cancer Screening [facility] Gynecology [address] [facility], [address] [place] [address] documented as of this encounter Visit Diagnoses Not on filedocumented in this encounter Additional Health Concerns Assessment Noted Time A fall risk assessment has been complete d for the patient 05/23/2025 11:53 AM EDT A Body Mass Index follow-up plan has been documented for the patient 05/30/2025 10:29 AM EDT documented as of this encounter Care Teams Sap Pi Architect Relationship Specialty Start Date End Date Leah Chavarria APRN [address] [place] [address] PCP - General 04/15/25 documented as of this encounter
--- OUTSIDE RECORDS SUMMARY | 2025-07-28 09:26 | XMS_ITS | Encounter Summary ---
Author Organization [facility] Address [address] [place] [address] Care Team Providers Care Privacy Officer Name Role Phone DeonLeah Raquel BECK Primary Care Provider [phone] Encounter Details Date Type Department Care Team [...] 06/16/2026 2:00 PM EDT Ovarian Cancer Screening [facility] Gynecology [address] [facility], [address]rd [place] [address] documented as of this encounter Visit Diagnoses Not on filedocumented in this encounter Additional Health Concerns Assessment Noted Time A fall risk assessment has been complete d for the patient 06/02/2025 1:06 PM EDT A Body Mass Index follow-up plan has been documented for the patient 06/03/2025 11:51 AM EDT documented as of this encounter Care Teams Privacy Officer Relationship Specialty Start Date End Date Leah Chavarria APRN [address] [place] [address] PCP - General 04/15/25 documented as of this encounter
[2025-07-28 09:45] LABS: Hematocrit 32.3 % (37.0-47.0); Hemoglobin 10.3 g/dL (12.2-16.2); Immature Granulocytes % 0.9 %; Mean Corpuscular HGB Conc 31.9 g/dL (31.8-35.4); Mean Corpuscular Hemoglobin 29.0 pg (27.0-31.2); Mean Corpuscular Volume 91.0 fl (81-99); Nucleated Red Blood Cells % 0 %; Platelet Count 110 K/mm3 (142-424); Red Blood Count 3.55 M/mm3 (4.20-5.40); Red Cell Distribution Width-SD 52.4 fL; White Blood Count 2.3 K/mm3 (4.8-10.8)
[2025-07-28 10:26] LABS: Alanine Aminotransferase 22 U/L (12-78); Albumin Level 3.7 g/dl (3.5-5.0); Albumin/Globulin Ratio 1.5 (1.1-1.8); Alkaline Phosphatase 71 U/L (38-126); Anion Gap 12.1 mEq/L (5-15); Aspartate Amino Transferase 29 U/L (14-36); Bilirubin,Total 1.0 mg/dl (0.2-1.3); Blood Urea Nitrogen 18 mg/dl (7-17); Calcium 8.8 mg/dl (8.4-10.2); Carbon Dioxide 25 mmol/L (22.0-30.0); Chloride 104 mmol/L (98-107); Creatinine,Serum 0.60 mg/dl (0.52-1.04); Estimated Glomerular Filt Rate 96 ml/min (>60); GFR (African American) 116 ML/MIN (>60); Globulin 2.5 g/dL (1.3-3.2); Glucose 106 mg/dl (74-100); Potassium 4.1 mmoL/L (3.5-5.1); Sodium 137 mmol/L (136-145); Total Protein,Serum 6.2 g/dl (6.3-8.2)
[2025-07-28] MEDS: LORATADINE 10MG TABLET 10 MG PO (10:38)
[2025-07-28] MEDS: DEXAMETHASONE 4MG TABLET 12 MG (10:38)
[2025-07-28] MEDS: FAMOTIDINE 20MG TABLET 20 MG (10:38)
[2025-07-28] MEDS: ONDANSETRON 4MG ODT 16 MG (10:38)
[2025-07-28] MEDS: PACLITAXEL IV (11:09)
[2025-07-28] MEDS: DEXTROSE 5% IV (11:09)
[2025-07-28] MEDS: WATER IV (11:09)
[2025-07-28 11:16] VITALS: BP 144/68; PULSE 67; RESP 18; TEMP 36.4; O2SAT 97
[2025-07-28 11:45] VITALS: BP 138/65; PULSE 70
[2025-07-28 11:51] LABS: RBC Morphology Normal; Total Cells Counted 100
[2025-07-28 12:10] VITALS: BP 133/62; PULSE 71
[2025-07-28] MEDS: CARBOplatin 150 MG in 0.9 % SODIUM CHLORIDE 100 ML 230 MG IV (12:10)
[2025-07-28 12:15] VITALS: BP 141/72; PULSE 70
[2025-07-28 12:45] VITALS: BP 130/67; PULSE 74; RESP 18
[2025-07-28] MEDS: SODIUM CHLORIDE 0.9% 100ML BAG 100 ML IV (12:50)
== END 2025-07-28 23:59 | disposition home or self-care (01) ==
LOC: INF 09:23
PROVIDERS: PCP Family Medicine; Visit Provider Internal Medicine Medical Oncology
DX: C37 Malignant neoplasm of thymus (principal); Z51.11 Encounter for antineoplastic chemotherapy
CPT/HCPCS: 80053; 85007; 85025; 85027; 96413; 96415; 96417; J7060; J8540; J9045; J9267; Q0162

== ENCOUNTER 2025-08-04 09:26 | Outpatient (CLI) | payer MEDICARE, SELFPAY ==
[2025-08-04 09:47] LABS: Hematocrit 32.2 % (37.0-47.0); Hemoglobin 10.5 g/dL (12.2-16.2); Immature Granulocytes % 0.5 %; Mean Corpuscular HGB Conc 32.6 g/dL (31.8-35.4); Mean Corpuscular Hemoglobin 29.7 pg (27.0-31.2); Mean Corpuscular Volume 91.2 fl (81-99); Nucleated Red Blood Cells % 0 %; Platelet Count 90 K/mm3 (142-424); Red Blood Count 3.53 M/mm3 (4.20-5.40); Red Cell Distribution Width-SD 57.1 fL
[2025-08-04 09:59] LABS: White Blood Count 1.9 K/mm3 (4.8-10.8)
[2025-08-04 10:30] LABS: Alanine Aminotransferase 24 U/L (12-78); Albumin Level 3.7 g/dl (3.5-5.0); Albumin/Globulin Ratio 1.4 (1.1-1.8); Alkaline Phosphatase 73 U/L (38-126); Anion Gap 13.9 mEq/L (5-15); Aspartate Amino Transferase 27 U/L (14-36); Bilirubin,Total 1.4 mg/dl (0.2-1.3); Blood Urea Nitrogen 18 mg/dl (7-17); Calcium 8.4 mg/dl (8.4-10.2); Carbon Dioxide 24 mmol/L (22.0-30.0); Chloride 103 mmol/L (98-107); Creatinine,Serum 0.70 mg/dl (0.52-1.04); Estimated Glomerular Filt Rate 80 ml/min (>60); GFR (African American) 97 ML/MIN (>60); Globulin 2.6 g/dL (1.3-3.2); Glucose 129 mg/dl (74-100); Potassium 3.9 mmoL/L (3.5-5.1); Sodium 137 mmol/L (136-145); Total Protein,Serum 6.3 g/dl (6.3-8.2)
[2025-08-04] MEDS: DEXAMETHASONE 4MG TABLET 12 MG (10:37)
[2025-08-04] MEDS: LORATADINE 10MG TABLET 10 MG PO (10:37)
[2025-08-04] MEDS: FAMOTIDINE 20MG TABLET 20 MG (10:37)
[2025-08-04] MEDS: ONDANSETRON 4MG ODT 16 MG (10:37)
[2025-08-04 11:07] VITALS: BP 124/65; PULSE 71; RESP 18; TEMP 36.8; O2SAT 99
[2025-08-04] MEDS: WATER IV (11:09)
[2025-08-04] MEDS: PACLITAXEL IV (11:09)
[2025-08-04] MEDS: DEXTROSE 5% IV (11:09)
[2025-08-04 11:37] VITALS: BP 119/65; PULSE 72
[2025-08-04 11:43] LABS: RBC Morphology Normal; Total Cells Counted 100
[2025-08-04] MEDS: CARBOplatin 150 MG in 0.9 % SODIUM CHLORIDE 100 ML 230 MG IV (12:08)
[2025-08-04 12:10] VITALS: BP 127/68; PULSE 74
[2025-08-04 12:13] VITALS: BP 122/69; PULSE 70
[2025-08-04 12:45] VITALS: BP 126/68; PULSE 74
== END 2025-08-04 23:59 | disposition home or self-care (01) ==
LOC: INF 09:28
PROVIDERS: PCP Family Medicine; Visit Provider Internal Medicine Medical Oncology
DX: C37 Malignant neoplasm of thymus (principal); Z51.11 Encounter for antineoplastic chemotherapy
CPT/HCPCS: 80053; 85007; 85025; 85027; 96413; 96415; 96417; J7060; J8540; J9045; J9267; Q0162

== ENCOUNTER 2025-08-09 10:23 | Outpatient (CLI) | payer MEDICARE, SELFPAY ==
[2025-08-09 10:25] VITALS: BMI 21.7
--- OUTSIDE RECORDS SUMMARY | 2025-08-09 10:26 | XMS_ITS | Referral Summary ---
Author Organization [employer] ([place], [place], [place], [place]) Address [address] [place] [address] Care Team Providers Care Spinner Open End Name Role Phone Unavailable Primary Care Provider [...]
--- OUTSIDE RECORDS SUMMARY | 2025-08-09 10:26 | XMS_ITS | Clinical Summary ---
Author Organization [employer] ([place], [place], [place], [place]) Address [address] [place] [address] Care Team Providers Care Heel Seat Fitter Name Role Phone Unavailable Primary Care Provider [...]
--- OUTSIDE RECORDS SUMMARY | 2025-08-09 10:26 | XMS_ITS | Clinical Summary ---
Author Organization [facility] Address [address] [place] [address] Care Team Providers Care Impact Retail Service Merchandiser Name Role Phone Deon Leahmaira García APRN Primary Care Provider [phone] Allergies No known active allergies Medications losartan [...] & Respiratory [address] , [address] [place] [address] Gilbert Roy, DO Mediastinal mass 06/02/2025 12:11 PM EDT - 06/02/2025 11:59 PM EDT Hospital Encounter [facility] Pulmonary Function Testing [address] [place] [address] Mediastinal mass Discharge Disposition: Home or Self Care 06/02/2025 Travel 05/31/2025 Travel 05/30/2025 10:18 AM EDT - 05/30/2025 11:59 PM EDT Hospital Encounter [facility] Radiology [address] [place] [address] Discharge Disposition: Home or Self Care 05/30/2025 7:53 AM EDT - 05/30/2025 10:17 AM EDT Hospital Encounter [facility] Interventional Radiology [address] [place] [address] Tanner Christiansen, RN Mediastinal mass Discharge Disposition: Home or Self Care 05/30/2025 Travel 05/23/2025 12:00 PM EDT Office Visit [facility] Vascular Interventional Radiology [address] [facility] [address] [place] [address] Marge Malhotra, FORM LAYER Encounter for other preprocedural examination (Primary Dx) 05/23/2025 Travel 05/17/2025 Travel from Last 3 Months Family History [...] EDT Ovarian Cancer Screening [facility] Gynecology [address] [facility], 3rd [place] [address] Health Maintenance Due Date Last Done Comments [facility]-Bone Density Scan 1942 [facility]-Medicare Annual Wellness (AWV) 1942 [facility]-/Child/Adol SDOH Screenings 1942 [facility]- SDOH Screenings 1960 [facility]-Adult SDOH Screenings 1960 [facility]-DTaP,Tdap,and Td Vaccines (1 - Tdap) 1961 [facility]-Pneumococcal Vaccine: 50+ Years (1 of 2 - PCV) 1961 [facility]-Zoster Vaccines (1 of 2) 1961 [facility]-RSV Vaccine: 60+ Years or (1 - 1-dose 75+ series) 2017 [id number] Vaccine (7 - Pfizer risk season) 2025 [...] Pulmonary function testing (06/02/2025 1:11 PM EDT) [id number] 1.48 L 06/02/2025 12:59 PM EDT VYAIRE [...] 1.07 06/02/2025 12:59 PM EDT VYAIRE PFT XLZ0YWHZUWBJM -1.64 06/02/2025 12:59 PM EDT VYAIRE PFT FEV1_Pre%Pred 69 % % 06/02/2025 12:59 PM EDT VYAIRE PFT FEV1 PREDAUTH US_Quanjer VAHE (2011) 06/02/2025 12:59 PM EDT VYAIRE PFT FEV1 Z-SCORE -1.64 06/02/2025 12:59 PM EDT VYAIRE PFT FEV1/FVC PRE 72.67 % 06/02/2025 12:59 PM EDT VYAIRE PFT ERJ4YDRUAVK 77 06/02/2025 12:59 PM EDT VYAIRE PFT ZWJ8LRDEDF 62 06/02/2025 12:59 PM EDT VYAIRE PFT TPY3KDUEWRVCJKVL -0.55 06/02/20 25 12:59 PM EDT VYAIRE PFT UTC0HMAZOL%PRED 94 % % 12:59 PM EDT VYAIRE PFT CFN4KRLYRUOS US_Quanjer VAHE (2011) 06/02/2025 12:59 PM EDT VYAIRE PFT YSJ8ADJRRRLAR -1 06/02/2025 12:59 PM EDT VYAIRE PFT HKW36-13% PRE 0.74 L/s 06/02/2025 12:59 PM EDT VYAIRE PFT FEY86-58%_Pred 1.31 06/02/2025 12:59 PM EDT VYAIRE PFT QKJ8222%LLN 0.53 06/02/2025 12:59 PM EDT VYAIRE PFT MVR5770%PREZSCORE -1.12 025 12:59 PM EDT VYAIRE PFT ISC3247%PRE%PRED 56 % % 06/02/20 12:59 PM EDT VYAIRE PFT JVW1024%[facility] Norma GLI (2011) 06/02/2025 12:59 PM EDT VYAIRE PFT PEF PRE 3.94 L/s 06/02/2025 12:59 PM EDT VYAIRE PFT PEF PRED 4.63 06/02/2025 12:59 PM EDT VYAIRE PFT PEF LLN 3.14 06/02/2025 12:59 PM EDT VYAIRE PFT PEFPREZSCORE -0.76 06/02/2025 12:59 PM EDT VYAIRE PFT PEFPRE%PRED 85 % % 06/02/2025 12:59 PM EDT VYAIRE PFT PEF [facility] ECCS (1992) 06/02/2025 12:59 PM EDT VYAIRE PFT LBZEEEQZSFGOISLF2XYD 12.46 ml/(min* mmHg) 06/02/2025 12:59 PM EDT VYAIRE PFT DLCOSINGLEBREATH PRED 15.75 06/02/2025 12:59 PM EDT VYAIRE PFT DLCOSINGLEBREATH LLN 11.59 0804/2025 12:59 PM EDT VYAIRE PFT DLCOSINGLEBREATH Z-SCORE -1.27 06/02/2025 12:59 PM EDT VYAIRE PFT DLCOSINGLEBREATH % PRED 79.1 % 06/02/2025 12:59 PM EDT VYAIRE PFT DLCOSINGLEBREATH [facility] Rlnanci TLCO GLI (2019) 06/02/2025 12:59 PM EDT VYAIRE PFT DLCOSINGLEBREATH Z-SCORE -1.27 06/02/2025 12:59 PM EDT VYAIRE PFT RBLRTDSRMFKVZPFKT2OB E 12.58 ml/(min* mmHg) 06/02/2025 12:59 PM EDT VYAIRE PFT DLCOCSINGLEBREATH PRED 15.75 06/02/2025 12:59 PM EDT VYAIRE PFT DLCOCSINGLEBREATH LLN 11.59 06/02/2025 12:59 PM EDT VYAIRE PFT DLCOCSINGLEBREATH Z-SCORE -1.22 06/02/2025 12:59 PM EDT VYAIRE PFT DLCOCSINGLEBREATH % PRED 79.8 % 06/02/2025 12:59 PM EDT VYAIRE PFT DLCOCSINGLEBREATH PREDAUTH Rltarasnathan TLCO GLI (2019) 06/02/2025 12:59 PM EDT VYAIRE PFT JXVWFU4OKI 5.27 ml/(min* mmHg*L) 06/02/2025 12:59 PM EDT VYAIRE PFT DLCOVAPRED 4.29 06/02/2025 12:59 PM EDT VYAIRE PFT DLCOVALLN 3.23 06/02/2025 12:59 PM EDT VYAIRE PFT DLCOVAZSCORE 1.34 06/02/2025 12:59 PM EDT VYAIRE PFT DLCOVA%PRED 122.8 % 06/02/2025 12:59 PM EDT VYAIRE PFT DLCOVAPREDAUTH Rltarasvancebeverly TLCO GLI (2019) 06/02/2025 12:59 PM EDT VYAIRE PFT DLCOVAZSCORE 1.34 06/02/2025 12:59 PM EDT VYAIRE PFT MILYMEBAZ5ETO 5.32 ml/(min* mmHg*L) 06/02/2025 12:59 PM EDT VYAIRE PFT DLCOC SB/VA PRED 4.29 06/02/20 12:59 PM EDT VYAIRE PFT DLCOC SB/VA LLN 3.23 12:59 PM EDT VYAIRE PFT DLCOC SB/VA Z-SCORE 1.41 06/02 12:59 PM EDT VYAIRE PFT DLCOC SB/VA % PRED 124.0 % 2024 12:59 PM EDT VYAIRE PFT DLCOC SB/VA PREDAUTH Stanonathan TLCO GLI (2019) 06/02/2025 12:59 PM EDT VYAIRE PFT DLCOC SB/VA Z-SCORE 1.41 06/02 12:59 PM EDT VYAIRE PFT BGDRPPYWKGOKSG6SXQ 2.36 L 2024 12:59 PM EDT VYAIRE PFT VASINGLEBREATH PRED 3.65 06/02 12:59 PM EDT VYAIRE PFT VASINGLEBREATH LLN 2.88 2024 12:59 PM EDT VYAIRE PFT VASINGLEBREATH Z-SCORE -2.86 06/02/2025 12:59 PM EDT VYAIRE PFT VASINGLEBREATH % PRED 64.7 % 06/02/2025 12:59 PM EDT VYAIRE PFT VASINGLEBREATH [facility] Stanojevic TLCO GLI (2019) 06/02/2025 12:59 PM EDT VYAIRE PFT VASINGLEBREATH Z-SCORE -2.86 06/02/2025 12:59 PM EDT VYAIRE PFT PTWTSHRKIYCLFWK1BSR 1.38 L 06/02 12:59 PM EDT VYAIRE PFT IVCSINGLEBREATH PRED 2.02 04/2025 12:59 PM EDT VYAIRE PFT IVCSINGLEBREATH LLN 1.40 06/02 12:59 PM EDT VYAIRE PFT IVCSINGLEBREATH Z-SCORE -1.72 06/02/2025 12:59 PM EDT VYAIRE PFT IVCSINGLEBREATH % PRED 67.9 % 06/02/2025 12:59 PM EDT VYAIRE PFT IVCSINGLEBREATH [facility] US_Quanjer GLI (2011) 06/02/2025 12:59 PM EDT VYAIRE PFT HB PRE 13.10 g(Hb)/dL 06/02/2025 12:59 PM EDT VYAIRE PFT EKG1IND 3.21 L 06/02/2025 12:59 PM EDT VYAIRE [...] (1992) 06/02/2025 12:59 PM EDT VYAIRE PFT LCKTXVNF2DLN 2.06 L 06/02/2025 12:59 PM EDT VYAIRE [...] (1992) 2024 12:59 PM EDT VYAIRE PFT UZX2YQP 0.52 L 06/02/2025 12:59 PM EDT VYAIRE [...] (1992) 06/02/2025 12:59 PM EDT VYAIRE PFT RV%ALH1NIN 47.30 % 06/02/2025 12:59 PM EDT VYAIRE PFT RV%TLCPRED 47 06/02/2025 12:59 PM EDT VYAIRE PFT RV%TLCLLN 37 06/02/2025 12:59 PM EDT VYAIRE PFT RV%TLCULN 56 06/02/2025 12:59 PM EDT VYAIRE PFT RV%TLCZSCORE 0.08 06/02/2025 12:59 PM EDT VYAIRE PFT RV%TLC%PRED 101.0 % 06/02/2025 12:59 PM EDT VYAIRE PFT RV%TLCPREDAUTH ECCS (1993) 12:59 PM EDT VYAIRE PFT RXF2ZGC 2.08 L 06/02/2025 12:59 PM EDT VYAIRE PFT Anatomical Region Laterality Modality PFT 06/02/2025 12:2 4 PM EDT Narrative 06/03/2025 10:59 PM EDT Pulmonary Function Testing Report Graciela Owens underwent pulmonary function testing today at the [facility]. The patient underwent spirometry, lung [...] mass presenting for CT guided biopsy TECHNIQUE: Manager Domestic: Lee Castaneda MD Secondary Photographer Helper: Colten Escobar MS4 DLP: 1002.01 mGy*cm Medications: [...] mass presenting for CT guided biopsy TECHNIQUE: Manager Domestic: Lee Castaneda MD Secondary Photographer Helper: Colten Escobar MS4 DLP: 1002.01 mGy*cm Medications: [...] 9:55 AM EDT) Case Report Cytology Case: [id number] Authorizing Provider: Lee Hopson MD Collected: 05/30/2025 0955 Ordering Location: [facility] Interventional Received: 05/30/2025 1043 Radiology Pathologist: Jyoti Bruner MD Specimen: Mass, Core Biopsy with Touch Preparation (Specify Site), MEDIASTINAL MASS, CT GUIDED CORE BIOPSY WITH TOUCH PREPS 3:22 PM EDT [facility] Final Diagnosis A. MEDIASTINAL MASS, CT GUIDED CORE BIOPSY: - POSITIVE FOR MALIGNANCY, SQUAMOUS CELL CARCINOMA (SEE COMMENT). 3:22 PM EDT [facility] at 1522 EDT Comment The immunophenotype would favor a thymic primary, although metastases from other sites cannot be entirely excluded. Clinical correlation is suggested. 3:22 PM EDT [facility] Special and Immunohistochemical Stains IHC: A1-1 Johns Cytokeratin AE1 AE3: Positive A1-2 PF26-NYH: Negative A1-3 CD117: Positive A1-4 CK7: Focally positive A1-5 CK20: Negative A1-6 TTF-1: Negative A1-13 P40: Focally positive A1-14 Synaptophysin: Negative A1-15 CD5: Focally positive All controls show appropriate reactivity. All immunohistochemis try, in situ hybridization, and histochemical tests were developed by and are performed at the [facility], [address] [place] [address]. All tests reported here, except those addressing [...] negativity on decalcified specimens. 3:22 PM EDT [facility] Intradepartmental Consultation with Agreement Dr. Susan Jin 3:22 PM EDT [facility] Immediate Evaluation Core biopsy [...] appears on the report. 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 B Symptoms past year. 5 3:22 PM EDT [facility] Procedure Type CT 5 3:22 PM EDT [facility] Size/Description of Lesion mediastinal 5 3:22 PM EDT [facility] Cancer History Yes 5 3:22 PM EDT [facility] Previous Cancer Primary Site Skin Cancer 5 3:22 PM EDT [facility] Gross Description A. MEDIASTINAL MASS, CT GUIDED CORE BIOPSY WITH TOUCH PREPS Multiple white huerta cores of friable tissue, all measuring less than 0.1 cm in diameter and ranging from 0.1 cm to 0.8 cm in length, entirely submitted in biowrap and/or cassette. Received 2 diff quick touch prep slides. Cold Time: 19m 3:22 PM EDT [facility] Note: A resident was involved in the service. I attest I examined the relevant preparations for the specimens and confirmed the diagnosis or interpretation. 3:22 PM EDT [facility] Clinical Information No Dx found. 3:22 PM EDT [facility] Fine Needle Aspirate Specimen from mass / Unknown Non-blood Collection / Unknown 05/30/2025 9:55 AM EDT 05/30/2025 10:43 AM EDT us Lee Romero MD LAB CYTOLOGY ORDERABLES Final Result [facility] [address] [place] [address] * (ABNORMAL) Prothrombin Time/INR (05/23/2025 12:30 PM EDT) Prothrombin Time 15.2(H) 12.0 - 14.3 sec LAB COAGULATION METHOD 05/23/2025 2:46 PM EDT [facility] INR 1.2(H) 0.9 - 1.1 LAB COAGULATION METHOD 05/23/2025 2:46 PM EDT [facility] Blood Venous blood specimen / Unknown Venipuncture / Unknown 05/23/2025 12:30 PM EDT 05/23/2025 12:31 PM EDT Narrative [facility] - 05/23/2025 2:46 PM EDT OPTIMAL INR RANGES FOR PATIENT ON ORAL ANTICOAGULANT THERAPY Prevention of venous thromboembolism INR 2.0 to 3.0 In patients with heart disease: Atrial fibrillation INR 2.0 to 3.0 Valvular heart disease INR 2.0 to 3.0 Tissue heart valves INR 2.0 to 3.0 Mechanical prosthetic valves INR 2.5 to 3.5 Prevention of recurrent WA INR 2.5 to 3.5 us Marge Malhotra FORM LAYER LAB BLOOD ORDERABLES Final R esult [facility] [address] [place] [address] * (ABNORMAL) CBC W/O Differential (05/23/2025 12:30 PM EDT) WBC Count 7.32 3.70 - 10.30 10*3/uL LAB HEMATOLOGY METHOD 05/23/2025 2:31 PM EDT [facility] RBC Count 4.55 3.90 - 5.20 10*6/uL LAB HEMATOLOGY METHOD 05/23/2025 2:31 PM EDT [facility] HGB 13.1 11.2 - 15.7 g/dL LAB HEMATOLOGY METHOD 05/23/2025 2:31 PM EDT [facility] HCT 41.4 34.0 - 45.0 % LAB HEMATOLOGY METHOD 05/23/2025 2:31 PM EDT [facility] Platelet Count 192 155 - 369 10*3/uL LAB HEMATOLOGY METHOD 05/23/2025 2:31 PM EDT [facility] MCV 91 79 - 98 fL LAB HEMATOLOGY METHOD 05/23/2025 2:31 PM EDT [facility] MCH 28.8 26.0 - 32.0 pg LAB HEMATOLOGY METHOD 05/23/2025 2:31 PM EDT [facility] MCHC 31.6 30.7 - 35.5 g/dL LAB HEMATOLOGY METHOD 05/23/2025 2:31 PM EDT [facility] RDW 14.7(H) 11.5 - 14.5 % LAB HEMATOLOGY METHOD 05/23/2025 2:31 PM EDT [facility] MPV 12.6(H) 8.8 - 12.5 fL LAB HEMATOLOGY METHOD 05/23/2025 2:31 PM EDT [facility] nRBC 0.0 <=0.0 per 100 WBCs LAB HEMATOLOGY METHOD 05/23/2025 2:31 PM EDT [facility] Blood Venous blood specimen / Unknown Venipuncture / Unknown 05/23/2025 12:30 PM EDT 05/23/2025 12:31 PM EDT us Marge Malhotra FORM LAYER LAB BLOOD ORDERABLES Final R esult [facility] [address] [place] [address] * (ABNORMAL) Comprehensive Metabolic Panel, Plasma (05/23/2025 12:30 PM EDT) Glucose, Plasma 92 74 - 99 mg/dL 05/23/2025 2:40 PM EDT [facility] BUN, Plasma 15 8 - 23 mg/dL 05/23/2025 2:40 PM EDT [facility] Creatinine, Plasma 0.63 0.60 - 1.10 mg/dL 05/23/2025 2:40 PM EDT [facility] BUN/Creatinine Ratio 24 05/23/2025 2:40 PM EDT [facility] Sodium, Plasma 139 136 - 145 mmol/L 05/23/2025 2:40 PM EDT [facility] Potassium, Plasma 5.3(H) 3.6 - 4.9 mmol/L 05/23/2025 2:40 PM EDT [facility] Chloride, Plasma 102 97 - 107 mmol/L 05/23/2025 2:40 PM EDT [facility] CO2, Plasma 25 22 - 29 mmol/L 05/23/2025 2:40 PM EDT [facility] Anion Gap 12 6 - 16 mmol/L 05/23/2025 2:40 PM EDT [facility] Total Calcium, Plasma 9.5 8.9 - 10.2 mg/dL 05/23/2025 2:40 PM EDT [facility] Total Protein 7.7 6.3 - 7.9 g/dL 05/23/2025 2:40 PM EDT [facility] Albumin, Plasma 4.1 3.5 - 5.2 g/dL 05/23/2025 2:40 PM EDT [facility] AST, Plasma 26 10 - 35 U/L 05/23/2025 2:40 PM EDT [facility] ALT, Plasma 20 10 - 35 U/L 05/23/2025 2:40 PM EDT [facility] Alkaline Phosphatase, Plasma 91 46 - 142 U/L 05/23/2025 2:40 PM EDT [facility] Total Bilirubin, Plasma 0.8 0.2 - 1.1 mg/dL 05/23/2025 2:40 PM EDT [facility] eGFRcr 88.7 mL/min/1.7 3m*2 05/23/2025 2:40 PM EDT [facility] Comment:Reported eGFRcr in m L/min/1.73m2 is based the CKD-EPI 2020 equation that does not use a race coefficient. Blood Venous blood specimen / Unknown Venipuncture / Unknown 05/23/2025 12:30 PM EDT 05/23/2025 12:31 PM EDT us Marge Malhotra FORM LAYER LAB BLOOD ORDERABLES Final R esult Performing Organization Address City/State/[facility] Co de Phone Number [facility] [address] [place] [address] from Last 3 Months Insurance MAIRA [id number] [facility] MEDICARE Advance Directives Documents on File Type Date Recorded Patient Lumber Mover Expl anation Advance Directives and Livin g Will 04/15/2025 Living Will & POA Care Teams Impact Retail Service Merchandiser Relationship Specialty Start Date End Date Leah Chavarria APRN [address] [place] [address] PCP - General 04/15/25
--- OUTSIDE RECORDS SUMMARY | 2025-08-09 10:26 | XMS_ITS | Encounter Summary ---
Author Organization [facility] Address [address] [place] [address] Care Team Providers Care Ramp Service Man Name Role Phone DeonLeah Raquel BECK Primary Care Provider [phone] Encounter Details Date Type Department Care Team (Late Contact Info) Description 02/27/2025 Orders Only External Location [address] [place] [phone] Provider, External Social History Tobacco Use Types [...] 2:00 PM EDT Ovarian Cancer Screening [facility] Gynecology [address] [place] [address] documented as of this encounter Procedures Procedure [...] on filedocumented in this encounter Care Teams Ramp Service Man Relationship Specialty Start Date End Date Leah Chavarria, EBONY [address] [place] [address] PCP - General 04/15/25 documented as of this encounter
--- OUTSIDE RECORDS SUMMARY | 2025-08-09 10:26 | XMS_ITS | Encounter Summary ---
Author Organization [facility] Address [address] [place] [address] Care Team Providers Care Airline Flight Attendant Name Role Phone DeonLeah Raquel BECK Primary Care Provider [phone] Encounter Details Date Type Department Care Team (Late Contact Info) Description 03/24/2025 Orders Only External Location [address] [place] [phone] Provider, External Social History Tobacco Use Types [...] PM EDT Ovarian Cancer Screening [facility] Gynecology [address] [place] [address] documented as of this encounter Procedures Procedure [...] on filedocumented in this encounter Care Teams Airline Flight Attendant Relationship Specialty Start Date End Date Leah Chavarria, EBONY [address] [place] [address] PCP - General 04/15/25 documented as of this encounter
--- OUTSIDE RECORDS SUMMARY | 2025-08-09 10:26 | XMS_ITS | Encounter Summary ---
Author Organization [facility] Address [address] [place] [address] Care Team Providers Care Geophysical Operator Name Role Phone DeonLeah Raquel BECK Primary Care Provider [phone] Encounter Details Date Type Department Care Team (Late Contact Info) Description 11/03/2023 Orders Only External Location [address] [place] [phone] Provider, External Social History Tobacco Use Types [...] [facility] Gynecology [address] [place] [address] documented as of this encounter Procedures Procedure [...] on filedocumented in this encounter Care Teams Geophysical Operator Relationship Specialty Start Date End Date Leah Chavarria, EBONY [address] [place] [address] PCP - General 04/15/25 documented as of this encounter
--- OUTSIDE RECORDS SUMMARY | 2025-08-09 10:26 | XMS_ITS | Encounter Summary ---
Author Organization [facility] Address [address] [place] [address] Care Team Providers Care Animal Nurse Name Role Phone DeonLeah Raquel BECK Primary Care Provider Encounter Details Date Type Department Care Team (Late Contact Info) Description 03/24/2025 Orders Only External Location [address] [place] [phone] Provider, External Social History Tobacco Use Types [...] EDT Ovarian Cancer Screening [facility] Gynecology [address] [facility] [place] [address] documented as of this encounter Procedures Procedure [...] on filedocumented in this encounter Care Teams Animal Nurse Relationship Specialty Start Date End Date Leah Chavarria APRN [address] [place] [address] PCP - General 04/15/25 documented as of this encounter
--- OUTSIDE RECORDS SUMMARY | 2025-08-09 10:26 | XMS_ITS | Encounter Summary ---
Author Organization [facility] Address [address] [place] [address] Care Team Providers Care Zoo Keeper Name Role Phone Deon Leah Raquel BECK Primary Care Provider [phone] Encounter Details Date Type Department Care Team (Late st Contact Info) Description 11/29/2022 Orders Only External Location [address] [place] [address] Provider, External Social History Tobacco Use Types [...] [facility] Gynecology [address] [place] [address] documented as of this encounter Procedures Procedure [...] on filedocumented in this encounter Care Teams Zoo Keeper Relationship Specialty Start Date End Date Leah Chavarria APRN [address] [place], [place] [id number] PCP - General 04/15/25 documented as of this encounter
[2025-08-09 10:43] LABS: Hematocrit 30.9 % (37.0-47.0); Hemoglobin 10.3 g/dL (12.2-16.2); Immature Granulocytes % 0.7 %; Mean Corpuscular HGB Conc 33.3 g/dL (31.8-35.4); Mean Corpuscular Hemoglobin 30.6 pg (27.0-31.2); Mean Corpuscular Volume 91.7 fl (81-99); Nucleated Red Blood Cells % 0 %; Platelet Count 102 K/mm3 (142-424); Red Blood Count 3.37 M/mm3 (4.20-5.40); Red Cell Distribution Width-SD 60.8 fL
[2025-08-09 10:46] LABS: Albumin Level 3.8 g/dl (3.5-5.0); Chloride 102 mmol/L (98-107); Potassium 4.0 mmoL/L (3.5-5.1); Sodium 137 mmol/L (136-145); White Blood Count 1.4 K/mm3 (4.8-10.8)
[2025-08-09 10:48] LABS: Blood Urea Nitrogen 17 mg/dl (7-17); Creatinine Clearance Estimated 34 mL/min (50-200); Creatinine,Serum 0.60 mg/dl (0.52-1.04); Estimated Glomerular Filt Rate 95 ml/min (>60); GFR (African American) 116 ML/MIN (>60)
[2025-08-09 10:49] LABS: Alanine Aminotransferase 24 U/L (12-78); Albumin/Globulin Ratio 1.3 (1.1-1.8); Alkaline Phosphatase 64 U/L (38-126); Anion Gap 11.0 mEq/L (5-15); Aspartate Amino Transferase 28 U/L (14-36); Bilirubin,Total 1.6 mg/dl (0.2-1.3); Calcium 8.6 mg/dl (8.4-10.2); Carbon Dioxide 28 mmol/L (22.0-30.0); Globulin 2.9 g/dL (1.3-3.2); Glucose 120 mg/dl (74-100); Total Protein,Serum 6.7 g/dl (6.3-8.2)
[2025-08-09 11:31] LABS: RBC Morphology Normal; Total Cells Counted 25
== END 2025-08-09 23:59 | disposition home or self-care (01) ==
LOC: INF 10:23
PROVIDERS: PCP Family Medicine; Visit Provider Internal Medicine Medical Oncology
DX: C37 Malignant neoplasm of thymus (principal)
CPT/HCPCS: 36592; 80053; 85007; 85025; 85027

== ENCOUNTER 2025-08-11 09:08 | Outpatient (CLI) | payer MEDICARE, SELFPAY ==
--- OUTSIDE RECORDS SUMMARY | 2025-06-29 09:36 | XMS_ITS | Continuity of Care Document ---
Author Organization [facility] Phone Care Team Providers Care Gel Coater Name Role Phone BILL JOHNSON Primary Care JANAJHOANA Tom Unavailable ILEANA CHIN Admitting ILEANA CHIN Primary Attending MEDICATIONS HOME MEDICATIONS Status RXNORM NDC Medication Dose Route Frequency Dates Comments Reported By Updated By Drug Treatment Unknown DISCHARGE MEDICATIONS Status RXNORM NDC Medication Dose Route Frequency Dates Dis pense Data Comments Physician Updated By No Discharge Medication Info rmation Available INPATIENT MEDICATIONS Status RXNORM NDC Medication Dose Route Frequency Rat e Quantity Dates Indication Dispense Data Comments Physician Updated By No Inpatient Medication Info rmation Available SOCIAL HISTORY SOCIAL HISTORY - Smoking Status SNOMED-CT Social History Element Description Effective Dates Offered Cessation Comment Updated By [id number] Smoking Status Unknown If Ever Smoked SOCIAL HISTORY - Gender Sex: Female SOCIAL HISTORY - Status : status i nformation is not available Intention in Next Year: intention information is not available SOCIAL HISTORY - Assessments Code System Description Status Date Value of Assessment Updated By Comment Assessment Information is no t available SOCIAL HISTORY - [place] Affiliation [place] information is not av ailable SOCIAL HISTORY - Legal Sex Legal Sex information is not available SOCIAL HISTORY - Sexual Behavior Sexual Orientation Gender Identity SNOMED-CT Description SNO MED -CT Description Activity Level No of Partners Partner Type UpdatedBy Information is not available SOCIAL HISTORY - Occupation Occupation information is no t available HEALTH CONCERNS Problems Concern Status Health Concern problem infor mation not available. Smoking Status Status Years Used Consumed packs p er day Health Concern smoking histo ry information not available. Family History Concern Status Health Concern family histor y information not available. ENCOUNTERS ENCOUNTER INFORMATION Reason for Visit RADIATION Admission June 16, 2025 7:02:[address] [place] [address] Discharge June 27, 2025 3:59:00 AM UTC DISCHARGED TO HOME OR SELF CARE ENCOUNTER DIAGNOSES Notes information is not geovany ilable. Code System Diagnosis Onset Date Diagnosis information is not available. ABSTRACT DIAGNOSES Code System Diagnosis Updated By Abatement Date Z51.0 ICD10 ENCOUNTER FOR AN TINEOPLASTIC RADIATION THERAPY [id number] on June 29, 2025 1:35:55 PM UTC C37 ICD10 MALIGNANT NEOPLASM OF THYMUS [id number] on June 29, 2025 1:35:55 PM UTC Z51.0 ICD10 ENCOUNTER FOR AN TINEOPLASTIC RADIATION THERAPY [id number] on June 29, 2025 1:35:55 PM UTC C37 ICD10 MALIGNANT NEOPLASM OF THYMUS [id number] on June 29, 2025 1:35:55 PM UTC CARE TEAM Care Gel Coater Role BILL JOHNSON Primary Care JHOANA BATES Referring ILEANA GIUSEPPE Admitting ILEANA CHIN Primary Attending CARE TEAM CARE senior marketing data analyst Role on Team Location Telecom Status Start Date End Je e Updated By ELIZABETH Mack PCP normal June 09, 2025 1:17:27 PM UTC June 27, 2025 3:59:00 AM UTC [id number] on June 09, 2025 1:17:27 PM UTC JANA Santos Referring normal June 09, 2025 1:17:27 PM UTC June 27, 2025 3:59:00 AM UTC [id number] on June 09, 2025 1:17:27 PM UTC GIUSEPPE ILEANA ASHRAF Attending normal June 09, 2025 1:17:27 PM UTC June 27, 2025 3:59:00 AM UTC [id number] on June 09, 2025 1:17:27 PM UTC GIUSEPPE TEJEDA Riya ASHRAF Admitting normal June 09, 2025 1:17:27 PM UTC June 27, 2025 3:59:00 AM UTC [id number] on June 09, 2025 1:17:27 PM UTC
[2025-08-11 09:15] VITALS: BP 106/52; PULSE 88; RESP 18; TEMP 36.5; O2SAT 99
[2025-08-11] MEDS: LORATADINE 10MG TABLET 10 MG PO (09:15)
[2025-08-11] MEDS: ONDANSETRON 4MG ODT 16 MG SL (09:15)
[2025-08-11] MEDS: FAMOTIDINE 20MG TABLET 20 MG PO (09:15)
[2025-08-11] MEDS: DEXAMETHASONE 4MG TABLET 12 MG PO (09:15)
--- OUTSIDE RECORDS SUMMARY | 2025-08-11 09:21 | XMS_ITS | Data Portability ---
Author Organization MAIRA PIPER [facility] [place] [facility] Address [address] [facility] [address] [place] [address] Care Team Providers Care Small Business Sales Representative Name Role Phone DEE DEE SEARS Referring Provider BILL JOHNSON Referring Provider Assessment Encounter Date Assessment Date Assessment LastModified by Organization Details LastModified Time 05/09/2017 05/09/2017 Routine staple removal s/p L4-5 fusion 04/24/17. Her incision healed nicely, went ahead w/ the removal. She handled the procedure well. [email or web address] Not available 05/09/2017 13:29:04 06/02/2017 06/02/2017 Mrs. Bedoya is doing well after an L4-5 fusion. Her x-rays today look great. I gave her and her a printed copy. We discussed her level of activity going forward. She will return in one more time in 2 months for repeat x-rays. I suspect she'll be released from our care at that time. She will resume her osteoporosis medication in June. [email or web address] Not available 06/02/2017 10:44:25 03/11/2023 03/11/2023 Very mild essential tremor not enough to consider treatment at this time, I have reassured patient that she is doing very well and that unless this gets significantly worse we can consider medication. We have also gone ahead with an expanded Mini-Mental status exam and she performs outstanding with no deficits at all. [email or web address] Not available 03/11/2023 16:02:29 Plan of Treatment Reminders Order Date Submit Date Provider Last Modified By Organization Details Last Modified Time Details Appointments DERM VISIT 04/08/2 026 09:40AM MILTON MAZA PA-C Not available Not available Not available Lab None recorde d. Referral None recorde d. Procedures None recorde d. Surgeries None recorde d. Imaging None recorde d. Medication Orders None recorde d. Patient TargetsNo targets recorded. Patient Instructions Encounter Date Encounter Id Patient Instructions Last Modified By Organization Details Last Modified Time 08/02/2025 [id number] Continue FBSE q6mo. [email or web address] Not available 2025 14:24:30 Reason for Referral None Reported. Results Created Date Observation Date Name Description Value Unit Range Abnormal Flag Note LastModifiedBy Organization Detail LastModifiedTime 06/02/20 17 06/02/2017 XR, lumbo sacra l spine , 2 or [address], [facility], [place] Sarai lopez Name: ELKE lopez : 1939 Sarai lopez 3 Orderi ng Provid er: RADHA GUNTER EXAM DATE: 2016 EXAM: XR LUMBAR AP/LAT CLINIC AL INFORM ATION: Postop erativ e. IMAGES PROVID ED: AP, latera l, and coned- down views of the lumbar spine. COMPAR ROBBY: None. FINDIN GS AND IMPRES CHAU: Spinal fusion is noted at L4-5 level with pedicu lar screws and connec ting rods. Surgic al hardwa re is satisf actori ly placed . No eviden ce of loosen ing or infect ion is seen. Other levels are normal . Interp reted By: Allison Senior MD Electr onical ly Signed By: Allison Senior MD on 06/02/20 17 2:51 PM [facility] Radiology [facility] [address] [place] [address], [phone], 06/02/2017 22:42:59 08/14/20 17 08/14/2017 XR, lumbo sacra l spine , [facility] [address] [place] [address] Sarai lopez Name: ELKE lopez : 1939 Sarai lopez 3 Orderi ng Provid er: RADHA GUNTER EXAM DATE: 2016 EXAM: XR LUMBAR AP/LAT CLINIC AL INFORM ATION: Postop erativ e. IMAGES PROVID ED: AP, latera l, and coned- down views of the lumbar spine. COMPAR ROBBY: None. FINDIN GS AND IMPRES CHAU: Spinal fusion is noted at L4-L5 level with pedicu lar screws and connec ting rods. Surgic al hardwa re is satisf actori ly placed . No eviden ce of loosen ing or infect ion is seen. Degene rative change s are seen at other levels . Interp reted By: Allison Senior MD Electr onical ly Signed By: Allison Senior MD on 2016 2:46 PM [facility] Radiology [address], [phone], 08/18/2017 21:07:10 Result Notes Documentation Provider Name and Address Organization Details Recorded Time Xr, Lumbosacral Spine, 2 Or 3 View : [place] [address] Patient Name: ELKE BEDOYA Patient : 1940 Patient Ordering Provider: SANJIV GUNTER EXAM DATE: 06/02/2017 EXAM: XR LUMBAR AP/LAT CLINICAL INFORMATION: Postoperative. IMAGES PROVIDED: AP, lateral, and coned-down views of the lumbar spine. COMPARISON: None. FINDINGS AND IMPRESSION: Spinal fusion is noted at L4-5 level with pedicular screws and connecting rods. Surgical hardware is satisfactorily placed. No evidence of loosening or infection is seen. Other levels are normal. Interpreted By: Shorty Senior MD IV GUNTER MD [address] [place] [address], [phone], [facility] 06/02/2017 15:50:57 Xr, Lumbosacral Spine, 2 Or 3 View : [place] [address] Patient Name: ELKE BEDOYA Patient : 1940 Patient Ordering Provider: SANJIV GUNTER EXAM DATE: 08/14/2017 EXAM: XR LUMBAR AP/LAT CLINICAL INFORMATION: Postoperative. IMAGES PROVIDED: AP, lateral, and coned-down views of the lumbar spine. COMPARISON: None. FINDINGS AND IMPRESSION: Spinal fusion is noted at L4-L5 level with pedicular screws and connecting rods. Surgical hardware is satisfactorily placed. No evidence of loosening or infection is seen. Degenerative changes are seen at other levels. Interpreted By: Shroty Senior MD IV GUNTER MD [address] [place], [address], [facility] 08/18/2017 10:56:19 Problems Name Problem SNOMED Code Status Onset Date Resolution Date Notes Provider Name and Address Organization Details Recorded Time History of malignant neoplasm of skin 612950969 Active 025 Farideh Canelaelissa [facility] 09:24:05 Problem Notes None recorded. Procedures Surgical History Date Name Laterality Status Provider Name and Address Organization Details Recorded Time 08/14/20 17 Interpretation completed OJ MTZ PA-C [address] [place], [address], [facility] 08/14/2017 11:05:24 Remove tonsils and adenoids completed [facility] 04/14/2017 08:13:42 Other completed [facility] 04/14/2017 08:15:01 Xcapsl ctrc rmvl cplx wo ecp completed [facility] 04/14/2017 08:15:10 lumpectomy of breast completed Janice Iván [facility] 03/11/2023 15:32:52 Back Surgery completed Janice Iván [facility] 03/11/2023 15:33:18 Imaging Results None recorded. Procedure Notes None recorded. Medical Equipment None Reported. Allergies No known drug allergies Medications Name Sig Start Date Stop Date Status Note LastModified by Organization Details LastModified Time Multiple Vitamin capsule Daily 03/11 completed Duration : 30 days;Jos quency: daily;Me dication Descript ion: multivit ayoub; Dosage:1 ; Route:or al; refills: 3; Quantity :100 capsule Not Available Not Available Not Available atorvasta tin 10 mg tablet Take 1 tablet every day by oral route. active Not Available Not Available No t Available lisinopri l 10 mg tablet Take 1 tablet every day by oral route. active Not Available Not Available No t Available aspirin 81 mg tablet Daily 03/11 completed Duration : 30 days;Jos quency: daily;Me dication Descript ion: aspirin; Dosage:1 ; Route:or al; refills: 0; Quantity :30 tablet Not Available Not Available Not Available vitamin E 268 mg (400 unit) capsule Two times a day 03/11 completed Frequenc y: bid;Medi cation Descript ion: vitamin E; Dosage:1 ; Route:or al; refills: 0; Quantity :1 capsule Not Available Not Available Not Available calcium carbonate Two times a day 03/11 completed Frequenc y: bid;Medi cation Descript ion: calcium carbonat e; Dosage:1 ; Route:or al; refills: 0; Quantity :3 tablet, chewable Not Available Not Available Not Available vitamin E 180 mg daily active Not Available Not Available No t Available Vitamin D Daily 03/11 completed Frequenc y: daily;Me dication Descript ion: ergocalc iferol; Dosage:1 ; Route:or al; refills: 0 Not Available Not Available Not Available Co Q10 Daily 03/11 completed Frequenc y: daily;Me dication Descript ion: ubiquino ne; Dosage:1 ; Route:or al; refills: 0 Not Available Not Available Not Available calcium 400 mg-vit D3 83.3 mcg-magne sium 166.7 mg-zinc 16.7 mg capsule Take 1 capsule every day by oral route. active Not Available Not Available No t Available latanopro st (PF) 0.005 % eye drops in a dropperet te active Not Available Not Available Not Available Vitals Date Recorded Body height Body mass index (BMI) Body weight Oxygen saturation Oxygen saturation in Arterial blood by Pulse oximetry Heart rate Systolic And Diastolic Provider Name and Address Organization Details Last Updated DateTime 3 156.21 cm 23.3 kg/m2 93697.1 5 g 99 % 99 % 70 /min 138/74 mm[Hg] Janice Iván [place] - [facility] 15:34:47 Date Recorded Body height Body mass index (BMI) Body weight Systolic And Diastolic Provider Name and Address Organization Details Last Updated DateTime 06/02/2017 154.94 cm 23.8 kg/m2 44500.64 g 120/78 mm[Hg] Abena Lorenzo [facility] 06/02/2017 10:20:53 Social History Question Answer Notes LastModified by Pili Pop Details LastModified Time Tobacco Smoking Status Never Smoker Abena Lorenzo [facility], [facility] 04/14/2017 08:13:34 Sunscreen Use? Yes [email or web address] Informatio n not available 08/02/2025 Tanning Bed Use No [email or web address] Informati on not available 08/02/2025 Are You Or Trying To Become ? No [email or web address] Information not available 08/02/2025 Are You On Control? No [email or web address] Information not available 08/02/2025 Are You ? No Information not available 08/02/2025 What Was The Date Of Your Most Recent Tobacco Screening? 08/02/2025 [email or web address] Information not available 08/02/2025 What Is Your Relationship Status? Information not available 03/11/2023 Sex: Unknown Functional Status Question Answer Note LastModified by Pili Pop Details LastModified Time Are you currently employed? No retired Information not available 03/11/2023 Mental Status None recorded. Family History Relationship Description Onset Age of this Age Resolved Age Notes LastModified by Organization Details LastModified Time Sister Tremor Not available 15:26:55 Sister Alzheimer's disease Not available 2022 15:31:10 Maternal Grandmother Tremor Not available 2022 15:26:55 Mother Dementia Not available 03/11/2023 15:31:17 Father Diabetes mellitus Not available 2022 15:31:24 Father Heart disease Not available 2022 15:31:43 Father Myocardial infarction Not available 03/11 15:31:57 Brother Heart disease pacema ker Not available 03/11/2023 15:32:16 Medical History Condition Response Cancer Y Hypertension Y High Cholesterol Y Gynecological HistoryNo gynecological history recorded. Obstetrics History GPAL:G 0 P 0 0 0 0 Immunizations Vaccine Type Date Status Note Provider Nam e and Address Organization Details Recorded Time influenza, unspecified formulation 08/07/2018 completed Danika Zepeda [facility] 08/10/2018 08:33:02 Past Encounters Encounter ID Performer Location Encounter Start Date Encounter Closed Date Diagnosis/Indication Diagnosis SNOMED-CT Code Diagnosis ICD10 Code Diagnosis IMO Codes Diagnosis Note [id number] SANJIV GUNTER MD [facility] [address] [place] [phone] 04/14/2017 08:00:56 04/14/2017 13:55:13 Spondylolisthesis, grade 1 30078262 M43.10 [id number] SANJIV GUNTER MD [facility] [address] [place] [address] 05/09/2017 12:56:13 05/09/2017 13:29:18 [id number] SANJIV GUNTER MD [facility] [address] [place] [address] 06/02/2017 10:12:07 06/06/2017 15:33:28 Spondylolisthesis 327369191 M43.10 [id number] OJ MTZ PA-C [facility] [address] [place] [address] 08/14/2017 10:02:13 08/14/2017 11:10:09 Postoperative care 582405270 Z48.89 Ms. Bedoya is doing great nearly 4 months out from a single-lev el lumbar fusion. Her incision has healed nicely. Her films show a stable fusion. I have her copies of the AP and lateral images to take with her. She may continue with activity as tolerated at this point without any specific restrictio ns. She is overall quite pleased with her results. Will release her from our care at this point. She may call the office anytime for any questions or new/recurr ent sxs. She is happy with this plan. [id number] PHIL FLYNN MD [facility] [address] [place] [address] 03/11/2023 15:09:01 03/12/2023 13:37:30 Essential tremor 566364330 G25.0 [id number] MILTON MAZA PA-C [place] [address] [place] [address] 08/02/2025 08:24:21 08/02/2025 09:40:34 Multiple benign melanocytic nevi 933034279 D22.5 - Benign moles seen on exam today- SPF 30 or higher broad-spec trum sunscreen recommende d with re-applica tion every 2 hours- Discussed sun protection measures, including wide-brimm ed hat, sun-protec tive clothing, and avoidance of sun during peak hours of 10am-4pm- Avoid tanning beds as these can increase the chances of all 3 types of skin cancer- Instructed to monitor for changes and to call us for appointmen t with any changing or worrisome lesions Seborrheic keratosis 394 751969 L82.1 - Benign overgrowth s of skin - Hereditary Senile angioma 3384405 I 78.1 - Benign blood vessel growths - Hereditary Solar lentigo 86956592 L 81.4 - Benign brown spots - Sun-induce d History of malignant neoplasm of skin 861255194 Z85.828 - 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 Gilbert Roy - [facility] Hem/Onc- Pt is receiving radiation at in [place] - Pt is receiving chemothera py in [place] Encouraged to continue following closely with hematology and oncology. Medical records reviewed. Health Concerns Section Related Observation LastModified by Organization Detai ls LastModified Time None Recorded Concern Status LastModified by Organization Details LastModified Time None Recorded Advance Directives Directive None Recorded Payers Insurance Date Sequence Insurance Name Policy Number Policy Loera Covered Member ID Loera Member ID Guarantor Name 08/06/2025 1 [facility] (MEDICARE REPLACEMENT/A DVANTAGE - PPO) [id number] Elke Bedoya [id number] Elke Bedoya Notes Date Note Type Note Provider Name and Address Organization Details Recorded Time 06/02/2017 text/html ROS as noted in the HPI Mrs. Elke Bedoya returns today after an L4-5 fusion performed April 24, 2017. She reports good relief of pain and denies any significant pain at this time. She has followed restrictions well, and has been using her brace as instructed. SANJIV GUNTER MD [address] [place], [address], [facility] 06/02/2017 10:44:54 08/14/2017 text/html ROS as noted in the HPI Ms. Bedoya presents for post op visit. She is s/p L4-5 PLIF on 04/24/[address] Gunter. Reports continued resolution of her prior leg sxs. Post-op back has resolved as well. She has resumed her normal daily activities, including walking 4-5 miles daily, without issue. OJ MTZ PA-C [address] [place], [address], [facility] 08/14/2017 11:08:20 03/11/2023 text/html ROS as noted in the HPI 10-year-old female presents today for evaluation for tremor and memory. Patient complains of a mild intention tremor that she has noticed in her left hand, this is only there on occasion and may be associated with increased stressors. Patient states recently had tremor that is noticeable for short periods of time and usually if she holds an object in an awkward angle. Patient has a sister has significant essential tremor and grandmother had a history of tremor as well. Patient also is concerned about her short-term memory, she does complain of a lot of stressors going on at this time she was recently placed her 1 sister in a fci and has been through a lot of stress regarding this, she denies any episodes of actual memory loss but does complain of difficulty sometimes finding names of people quickly. PHIL FLYNN MD [address] [place], [address], [facility] 03/11/2023 16:22:42 08/02/2025 text/html Patient requests a FBSE. 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
--- OUTSIDE RECORDS SUMMARY | 2025-08-11 09:21 | XMS_ITS | Encounter Summary ---
Author Organization [facility] Address [address] [place] [address] Care Team Providers Care Belt Builder Helper Name Role Phone DeonLeah Raquel BECK Primary Care Provider [phone] Encounter Details Date Type Department Care Team (Late st Contact Info) Description 11/29/2022 Orders Only External Location [address] [place] [address] Provider, External Social History Tobacco Use Types [...] [facility] [address] [place] [address] documented as of this encounter Procedures Procedure [...] on filedocumented in this encounter Care Teams Belt Builder Helper Relationship Specialty Start Date End Date Leah Chavarria APRN [address] [place], [place] [id number] PCP - General 04/15/25 documented as of this encounter
--- OUTSIDE RECORDS SUMMARY | 2025-08-11 09:21 | XMS_ITS | Encounter Summary ---
Author Organization [facility] Address [address] [place] [address] Care Team Providers Care Semi Automatic Sewing Machine Operator Name Role Phone DeonLeah Raquel BECK Primary Care Provider [phone] Encounter Details Date Type Department Care Team (Late Contact Info) Description 02/27/2025 Orders Only External Location [address] [place] [phone] Provider, External Social History Tobacco Use Types [...] 06/16/2026 2:00 PM EDT Ovarian Cancer Screening [facility] Gynecology [address] [place] [address] documented as of this encounter Procedures Procedure [...] on filedocumented in this encounter Care Teams Semi Automatic Sewing Machine Operator Relationship Specialty Start Date End Date Leah Chavarria, EBONY [address] [place] [address] PCP - General 04/15/25 documented as of this encounter
--- OUTSIDE RECORDS SUMMARY | 2025-08-11 09:21 | XMS_ITS | Encounter Summary ---
Author Organization [facility] Address [address] [place] [address] Care Team Providers Care Motor Expert Name Role Phone DeonLeah Raquel BECK Primary Care Provider [phone] Encounter Details Date Type Department Care Team (Late Contact Info) Description 03/24/2025 Orders Only External Location [address] [place] [id number] Provider, External Social History Tobacco Use Types [...] 06/16/2026 2:00 PM EDT Ovarian Cancer Screening [facility] Gynecology [address] [place] [address] documented as of this encounter Procedures Procedure [...] on filedocumented in this encounter Care Teams Motor Expert Relationship Specialty Start Date End Date Leah Chavarria, EBONY [address] [place] [address] PCP - General 04/15/25 documented as of this encounter
--- OUTSIDE RECORDS SUMMARY | 2025-08-11 09:21 | XMS_ITS | Referral Summary ---
Author Organization [employer] ([place], [place], [place], [place]) Address [address] [place] [address] Care Team Providers Care Core Maker Helper Name Role Phone Unavailable Primary Care Provider [...]
--- OUTSIDE RECORDS SUMMARY | 2025-08-11 09:21 | XMS_ITS | Encounter Summary ---
Author Organization [facility] Address [address] [place] [address] Care Team Providers Care Lead Maintenance Technician Name Role Phone DeonLeah Raquel BECK Primary Care Provider [phone] Encounter Details Date Type Department Care Team (Late Contact Info) Description 03/24/2025 Orders Only External Location [address] [place] [phone] Provider, External Social History Tobacco Use Types [...] EDT Ovarian Cancer Screening [facility] [address] [facility] [place] [address] documented as of this encounter Procedures Procedure [...] on filedocumented in this encounter Care Teams Lead Maintenance Technician Relationship Specialty Start Date End Date Leah Chavarria APRN [address] [place] [address] PCP - General 04/15/25 documented as of this encounter
--- OUTSIDE RECORDS SUMMARY | 2025-08-11 09:21 | XMS_ITS | Encounter Summary ---
Author Organization [facility] Address [address] [place] [address] Care Team Providers Care Tools And Parts Attendant Name Role Phone DeonLeah Raquel BECK Primary Care Provider [phone] Encounter Details Date Type Department Care Team (Late Contact Info) Description 11/03/2023 Orders Only External Location [address] [place] [phone] Provider, External Social History Tobacco Use Types [...] [facility] [address] [place] [address] documented as of this encounter Procedures Procedure [...] on filedocumented in this encounter Care Teams Tools And Parts Attendant Relationship Specialty Start Date End Date Leah Chavarria, EBONY [address] [place] [address] PCP - General 04/15/25 documented as of this encounter
--- OUTSIDE RECORDS SUMMARY | 2025-08-11 09:22 | XMS_ITS | Clinical Summary ---
Author Organization [facility] Address [address] [place] [address] Care Team Providers Care B Operator Name Role Phone DeonBeverlymaira García APRN Primary Care Provider Allergies No known active allergies Medications losartan [...] & Respiratory [address] , [address] [place] [address] Gilbert Roy, DO Mediastinal mass 06/02/2025 12:11 PM EDT - 06/02/2025 11:59 PM EDT Hospital Encounter [facility] Pulmonary Function Testing [address] [place] [address] Mediastinal mass Discharge Disposition: Home or Self Care 06/02/2025 Travel 05/31/2025 Travel 05/30/2025 10:18 AM EDT - 05/30/2025 11:59 PM EDT Hospital Encounter [facility] Radiology [address] [place] [address] Discharge Disposition: Home or Self Care 05/30/2025 7:53 AM EDT - 05/30/2025 10:17 AM EDT Hospital Encounter [facility] Interventional Radiology [address] [place] [address] Tanner Christiansen, RN Mediastinal mass Discharge Disposition: Home or Self Care 05/30/2025 Travel 05/23/2025 12:00 PM EDT Office Visit [facility] Vascular Interventional Radiology [address] [facility] [address] [place] [address] Marge Malhotra, MUSCULOSKELETAL PHYSICIAN Encounter for other preprocedural examination (Primary Dx) [...] Ovarian Cancer Screening [facility] Gynecology [address] [facility], 3rd [place] [address] Health Maintenance Due Date Last Done Comments [facility]-Bone Density Scan 1942 [facility]-Medicare Annual Wellness (AWV) 1942 [facility]-/Child/Adol SDOH Screenings 1942 [facility]- SDOH Screenings 1960 [facility]-Adult SDOH Screenings 1960 [facility]-DTaP,Tdap,and Td Vaccines (1 - Tdap) 1961 [facility]-Pneumococcal Vaccine: 50+ Years (1 of 2 - PCV) 1961 [facility]-Zoster Vaccines (1 of 2) 1961 [facility]-RSV Vaccine: 60+ Years or (1 - 1-dose 75+ series) 2017 PKE-[id number]-29 Vaccine (7 - Pfizer risk season) 2025 [...] Pulmonary function testing (06/02/2025 1:11 PM EDT) CFU8VRY 1.48 L 06/02/2025 12:59 PM EDT VYAIRE [...] 1.07 06/02/2025 12:59 PM EDT VYAIRE PFT DYU9FMLGVIRJE -1.64 06/02/2025 12:59 PM EDT VYAIRE PFT FEV1_Pre%Pred 69 % % 06/02/2025 12:59 PM EDT VYAIRE PFT FEV1 PREDAUTH US_Quanjer VAHE (2011) 06/02/2025 12:59 PM EDT VYAIRE PFT FEV1 Z-SCORE -1.64 06/02/2025 12:59 PM EDT VYAIRE PFT FEV1/FVC PRE 72.67 % 06/02/2025 12:59 PM EDT VYAIRE PFT OWY6JNPGOVC 77 06/02/2025 12:59 PM EDT VYAIRE PFT QKI6WKDLQA 62 06/02/2025 12:59 PM EDT VYAIRE PFT HPX9IXQLBXCISQFW -0.55 06/02/20 25 12:59 PM EDT VYAIRE PFT VVJ0CITEZY%PRED 94 % % 12:59 PM EDT VYAIRE PFT NRW5LBBOIFGX US_Quanjer VAHE (2011) 06/02/2025 12:59 PM EDT VYAIRE PFT FDW9ACGHDJAEG -1 06/02/2025 12:59 PM EDT VYAIRE PFT MNW99-46% PRE 0.74 L/s 06/02/2025 12:59 PM EDT VYAIRE PFT BIR78-66%_Pred 1.31 06/02/2025 12:59 PM EDT VYAIRE PFT NCF8752%LLN 0.53 06/02/2025 12:59 PM EDT VYAIRE PFT MZB0088%PREZSCORE -1.12 025 12:59 PM EDT VYAIRE PFT WGE6187%PRE%PRED 56 % % 06/02/20 12:59 PM EDT VYAIRE PFT CXT6458%[facility] Norma GLI (2011) 06/02/2025 12:59 PM EDT VYAIRE PFT PEF PRE 3.94 L/s 06/02/2025 12:59 PM EDT VYAIRE PFT PEF PRED 4.63 06/02/2025 12:59 PM EDT VYAIRE PFT PEF LLN 3.14 06/02/2025 12:59 PM EDT VYAIRE PFT PEFPREZSCORE -0.76 06/02/2025 12:59 PM EDT VYAIRE PFT PEFPRE%PRED 85 % % 06/02/2025 12:59 PM EDT VYAIRE PFT [facility]F [facility] ECCS (1992) 06/02/2025 12:59 PM EDT VYAIRE PFT ICHZMGSSTZGQZOMN8XOQ 12.46 ml/(min* mmHg) 06/02/2025 12:59 PM EDT VYAIRE PFT DLCOSINGLEBREATH PRED 15.75 06/02/2025 12:59 PM EDT VYAIRE PFT DLCOSINGLEBREATH LLN 11.59 0804/2025 12:59 PM EDT VYAIRE PFT DLCOSINGLEBREATH Z-SCORE -1.27 06/02/2025 12:59 PM EDT VYAIRE PFT DLCOSINGLEBREATH % PRED 79.1 % 06/02/2025 12:59 PM EDT VYAIRE PFT DLCOSINGLEBREATH [facility] Rlnanci TLCO GLI (2019) 06/02/2025 12:59 PM EDT VYAIRE PFT DLCOSINGLEBREATH Z-SCORE -1.27 06/02/2025 12:59 PM EDT VYAIRE PFT PRDNMEUZRNDPDLULT1FW E 12.58 ml/(min* mmHg) 06/02/2025 12:59 PM EDT VYAIRE PFT DLCOCSINGLEBREATH PRED 15.75 06/02/2025 12:59 PM EDT VYAIRE PFT DLCOCSINGLEBREATH LLN 11.59 06/02/2025 12:59 PM EDT VYAIRE PFT DLCOCSINGLEBREATH Z-SCORE -1.22 06/02/2025 12:59 PM EDT VYAIRE PFT DLCOCSINGLEBREATH % PRED 79.8 % 06/02/2025 12:59 PM EDT VYAIRE PFT DLCOCSINGLEBREATH PREDAUTH Rltarasnathan TLCO GLI (2019) 06/02/2025 12:59 PM EDT VYAIRE PFT KTWNNH1TLD 5.27 ml/(min* mmHg*L) 06/02/2025 12:59 PM EDT VYAIRE PFT DLCOVAPRED 4.29 06/02/2025 12:59 PM EDT VYAIRE PFT DLCOVALLN 3.23 06/02/2025 12:59 PM EDT VYAIRE PFT DLCOVAZSCORE 1.34 06/02/2025 12:59 PM EDT VYAIRE PFT DLCOVA%PRED 122.8 % 06/02/2025 12:59 PM EDT VYAIRE PFT DLCOVAPREDAUTH Rltarasvancebeverly TLCO GLI (2019) 06/02/2025 12:59 PM EDT VYAIRE PFT DLCOVAZSCORE 1.34 06/02/2025 12:59 PM EDT VYAIRE PFT UEPYPQGZD1BAY 5.32 ml/(min* mmHg*L) 06/02/2025 12:59 PM EDT [...] 1.41 06/02 12:59 PM EDT VYAIRE PFT DUQTTHUFZRYYVA0KCF 2.36 L 2024 12:59 PM EDT VYAIRE PFT VASINGLEBREATH PRED 3.65 06/02 12:59 PM EDT VYAIRE PFT VASINGLEBREATH LLN 2.88 2024 12:59 PM EDT VYAIRE PFT VASINGLEBREATH Z-SCORE -2.86 06/02/2025 12:59 PM EDT VYAIRE PFT VASINGLEBREATH % PRED 64.7 % 06/02/2025 12:59 PM EDT VYAIRE PFT VASINGLEBREATH [facility] Stanojevic TLCO GLI (2019) 06/02/2025 12:59 PM EDT VYAIRE PFT VASINGLEBREATH Z-SCORE -2.86 06/02/2025 12:59 PM EDT VYAIRE PFT JPUGPBVLAADIEGA1OIO 1.38 L 06/02 12:59 PM EDT VYAIRE PFT IVCSINGLEBREATH PRED 2.02 04/2025 12:59 PM EDT VYAIRE PFT IVCSINGLEBREATH LLN 1.40 06/02 12:59 PM EDT VYAIRE PFT IVCSINGLEBREATH Z-SCORE -1.72 06/02/2025 12:59 PM EDT VYAIRE PFT IVCSINGLEBREATH % PRED 67.9 % 06/02/2025 12:59 PM EDT VYAIRE PFT IVCSINGLEBREATH [facility] US_Quanjer GLI (2011) 06/02/2025 12:59 PM EDT VYAIRE PFT HB PRE 13.10 g(Hb)/dL 06/02/2025 12:59 PM EDT VYAIRE PFT MDR3WMU 3.21 L 06/02/2025 12:59 PM EDT VYAIRE [...] (1992) 06/02/2025 12:59 PM EDT VYAIRE PFT OVGJNIQP9ZGN 2.06 L 06/02/2025 12:59 PM EDT VYAIRE [...] (1992) 2024 12:59 PM EDT VYAIRE PFT BBT0GND 0.52 L 06/02/2025 12:59 PM EDT VYAIRE [...] (1992) 06/02/2025 12:59 PM EDT VYAIRE PFT RV%KNZ2HXC 47.30 % 06/02/2025 12:59 PM EDT VYAIRE PFT RV%TLCPRED 47 06/02/2025 12:59 PM EDT VYAIRE PFT RV%TLCLLN 37 06/02/2025 12:59 PM EDT VYAIRE PFT RV%TLCULN 56 06/02/2025 12:59 PM EDT VYAIRE PFT RV%TLCZSCORE 0.08 06/02/2025 12:59 PM EDT VYAIRE PFT RV%TLC%PRED 101.0 % 06/02/2025 12:59 PM EDT VYAIRE PFT RV%TLCPREDAUTH ECCS (1993) 12:59 PM EDT VYAIRE PFT JMT3MVQ 2.08 L 06/02/2025 12:59 PM EDT VYAIRE PFT Anatomical Region Laterality Modality PFT 06/02/2025 12:2 4 PM EDT Narrative 06/03/2025 10:59 PM EDT Pulmonary Function Testing Report Graciela Owens underwent pulmonary function testing today at the [facility]. The patient underwent spirometry, lung [...] this written report. Preliminary report signed by lEoy Lechuga MD on 05/30/2025 11:12 AM By [...] mass presenting for CT guided biopsy TECHNIQUE: Paleologist: Lee Castaneda MD Secondary Cardiac Monitor Technician: Colten Escobar MS4 DLP: 1002.01 mGy*cm Medications: [...] mass presenting for CT guided biopsy TECHNIQUE: Paleologist: Lee Castaneda MD Secondary Cardiac Monitor Technician: Colten Escobar MS4 DLP: 1002.01 mGy*cm Medications: [...] 9:55 AM EDT) Case Report Cytology Case: [id number] Authorizing Provider: Lee Hopson MD Collected: 05/30/2025 0955 Ordering Location: [facility] Interventional Received: 05/30/2025 1043 Radiology Pathologist: Jyoti Bruner MD Specimen: Mass, Core Biopsy with Touch Preparation (Specify Site), MEDIASTINAL MASS, CT GUIDED CORE BIOPSY WITH TOUCH PREPS 3:22 PM EDT [facility] Final Diagnosis A. MEDIASTINAL MASS, CT GUIDED CORE BIOPSY: - POSITIVE FOR MALIGNANCY, SQUAMOUS CELL CARCINOMA (SEE COMMENT). 3:22 PM EDT [facility] at 1522 EDT Comment The immunophenotype would favor a thymic primary, although metastases from other sites cannot be entirely excluded. Clinical correlation is suggested. 3:22 PM EDT [facility] Special and Immunohistochemical Stains IHC: A1-1 Johns Cytokeratin AE1 AE3: Positive A1-2 MI09-ZXY: Negative A1-3 CD117: Positive A1-4 CK7: Focally positive A1-5 CK20: Negative A1-6 TTF-1: Negative A1-13 P40: Focally positive A1-14 Synaptophysin: Negative A1-15 CD5: Focally positive All controls show appropriate reactivity. All immunohistochemis try, in situ hybridization, and histochemical tests were developed by and are performed at the [facility], [address] [place] [address]. All tests reported here, except those addressing [...] negativity on decalcified specimens. 3:22 PM EDT [facility] Intradepartmental Consultation with Agreement Dr. Susan Jin 3:22 PM EDT [facility] Immediate Evaluation Core biopsy [...] appears on the report. 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 B Symptoms past year. 5 3:22 PM EDT [facility] Procedure Type CT 5 3:22 PM EDT [facility] Size/Description of Lesion mediastinal 5 3:22 PM EDT [facility] Cancer History Yes 5 3:22 PM EDT [facility] Previous Cancer Primary Site Skin Cancer 5 3:22 PM EDT [facility] Gross Description A. MEDIASTINAL MASS, CT GUIDED CORE BIOPSY WITH TOUCH PREPS Multiple white huerta cores of friable tissue, all measuring less than 0.1 cm in diameter and ranging from 0.1 cm to 0.8 cm in length, entirely submitted in biowrap and/or cassette. Received 2 diff quick touch prep slides. Cold Time: 19m 3:22 PM EDT [facility] Note: A resident was involved in the service. I attest I examined the relevant preparations for the specimens and confirmed the diagnosis or interpretation. 3:22 PM EDT [facility] Clinical Information No Dx found. 3:22 PM EDT [facility] Fine Needle Aspirate Specimen from mass / Unknown Non-blood Collection / Unknown 05/30/2025 9:55 AM EDT 05/30/2025 10:43 AM EDT us Lee Romero MD LAB CYTOLOGY ORDERABLES Final Result [facility] [address] [place] [address] * (ABNORMAL) Prothrombin Time/INR (05/23/2025 12:30 PM EDT) Prothrombin Time 15.2(H) 12.0 - 14.3 sec LAB COAGULATION METHOD 05/23/2025 2:46 PM EDT [facility] INR 1.2(H) 0.9 - 1.1 LAB COAGULATION METHOD 05/23/2025 2:46 PM EDT [facility] Blood Venous blood specimen / Unknown Venipuncture / Unknown 05/23/2025 12:30 PM EDT 05/23/2025 12:31 PM EDT Narrative [facility] - 05/23/2025 2:46 PM EDT OPTIMAL INR RANGES FOR PATIENT ON ORAL ANTICOAGULANT THERAPY Prevention of venous thromboembolism INR 2.0 to 3.0 In patients with heart disease: Atrial fibrillation INR 2.0 to 3.0 Valvular heart disease INR 2.0 to 3.0 Tissue heart valves INR 2.0 to 3.0 Mechanical prosthetic valves INR 2.5 to 3.5 Prevention of recurrent DE INR 2.5 to 3.5 us Marge Malhotra MUSCULOSKELETAL PHYSICIAN LAB BLOOD ORDERABLES Final R esult [facility] [address] [place] [address] * (ABNORMAL) CBC W/O Differential (05/23/2025 12:30 PM EDT) WBC Count 7.32 3.70 - 10.30 10*3/uL LAB HEMATOLOGY METHOD 05/23/2025 2:31 PM EDT [facility] RBC Count 4.55 3.90 - 5.20 10*6/uL LAB HEMATOLOGY METHOD 05/23/2025 2:31 PM EDT [facility] HGB 13.1 11.2 - 15.7 g/dL LAB HEMATOLOGY METHOD 05/23/2025 2:31 PM EDT [facility] HCT 41.4 34.0 - 45.0 % LAB HEMATOLOGY METHOD 05/23/2025 2:31 PM EDT [facility] Platelet Count 192 155 - 369 10*3/uL LAB HEMATOLOGY METHOD 05/23/2025 2:31 PM EDT [facility] MCV 91 79 - 98 fL LAB HEMATOLOGY METHOD 05/23/2025 2:31 PM EDT [facility] MCH 28.8 26.0 - 32.0 pg LAB HEMATOLOGY METHOD 05/23/2025 2:31 PM EDT [facility] MCHC 31.6 30.7 - 35.5 g/dL LAB HEMATOLOGY METHOD 05/23/2025 2:31 PM EDT [facility] RDW 14.7(H) 11.5 - 14.5 % LAB HEMATOLOGY METHOD 05/23/2025 2:31 PM EDT [facility] MPV 12.6(H) 8.8 - 12.5 fL LAB HEMATOLOGY METHOD 05/23/2025 2:31 PM EDT [facility] nRBC 0.0 <=0.0 per 100 WBCs LAB HEMATOLOGY METHOD 05/23/2025 2:31 PM EDT [facility] Blood Venous blood specimen / Unknown Venipuncture / Unknown 05/23/2025 12:30 PM EDT 05/23/2025 12:31 PM EDT us Marge Malhotra MUSCULOSKELETAL PHYSICIAN LAB BLOOD ORDERABLES Final R esult [facility] [address] [place] [address] * (ABNORMAL) Comprehensive Metabolic Panel, Plasma (05/23/2025 12:30 PM EDT) Glucose, Plasma 92 74 - 99 mg/dL 05/23/2025 2:40 PM EDT [facility] BUN, Plasma 15 8 - 23 mg/dL 05/23/2025 2:40 PM EDT [facility] Creatinine, Plasma 0.63 0.60 - 1.10 mg/dL 05/23/2025 2:40 PM EDT [facility] BUN/Creatinine Ratio 24 05/23/2025 2:40 PM EDT [facility] Sodium, Plasma 139 136 - 145 mmol/L 05/23/2025 2:40 PM EDT [facility] Potassium, Plasma 5.3(H) 3.6 - 4.9 mmol/L 05/23/2025 2:40 PM EDT [facility] Chloride, Plasma 102 97 - 107 mmol/L 05/23/2025 2:40 PM EDT [facility] CO2, Plasma 25 22 - 29 mmol/L 05/23/2025 2:40 PM EDT [facility] Anion Gap 12 6 - 16 mmol/L 05/23/2025 2:40 PM EDT [facility] Total Calcium, Plasma 9.5 8.9 - 10.2 mg/dL 05/23/2025 2:40 PM EDT [facility] Total Protein 7.7 6.3 - 7.9 g/dL 05/23/2025 2:40 PM EDT [facility] Albumin, Plasma 4.1 3.5 - 5.2 g/dL 05/23/2025 2:40 PM EDT [facility] AST, Plasma 26 10 - 35 U/L 05/23/2025 2:40 PM EDT [facility] ALT, Plasma 20 10 - 35 U/L 05/23/2025 2:40 PM EDT [facility] Alkaline Phosphatase, Plasma 91 46 - 142 U/L 05/23/2025 2:40 PM EDT [facility] Total Bilirubin, Plasma 0.8 0.2 - 1.1 mg/dL 05/23/2025 2:40 PM EDT [facility] eGFRcr 88.7 mL/min/1.7 3m*2 05/23/2025 2:40 PM EDT [facility] Comment:Reported eGFRcr in m L/min/1.73m2 is based the CKD-EPI 2020 equation that does not use a race coefficient. Blood Venous blood specimen / Unknown Venipuncture / Unknown 05/23/2025 12:30 PM EDT 05/23/2025 12:31 PM EDT us Marge Malhotra MUSCULOSKELETAL PHYSICIAN LAB BLOOD ORDERABLES Final R esult Performing Organization Address City/State/[facility] Co de Phone Number [facility] [address] [place] [address] from Last 3 Months Insurance MAIRA [id number] [facility] MEDICARE Advance Directives Documents on File Type Date Recorded Patient Ethnographic Materials Conservator Expl anation Advance Directives and Livin g Will 04/15/2025 Living Will & POA Care Teams B Operator Relationship Specialty Start Date End Date Leah Chavarria APRN [address] [place] [address] PCP - General 04/15/25
--- OUTSIDE RECORDS SUMMARY | 2025-08-11 09:22 | XMS_ITS | Continuity of Care Document ---
Author Organization [facility] RAVEN Underwood [place] Address [address] [place] [address] Care Team Providers Care Harvesting Supervisor Name Role Phone DEE DEE SEARS Referring Provider [phone] BILL JOHNSON Referring Provider [phone] Assessment No assessment recorded. Plan of Treatment Reminders Order Date Submit Date Provider Last Modified By Organization Details Last Modified Time Details Appointments DERM VISIT 026 09:40AM MILTON MAZA PA-C Not available Not available Not available Lab None recorde d. Referral None recorde d. Procedures None recorde d. Surgeries None recorde d. Imaging None recorde d. Medication Orders None recorde d. Patient TargetsNo targets recorded. Patient Instructions Encounter Date Encounter Id Patient Instructions Last Modified By Organization Details Last Modified Time 08/02/2025 [id number] Continue FBSE [email or web address]. [email or web address] Not available 2025 14:24:30 Reason for Referral None Reported. Problems Name Problem SNOMED Code Status Onset Date Resolution Date Notes Provider Name and Address Organization Details Recorded Time History of malignant neoplasm of skin [id number] Active 025 Farideh Cherise robbins [facility] 5 09:24:05 Problem Notes None recorded. Procedures Surgical History Date Name Laterality Status Provider Name and Address Organization Details Recorded Time 08/14/20 17 Interpretation completed OJ MTZ PA-C [facility] [place], [address], [facility] 08/14/2017 11:05:24 Remove tonsils and adenoids completed Abena Lorenzo [facility] 04/14/2017 08:13:42 Other completed [facility] 04/14/2017 08:15:01 Xcapsl ctrc rmvl cplx wo ecp completed Abena Maura [facility] 04/14/2017 08:15:10 lumpectomy of breast completed Janice Minor [facility] 03/11/2023 15:32:52 Back Surgery completed Janice Minor [facility] 03/11/2023 15:33:18 Imaging Results None [...] Not Available Not Available Not Available Vitals None Recorded Social History Question Answer Notes LastModified by Organizat ion Details LastModified Time Tobacco Smoking Status Never Smoker Abena Maura [facility], [facility] 04/14/2017 08:13:34 Sunscreen Use? Yes [email or web address] Informatio n not available 08/02/2025 Tanning Bed Use No Informati on not available 08/02/2025 Are You Or Trying To Become ? No Information not available 08/02/2025 Are You On Control? No [email or web address] Information not available 08/02/2025 Are You ? No Information not available 08/02/2025 What Was The Date Of Your Most Recent Tobacco Screening? 08/02/2025 [email or web address] Information not available 08/02/2025 What Is Your Relationship Status? Information not available 03/11/2023 Sex: Unknown Functional Status Question Answer Note LastModified by Organizat ion Details LastModified Time Are you currently employed? [...] Immunizations Vaccine Type Date Status Note Provider Aubrey andrade and Address Organization Details Recorded Time influenza, unspecified formulation 08/07/2018 completed Danika Zepeda [facility] 08/10/2018 08:33:02 Past Encounters Encounter ID Performer Location Encounter Start Date Encounter Closed Date Diagnosis/Indication Diagnosis SNOMED-CT Code Diagnosis ICD10 Code Diagnosis IMO Codes Diagnosis Note [id number] MLITON MAZA PA-C [facility] [address] [place] [address] 08/02/2025 08:24:21 08/02/2025 09:40:34 Multiple benign melanocytic nevi 373343956 D22.5 - Benign moles seen on exam [...] changing or worrisome lesions Seborrheic keratosis 394 647929 L82.1 - Benign overgrowth s of skin - Hereditary Senile angioma 1941638 I 78.1 - Benign blood vessel growths - Hereditary Solar lentigo 67793864 L 81.4 - Benign brown spots - Sun-induce d History of malignant neoplasm of skin 315744781 Z85.828 - SCC - 15+ years ago- BCC - 10+ years ago- No evidence of recurrence today- Call with any worrisome lesions or if treated lesions return- Return at regular intervals for skin exam as recommende d 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 Gilbert Roy - [facility] Hem/Onc- Pt is receiving radiation at [place] - Pt is receiving chemothera py in [place] Encouraged to continue following closely with hematology and oncology. Medical records reviewed. Health Concerns Section Related Observation LastModified by Organization Detai ls LastModified Time None Recorded Concern Status LastModified by Organization Details LastModified Time None Recorded Payers Encounter Date Sequence Insurance Name Policy Number Policy Loera Covered Member ID Loera Member ID Guarantor Name 08/02/2025 1 [facility] (MEDICARE REPLACEMENT/A DVANTAGE - PPO) [id number] Graciela Owens [id number] Graciela Owens Notes Date Note Type Note Provider Name and Address Organization Details Recorded Time 08/02/2025 text/html Patient requests a FBSE. L ocation: Full bodyLast Skin Check: 2+ yearsSCC - 15+ years agoBCC - 10+ years ago SCC - 05/2025- anterior mediastinum- seeing Gilbert Roy - [facility] Hematology and Oncology- being treating with radiation w/ [facility] radiology in [place], [place] Areas of concern: none Ticket Maker- not in encite MILTON MAZA PA-C [address] [place], [address], [facility] 2025 14:24:45 OBGyn Episode No OBEpisode recorded.
--- OUTSIDE RECORDS SUMMARY | 2025-08-11 09:22 | XMS_ITS | Clinical Summary ---
Author Organization [employer] ([place], [place], [place], [place]) Address [address] [place] [address] Care Team Providers Care Medical Support Assistant Name Role Phone Unavailable Primary Care Provider [...]
[2025-08-11] MEDS: SODIUM CHLORIDE 0.9% 10ML FLUSH SYRINGE 10 ML IV (09:24)
[2025-08-11] MEDS: SODIUM CHLORIDE 0.9% 100ML BAG 100 ML IV (09:24)
[2025-08-11 09:40] VITALS: BP 104/53; PULSE 81; RESP 18; O2SAT 99
[2025-08-11] MEDS: PACLITAXEL IV (09:40)
[2025-08-11] MEDS: WATER IV (09:40)
[2025-08-11] MEDS: DEXTROSE 5% IV (09:40)
[2025-08-11 10:10] VITALS: BP 108/56; PULSE 80; RESP 18; O2SAT 98
[2025-08-11 10:46] VITALS: BP 114/62; PULSE 82; RESP 20; O2SAT 99
[2025-08-11] MEDS: CARBOplatin 150 MG in 0.9 % SODIUM CHLORIDE 100 ML 230 MG IV (10:46)
[2025-08-11 11:30] VITALS: BP 129/69; PULSE 80; RESP 20; O2SAT 99
[2025-08-11] MEDS: NEOSPORIN OINTMENT 0.9GM UDP 1 EACH TP (11:30)
== END 2025-08-11 23:59 | disposition home or self-care (01) ==
PROVIDERS: PCP Family Medicine; Visit Provider Internal Medicine Medical Oncology
DX: C37 Malignant neoplasm of thymus (principal); Z51.11 Encounter for antineoplastic chemotherapy
CPT/HCPCS: 96413; 96415; 96417; J7060; J8540; J9045; J9267; Q0162

== ENCOUNTER 2025-09-15 09:54 | Outpatient (CLI) | payer MEDICARE, SELFPAY ==
[2025-09-15] MEDS: DENOSUMAB 60 MG/ML SYRINGE SUBCUT (10:05)
[2025-09-15 10:11] VITALS: BP 122/70; PULSE 70; RESP 20; O2SAT 100
--- OUTSIDE RECORDS SUMMARY | 2025-09-15 10:53 | XMS_ITS | Encounter Summary ---
Author Organization [facility] Address [address] [place] [address] Care Team Providers Care Cloth Reeler Name Role Phone Deon Leah Raquel BECK Primary Care Provider [phone] Encounter Details Date Type Department Care Team (Late st Contact Info) Description 11/29/2022 Orders Only External Location [address] [place] [address] Provider, External Social History Tobacco Use Types [...] [facility] [address] [place] [address] documented as of this encounter Procedures Procedure [...] on filedocumented in this encounter Care Teams Cloth Reeler Relationship Specialty Start Date End Date Leah Chavarria APRN [address] [place], [place] [id number] PCP - General 04/15/25 documented as of this encounter
--- OUTSIDE RECORDS SUMMARY | 2025-09-15 10:53 | XMS_ITS | Encounter Summary ---
Author Organization [facility] Address [address] [place] [address] Care Team Providers Care Supervisor Boarding Name Role Phone DeonLeah Raquel BECK Primary Care Provider [phone] Encounter Details Date Type Department Care Team (Late Contact Info) Description 03/24/2025 Orders Only External Location [address] [place] [address] Provider, External Social History Tobacco Use Types [...] [facility] [address] [place] [address] documented as of this encounter Procedures Procedure [...] filedocumented in this encounter Care Teams Supervisor Boarding Relationship Specialty Start Date End Date Leah Chavarria APRN [address] [place] [address] PCP - General 04/15/25 documented as of this encounter
--- OUTSIDE RECORDS SUMMARY | 2025-09-15 10:53 | XMS_ITS | Encounter Summary ---
Author Organization [facility] Address [address] [place] [address] Care Team Providers Care Burrer Machine Name Role Phone DeonLeah Raquel BECK Primary Care Provider [phone] Encounter Details Date Type Department Care Team (Late Contact Info) Description 11/03/2023 Orders Only External Location [address] [place] [address] Provider, External Social History Tobacco Use Types [...] [facility] [address] [place] [address] documented as of this encounter Procedures Procedure [...] on filedocumented in this encounter Care Teams Burrer Machine Relationship Specialty Start Date End Date Leah Chavarria, EBONY [address] [place] [address] PCP - General 04/15/25 documented as of this encounter
--- OUTSIDE RECORDS SUMMARY | 2025-09-15 10:53 | XMS_ITS | Clinical Summary ---
Author Organization [facility] Address [address] [place] [address] Care Team Providers Care Chief Sales Officer Name Role Phone Leah Chavarria APRN Primary Care Provider [phone] Allergies No known active allergies Medications losartan [...] Active Active Problems No known active problems Family History Medical History Relation Name Comments [...] 06/16/2026 2:00 PM EDT Ovarian Cancer Screening [facility] Gynecology [address] [facility], [address]rd [place] [address] Health Maintenance Due Date Last Done Comments [facility]-Bone Density Scan 1940 [facility]-Medicare Annual Wellness (AWV) 1940 [facility]-Infant/Child/Adol SDOH Screenings 1942 [facility]- SDOH Screenings 1960 [facility]-Adult SDOH Screenings 1960 [facility]-DTaP,Tdap,and Td Vaccines (1 - Tdap) 1961 [facility]-Pneumococcal Vaccine: 50+ Years (1 of 2 - PCV) 1961 [facility]-Zoster Vaccines (1 of 2) 1961 [facility]-RSV Vaccine: 60+ Years or (1 - 1-dose 75+ series) 2017 RAY-HNEQC-34 Vaccine (2024- season) 2025 08/10/2024, 07/24/2022, 02/14/2022, Additional history [...] on patient's age to complete this topic Insurance [facility] MEDICARE Advance Directives Documents on File Type Date Recorded Patient Computer Education Teacher Expl anation Advance Directives and Livin g Will 04/15/2025 Living Will & POA Care Teams Chief Sales Officer Relationship Specialty Start Date End Date Leah Chavarria APRN [address] [place] [address] PCP - General 04/15/25
--- OUTSIDE RECORDS SUMMARY | 2025-09-15 10:53 | XMS_ITS | Data Portability ---
Author Organization [facility] Address [address] [facility] [address] [place] [address] Care Team Providers Care Pharmaceutical Assistant Name Role Phone DEE DEE SEARS Referring [...] By Organization Details Last Modified Time 08/02/2025 [id number] Continue FBSE q6mo. [email or web address] Not available 2025 14:24:30 Reason for Referral None Reported. Results Created Date Observation Date Name Description Value Unit Range Abnormal Flag Note LastModifiedBy Organization Detail LastModifiedTime 06/02/20 17 06/02/2017 XR, lumbo sacra l spine , 2 or [address], [facility] Sarai lopez Name: ELKE lopez : 1939 [...] Senior MD on 06/02/20 17 2:51 PM [facility] Radiology [facility] [address] [place] [address], [address], 06/02/2017 22:42:59 08/14/20 17 08/14/2017 XR, lumbo [facility] l [facility] [address] [place] [address] Sarai lpoez Name: ELKE lopez : 1939 Sarai lopez [...] Allison Senior MD on 2016 2:46 PM [facility] Radiology [address], [address], 08/18/2017 21:07:10 Result Notes Documentation Provider Name and Address Organization Details Recorded Time Xr, Lumbosacral Spine, 2 Or 3 View : [place] [address] Patient Name: ELKE BEDOYA Patient : 1940 [...] By: Shorty Senior MD IV GUNTER MD [address] [place] [address], [phone], [facility] 06/02/2017 15:50:57 Xr, Lumbosacral Spine, 2 Or 3 View : [place] [address] Patient Name: ELKE BEDOYA Patient : 1940 [...] are seen at other levels. Interpreted By: Shorty Senior MD IV GUNTER MD [address] [place], [address], [facility] 08/18/2017 10:56:19 Problems Name Problem SNOMED Code Status Onset Date Resolution Date Notes Provider Name and Address Organization Details Recorded Time History of malignant neoplasm of skin 054896884 Active 025 Farideh Canelaelissa [facility] 09:24:05 Problem Notes None recorded. Procedures Surgical History Date Name Laterality Status Provider Name and Address Organization Details Recorded Time 08/14/20 17 Interpretation completed OJ MTZ PA-C [address] [place], [address], [facility] 08/14/2017 11:05:24 Remove tonsils and adenoids completed [facility] 04/14/2017 08:13:42 Other completed [facility] 04/14/2017 08:15:01 Xcapsl ctrc rmvl cplx wo ecp completed [facility] 04/14/2017 08:15:10 lumpectomy of breast completed Janice Iván [facility] 03/11/2023 15:32:52 Back Surgery completed Janice Iván [facility] 03/11/2023 15:33:18 Imaging Results None recorded. [...] mass index (BMI) Body weight Oxygen saturation Heart rate Systolic And Diastolic Provider Name and Address Organization Details Last Updated DateTime 3 156.21 cm 23.3 kg/m2 51260.1 5 g 99 % 70 /min 138/74 mm[Hg] Jancie RAO [facility] 15:34:47 Date Recorded Body height Body mass index (BMI) Body weight Systolic And Diastolic Provider Name and Address Organization Details Last Updated DateTime 06/02/2017 154.94 cm 23.8 kg/m2 37628.64 g 120/78 mm[Hg] Abena Lorenzo [facility] 06/02/2017 10:20:53 Social History Question Answer Notes LastModified by Organizat ion Details LastModified Time Tobacco Smoking Status Never Smoker Abena Lorenzo [facility] 04/14/2017 08:13:34 Sunscreen Use? Yes [email or web address] Informatio n not available 08/02/2025 Tanning Bed Use No [email or web address] Informati on not available 08/02/2025 Are You Or Trying To Become ? No Information not available 08/02/2025 Are You On Control? No [email or web address] Information not available 08/02/2025 Are You ? No Information not available 08/02/2025 What Was The Date Of Your Most Recent Tobacco Screening? 08/02/2025 [email or web address] Information not available 08/02/2025 What Is Your [...] 15:32:16 Medical History Condition Response Cancer Y High Cholesterol Y Hypertension Y Gynecological HistoryNo gynecological history recorded. Obstetrics History GPAL:G 0 P 0 0 0 0 Immunizations Vaccine Type Date Status Note Provider Nam e and Address Organization Details Recorded Time influenza, unspecified formulation 08/07/2018 completed Danika Zepeda [facility] 08/10/2018 08:33:02 Past Encounters Encounter ID Performer Location Encounter Start Date Encounter Closed Date Diagnosis/Indication Diagnosis SNOMED-CT Code Diagnosis ICD10 Code Diagnosis IMO Codes Diagnosis Note [id number] SANJIV GUNTER MD [facility] [address] [place] [address] 04/14/2017 08:00:56 04/14/2017 13:55:13 Spondylolisthesis, grade 1 90049388 M43.10 [id number] SANJIV GUNTER MD [facility] [address] [place] [address] 05/09/2017 12:56:13 05/09/2017 13:29:18 [id number] SANJIV GUNTER MD [facility] [address] [place] [address] 06/02/2017 10:12:07 06/06/2017 15:33:28 Spondylolisthesis 893662910 M43.10 [id number] OJ MTZ PA-C [facility] [address] [place] [address] 08/14/2017 10:02:13 08/14/2017 11:10:09 Postoperative care 466902135 Z48.89 Ms. Bedoya is doing great nearly [...] sxs. She is happy with this plan. [id number] PHIL FLYNN MD NEUROLOGY [facility] [address] [place] [address] 03/11/2023 15:09:01 03/12/2023 13:37:30 Essential tremor 297192911 G25.0 [id number] MILTON MAZA PA-C [place] [address] [place] [address] 08/02/2025 08:24:21 08/02/2025 09:40:34 Multiple benign melanocytic nevi 892186102 D22.5 - Benign moles seen on exam [...] changing or worrisome lesions Seborrheic keratosis 394 872360 L82.1 - Benign overgrowth s of skin - Hereditary Senile angioma 5595175 I 78.1 - Benign blood vessel growths - Hereditary Solar lentigo 21184683 L 81.4 - Benign brown spots - Sun-induce d History of malignant neoplasm of skin 725056379 Z85.828 - 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 Gilbert Roy - [facility] Hem/Onc- Pt is receiving radiation at in [place] - Pt is receiving chemothera py in [place] Encouraged to continue following closely with hematology and oncology. Medical records reviewed. Health Concerns Section Related Observation LastModified by Organization Detai ls LastModified Time None Recorded Concern Status LastModified by Organization Details LastModified Time None Recorded Advance Directives Directive None Recorded Payers Insurance Date Sequence Insurance Name Policy Number Policy Loera Covered Member ID Loera Member ID Guarantor Name 08/06/2025 1 [facility] (MEDICARE REPLACEMENT/A DVANTAGE - PPO) [id number] Elke Bedoya [id number] Elke Bedoya Notes Date Note Type Note [...] her brace as instructed. SANJIV GUNTER MD [address] [place] [address], [address], [facility] 06/02/2017 10:44:54 08/14/2017 text/html ROS as noted in the HPI Ms. Bedoya presents for post op visit. She is s/p L4-5 PLIF on 04/24/[address] Gunter. Reports continued resolution of her prior leg sxs. Post-op back has resolved as well. She has resumed her normal daily activities, including walking 4-5 miles daily, without issue. OJ MTZ PA-C [address] [place] [address], [address], [facility] 08/14/2017 11:08:20 03/11/2023 text/html ROS as [...] recently placed her 1 sister in a mcfp and has been through a lot of stress regarding this, she denies any episodes of actual memory loss but does complain of difficulty sometimes finding names of people quickly. PHIL FLYNN MD [address] [place] [address], [address], [facility] 03/11/2023 16:22:42 08/02/2025 text/html Patient requests a FBSE. 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
--- OUTSIDE RECORDS SUMMARY | 2025-09-15 10:53 | XMS_ITS | Encounter Summary ---
Author Organization [facility] Address [address] [place] [address] Care Team Providers Care Farm Loan Representative Name Role Phone DeonLeah Raquel BECK Primary Care Provider [phone] Encounter Details Date Type Department Care Team (Late Contact Info) Description 03/24/2025 Orders Only External Location [address] [place] [id number] Provider, External Social History Tobacco Use Types [...] PM EDT Ovarian Cancer Screening [facility] Gynecology [address] [place] [address] documented as of this encounter Procedures Procedure [...] on filedocumented in this encounter Care Teams Farm Loan Representative Relationship Specialty Start Date End Date Leah Chavarria, EBONY [address] [place] [address] PCP - General 04/15/25 documented as of this encounter
--- OUTSIDE RECORDS SUMMARY | 2025-09-15 10:53 | XMS_ITS | Encounter Summary ---
Author Organization [facility] Address [address] [place] [address] Care Team Providers Care Propellant Charge Loader Name Role Phone DeonLeah Raquel BECK Primary Care Provider [phone] Encounter Details Date Type Department Care Team (Late Contact Info) Description 02/27/2025 Orders Only External Location [address] [place] [phone] Provider, External Social History Tobacco Use Types [...] 2:00 PM EDT Ovarian Cancer Screening [facility] Gynecology [address] [place] [address] documented as of this encounter Procedures Procedure [...] on filedocumented in this encounter Care Teams Propellant Charge Loader Relationship Specialty Start Date End Date Leah Chavarria, EBONY [address] [place] [address] PCP - General 04/15/25 documented as of this encounter
--- OUTSIDE RECORDS SUMMARY | 2025-09-15 10:53 | XMS_ITS | Continuity of Care Document ---
Author Organization [facility] [place] Address [address] [place] [address] Care Team Providers Care Transmission Operator Name Role Phone DEE DEE SEARS Referring Provider [phone] BILL JOHNSON Referring Provider Assessment No assessment recorded. Plan of Treatment [...] By Organization Details Last Modified Time 08/02/2025 [id number] Continue FBSE q6mo. [email or web address] Not available 2025 14:24:30 Reason for Referral None Reported. Problems Name Problem SNOMED Code Status Onset Date Resolution Date Notes Provider Name and Address Organization Details Recorded Time History of malignant neoplasm of skin 962342862 Active 025 Farideh Cherise robbins [facility] 5 09:24:05 Problem Notes None recorded. Procedures Surgical History Date Name Laterality Status Provider Name and Address Organization Details Recorded Time 08/14/20 17 Interpretation completed OJ MTZ PA-C [facility] [place], [address], [facility] 08/14/2017 11:05:24 Remove tonsils and adenoids completed Abean Lorenzo [facility] 04/14/2017 08:13:42 [facility] 04/14/2017 08:15:01 Xcapsl ctrc rmvl cplx wo ecp completed Abena Maura [facility] 04/14/2017 08:15:10 lumpectomy of breast completed Janice Minor [facility] 03/11/2023 15:32:52 Back Surgery completed Janice Minor [facility] 03/11/2023 15:33:18 Imaging Results None recorded. [...] Tobacco Smoking Status Never Smoker Abena Maura [facility], [facility] 04/14/2017 08:13:34 Sunscreen Use? Yes [email or web address] Informatio n not available 08/02/2025 Tanning Bed Use No [email or web address] Informati on not available 08/02/2025 Are You Or Trying To Become ? No [email or web address] Information not available 08/02/2025 Are You On Control? No [email or web address] Information not available 08/02/2025 Are You ? No [email or web address] Information not available 08/02/2025 What Was The Date Of Your Most Recent Tobacco Screening? 08/02/2025 [email or web address] Information not available 08/02/2025 What Is Your [...] influenza, unspecified formulation 08/07/2018 completed Danika Zepeda [facility] 08/10/2018 08:33:02 Past Encounters Encounter ID Performer Location Encounter Start Date Encounter Closed Date Diagnosis/Indication Diagnosis SNOMED-CT Code Diagnosis ICD10 Code Diagnosis IMO Codes Diagnosis Note [id number] MILTON MAZA PA-C [facility] [address] [place] [address] 08/02/2025 08:24:21 08/02/2025 09:40:34 Multiple benign melanocytic nevi 508682791 D22.5 - Benign moles seen on exam [...] changing or worrisome lesions Seborrheic keratosis 394 154327 L82.1 - Benign overgrowth s of skin - Hereditary Senile angioma 5193494 I 78.1 - Benign blood vessel growths - Hereditary Solar lentigo 46797991 L 81.4 - Benign brown spots - Sun-induce d History of malignant neoplasm of skin 853209793 Z85.828 - SCC - 15+ years ago- BCC - 10+ years ago- No evidence of recurrence today- Call with any worrisome lesions or if treated lesions return- Return at regular intervals for skin exam as recommende d 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 Gilbert Roy - [facility] Hem/Onc- Pt is receiving radiation at in [place] - Pt is receiving chemothera py in [place] Encouraged to continue following closely with hematology and oncology. Medical records reviewed. Health Concerns Section Related Observation LastModified by Organization Detai ls LastModified Time None Recorded Concern Status LastModified by Organization Details LastModified Time None Recorded Payers Encounter Date Sequence Insurance Name Policy Number Policy Loera Covered Member ID Loera Member ID Guarantor Name 08/02/2025 1 [facility] (MEDICARE REPLACEMENT/A DVANTAGE - PPO) [id number] Graciela Owens [id number] Graciela Owens Notes Date Note Type Note Provider Name and Address Organization Details Recorded Time 08/02/2025 text/html Patient requests a FBSE. 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 2025 14:24:45 OBGyn Episode No OBEpisode recorded.
== END 2025-09-15 23:59 | disposition home or self-care (01) ==
LOC: INF 09:56
PROVIDERS: PCP Family Medicine; Visit Provider Family Medicine
DX: M81.0 Age-related osteoporosis without current pathological fracture (principal)
CPT/HCPCS: 96372; J0897

== ENCOUNTER 2025-09-19 09:51 | Outpatient (CLI) | payer MEDICARE, SELFPAY ==
--- OUTSIDE RECORDS SUMMARY | 2025-09-19 09:56 | XMS_ITS | Continuity of Care Document ---
Author Organization [facility] [place] Address [address] [place] [address] Care Team Providers Care Race Board Attendant Name Role Phone DEE DEE SEARS Referring Provider BILL JOHNSON Referring Provider Assessment No assessment [...] By Organization Details Last Modified Time 08/02/2025 [id number] Continue FBSE q6mo. [email or web address] Not available 2025 14:24:30 Reason for Referral None Reported. Problems Name Problem SNOMED Code Status Onset Date Resolution Date Notes Provider Name and Address Organization Details Recorded Time History of malignant neoplasm of skin 448161129 Active 025 Farideh Cherise robbins [facility] 5 09:24:05 Problem Notes None recorded. Procedures Surgical History Date Name Laterality Status Provider Name and Address Organization Details Recorded Time 08/14/20 17 Interpretation completed OJ MTZ PA-C [facility] [place], [address], [facility] 08/14/2017 11:05:24 Remove tonsils and adenoids completed Abena Lorenzo [facility] 04/14/2017 08:13:42 [facility] 04/14/2017 08:15:01 Xcapsl ctrc rmvl cplx wo ecp completed Abena Maura [facility] 04/14/2017 08:15:10 lumpectomy of breast completed Janice Minor [facility] 03/11/2023 15:32:52 Back Surgery completed Janice Minor [facility] 03/11/2023 15:33:18 Imaging Results None recorded. Procedure [...] Tobacco Smoking Status Never Smoker Abena Maura [facility], [facility] 04/14/2017 08:13:34 Sunscreen Use? Yes [email or web address] Informatio n not available 08/02/2025 Tanning Bed Use No [email or web address] Informati on not available 08/02/2025 Are You Or Trying To Become ? No [email or web address] Information not available 08/02/2025 Are You On Control? No Information not available 08/02/2025 Are You ? No [email or web address] Information not available 08/02/2025 What Was The Date Of Your Most Recent Tobacco Screening? 08/02/2025 [email or web address] Information not available 08/02/2025 What Is Your [...] influenza, unspecified formulation 08/07/2018 completed Danika Zepeda [facility] 08/10/2018 08:33:02 Past Encounters Encounter ID Performer Location Encounter Start Date Encounter Closed Date Diagnosis/Indication Diagnosis SNOMED-CT Code Diagnosis ICD10 Code Diagnosis IMO Codes Diagnosis Note [id number] MILTON MAZA PA-C [facility] [address] [place] [address] 08/02/2025 08:24:21 08/02/2025 09:40:34 Multiple benign melanocytic nevi 156245804 D22.5 - Benign moles seen on exam [...] changing or worrisome lesions Seborrheic keratosis 394 270787 L82.1 - Benign overgrowth s of skin - Hereditary Senile angioma 1705096 I 78.1 - Benign blood vessel growths - Hereditary Solar lentigo 50335231 L 81.4 - Benign brown spots - Sun-induce d History of malignant neoplasm of skin 869766585 Z85.828 - SCC - 15+ years ago- 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 Gilbert Roy - [facility] Hem/Onc- Pt is receiving radiation at in [place] - Pt is receiving chemothera py in [place] Encouraged to continue following closely with hematology and oncology. Medical records reviewed. Health Concerns Section Related Observation LastModified by Organization Detai ls LastModified Time None Recorded Concern Status LastModified by Organization Details LastModified Time None Recorded Payers Encounter Date Sequence Insurance Name Policy Number Policy Loera Covered Member ID Loera Member ID Guarantor Name 08/02/2025 1 [facility] (MEDICARE REPLACEMENT/A DVANTAGE - PPO) [id number] Graciela Owens [id number] Graciela Owens Notes Date Note Type Note Provider Name and Address Organization Details Recorded Time 08/02/2025 text/html Patient requests a FBSE. 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
--- OUTSIDE RECORDS SUMMARY | 2025-09-19 09:57 | XMS_ITS | Data Portability ---
Author Organization MAIRA PIPER Cooper [facility] Address [address] [facility] [facility] [place] [address] Care Team Providers Care Hearings Reporter Name Role Phone DEE DEE SEARS Referring Provider [phone] BILL JOHNSON Referring Provider Assessment Encounter Date [...] By Organization Details Last Modified Time 08/02/2025 [id number] Continue FBSE [email or web address] Not available 2025 14:24:30 Reason for Referral None Reported. Results Created Date Observation Date Name Description Value Unit Range Abnormal Flag Note LastModifiedBy Organization Detail LastModifiedTime 06/02/20 17 06/02/2017 XR, lumbo sacra l spine , 2 or [address], [facility] Sarai lopez Name: ELKE lopez : 1939 [...] Senior MD on 06/02/20 17 2:51 PM [facility] Radiology [facility] [address] [place] [address], [address], 06/02/2017 22:42:59 08/14/20 17 08/14/2017 XR, lumbo sacra l spine , 2 or 3 [facility] [address] [place] [address] Sarai lopez Name: ELKE lopez : 1939 Sarai lpoez 3 Orderi ng Provid er: RADHA GUNTER [...] Allison Senior MD on 2016 2:46 PM [facility]iology [address], [address], 08/18/2017 21:07:10 Result Notes Documentation Provider Name and Address Organization Details Recorded Time Xr, Lumbosacral Spine, 2 Or 3 View : [place] [address] Patient Name: ELKE BEDOYA Patient : 1940 [...] By: Shorty Senior MD IV GUNTER MD [address] [place] [address], [phone], [facility] 06/02/2017 15:50:57 Xr, Lumbosacral Spine, 2 Or 3 View : [place] [address] Patient Name: ELKE BEDOYA Patient : 1940 [...] Shorty Senior MD IV GUNTER MD [address] [place], [address], [facility] 08/18/2017 10:56:19 Problems Name Problem SNOMED Code Status Onset Date Resolution Date Notes Provider Name and Address Organization Details Recorded Time History of malignant neoplasm of skin 572953347 Active 025 Farideh Canelaelissa [facility] 09:24:05 Problem Notes None recorded. Procedures Surgical History Date Name Laterality Status Provider Name and Address Organization Details Recorded Time 08/14/20 17 Interpretation completed OJ MTZ PA-C [address] [place], [address], [facility] 08/14/2017 11:05:24 Remove tonsils and adenoids completed [facility] 04/14/2017 08:13:42 Other completed [facility] 04/14/2017 08:15:01 Xcapsl ctrc rmvl cplx wo ecp completed [facility] 04/14/2017 08:15:10 lumpectomy of breast completed Janice Iván [facility] 03/11/2023 15:32:52 Back Surgery completed Janice Iván [facility] 03/11/2023 15:33:18 Imaging Results None recorded. Procedure [...] Updated DateTime 3 156.21 cm 23.3 kg/m2 65037.1 5 g 99 % 70 /min 138/74 mm[Hg] Janice RAO [facility] 15:34:47 Date Recorded Body height Body mass index (BMI) Body weight Systolic And Diastolic Provider Name and Address Organization Details Last Updated DateTime 06/02/2017 154.94 cm 23.8 kg/m2 90848.64 g 120/78 mm[Hg] Abena Lorenzo [facility] 06/02/2017 10:20:53 Social History Question Answer Notes LastModified by Organizat ion Details LastModified Time Tobacco Smoking Status Never Smoker Abena Lorenzo [facility] 04/14/2017 08:13:34 Sunscreen Use? Yes [email or web address] Informatio n not available 08/02/2025 Tanning Bed Use No [email or web address] Informati on not available 08/02/2025 Are You Or Trying To Become ? No Information not available 08/02/2025 Are You On Control? No [email or web address] Information not available 08/02/2025 Are You ? No [email or web address] Information not available 08/02/2025 What Was The Date Of Your Most Recent Tobacco Screening? 08/02/2025 [email or web address] Information not available 08/02/2025 What Is Your [...] influenza, unspecified formulation 08/07/2018 completed Danika Zepeda [facility] 08/10/2018 08:33:02 Past Encounters Encounter ID Performer Location Encounter Start Date Encounter Closed Date Diagnosis/Indication Diagnosis SNOMED-CT Code Diagnosis ICD10 Code Diagnosis IMO Codes Diagnosis Note [id number] SANJIV GUNTER MD [facility] [address] [place] [address] 04/14/2017 08:00:56 04/14/2017 13:55:13 Spondylolisthesis, grade 1 66542862 M43.10 [id number] SANJIV GUNTER MD [facility] [address] [place] [address] 05/09/2017 12:56:13 05/09/2017 13:29:18 [id number] SANJIV GUNTER MD [facility] [address] [place] [address] 06/02/2017 10:12:07 06/06/2017 15:33:28 Spondylolisthesis 523255035 M43.10 [id number] OJ MTZ PA-C [facility] [address] [place] [address] 08/14/2017 10:02:13 08/14/2017 11:10:09 Postoperative care 263041258 Z48.89 Ms. Bedoya is doing great nearly [...] sxs. She is happy with this plan. [id number] PHIL FLYNN MD [facility] [address] [place] [address] 03/11/2023 15:09:01 03/12/2023 13:37:30 Essential tremor 842056267 G25.0 [id number] MILTON MAZA PA-C [place] [address] [place] [address] 08/02/2025 08:24:21 08/02/2025 09:40:34 Multiple benign melanocytic nevi 671916845 D22.5 - Benign moles seen on exam [...] changing or worrisome lesions Seborrheic keratosis 394 760929 L82.1 - Benign overgrowth s of skin - Hereditary Senile angioma 6856321 I 78.1 - Benign blood vessel growths - Hereditary Solar lentigo 42167900 L 81.4 - Benign brown spots - Sun-induce d History of malignant neoplasm of skin 870285924 Z85.828 - 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 Gilbert Roy - [facility] Hem/Onc- Pt is receiving radiation at in [place] - Pt is receiving chemothera py in [place] Encouraged to continue following closely with hematology and oncology. Medical records reviewed. Health Concerns Section Related Observation LastModified by Organization Detai ls LastModified Time None Recorded Concern Status LastModified by Organization Details LastModified Time None Recorded Advance Directives Directive None Recorded Payers Insurance Date Sequence Insurance Name Policy Number Policy Loera Covered Member ID Loera Member ID Guarantor Name 08/06/2025 1 [facility] (MEDICARE REPLACEMENT/A DVANTAGE - PPO) [id number] Elke Bedoya [id number] Elke Bedoya Notes Date Note Type Note [...] her brace as instructed. SANJIV GUNTER MD [address] [place] [address], [phone], [facility] 06/02/2017 10:44:54 08/14/2017 text/html ROS as noted in the HPI Ms. Bedoya presents for post op visit. She is s/p L4-5 PLIF on 04/24/[address] Gunter. Reports continued resolution of her prior leg sxs. Post-op back has resolved as well. She has resumed her normal daily activities, including walking 4-5 miles daily, without issue. OJ MTZ PA-C [address] [place] [address], [address], [facility] 08/14/2017 11:08:20 03/11/2023 text/html ROS as noted [...] recently placed her 1 sister in a skilled nursing and has been through a lot of stress regarding this, she denies any episodes of actual memory loss but does complain of difficulty sometimes finding names of people quickly. PHIL FLYNN MD [address] [place] [address], [phone], [facility] 03/11/2023 16:22:42 08/02/2025 text/html Patient requests a FBSE. 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
[2025-09-19 10:25] LABS: Hematocrit 38.2 % (37.0-47.0); Hemoglobin 12.5 g/dL (12.2-16.2); Immature Granulocytes % 0.6 %; Mean Corpuscular HGB Conc 32.7 g/dL (31.8-35.4); Mean Corpuscular Hemoglobin 33.2 pg (27.0-31.2); Mean Corpuscular Volume 101.3 fl (81-99); Nucleated Red Blood Cells % 0 %; Platelet Count 135 K/mm3 (142-424); Red Blood Count 3.77 M/mm3 (4.20-5.40); Red Cell Distribution Width-SD 68.0 fL; White Blood Count 5.2 K/mm3 (4.8-10.8)
--- NOTE | 2025-09-19 10:45 | CT_ITS ---
FINAL REPORT TECHNIQUE: Thin section axial images were obtained from the thoracic inlet through the upper abdomen after intravenous contrast injection. Reconstruction images were obtained from the axial data. Exam was performed using dose reduction technique. CLINICAL HISTORY: Thymic Cancer COMPARISON: 03/24/2025 FINDINGS: There are small bilateral thyroid nodules. No axillary lymphadenopathy. There has been interval decrease in size of the previously seen anterior mediastinal soft tissue mass now measuring 24 x 20 mm and was 57 x 39 mm on remeasurement. There is no hilar lymphadenopathy. There is no pleural effusion. The previously seen large pericardial effusion has resolved. There is a subpleural 3 mm right upper lobe nodule on series 2, image 32 which is unchanged. There has been interval resolution of the previously seen right lower lobe pneumonia. Small nodule along the right minor fissure is favored to represent an intra fissural lymph node. The lungs are otherwise clear. Limited evaluation of the upper abdomen shows a cyst in the left lobe of the liver. Hypervascular lesion in the dome of the right lobe of the liver measuring 9 mm on image 64 of series 2 is indeterminate. Remaining upper abdomen without acute abnormality. No acute osseous abnormality. IMPRESSION: Interval decrease in size anterior mediastinal mass consistent with improved disease burden. Resolved right lower lobe pneumonia and resolved pericardial effusion. 3 mm right lower lobe subpleural nodule stable. Small hypervascular lesion dome of the right lobe of the liver seen on prior exam could be flash filling hemangioma. Hypervascular metastasis not excluded on this exam. Reviewed, Interpreted and Dictated by Elizabeth Hall MD Transcribed by Ashlyn Mariscal Authenticated and [facility]
[2025-09-19 11:17] LABS: Alanine Aminotransferase 27 U/L (12-78); Albumin Level 4.8 g/dl (3.5-5.0); Albumin/Globulin Ratio 1.7 (1.1-1.8); Alkaline Phosphatase 70 U/L (38-126); Anion Gap 11.4 mEq/L (5-15); Aspartate Amino Transferase 38 U/L (14-36); Bilirubin,Total 1.5 mg/dl (0.2-1.3); Blood Urea Nitrogen 20 mg/dl (7-17); Calcium 9.1 mg/dl (8.4-10.2); Carbon Dioxide 26 mmol/L (22.0-30.0); Chloride 104 mmol/L (98-107); Creatinine,Serum 0.60 mg/dl (0.52-1.04); Estimated Glomerular Filt Rate 95 ml/min (>60); GFR (African American) 116 ML/MIN (>60); Globulin 2.8 g/dL (1.3-3.2); Glucose 91 mg/dl (74-100); Potassium 4.4 mmoL/L (3.5-5.1); Sodium 137 mmol/L (136-145); Total Protein,Serum 7.6 g/dl (6.3-8.2)
[2025-09-19] MEDS: SODIUM CHLORIDE 0.9% 10ML SYR (RAD ONLY) 10 ML IV (11:44)
[2025-09-19] MEDS: IOPAMIDOL-370 (76%);100ML BOTTLE 75 ML IV (11:44)
== END 2025-09-19 23:59 | disposition home or self-care (01) ==
PROVIDERS: PCP Family Medicine; Visit Provider Internal Medicine Medical Oncology
DX: C37 Malignant neoplasm of thymus (principal); K76.9 Liver disease, unspecified; R91.1 Solitary pulmonary nodule
CPT/HCPCS: 36415; 71260; 80053; 85025; Q9967